=== PATIENT | male | born 1970 | race Caucasian/White ===

== ENCOUNTER 2022-11-25 01:36 | Inpatient (IN) | payer MEDICARE, MEDICAID, SELFPAY ==
[2022-11-25] VITALS (12 sets, daily range): BP systolic 97–168; BP diastolic 60–92; PULSE 81–133; RESP 16–52; TEMP 36.4–40.4; O2SAT 92–99; BMI 33.4; BMI 34.9
--- NOTE | ~2022-11-25 | CT_ITS ---
EXAMINATION: CT ABDOMEN AND PELVIS WITHOUT CONTRAST CLINICAL INFORMATION: Stool from scrotum. Evaluate for fistula. COMPARISON: 10/16/2021 TECHNIQUE: Multidetector volumetric imaging was performed from the superior aspect of the liver through the pubic symphysis. Sagittal and coronal reformatted images were obtained on the technologist's workstation. This CT examination was performed using dose optimization techniques as appropriate, variously including the following: *Automated exposure control *Adjustment of mA and/or kV according to patient size (this includes techniques or standardized protocols for targeted exams where dose is matched to indication/reason for exam; i.e. extremities or head) *Use of iterative reconstruction technique DLP: 1507 mGy-cm FINDINGS: LUNG BASES: Trace bilateral pleural effusions. LIVER, GALLBLADDER, AND BILIARY TREE: The noncontrast liver is decreased in attenuation. No biliary ductal dilatation is present. The gallbladder is unremarkable with no evidence of radiopaque gallstones, gallbladder wall thickening, or obvious pericholecystic inflammatory changes. PANCREAS: No ductal dilatation. SPLEEN: Not enlarged. ADRENAL GLANDS: Stable 1.3 cm right adrenal nodule. KIDNEYS AND URETERS: The kidneys are symmetric in size. Mild right hydronephrosis. No renal calculus. BLADDER: Decompressed with suprapubic Coley catheter in place. GASTROINTESTINAL TRACT: Small and large bowel loops are of normal caliber. No small bowel obstruction. The appendix measures up to 9 mm however the appendix contains gas and contrast. There are inflammatory changes in the right paracolic gutter extending into the right hemipelvis. ABDOMINAL WALL: Left inguinal hernia containing fat. LYMPH NODES: No bulky abdominal or pelvic lymphadenopathy. VASCULAR: Normal caliber abdominal aorta. PELVIC VISCERA: The right testis appears abnormal and configuration. There is right hydrocele. Right scrotal lipoma measures 2.2 x 1.7 cm. Prostate gland is not enlarged. OSSEOUS STRUCTURES: No destructive bone lesions. Asymmetric fatty atrophy of the left psoas muscle. CT/CT abdomen pelvis wo IV con IMPRESSION: Abnormal stranding in the right paracolic gutter extending into the right hemipelvis. Mild right hydronephrosis may be on a reactive basis. Prominent appendix measuring up to 9 mm without periappendiceal stranding. Abnormal configuration of the right testis with right hydrocele. No definite fistulous communication is seen. Consider correlation with scrotal ultrasound. Hepatic steatosis.
--- NOTE | ~2022-11-25 | CT_ITS ---
EXAMINATION: CT CHEST WITHOUT CONTRAST CLINICAL INFORMATION: Sepsis. COMPARISON: 07/02/2022 TECHNIQUE: Multidetector volumetric CT imaging of the chest was done. Axial MIP volume rendering provided. Sagittal and coronal reformatted images were obtained. This CT examination was performed using dose optimization techniques as appropriate, variously including the following: *Automated exposure control *Adjustment of mA and/or kV according to patient size (this includes techniques or standardized protocols for targeted exams where dose is matched to indication/reason for exam; i.e. extremities or head) *Use of iterative reconstruction technique DLP: 570 mGy-cm FINDINGS: LUNGS: Motion artifact technically degrades image quality. 7 mm nodule right upper lobe on image 188 of series 6. 3 mm nodule right lower lobe on image 250 of series 6. Bibasilar atelectasis. No airspace consolidation. Left hemidiaphragm is elevated. Central airways are patent. MEDIASTINUM: Imaged thyroid gland is heterogeneous. No bulky axillary, hilar or mediastinal lymphadenopathy. Great vessels are of normal caliber. Heart size is normal. No pericardial effusion. CORONARY ARTERY CALCIFICATION: None visualized on this study. PLEURA: No pleural effusion. UPPER ABDOMEN: Marked hepatic steatosis. Cholelithiasis. No adrenal mass. OSSEOUS STRUCTURES: No destructive bone lesion. CT/CT chest wo IV con IMPRESSION: No airspace consolidation. 7 mm right upper lobe pulmonary nodule. Follow-up chest CT in 3-6 months is advised. Hepatic steatosis. Cholelithiasis.
--- NOTE | ~2022-11-25 | US_ITS ---
EXAMINATION: US SCROTUM CLINICAL INFORMATION: Evaluate for fistula. History of stool from scrotum. COMPARISON: None available. TECHNIQUE: A sonogram of the scrotum was performed assessing david-scale appearance and color Doppler flow. Spectral Doppler analysis of the arterial and venous flow were performed in the testes bilaterally. FINDINGS: RIGHT: The right testicle is 2.9 x 2.2 x 2.9 cm. No microlithiasis or mass. Color Doppler images with spectral waveforms show presence of normal arterial and venous flow within the testicle. 0.4 cm cyst is present within the epididymal head. Obcgj-en-crzrldxx hydrocele. No varicocele. There is mild edema of scrotal tissues. No focal extratesticular fluid collection. There is no evidence of a fistula tract within the visualized tissues. LEFT: The left testicle measures 3.5 x 2.1 x 2.3 cm. A focus of microlithiasis is noted. No testicular mass. Color Doppler images with spectral waveforms show presence of normal arterial and venous flow within the testicle. 0.8 cm cyst noted within the epididymal tail. No left-sided hydrocele or varicocele. There is mild edema of the scrotal tissues without focal fluid collection. US/US scrotum IMPRESSION: * No evidence of scrotal abscess or fistula tract. * [id number] right hydrocele is present. * Bilateral epididymal head cysts are noted.
--- NOTE | ~2022-11-25 | XR_ITS ---
EXAMINATION: XR CHEST CLINICAL INFORMATION: Fever COMPARISON: None available. TECHNIQUE: Frontal view of the chest was obtained. FINDINGS: The lungs are hyper expanded with patchy opacity left lung base likely infiltrate/atelectasis/scarring. No additional parenchymal abnormality seen There is mild elevated left hemidiaphragm. Heart size and pulmonary vascularity is normal. No gross bony abnormality seen. XR/XR chest 1V IMPRESSION: 1. Patchy opacity left lung base likely infiltrate/atelectasis/scarring. 2. Mild elevated left hemidiaphragm.
[2022-11-25 02:32] LABS: Hemoglobin 13.8 g/dl (14.0-18.0); Mean Corpuscular HGB Conc 32.1 g/dl (31.0-36.0); Mean Corpuscular Hemoglobin 26.8 pg (27.0-33.0); Mean Corpuscular Volume 83.7 fL (80.0-98.0); Mean Platelet Volume 9.1 fL (9.4-12.4); Platelet Count 408 X10*3/uL (160-400); Red Blood Count 5.14 X10*6/uL (4.60-5.80); Red Cell Distribution Width 15.2 % (11.0-16.0); White Blood Count 16.5 X10*3/uL (4.8-10.8)
[2022-11-25 02:39] LABS: COVID-19 Test Negative (Negative); IDNOW Serial# BCCEAD1C
[2022-11-25 02:46] LABS: Lactic Acid 3.1 mmol/L (0.5-2.0)
[2022-11-25 02:47] LABS: Alanine Aminotransferase 29 U/L (0-40); Albumin Level 4.2 g/dL (3.5-5.0); Alkaline Phosphatase 143 U/L (39-117); Anion Gap 15 (12-20); Aspartate Amino Transferase 29 U/L (5-37); Bilirubin Total 0.4 mg/dL (0.0-1.0); Blood Urea Nitrogen 19 mg/dL (9-16); Calcium 10.8 mg/dL (8.4-10.2); Carbon Dioxide 30 mmol/L (22-29); Chloride 102 mmol/L (96-108); Creatinine Clr Calc Pharmacy 45.2; Estimated Glomerular Filt Rate 41; Glucose Fasting 139 mg/dL (60-99); Potassium 3.8 mmol/L (3.3-5.1); Sodium 143 mmol/L (135-145)
[2022-11-25 02:51] LABS: Neutrophils Percent Manual 76 % (45-73)
[2022-11-25 02:57] LABS: Band Neutrophils Percent 19 % (3-5); Lymphocytes Absolute Manual 0.3 X10*3/uL (1.2-4.9); Lymphocytes Percent Manual 2 % (20-40); Monocytes Absolute Manual 0.5 X10*3/uL (0.1-1.2); Monocytes Percent Manual 3 % (2-11); Neutrophils Absolute Manual 15.7 X10*3/uL (2.0-8.3); Platelet Estimate NORMAL (NORMAL); Platelet Morphology Comment NORMAL; RBC Morphology NORMAL
[2022-11-25] MEDS: 0.9 % Sodium Chloride 1,000 ML 999 ML IV (03:00)
[2022-11-25] MEDS: cefTRIAXone sodium 1 GM in 0.9 % Sodium Chloride 50 ML IV (03:00)
[2022-11-25 03:10] LABS: Appearance Urine Cloudy; Color Urine Yellow; Glucose Urine UA Negative (Negative); Leukocyte Esterase Urine Moderate (2+) (Negative); Nitrite Urine Positive (Negative); PH >= 9.0 (5.0-9.0); Specific Gravity - Urine 1.015 (1.005-1.025); UMIC TRIGGER UACC YES; Urine Blood Large (3+) (Negative); Urine Ketones Negative (Negative); Urine Protein 300 (3+) mg/dL (Neg-Trace)
[2022-11-25 03:16] LABS: Bacteria Urine 4+ (None Seen); RBC Urine >20 /HPF (0-2); Squamous Epithelial Cell Urine 0-2 /HPF (0-2); UACC Culture Trigger YES; WBC Urine >50 /HPF (0-5)
--- NOTE | 2022-11-25 03:16 | PC.NURSE ---
Pt BIBA from [facility], staff reports Pt febrile, gave tylenol [employer]. Pt AO to self, on 2 L at baseline via NC, SpO2: 95% RR:38, lung sounds diminished in bases, Pt denies SOB/CP, Rectal temp taken, pt has a suprapubic cath that is red at insertion site, bag has been changed, it is draining cloudy sediment urine, sample collected and sent to lab. IV line established blood drawn and sent to lab. Pt repositioned, skin is hot, dry and intact.
[2022-11-25 05:11] LABS: Reflex Lactate? Lactic Acid Added
--- NOTE | 2022-11-25 06:55 | ED.GENADULT ---
HPI - General Adult General Chief complaint: Fever Stated complaint: Fever and SOB Time Seen by Provider: 11/25/22 06:42 Source: patient, EMS and old records reviewed Mode of arrival: EMS Limitations: no limitations History of Present Illness HPI narrative: 52-year-old male resident [facility], patient is bedbound, came in for evaluation of fever, was given Tylenol at at the [facility] in the ED had a fever of 104.8 patient with suprapubic catheter. No headache, no neck pain or stiffness, no photophobia, no chest pain, no coughing, no shortness of breath, no abdominal pain, no nausea, no vomiting, no diarrhea. Related Data Home Medications Medication Instructions Recorded Confirmed acetaminophen 325 mg tablet 650 mg PO Q6H PRN Pain 11/25/22 11/25/22 apixaban 5 mg tablet (Eliquis) 5 mg PO BID 11/25/22 11/25/22 ascorbic acid (vitamin C) 500 mg 500 mg PO DAILY 11/25/22 11/25/22 tablet citalopram 40 mg tablet 40 mg PO DAILY 11/25/22 11/25/22 docusate sodium 100 mg capsule 100 mg PO BID 11/25/22 11/25/22 (Colace) ferrous gluconate 324 mg (37.5 mg 324 mg PO DAILY 11/25/22 11/25/22 iron) tablet ipratropium 0.5 mg-albuterol 3 mg 3 ml inhalation Q6H PRN Wheezing 11/25/22 11/25/22 (2.5 mg base)/3 mL nebulization soln lamotrigine 100 mg tablet 100 mg PO BID 11/25/22 11/25/22 (Lamictal) metformin 500 mg tablet 500 mg PO BID 11/25/22 11/25/22 miconazole nitrate 2 % topical 1 appl topical DAILY PRN Rash 11/25/22 11/25/22 powder omega 3-vgv-zaq-fish oil 1,000 mg 1 cap PO BID 11/25/22 11/25/22 (120 mg-180 mg) capsule (Fish Oil) polyethylene glycol 3350 17 gram 17 g PO DAILY 11/25/22 11/25/22 oral powder packet (Miralax) potassium chloride 10 mEq 10 meq PO QID 11/25/22 11/25/22 tablet,extended release quetiapine 100 mg tablet 100 mg PO BID 11/25/22 11/25/22 sennosides 8.6 mg tablet (senna) 8.6 mg PO DAILY PRN Constipation 11/25/22 11/25/22 simvastatin 10 mg tablet (Zocor) 10 mg PO BEDTIME 11/25/22 11/25/22 sodium phosphates 19 gram-7 118 ml [place] DAILY PRN Constipation 11/25/22 11/25/22 gram/118 mL enema (Fleet Enema) triamterene 37.5 1 tab PO DAILY 11/25/22 11/25/22 mg-hydrochlorothiazide 25 mg tablet umeclidinium 62.5 mcg-vilanterol 1 inh inhalation DAILY 11/25/22 11/25/22 25 mcg/actuation powdr for inhalation (Anoro Ellipta) vitamin B complex 1 tab PO DAILY 11/25/22 11/25/22 Allergies Allergy/AdvReac Type Severity Reaction Status Date / Time vincristine Allergy Unknown Verified 11/25/22 03:25 Review of Systems Review of Systems: All other systems are reviewed and are negative Constitutional: Reports as per HPI and Reports no additional constitutional complaints Eyes: Reports as per HPI and Reports no additional eye complaints Reports system reviewed and no additional complaints, except as documented Cardiovascular: Reports as per HPI and Reports no additional cardiovascular complaints Respiratory: Reports as per HPI and Reports no additional respiratory complaints Gastrointestinal: Reports as per HPI and Reports no additional gastrointestinal complaints Genitourinary: Reports no additional female genitourinary complaints Musculoskeletal: Reports no additional musculoskeletal complaints Skin/Breast: Reports system reviewed and no additional complaints, except as docu Psychiatric: Reports no additional psychiatric complaints Endocrine: Reports no additional endocrine complaints Hematologic/Lymphatic: Reports no additional hematologic/lymphatic complaints Allergic/Immunologic: Reports no additional allergic/immunologic complaints Reports system reviewed and no additional complaints, except as documented and Reports Abnormal speech present [facility] Social History Social History Alcohol intake: unknown Advance Directives: No Advance Directives Information Provided: Yes Physical Exam ED Vital Signs: Vital Signs - 24 hr 11/25/22 01:58 11/25/22 03:36 11/25/22 05:30 Temperature 104.8 F H 100.8 F H 101.3 F H Pulse Rate 133 H 116 H 109 H Respiratory Rate 52 H 30 H 36 H Blood Pressure 163/92 H 144/86 H 106/63 Pulse Oximetry 93 96 97 Oxygen Delivery Method Nasal Cannula Nasal Cannula Nasal Cannula Oxygen Flow Rate 2 3 11/25/22 05:35 11/25/22 07:32 Temperature 99.9 F Pulse Rate 107 H 98 Respiratory Rate 36 H 30 H Blood Pressure 105/69 107/60 Pulse Oximetry 96 96 Oxygen Delivery Method Nasal Cannula Room Air Oxygen Flow Rate 3 BMI result Body Mass Index 33.4 Vital signs have been reviewed as appeared to be correct. Blood pressure normal. Heart rate normal. Respiration rate normal. Temperature elevated. Oxygen saturation normal. Appearance: Alert. Oriented X3. No acute distress. Head: Normal external exam. Normocephalic. Atraumatic. No Benavides signs noted. No raccoon eyes noted Eyes: PERRLA. EOMI. Conjunctiva and sclera normal. Eyelids normal. ENT: TM's Normal. Pharynx normal. Uvula midline. Moist mucous membranes. No trismus noted. No drooling noted. No muffled voice noted. Neck: Normal inspection. Neck supple. FROM. No adenopathy. Thyroid Normal. No meningeal signs. No neck mass noted. CVS: Normal heart rate and rhythm. Heart sound normal. No murmurs noted. Pulses normal throughout. Respiratory: No respiratory distress. Painless inspiration. Breath sounds normal. No wheezes/rales/rhonchi noted. Chest nontender. No accessory muscle usage noted or decreased air movement noted. Abdomen: Soft and nontender. Bowel sounds normal in all 4 quadrants. No distention noted. No organomegaly noted. No visible injury noted. Back: No CVA tenderness. Full range of motion noted. Skin: Skin warm and dry. Normal skin color. Normal skin turgor. No rashes/lesions/lacerations noted. Extremities: No lower extremity edema. Extremities exhibit normal range of motion. Extremities nontender. Neuro: Oriented X 3. Cranial nerve exam: II-XII are grossly intact No motor deficit. No sensory deficit. Reflexes normal. Course Course Course Narrative: 52-year-old male with UTI, pneumonia, and severe sepsis. IV fluid, ceftriaxone IV. Medications Administered Generic Name Dose Route Start Last Admin Trade Name Freq PRN Reason Stop Dose Admin Lactated Ringer's 1,000 mls @ 100 mls/hr 11/25/22 10:30 11/25/22 12:01 Lr IVCONT 100 mls/hr .Q10H KARLENE Administration Lactated Ringer's 1,000 mls @ 999 mls/hr 11/25/22 11:00 11/25/22 12:01 Lr IV 11/25/22 12:00 Infused .Q1H1M KARLENE Infusion Discontinued Medications Generic Name Dose Route Start Last Admin Trade Name Freq PRN Reason Stop Dose Admin Sodium Chloride 1,000 mls @ 999 mls/hr 11/25/22 02:46 11/25/22 05:30 Ns IV 11/25/22 03:46 Infused .Q1H1M ONE Infusion Ceftriaxone Sodium 1 gm/ 50 mls @ 100 mls/hr 11/25/22 02:46 11/25/22 03:30 Sodium Chloride IV 11/25/22 03:15 Infused ONCE ONE Infusion Piperacillin Sod/Tazobactam 50 mls @ 100 mls/hr 11/25/22 07:09 11/25/22 09:04 Sod 3.375 gm/ Sodium Chloride IV 11/25/22 07:38 Infused ONCE ONE Infusion Piperacillin Sod/Tazobactam 50 mls @ 100 mls/hr 11/25/22 10:30 11/25/22 10:57 Sod 3.375 gm/ Sodium Chloride IV Not Given Q6H KARLENE Medical Decision Making Differential Diagnosis Differential Diagnoses: The differential diagnosis associated with the presentation includes (Pneumonia, UTI, severe sepsis, electrolyte abnormalities, severe anemia.) Admission/Observation Consideration of admission/observation: Escalation of care including admission/observation considered Consult Healthcare Provider Management of the patient was discussed with: Hospitalist (Dr. Humphries) Lab Data MDM Lab Attestation statement: I reviewed the patient's lab results. 11/25/22 02:23 11/25/22 02:23 Labs: Lab Results 11/25/22 11/25/22 11/25/22 Range/Units 02:19 02:23 03:04 WBC 16.5 H (4.8-10.8) X10*3/uL RBC 5.14 (4.60-5.80) X10*6/uL Hgb 13.8 L (14.0-18.0) g/dl Hct 43.0 (42.0-52.0) % MCV 83.7 (80.0-98.0) fL MCH 26.8 L (27.0-33.0) pg MCHC 32.1 (31.0-36.0) g/dl RDW 15.2 (11.0-16.0) % Plt Count 408 H (160-400) X10*3/uL MPV 9.1 L (9.4-12.4) fL Immature Gran % (Auto) Cancelled Neut % (Auto) Cancelled Lymph % (Auto) Cancelled [place] % (Auto) Cancelled Eos % (Auto) Cancelled Baso % (Auto) Cancelled Lymph # (Auto) Cancelled [place] # (Auto) Cancelled Eos # (Auto) Cancelled Baso # (Auto) Cancelled Abs Immat Gran (auto) Cancelled Absolute Neuts (auto) Cancelled Absolute Nucleated RBC 0.000 (0.0-0.012) X10*3/uL Nucleated RBC % (auto) 0.0 (0.0-0.2) /100WBC Neutrophils % (Manual) 76 H (45-73) % Band Neutrophils % 19 H (3-5) % Lymphocytes % (Manual) 2 L (20-40) % Monocytes % (Manual) 3 (2-11) % Abs Neuts (Manual) 15.7 H (2.0-8.3) X10*3/uL Lymphocytes # (Manual) 0.3 L (1.2-4.9) X10*3/uL Monocytes # (Manual) 0.5 (0.1-1.2) X10*3/uL Platelet Estimate NORMAL (NORMAL) Plt Morphology Comment NORMAL RBC Morphology NORMAL Sodium 143 (135-145) mmol/L Potassium 3.8 (3.3-5.1) mmol/L Chloride 102 (96-108) mmol/L Carbon Dioxide 30 H (22-29) mmol/L Anion Gap 15 (12-20) BUN 19 H (9-16) mg/dL Creatinine 1.74 H (0.5-1.4) mg/dL Estim Creat Clear Calc 45.2 Estimated GFR 41 Fasting Glucose 139 H (60-99) mg/dL Lactic Acid 3.1 H* (0.5-2.0) mmol/L Lactic Acid F/U @ 2Hr (0.5-2.0) mmol/L Calcium 10.8 H (8.4-10.2) mg/dL Magnesium 2.0 (1.6-2.6) mg/dL Total Bilirubin 0.4 (0.0-1.0) mg/dL AST 29 (5-37) U/L ALT 29 (0-40) U/L Alkaline Phosphatase 143 H (39-117) U/L Total Protein 8.0 (6.5-8.0) g/dL Albumin 4.2 (3.5-5.0) g/dL Urine Color Yellow Urine Appearance Cloudy Urine pH >= 9.0 (5.0-9.0) Ur Specific [place] 1.015 (1.005-1.025) Urine Protein 300 (3+) H (Neg-Trace) mg/dL Urine Glucose (UA) Negative (Negative) mg/dL Urine Ketones Negative (Negative) mg/dL Urine Blood Large (3+) H (Negative) Urine Nitrite Positive H (Negative) Ur Leukocyte Esterase Moderate (2+) H (Negative) Urine RBC >20 H (0-2) /HPF Urine WBC >50 H (0-5) /HPF Ur Squamous Epith Cells 0-2 (0-2) /HPF Urine Bacteria 4+ (None Seen) Hyaline Casts 3-5 (0-2) /LPF COVID-19 (MELISSA) Negative (Negative) COVID-19 Clin Com See Note 11/25/22 11/25/22 Range/Units 05:34 09:44 WBC (4.8-10.8) X10*3/uL RBC (4.60-5.80) X10*6/uL Hgb (14.0-18.0) g/dl Hct (42.0-52.0) % MCV (80.0-98.0) fL MCH (27.0-33.0) pg MCHC (31.0-36.0) g/dl RDW (11.0-16.0) % Plt Count (160-400) X10*3/uL MPV (9.4-12.4) fL Immature Gran % (Auto) Neut % (Auto) Lymph % (Auto) [place] % (Auto) Eos % (Auto) Baso % (Auto) Lymph # (Auto) [place] # (Auto) Eos # (Auto) Baso # (Auto) Abs Immat Gran (auto) Absolute Neuts (auto) Absolute Nucleated RBC (0.0-0.012) X10*3/uL Nucleated RBC % (auto) (0.0-0.2) /100WBC Neutrophils % (Manual) (45-73) % Band Neutrophils % (3-5) % Lymphocytes % (Manual) (20-40) % Monocytes % (Manual) (2-11) % Abs Neuts (Manual) (2.0-8.3) X10*3/uL Lymphocytes # (Manual) (1.2-4.9) X10*3/uL Monocytes # (Manual) (0.1-1.2) X10*3/uL Platelet Estimate (NORMAL) Plt Morphology Comment RBC Morphology Sodium (135-145) mmol/L Potassium (3.3-5.1) mmol/L Chloride (96-108) mmol/L Carbon Dioxide (22-29) mmol/L Anion Gap (12-20) BUN (9-16) mg/dL Creatinine (0.5-1.4) mg/dL Estim Creat Clear Calc Estimated GFR Fasting Glucose (60-99) mg/dL Lactic Acid 2.9 H* (0.5-2.0) mmol/L Lactic Acid F/U @ 2Hr 2.2 H* (0.5-2.0) mmol/L Calcium (8.4-10.2) mg/dL Magnesium (1.6-2.6) mg/dL Total Bilirubin (0.0-1.0) mg/dL AST (5-37) U/L ALT (0-40) U/L Alkaline Phosphatase (39-117) U/L Total Protein (6.5-8.0) g/dL Albumin (3.5-5.0) g/dL Urine Color Urine Appearance Urine pH (5.0-9.0) Ur Specific [place] (1.005-1.025) Urine Protein (Neg-Trace) mg/dL Urine Glucose (UA) (Negative) mg/dL Urine Ketones (Negative) mg/dL Urine Blood (Negative) Urine Nitrite (Negative) Ur Leukocyte Esterase (Negative) Urine RBC (0-2) /HPF Urine WBC (0-5) /HPF Ur Squamous Epith Cells (0-2) /HPF Urine Bacteria (None Seen) Hyaline Casts (0-2) /LPF COVID-19 (MELISSA) (Negative) COVID-19 Clin Com Independent Interpretation I performed an independent interpretation of an: Plain X-Ray (Chest:1. Patchy opacity left lung base likely infiltrate/atelectasis/scarring. 2. Mild elevated left hemidiaphragm. ) Radiology Impression Discussion of test interpretation with radiology: I have reviewed the radiologist's reading. (1. Patchy opacity left lung base likely infiltrate/atelectasis/scarring. 2. Mild elevated left hemidiaphragm. ) Discharge Plan Discharge Clinical Impression: Sepsis, Acute UTI, Pneumonia Patient Disposition: Admitted As Inpatient
[2022-11-25] MEDS: Piperacillin Sodium/Tazobactam 3.375 GM in 0.9 % Sodium Chloride 50 ML IV (07:32)
[2022-11-25 07:40] LABS: Reflex Lactate? Lactic Acid Added
--- NOTE | 2022-11-25 07:46 | ECG_ITS ---
Test Reason : SOB Blood Pressure : / mmHG Vent. Rate : 106 BPM Atrial Rate : 106 BPM P-R Int : 128 ms QRS Dur : 082 ms QT Int : 480 ms P-R-T Axes : 000 080 067 degrees QTc Int : 637 ms Sinus tachycardia Prolonged QT Abnormal ECG No previous ECGs available Referred By: Lori Delgado Electronically Signed By:SALOME SHAW
[2022-11-25 08:22] LABS: Lactic Acid 2.9 mmol/L (0.5-2.0)
--- NOTE | 2022-11-25 09:40 | PHA.MEDREC ---
Pharmacy Consult ? Medication Reconciliation Pharmacy has completed the medication reconciliation.
[2022-11-25 10:01] LABS: ~Lactic Acid-LAB USE ONLY 2.2 mmol/L (0.5-2.0)
--- NOTE | 2022-11-25 10:30 | P.HPHOSP_ITS ---
History of Present Illness Date of Service: 11/25/22 Chief Complaint: brought in from SNF This is a 52 yo M with a PMH of DM type 2, Depression, chronic suprapubic cathether, history of PE, HTN, PAD, COPD, Mild neurocognitive disorder and others who presetned to [facility] from [facility] for shortness of breath, fever and changes in mental status. The patient's is currently encephalopathic (and hence, history is obtained from the ED providers's note). He is oriented to self only. He denies any chest pain, sob or abdominal pain. He states he is hungry. Per ED note: 52-year-old male resident at [facility], patient is bedbound, came in for evaluation of fever, was given Tylenol at at the halfway in the ED had a fever of 104.8 patient with suprapubic catheter. No headache, no neck pain or stiffness, no photophobia, no chest pain, no coughing, no shortness of breath, no abdominal pain, no nausea, no vomiting, no diarrhea. Work up in the ED revealed: elevated WBC (16), LA (3.1, improving to 2.2), LUCIEN (SCr 1.74), CXR showing patchy opacity at L lung and UA suggestive to UTI. The patient was given IVF, IV antibiotics, IVF and admission was requested Review of Systems 2 Review of Systems: [facility] Social History Alcohol intake: unknown Advance Directives: No Advance Directives Information Provided: Yes Meds Allergies Allergy/AdvReac Type Severity Reaction Status Date / Time vincristine Allergy Unknown Verified 11/25/22 03:25 Active Medications: Current Medications Acetaminophen (Acetaminophen 325 Mg Tablet) 650 mg PO Q6H PRN PRN Reason: Pain, Mild (Pain Scale 1-3) Lactated Ringer's (Lr) 1,000 mls @ 100 mls/hr IVCONT .Q10H KARLENE Piperacillin Sod/Tazobactam (Sod 3.375 gm/ Sodium Chloride) 50 mls @ 100 mls/hr IV Q6H KARLENE Sodium Chloride (0.9 % Sodium Chloride Flush 3 Ml Syringe) 3 ml IVFLUSH QSHIFT KARLENE Home Medications Medication Instructions Recorded Confirmed Last Taken Type acetaminophen 325 mg tablet 650 mg PO Q6H PRN Pain 11/25/22 11/25/22 Unknown History apixaban 5 mg tablet (Eliquis) 5 mg PO BID 11/25/22 11/25/22 Unknown History ascorbic acid (vitamin C) 500 mg 500 mg PO DAILY 11/25/22 11/25/22 Unknown History tablet citalopram 40 mg tablet 40 mg PO DAILY 11/25/22 11/25/22 Unknown History docusate sodium 100 mg capsule 100 mg PO BID 11/25/22 11/25/22 Unknown History (Colace) ferrous gluconate 324 mg (37.5 mg 324 mg PO DAILY 11/25/22 11/25/22 Unknown History iron) tablet ipratropium 0.5 mg-albuterol 3 mg 3 ml inhalation Q6H PRN Wheezing 11/25/22 11/25/22 Unknown History (2.5 mg base)/3 mL nebulization soln lamotrigine 100 mg tablet 100 mg PO BID 11/25/22 11/25/22 Unknown History (Lamictal) metformin 500 mg tablet 500 mg PO BID 11/25/22 11/25/22 Unknown History miconazole nitrate 2 % topical 1 appl topical DAILY PRN Rash 11/25/22 11/25/22 Unknown History powder omega 2-smu-gzg-fish oil 1,000 mg 1 cap PO BID 11/25/22 11/25/22 Unknown History (120 mg-180 mg) capsule (Fish Oil) polyethylene glycol 3350 17 gram 17 g PO DAILY 11/25/22 11/25/22 Unknown History oral powder packet (Miralax) potassium chloride 10 mEq 10 meq PO QID 11/25/22 11/25/22 Unknown History tablet,extended release quetiapine 100 mg tablet 100 mg PO BID 11/25/22 11/25/22 Unknown History sennosides 8.6 mg tablet (senna) 8.6 mg PO DAILY PRN Constipation 11/25/22 11/25/22 Unknown History simvastatin 10 mg tablet (Zocor) 10 mg PO BEDTIME 11/25/22 11/25/22 Unknown History sodium phosphates 19 gram-7 118 ml [place] DAILY PRN Constipation 11/25/22 11/25/22 Unknown History gram/118 mL enema (Fleet Enema) triamterene 37.5 1 tab PO DAILY 11/25/22 11/25/22 Unknown History mg-hydrochlorothiazide 25 mg tablet umeclidinium 62.5 mcg-vilanterol 1 inh inhalation DAILY 11/25/22 11/25/22 Unknown History 25 mcg/actuation powdr for inhalation (Anoro Ellipta) vitamin B complex 1 tab PO DAILY 11/25/22 11/25/22 Unknown History Physical Exam 2 Vital Signs and Narrative: Vital Signs: Last Vital Signs Temp 99.9 F 11/25/22 07:32 Pulse 82 11/25/22 10:23 Resp 28 H 11/25/22 10:23 BP 98/62 11/25/22 10:23 Pulse Ox 99 11/25/22 10:23 O2 Del Method Nasal Cannula 11/25/22 10:23 O2 Flow Rate 3 11/25/22 10:23 Oxygen Flow Rate 3 11/25/22 01:58 BMI result Body Mass Index 33.4 Const: Other: Constitutional - Somnolent but easily arousable and able to coverse; disoriented to place / time / situation Eyes - PERRLA, EOMI Cardiovascular - S1S2, RRR, No edema Respiratory - mild tachypnea around 20-22; coarse sounds at bases, able to speak in full sentences Gastrointestinal - NT / ND; +BS; No rebound or guarding - No CVA tenderness; suprapubic catheter in place, concentrated urine Extremities - no calf tenderness bilaterally, no swelling Musculoskeletal - Normal inspection, normal ROM Skin - Warm/Dry Neurological - Moving all 4 limbs, no obvious facial asymmetry; oriented to self only Psychological - Appropriate affect Results Labs 11/25/22 02:23 11/25/22 02:23 Labs: Laboratory Results - last 24 hr 11/25/22 11/25/22 11/25/22 02:19 02:23 03:04 MCV 83.7 MCH 26.8 L MCHC 32.1 RDW 15.2 Plt Count 408 H MPV 9.1 L Immature Gran % (Auto) Cancelled Neut % (Auto) Cancelled Lymph % (Auto) Cancelled [place] % (Auto) Cancelled Eos % (Auto) Cancelled Baso % (Auto) Cancelled Lymph # (Auto) Cancelled [place] # (Auto) Cancelled Eos # (Auto) Cancelled Baso # (Auto) Cancelled Abs Immat Gran (auto) Cancelled Absolute Neuts (auto) Cancelled Absolute Nucleated RBC 0.000 Nucleated RBC % (auto) 0.0 Neutrophils % (Manual) 76 H Band Neutrophils % 19 H Lymphocytes % (Manual) 2 L Monocytes % (Manual) 3 Abs Neuts (Manual) 15.7 H Lymphocytes # (Manual) 0.3 L Monocytes # (Manual) 0.5 Platelet Estimate NORMAL Plt Morphology Comment NORMAL RBC Morphology NORMAL Anion Gap 15 Estim Creat Clear Calc 45.2 Estimated GFR 41 Fasting Glucose 139 H Lactic Acid 3.1 H* Lactic Acid F/U @ 2Hr Calcium 10.8 H Magnesium 2.0 Total Bilirubin 0.4 AST 29 ALT 29 Alkaline Phosphatase 143 H Total Protein 8.0 Albumin 4.2 Urine Color Yellow Urine Appearance Cloudy Urine pH >= 9.0 Ur Specific [place] 1.015 Urine Protein 300 (3+) H Urine Glucose (UA) Negative Urine Ketones Negative Urine Blood Large (3+) H Urine Nitrite Positive H Ur Leukocyte Esterase Moderate (2+) H Urine RBC >20 H Urine WBC >50 H Ur Squamous Epith Cells 0-2 Urine Bacteria 4+ Hyaline Casts 3-5 COVID-19 (MELISSA) Negative COVID-19 Clin Com See Note 11/25/22 11/25/22 05:34 09:44 MCV MCH MCHC RDW Plt Count MPV Immature Gran % (Auto) Neut % (Auto) Lymph % (Auto) [place] % (Auto) Eos % (Auto) Baso % (Auto) Lymph # (Auto) [place] # (Auto) Eos # (Auto) Baso # (Auto) Abs Immat Gran (auto) Absolute Neuts (auto) Absolute Nucleated RBC Nucleated RBC % (auto) Neutrophils % (Manual) Band Neutrophils % Lymphocytes % (Manual) Monocytes % (Manual) Abs Neuts (Manual) Lymphocytes # (Manual) Monocytes # (Manual) Platelet Estimate Plt Morphology Comment RBC Morphology Anion Gap Estim Creat Clear Calc Estimated GFR Fasting Glucose Lactic Acid 2.9 H* Lactic Acid F/U @ 2Hr 2.2 H* Calcium Magnesium Total Bilirubin AST ALT Alkaline Phosphatase Total Protein Albumin Urine Color Urine Appearance Urine pH Ur Specific [place] Urine Protein Urine Glucose (UA) Urine Ketones Urine Blood Urine Nitrite Ur Leukocyte Esterase Urine RBC Urine WBC Ur Squamous Epith Cells Urine Bacteria Hyaline Casts COVID-19 (MELISSA) COVID-19 Clin Com Imaging Radiologist's Impressions: Impressions Chest X-Ray 11/25/22 05:10 IMPRESSION: 1. Patchy opacity left lung base likely infiltrate/atelectasis/scarring. 2. Mild elevated left hemidiaphragm. Assessment and Plan (1) Sepsis: Status: Acute (2) Acute UTI: Status: Acute Plan 52 yo M who is a resident at [facility] with a PMH of DM2, depression, chronic suprapubic cath, history of PE, HTN, PAD, COPD and others who is sent in from SNF due to SOB and fever. 1. Severe sepsis vs Pulmonary source -- favor CXR with patchy opacity at L base; will check CT chest has been given IV rocephin and zoysn in the ED will continue zosyn received 1L of IVF, will give another 1L now and continue LR @ 100 cc/hr follow cultures trend lactate 2. Complicated UTI - secondary to chronic suprapubic catheter Zosyn follow up cultures 3. Question pneumonia pt unable to endorse any symptoms CT chest ordered; if positive, will add coverage in addition to zosyn 4. Toxic/metabolic encephalopathy due to #1 should improve towards baseline as infection is treated 5. LUCIEN Likely pre-renal but could be ATN from sepsis trend SCr monitor i/o 6. History of PE continue anticoagulation 7. Mood holding baseline meds for now given mental status; restart once improved Full code per documenation from SNF DVT pptx -- Valente Patient is admitted to inpatient level of care due to:severe sepsis, lucien, complicated UTI and encephalopathy being treated with broad spec IV antibiotics with the anticipation that his admission is likely to span at least 2 midnights. Time Spent With Patient Time: Total time managing care of this patient today ____ minutes. Quality Stroke Does the patient have a stroke diagnosis?: No VTE Prior VTE?: No VTE Risk Level:: Medical - moderate - high VTE Device Contraindication: Treatment Not Indicated VTE Drug Contraindication: N/A - Med Ordered
[2022-11-25] MEDS: Lactated Ringers 1,000 ML 999 ML IV (10:55)
[2022-11-25 11:48] LABS: Reflex Lactate? 2 Y
[2022-11-25] MEDS: Lactated Ringers 1,000 ML 100 ML IVCONT ×2 (12:01→22:49)
--- NOTE | 2022-11-25 12:03 | PC.NURSE ---
100ml output urine in cath bag
[2022-11-25 12:42] LABS: ~Lactic Acid-LAB USE ONLY 2.5 mmol/L (0.5-2.0)
--- NOTE | 2022-11-25 13:06 | MHC.CM.PN ---
Addendum entered by Eunice Eubanks 11/25/22 14:13: CM RECEIVED A COPY OF PTS GUARDIANSHIP FROM [facility] P[TS GUARDIAN IS HIS [id number], JOSS VALDEZ [phone] CM CALLED JOSS WHO REPORTED CONCERNS THAT SHE SPOKE TO PTS SNF YESTERDAY AND THEY SAID THE PT WAS FINE SHE SAYS THEY THEN TOLD HER THE PT CAME HER AT 0600 TODAY BUT THE EMS HAND OFF IS LOGGED FOR 0200 HOURS SHE REPORTS THE PT HAS HAD ONGOING DIFFICULTIES WITH HIS CATHETER AND REQUIRES A SPECIFIC TYPE OF CATH WELL FREQUENT FLUSHING SHE ASKS THAT SHE BE UPDATED ON ANY NEW RECOMMENDATIONS MADE BY HOSPITALISTS OR SPECIALISTS PTS IMM WAS DELIVERED JOSS ASKS THAT HER COPY BE EMAILED TO HER AT [email or web address] COPY SENT Original Note: 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
--- NOTE | 2022-11-25 13:49 | MHC.SL.SWA ---
Speech Pathologist Impression: Risk of Aspiration Due to: Lethargy History of Pneumonia Weak Cough Dysphasia Diet Status: Mild to moderate oral pharyngeal dysphagia Liquid Consistency and Strategies for Safe Swallow: Liquid Intake Recommendation: [place] Thick Liquid Intake Strategies: Solid Food Consistency: Dietary Recommendations: Grnd/Mech Altered (NDD2) Additional Modifications to Solid Foods: Avoid mixed consistencies, no straws. Patient requires full assist at this time with meal. Liquids by controlled cup sip. Alternate liquids and solids. Assure that patient has swallowed before presenting more food or liquid. Oral Medication Intake: Crushed with Puree Please contact the pharmacy regarding appropriate crushable or liquid drug formulations that are available whenever modified delivery is recommended. Compensatory Strategies and Precautions to be Taken for Safe Swallow: Sitting Upright (90 deg) Liquids from Cup Small Bites and Sips Alternate Liquids/Solids Rate of Ingestion Change Supervision While Eating and Drinking for Safe Swallow: Total Assistance (1:1) Foods to Avoid: Mixed consistencies, difficulty to chew solids. Swallowing Recommended Treatments: Compens. Strategy Educat. Recommendation for Speech: Inpatient Speech Therapy Comment: Patient presents with a mild to moderate oral pharyngeal dysphagia, characterized by a mildly disorganized oral phase (e.g. anterior chewing), consistent mild delay initiating swallow, throat clearing/coughing on thin liquids. Patient's baseline diet at [facility] per nursing there is Regular/Thin. As a precaution, recommend patient START diet of Ground Mechanical/Altered, with [place]CT[place] THICK liquids, pills crushed in puree. Patient at this time appears to need 1-1 feed. Diet, level of independence likely to advance as patient improves, will be monitored by RAMP LEAD. BONNIE MAI notified of recommendations by secure text, discussed with nursing in person. RAMP LEAD will continue to follow, re-assess, advance diet as warranted. Frequency/Duration: Date Range for Service Req: Timeline to reassess: [place]arer Operator Clinican/Clinical Fellow: No Supervisory Statement: I have reviewed and agree with the student/clinical fellow's documentation: N/A Speech Language Pathologist: Caitlyn Razo M.A., [facility]
[2022-11-25] MEDS: Piperacillin Sodium/Tazobactam 4.5 GM in 0.9 % Sodium Chloride 100 ML IV ×2 (14:12→22:43)
--- NOTE | 2022-11-25 15:10 | PC.NURSE ---
pt having difficulty clearing throat, assisted with suction. remains with a wet cough, more somnolent, remains afebrile
[2022-11-25 16:46] LABS: Glucose, Whole Blood 117 mg/dL (60-115)
--- NOTE | 2022-11-25 16:55 | PC.NURSE ---
report given for admission
--- NOTE | 2022-11-25 17:00 | PC.NURSE ---
arousable , urine output total 300ml. cath bag emptied
[2022-11-25 20:31] LABS: Glucose, Whole Blood 91 mg/dL (60-115)
[2022-11-25] MEDS: Apixaban 5 MG TABLET PO (22:42)
[2022-11-25] MEDS: Docusate Sodium 100 MG CAPSULE PO (22:42)
[2022-11-25] MEDS: Atorvastatin Calcium 10 MG TABLET PO (22:42)
[2022-11-25] MEDS: lamoTRIgine 100 MG TABLET PO (22:42)
[2022-11-26] VITALS (7 sets, daily range): BP systolic 122–146; BP diastolic 64–80; PULSE 79–99; RESP 17–26; TEMP 36.1–39.1; O2SAT 92–96
[2022-11-26] MEDS: 0.9 % Sodium Chloride Flush 3 ML SYRINGE IVFLUSH ×4 (00:51→22:02)
[2022-11-26] MEDS: Acetaminophen 325 MG TABLET 650 MG PO (00:54)
[2022-11-26] MEDS: Piperacillin Sodium/Tazobactam 4.5 GM in 0.9 % Sodium Chloride 100 ML IV ×4 (04:57→21:59)
[2022-11-26 07:03] LABS: Alanine Aminotransferase 22 U/L (0-40); Albumin Level 3.6 g/dL (3.5-5.0); Alkaline Phosphatase 114 U/L (39-117); Anion Gap 15 (12-20); Aspartate Amino Transferase 25 U/L (5-37); Bilirubin Total 0.5 mg/dL (0.0-1.0); Blood Urea Nitrogen 19 mg/dL (9-16); Calcium 9.3 mg/dL (8.4-10.2); Carbon Dioxide 26 mmol/L (22-29); Chloride 102 mmol/L (96-108); Creatinine Clr Calc Pharmacy 46.5; Estimated Glomerular Filt Rate 41; Glucose Random 111 mg/dL (60-115); Potassium 3.6 mmol/L (3.3-5.1); Sodium 139 mmol/L (135-145)
[2022-11-26] MEDS: Ascorbic Acid 500 MG TABLET PO (07:59)
[2022-11-26] MEDS: Apixaban 5 MG TABLET PO ×2 (08:00→21:56)
[2022-11-26] MEDS: lamoTRIgine 100 MG TABLET PO ×2 (08:00→21:55)
[2022-11-26] MEDS: Ferrous Sulfate 324 MG TABLET.DR PO (08:00)
[2022-11-26] MEDS: Multivitamin TABLET 1 TAB PO (08:00)
[2022-11-26] MEDS: polyethylene glycoL 3350 17 GM POWD.PACK PO (08:01)
[2022-11-26 08:13] LABS: Glucose, Whole Blood 117 mg/dL (60-115)
[2022-11-26 08:24] LABS: Hematocrit 42.3 % (42.0-52.0); Hemoglobin 13.3 g/dl (14.0-18.0); Mean Corpuscular HGB Conc 31.4 g/dl (31.0-36.0); Mean Corpuscular Hemoglobin 27.1 pg (27.0-33.0); Mean Corpuscular Volume 86.2 fL (80.0-98.0); Mean Platelet Volume 10.1 fL (9.4-12.4); Platelet Count 357 X10*3/uL (160-400); Red Blood Count 4.91 X10*6/uL (4.60-5.80); Red Cell Distribution Width 15.8 % (11.0-16.0); White Blood Count 14.8 X10*3/uL (4.8-10.8)
[2022-11-26] MEDS: Docusate Sodium 100 MG CAPSULE PO ×2 (09:28→21:55)
[2022-11-26] MEDS: Lactated Ringers 1,000 ML 100 ML IVCONT (09:28)
--- NOTE | 2022-11-26 10:34 | MHC.CM.PN ---
PER MD ROUNDS, PT NOT YET MEDICALLY CLEARED DCP REMAINS RETURN TO [facility] [facility]
[2022-11-26 12:11] LABS: Glucose, Whole Blood 138 mg/dL (60-115)
--- NOTE | 2022-11-26 14:56 | MHC.SL.SWA ---
Speech Pathologist Impression: Risk of aspiration, oropharyngeal dysphagia Risk of Aspiration Due to: Lethargy History of Pneumonia Weak Cough Dysphasia Diet Status: Mild to moderate oral pharyngeal dysphagia. No changes to diet modification at this time. Liquid Consistency and Strategies for Safe Swallow: Liquid Intake Recommendation: [place] Thick Liquid Intake Strategies: Small Sips No Straws Solid Food Consistency: Dietary Recommendations: Grnd/Mech Altered (NDD2) Additional Modifications to Solid Foods: Avoid mixed consistencies, no straws. Patient requires full assist at this time with meal. Liquids by controlled cup sip. Alternate liquids and solids. Assure that patient has swallowed before presenting more food or liquid. Oral Medication Intake: Crushed with Puree Please contact the pharmacy regarding appropriate crushable or liquid drug formulations that are available whenever modified delivery is recommended. Compensatory Strategies and Precautions to be Taken for Safe Swallow: Sitting Upright (90 deg) No Straw Liquids from Cup Liquids from [place] Small Bites and Sips Rate of Ingestion Change Avoid Specific Foods Supervision While Eating and Drinking for Safe Swallow: Total Assistance (1:1) Foods to Avoid: Mixed consistencies, difficulty to chew solids. Swallowing Recommended Treatments: Compens. Strategy Educat. Recommendation for Speech: Inpatient Speech Therapy Flare Worker Clinican/Clinical Fellow: No Supervisory Statement: I have reviewed and agree with the student/clinical fellow's documentation: N/A Speech Language Pathologist: Izzy Gonzalez M.A., CCC-PAPER STACKER
[2022-11-26 16:02] LABS: Glucose, Whole Blood 153 mg/dL (60-115)
[2022-11-26] MEDS: Diatrizoate Meglumine, Sodium 30 ML SOLUTION PO (16:57)
[2022-11-26] MEDS: Insulin Lispro 100 UNIT/ML 3 ML VIAL SUBCUT (17:19)
--- NOTE | 2022-11-26 18:02 | P.PNIM_ITS ---
Subjective Subjective Date of Service: 11/26/22 Interval History: seen and examined this morning follow up for UTI blood cultures positive does not seem to be an accurate historian nurse noticed stool covering pt scrotum appeared to be oozing out of scrotum, but upon inspection no opening in scrotum was found denies abdominal pain, nausea or vomiting Review of Systems Review of Systems: Yes all other systems are reviewed and are negative Constitutional Constitutional: Denies chills and Denies fever(s) Cardiovascular Cardiovascular: Denies chest pain Gastrointestinal Gastrointestinal: Denies abdominal pain Physical Exam 2 Vital Signs: Vital Signs: Last Vital Signs Temp 99.5 F 11/26/22 15:32 Pulse 81 11/26/22 15:32 Resp 19 11/26/22 15:32 BP 146/79 H 11/26/22 15:32 Pulse Ox 96 11/26/22 15:32 O2 Del Method Nasal Cannula 11/26/22 15:32 O2 Flow Rate 2 11/26/22 11:50 Oxygen Flow Rate 3 11/25/22 01:58 BMI result Body Mass Index 34.9 Const: General: cooperative, comfortable, alert and awake Nutritional Appearance: obese Resp: Other: slight increase in respiratory rate - denies dysnpea Effort & Inspection: able to speak in complete sentences, no respiratory distress and no use of accessory muscles Auscultation: clear to auscultation bilaterally Cardio: Rate: regular rate GI: Inspection: No distended Palpation (GI): Soft to palpation and nontender : Other: suprapubic catheter placed Extrem: General: Yes no pedal edema Objective Data Active Medications Acetaminophen (Acetaminophen 325 Mg Tablet) 650 mg PO Q6H PRN PRN Reason: Pain, Mild (Pain Scale 1-3) Last Admin: 11/26/22 00:54 Dose: 650 mg Documented By: JEN Apixaban (Apixaban 5 Mg Tablet) 5 mg PO BID [facility] Last Admin: 11/26/22 08:00 Dose: 5 mg Documented By: NICOLE Ascorbic Acid (Ascorbic Acid 500 Mg Tablet) 500 mg PO DAILY [facility] Last Admin: 11/26/22 07:59 Dose: 500 mg Documented By: NICOLE Atorvastatin Calcium (Atorvastatin Calcium 10 Mg Tablet) 10 mg PO BEDTIME [facility] Last Admin: 11/25/22 22:42 Dose: 10 mg Documented By: JOANNA Docusate Sodium (Docusate Sodium 100 Mg Capsule) 100 mg PO BID [facility] Last Admin: 11/26/22 09:28 Dose: 100 mg Documented By: NICOLE Ferrous Sulfate (Ferrous Sulfate 324 Mg Tablet.Dr) 324 mg PO DAILY [facility] Last Admin: 11/26/22 08:00 Dose: 324 mg Documented By: NICOLE Piperacillin Sod/Tazobactam (Sod 4.5 gm/ Sodium Chloride) 100 mls @ 200 mls/hr IV Q6H [facility] Last Admin: 11/26/22 17:19 Dose: 200 mls/hr Documented By: NICOLE Insulin Human Lispro (Insulin Lispro 100 Unit/Ml 3 Ml Vial) 0 unit SUBCUT QIDACHS [facility]; Protocol Last Admin: 11/26/22 17:19 Dose: 2 unit Documented By: NICOLE Lamotrigine (Lamotrigine 100 Mg Tablet) 100 mg PO BID [facility] Last Admin: 11/26/22 08:00 Dose: 100 mg Documented By: NICOLE Multivitamins/Vitamin C (Multivitamin Tablet) 1 tab PO DAILY [facility] Last Admin: 11/26/22 08:00 Dose: 1 tab Documented By: NICOLE Polyethylene Glycol (Polyethylene Glycol 3350 17 Gm Powd.Pack) 17 gm PO DAILY [facility] Last Admin: 11/26/22 08:01 Dose: 17 gm Documented By: NICOLE Senna (Sennosides 8.6 Mg Tablet) 8.6 mg PO DAILY PRN PRN Reason: Constipation Sodium Biphosphate/Sodium Phosphate (Sodium Phosphate,[place]-Dibasic 133 Ml Enema) 118 ml [place] DAILY PRN PRN Reason: Constipation Sodium Chloride (0.9 % Sodium Chloride Flush 3 Ml Syringe) 3 ml IVFLUSH QSHIFT [facility] Last Admin: 11/26/22 16:25 Dose: 3 ml Documented By: NICOLE Labs 11/26/22 06:24 11/26/22 06:24 Labs: Laboratory Results - last 24 hr 11/25/22 11/26/22 11/26/22 20:28 06:24 07:40 MCV 86.2 MCH 27.1 MCHC 31.4 RDW 15.8 Plt Count 357 MPV 10.1 Absolute Nucleated RBC 0.000 Nucleated RBC % (auto) 0.0 Anion Gap 15 Estim Creat Clear Calc 46.5 Estimated GFR 41 POC Glucose 91 117 H Random Glucose 111 Calcium 9.3 D Total Bilirubin 0.5 AST 25 ALT 22 Alkaline Phosphatase 114 Total Protein 7.0 Albumin 3.6 11/26/22 11/26/22 11:52 15:58 MCV MCH MCHC RDW Plt Count MPV Absolute Nucleated RBC Nucleated RBC % (auto) Anion Gap Estim Creat Clear Calc Estimated GFR POC Glucose 138 H 153 H Random Glucose Calcium Total Bilirubin AST ALT Alkaline Phosphatase Total Protein Albumin Microbiology Microbiology Results: Microbiology 11/25/22 Unknown Urine Culture - Preliminary Urine Other - Suprapubic 11/25/22 02:23 Blood Culture - Preliminary Blood - Venous Gram negative trini 11/25/22 02:23 Blood Culture - Preliminary Blood - Venous Gram negative trini Assessment and Plan (1) Bacteremia: Status: Acute (2) Acute UTI: Status: Acute (3) Sepsis: Status: Acute Plan 52 yo M who is a resident at [facility] with a PMH of DM2, depression, chronic suprapubic cath, history of PE, HTN, PAD, COPD and others who is sent in from SNF due to SOB and fever. Severe sepsis secondary to GNR bacteremia and complicated UTI r/t chronic suprpubic catheter continue zosyn, started 11/25 blood cultures growing GNR trend lactate Toxic/metabolic encephalopathy. improving due to #1 should improve towards baseline as infection is treated LUCIEN no change, no baseline available. likely chronic no change in renal function after IVF follow BMP DM hold metformin SSI, pOCS, ada diet History of PE continue anticoagulation Mood resume baseline meds Full code per documenation from SNF DVT pptx -- Eliquis requires ongoing inpatient stay for severe sepsis, lucien, complicated UTI and encephalopathy being treated with broad spec IV antibiotics Time Spent With Patient Time: Total time managing care of this patient today ____ minutes. Quality Stroke Does the patient have a stroke diagnosis?: No VTE Prior VTE?: No VTE Risk Level:: Medical - moderate - high VTE Device Contraindication: Treatment Not Indicated VTE Drug Contraindication: N/A - Med Ordered
[2022-11-26 20:20] LABS: Glucose, Whole Blood 93 mg/dL (60-115)
[2022-11-26] MEDS: Atorvastatin Calcium 10 MG TABLET PO (21:55)
[2022-11-26] MEDS: QUEtiapine Fumarate 100 MG TABLET PO (21:59)
[2022-11-27 03:37] VITALS: BP 159/90; PULSE 79; RESP 20; TEMP 36.9; O2SAT 95
[2022-11-27] MEDS: Piperacillin Sodium/Tazobactam 4.5 GM in 0.9 % Sodium Chloride 100 ML IV ×2 (06:15→11:25)
[2022-11-27 06:44] LABS: Hematocrit 31.9 % (42.0-52.0); Hemoglobin 10.4 g/dl (14.0-18.0); Mean Corpuscular HGB Conc 32.6 g/dl (31.0-36.0); Mean Corpuscular Hemoglobin 27.1 pg (27.0-33.0); Mean Corpuscular Volume 83.1 fL (80.0-98.0); Mean Platelet Volume 9.6 fL (9.4-12.4); Platelet Count 278 X10*3/uL (160-400); Red Blood Count 3.84 X10*6/uL (4.60-5.80); White Blood Count 10.4 X10*3/uL (4.8-10.8)
[2022-11-27 07:02] LABS: Anion Gap 12 (12-20); Blood Urea Nitrogen 15 mg/dL (9-16); Calcium 9.2 mg/dL (8.4-10.2); Carbon Dioxide 30 mmol/L (22-29); Chloride 100 mmol/L (96-108); Creatinine Clr Calc Pharmacy 61.9; Estimated Glomerular Filt Rate 58; Glucose Random 101 mg/dL (60-115); Potassium 2.9 mmol/L (3.3-5.1); Sodium 139 mmol/L (135-145)
[2022-11-27 07:16] VITALS: BP 141/85; PULSE 80; RESP 20; TEMP 37.1; O2SAT 94
[2022-11-27 07:30] LABS: Glucose, Whole Blood 162 mg/dL (60-115)
[2022-11-27 08:03] LABS: Magnesium 1.8 mg/dL (1.6-2.6)
[2022-11-27] MEDS: 0.9 % Sodium Chloride Flush 3 ML SYRINGE IVFLUSH ×3 (08:37→23:59)
[2022-11-27] MEDS: Ferrous Sulfate 324 MG TABLET.DR PO (08:38)
[2022-11-27] MEDS: Potassium Chloride Packet 20 MEQ PACKET 40 MEQ PO (08:38)
[2022-11-27] MEDS: Escitalopram Oxalate 20 MG TABLET PO (08:38)
[2022-11-27] MEDS: Ascorbic Acid 500 MG TABLET PO (08:38)
[2022-11-27] MEDS: Apixaban 5 MG TABLET PO ×2 (08:38→20:31)
[2022-11-27] MEDS: lamoTRIgine 100 MG TABLET PO ×2 (08:38→20:31)
[2022-11-27] MEDS: Multivitamin TABLET 1 TAB PO (08:38)
[2022-11-27] MEDS: Docusate Sodium 100 MG CAPSULE PO ×2 (08:38→20:31)
[2022-11-27] MEDS: QUEtiapine Fumarate 100 MG TABLET PO ×2 (08:38→20:31)
[2022-11-27] MEDS: Potassium Chloride/H20 10 MEQ/100 ML PIGGYBACK 100 MEQ IV (08:39)
[2022-11-27] MEDS: polyethylene glycoL 3350 17 GM POWD.PACK PO (08:39)
[2022-11-27] MEDS: Insulin Lispro 100 UNIT/ML 3 ML VIAL SUBCUT ×2 (08:39→20:32)
[2022-11-27 10:57] VITALS: BP 113/73; PULSE 86; RESP 20; TEMP 36.6; O2SAT 95
[2022-11-27 11:12] LABS: Glucose, Whole Blood 128 mg/dL (60-115)
--- NOTE | 2022-11-27 11:43 | HO.PM.IMPN ---
Subjective Subjective Date of Service: 11/27/22 Interval History: seen and examined this morning follow up for UTI, sepsis, bacteremia awake, alert, not reliable historian - no specific complaints Review of Systems Review of Systems: Yes all other systems are reviewed and are negative Constitutional Constitutional: Denies chills and Denies fever(s) Cardiovascular Cardiovascular: Denies chest pain and Denies dyspnea Respiratory Respiratory: Denies dyspnea Gastrointestinal Gastrointestinal: Denies abdominal pain Physical Exam Vital Signs: Vital Signs: Last Vital Signs Temp 97.9 F 11/27/22 10:57 Pulse 86 11/27/22 10:57 Resp 20 11/27/22 10:57 BP 113/73 11/27/22 10:57 Pulse Ox 95 11/27/22 10:57 O2 Del Method Nasal Cannula 11/27/22 10:57 O2 Flow Rate 2 11/27/22 10:57 Oxygen Flow Rate 3 11/25/22 01:58 BMI result Body Mass Index 34.9 Const: General: cooperative, comfortable, alert and awake Nutritional Appearance: obese Resp: Other: slight increase in respiratory rate - denies dysnpea Effort & Inspection: able to speak in complete sentences, no respiratory distress and no use of accessory muscles Auscultation: clear to auscultation bilaterally Cardio: Rate: regular rate GI: Inspection: No distended and Yes obesity Palpation (GI): Soft to palpation and nontender : Other: suprapubic catheter placed Extrem: General: Yes no pedal edema Objective Data Active Medications Acetaminophen (Acetaminophen 325 Mg Tablet) 650 mg PO Q6H PRN PRN Reason: Pain, Mild (Pain Scale 1-3) Last Admin: 11/26/22 00:54 Dose: 650 mg Documented By: JEN Albuterol/Ipratropium (Albuterol/Iprat 2.5/0.5mg 3 Ml Ampul.Neb) 3 ml INHALE Q6H PRN PRN Reason: Wheezing Apixaban (Apixaban 5 Mg Tablet) 5 mg PO BID [facility] Last Admin: 11/27/22 08:38 Dose: 5 mg Documented By: MAGALI Ascorbic Acid (Ascorbic Acid 500 Mg Tablet) 500 mg PO DAILY [facility] Last Admin: 11/27/22 08:38 Dose: 500 mg Documented By: MAGALI Atorvastatin Calcium (Atorvastatin Calcium 10 Mg Tablet) 10 mg PO BEDTIME [facility] Last Admin: 11/26/22 21:55 Dose: 10 mg Documented By: JAZMINE Docusate Sodium (Docusate Sodium 100 Mg Capsule) 100 mg PO BID [facility] Last Admin: 11/27/22 08:38 Dose: 100 mg Documented By: MAGALI Escitalopram Oxalate (Escitalopram Oxalate 20 Mg Tablet) 20 mg PO DAILY [facility] Last Admin: 11/27/22 08:38 Dose: 20 mg Documented By: MAGALI Ferrous Sulfate (Ferrous Sulfate 324 Mg Tablet.Dr) 324 mg PO DAILY [facility] Last Admin: 11/27/22 08:38 Dose: 324 mg Documented By: MAGALI Piperacillin Sod/Tazobactam (Sod 4.5 gm/ Sodium Chloride) 100 mls @ 200 mls/hr IV Q6H [facility] Last Admin: 11/27/22 11:25 Dose: 200 mls/hr Documented By: MAGALI Insulin Human Lispro (Insulin Lispro 100 Unit/Ml 3 Ml Vial) 0 unit SUBCUT QIDACHS [facility]; Protocol Last Admin: 11/27/22 11:07 Dose: Not Given Documented By: MAGALI Non-Admin Reason: No Insulin Coverage Lamotrigine (Lamotrigine 100 Mg Tablet) 100 mg PO BID [facility] Last Admin: 11/27/22 08:38 Dose: 100 mg Documented By: MAGALI Multivitamins/Vitamin C (Multivitamin Tablet) 1 tab PO DAILY [facility] Last Admin: 11/27/22 08:38 Dose: 1 tab Documented By: MAGALI Polyethylene Glycol (Polyethylene Glycol 3350 17 Gm Powd.Pack) 17 gm PO DAILY [facility] Last Admin: 11/27/22 08:39 Dose: 17 gm Documented By: MAGALI Quetiapine Fumarate (Quetiapine Fumarate 100 Mg Tablet) 100 mg PO BID [facility] Last Admin: 11/27/22 08:38 Dose: 100 mg Documented By: MAGALI Senna (Sennosides 8.6 Mg Tablet) 8.6 mg PO DAILY PRN PRN Reason: Constipation Sodium Biphosphate/Sodium Phosphate (Sodium Phosphate,[place]-Dibasic 133 Ml Enema) 118 ml [place] DAILY PRN PRN Reason: Constipation Sodium Chloride (0.9 % Sodium Chloride Flush 3 Ml Syringe) 3 ml IVFLUSH QSHIFT [facility] Last Admin: 11/27/22 08:37 Dose: 3 ml Documented By: MAGALI Labs 11/27/22 06:28 11/27/22 06:28 Labs: Laboratory Results - last 24 hr 11/26/22 11/26/22 11/26/22 11:52 15:58 20:15 MCV MCH MCHC RDW Plt Count MPV Absolute Nucleated RBC Nucleated RBC % (auto) Anion Gap Estim Creat Clear Calc Estimated GFR POC Glucose 138 H 153 H 93 Random Glucose Calcium Magnesium 11/27/22 11/27/22 11/27/22 06:28 07:16 11:05 MCV 83.1 MCH 27.1 MCHC 32.6 RDW 15.0 Plt Count 278 MPV 9.6 Absolute Nucleated RBC 0.000 Nucleated RBC % (auto) 0.0 Anion Gap 12 Estim Creat Clear Calc 61.9 Estimated GFR 58 POC Glucose 162 H 128 H Random Glucose 101 Calcium 9.2 Magnesium 1.8 Microbiology Microbiology Results: Microbiology 11/25/22 Unknown Urine Culture - Final Urine Other - Suprapubic 11/25/22 02:23 Blood Culture - Final Blood - Venous Proteus mirabilis 11/25/22 02:23 Blood Culture - Final Blood - Venous Proteus mirabilis Assessment and Plan (1) Bacteremia: Status: Acute (2) Acute UTI: Status: Acute (3) Sepsis: Status: Acute Plan 52 yo M who is a resident at [facility] with a PMH of DM2, depression, chronic suprapubic cath, history of PE, HTN, PAD, COPD and others who is sent in from SNF due to SOB and fever. Severe sepsis secondary to GNR bacteremia and complicated UTI r/t chronic suprpubic catheter blood cultures growing proteus mirabilis urine culture mixed bacterial jeaneth initially started zosyn 11/25, will change to ceftraixone given culture results trend lactate Toxic/metabolic encephalopathy. improving - seems to be at baseline due to #1 LUCIEN Scr down to 1.3 after IVF no baseline renal function available hold triamterene/HZTZ for now normocytic anemia possibly related to hemodilution from IVF no evidence of acute blood loss follow CBC hypokalemia k 2.9 replace and follow levels on po replacement at baseline, will resume home dose DM hold metformin SSI, POCs, ada diet History of PE continue Eliquis HTN bp under adequate control, hold triamterene-HCTZ Mood continue baseline meds Full code per documentation from SNF DVT pptx -- [place] requires ongoing inpatient stay for severe sepsis, lucien, complicated UTI and encephalopathy being treated with broad spec IV antibiotics Time Spent With Patient Time: Total time managing care of this patient today ____ minutes. Quality Stroke Does the patient have a stroke diagnosis?: No VTE Prior VTE?: No VTE Risk Level:: Medical - moderate - high VTE Device Contraindication: Treatment Not Indicated VTE Drug Contraindication: N/A - Med Ordered
[2022-11-27] MEDS: cefTRIAXone sodium 1 GM in 0.9 % Sodium Chloride 50 ML IV (12:35)
[2022-11-27] MEDS: Potassium Chloride ER 10 MEQ TABLET.ER PO ×3 (14:52→20:31)
[2022-11-27 16:00] VITALS: BP 117/69; PULSE 75; RESP 18; TEMP 36.4; O2SAT 96
[2022-11-27 16:51] LABS: Glucose, Whole Blood 106 mg/dL (60-115)
[2022-11-27 19:26] VITALS: BP 120/68; PULSE 82; RESP 18; TEMP 37; O2SAT 93
--- NOTE | 2022-11-27 19:58 | PM.EVENT ---
Event Note Date of Service: 11/27/22 Event Note: surgery- nurse with ? fecal material coming out of scrotal skin pt examined and skin and tissue normal - pt with most likely hydrocele ct scan reviewed and no evidence of any fistula or bowel inflammation think pt just had bowel movement material stuck to his scrotum. Time Spent With Patient Time: Total time managing care of this patient today ____ minutes.
[2022-11-27 20:22] LABS: Glucose, Whole Blood 160 mg/dL (60-115)
[2022-11-27] MEDS: Atorvastatin Calcium 10 MG TABLET PO (20:31)
[2022-11-28] VITALS (8 sets, daily range): BP systolic 120–163; BP diastolic 78–92; PULSE 77–90; RESP 16–24; TEMP 36.3–37.2; O2SAT 88–96
[2022-11-28 07:14] LABS: Hematocrit 38.6 % (42.0-52.0); Hemoglobin 12.5 g/dl (14.0-18.0); Mean Corpuscular HGB Conc 32.4 g/dl (31.0-36.0); Mean Corpuscular Volume 86.4 fL (80.0-98.0); Mean Platelet Volume 10.1 fL (9.4-12.4); Platelet Count 320 X10*3/uL (160-400); Red Blood Count 4.47 X10*6/uL (4.60-5.80); Red Cell Distribution Width 15.2 % (11.0-16.0); White Blood Count 9.1 X10*3/uL (4.8-10.8)
[2022-11-28 07:29] LABS: Anion Gap 13 (12-20); Blood Urea Nitrogen 12 mg/dL (9-16); Calcium 9.6 mg/dL (8.4-10.2); Carbon Dioxide 29 mmol/L (22-29); Chloride 102 mmol/L (96-108); Creatinine Clr Calc Pharmacy 68.8; Estimated Glomerular Filt Rate > 60; Glucose Random 96 mg/dL (60-115); Sodium 141 mmol/L (135-145)
[2022-11-28 07:40] LABS: Glucose, Whole Blood 96 mg/dL (60-115)
[2022-11-28] MEDS: Multivitamin TABLET 1 TAB PO (10:27)
[2022-11-28] MEDS: Ascorbic Acid 500 MG TABLET PO (10:27)
[2022-11-28] MEDS: Potassium Chloride ER 10 MEQ TABLET.ER PO ×4 (10:27→19:55)
[2022-11-28] MEDS: Apixaban 5 MG TABLET PO ×2 (10:27→19:55)
[2022-11-28] MEDS: Docusate Sodium 100 MG CAPSULE PO (10:27)
[2022-11-28] MEDS: Escitalopram Oxalate 20 MG TABLET PO (10:27)
[2022-11-28] MEDS: lamoTRIgine 100 MG TABLET PO ×2 (10:27→19:55)
[2022-11-28] MEDS: QUEtiapine Fumarate 100 MG TABLET PO ×2 (10:27→19:55)
[2022-11-28] MEDS: Ferrous Sulfate 324 MG TABLET.DR PO (10:27)
[2022-11-28] MEDS: polyethylene glycoL 3350 17 GM POWD.PACK PO (10:28)
[2022-11-28] MEDS: 0.9 % Sodium Chloride Flush 3 ML SYRINGE IVFLUSH ×3 (10:28→19:55)
[2022-11-28 10:56] LABS: Glucose, Whole Blood 129 mg/dL (60-115)
--- NOTE | 2022-11-28 12:29 | P.DS_ITS ---
DS: Providers Provider Date of Service: 11/28/22 <LENNIE Lombardo - Last Filed: 11/28/22 13:24> Date of admission: 11/25/22 10:22 <LENNIE Lombardo - Last Filed: 11/28/22 13:24> Date of discharge: 11/28/22 <LENNIE Lombardo - Last Filed: 11/28/22 13:24> Primary care physician: Maxim Roberts DO <LENNIE Lombardo - Last Filed: 11/28/22 13:24> Consults: 11/27/22 11:51 Consult to General Surgery Routine Consulting Provider: [facility] General Surgeons Reason for consultation: Abnormal CT -fluid/stranding in the right paracolic gutter Has provider been notified: No <LENNIE Lombardo - Last Filed: 11/28/22 13:24> Attending physician on discharge: Gabriela Grande <LENNIE Lombardo - Last Filed: 11/28/22 13:24> Discharging clinician: Samaria Bro <LENNIE Lombardo - Last Filed: 11/28/22 13:24> DS: Diagnosis Discharge Diagnosis (1) Bacteremia: Status: Acute <LENNIE Lombardo - Last Filed: 11/28/22 13:24> (2) Acute UTI: Status: Acute <LENNIE Lombardo - Last Filed: 11/28/22 13:24> (3) Sepsis: Status: Acute <LENNIE Lombardo - Last Filed: 11/28/22 13:24> DS: Summary Hospital Course Hospital Course: From H&P on the day of admission This is a 52 yo M with a PMH of DM type 2, Depression, chronic suprapubic cathether, history of PE, HTN, PAD, COPD, Mild neurocognitive disorder and others who presetned to [facility] ED from [facility] for shortness of breath, fever and changes in mental status. The patient's is currently encephalopathic (and hence, history is obtained from the ED provider s's note). He is oriented to self only. He denies any chest pain, sob or abdominal pain. He states he is hungry. Per ED note: 52-year-old male resident at [facility], patient is bedbound, came in for evaluation of fever, was given Tylenol at at the [facility] ED had a fever of 104.8 patient with suprapubic catheter. No headache, no neck pain or stiffness, no photophobia, no chest pain, no coughing, no shortness of breath, no abdominal pain, no nausea, no vomiting, no diarrhea. Work up in the ED revealed: elevated WBC (16), LA (3.1, improving to 2.2), LUCIEN (SCr 1.74), CXR showing patchy opacity at L lung and UA suggestive to UTI. The patient was given IVF, IV antibiotics, IVF and admission was requested Severe sepsis secondary to GNR bacteremia and complicated UTI. r/t chronic suprapubic catheter. hest CT was obtained and showed no evidence of pneumonia. Blood cultures growing proteus mirabilis, urine culture mixed bacterial jeaneth >100,000 cfu and urine likely source of infection. He was initially started on zosyn which was changed to ceftraixone 11/27 given culture results. Leukocytosis, tachycardia, tachypnea have resolved. Has remained afebrile for 48 hours and patient seems to be back to baseline. He was weaned off of oxygen and is saturating 96% on room air. Initially patient noted to have acute kidney injury with a serum creatinine of 1.74 likely in the setting of sepsis, improved to 1.17 with IV fluid. His triamterene/hydrochlorothiazide were placed on hold. Blood pressure has remained stable off this medication. On the afternoon of November 26 he was noted to have stool covering his scrotum and initial concern over fistula as it appeared that stool was oozing from scrotum. He underwent CT of the abdomen and pelvis which did not show any definite fistula. Scrotal ultrasound showed no evidence of scrotal abscess or fistula track, showing only small to moderate right hydrocele. The CT scan did show some abnormal stranding in the right pericolic gutter extending into the right hemipelvis and for this reason he was evaluated by General surgery who felt that there is no acute intra-abdominal pathology and no further workup was required. Abdomen has remained soft and nontender throughout hospitalization. Patient will be discharged back to [facility] to complete 14 days of oral antibiotics. Potassium level was noted to drop, home potassium supplementation was resumed and potassium level began to improve. <LENNIE Lombardo - Last Filed: 11/28/22 13:24> Time Spent with Patient Time attestation: Total time managing care of this patient today ____ minutes. <LENNIE Lombardo - Last Filed: 11/28/22 13:24> Discharge coordination time: Greater than 30 minutes <LENNIE Lombardo - Last Filed: 11/28/22 13:24> Quality: Safe Use of Opioids Does Pt have an Active Cancer Diagnosis on the Problem List?: No <Gabriela Grande MD - Last Filed: 11/28/22 16:41> Quality: Stroke Does the patient have a stroke diagnosis?: No <LENNIE Lombardo - Last Filed: 11/28/22 13:24> Physical Exam Vital Signs: Vital Signs: Last Vital Signs Temp 97.3 F 11/28/22 10:42 Pulse 77 11/28/22 10:42 Resp 20 11/28/22 10:42 BP 141/88 H 11/28/22 10:42 Pulse Ox 95 11/28/22 10:42 O2 Del Method Nasal Cannula 11/28/22 10:42 O2 Flow Rate 2 11/28/22 10:42 Oxygen Flow Rate 3 11/25/22 01:58 BMI result Body Mass Index 34.9 <LENNIE Lombardo - Last Filed: 11/28/22 13:24> Const: General: cooperative, comfortable, no acute distress, alert and awake <LENNIE Lombardo - Last Filed: 11/28/22 13:24> Nutritional Appearance: obese <LENNIE Lombardo - Last Filed: 11/28/22 13:24> Resp: Effort & Inspection: normal respiratory effort, able to speak in complete sentences, no respiratory distress and no use of accessory muscles <LENNIE Lombardo - Last Filed: 11/28/22 13:24> GI: Other: obese, soft, NT; no guarding, no rebound <LENNIE Lombardo - Last Filed: 11/28/22 13:24> DS: Data Data Completed and Pending Labs on day of discharge: Laboratory Results - last 24 hr 11/27/22 11/27/22 11/28/22 16:20 20:09 06:49 WBC 9.1 RBC 4.47 L Hgb 12.5 L D Hct 38.6 L D MCV 86.4 MCH 28.0 MCHC 32.4 RDW 15.2 Plt Count 320 MPV 10.1 Absolute Nucleated RBC 0.000 Nucleated RBC % (auto) 0.0 Sodium 141 Potassium 3.0 L Chloride 102 Carbon Dioxide 29 Anion Gap 13 BUN 12 Creatinine 1.17 Estim Creat Clear Calc 68.8 Estimated GFR > 60 POC Glucose 106 160 H Random Glucose 96 Calcium 9.6 11/28/22 11/28/22 07:21 10:43 WBC RBC Hgb Hct MCV MCH MCHC RDW Plt Count MPV Absolute Nucleated RBC Nucleated RBC % (auto) Sodium Potassium Chloride Carbon Dioxide Anion Gap BUN Creatinine Estim Creat Clear Calc Estimated GFR POC Glucose 96 129 H Random Glucose Calcium <LENNIE Lombardo - Last Filed: 11/28/22 13:24> Discharge Plan Discharge Referrals: Maxim Roberts DO [Primary Care Provider] - 1 Week <LENNIE Lombardo - Last Filed: 11/28/22 13:24> Discharge Medications: New cefuroxime axetil 500 mg tablet 500 mg PO BID 12 Days Qty: 24 0RF Continued metformin 500 mg Tablet 500 mg PO BID sennosides [senna] 8.6 mg Tablet 8.6 mg PO DAILY PRN (Reason: Constipation) acetaminophen 325 mg Tablet 650 mg PO Q6H PRN (Reason: Pain) ipratropium-albuterol [DuoNeb] 0.5 mg-3 mg(2.5 mg base)/3 mL Solution For Nebulization 3 ml INHALATION Q6H PRN (Reason: Wheezing) citalopram 40 mg Tablet 40 mg PO DAILY polyethylene glycol 3350 [Miralax] 17 gram Powder In Packet 17 g PO DAILY simvastatin [Zocor] 10 mg Tablet 10 mg PO BEDTIME miconazole nitrate 2 % Powder 1 appl TOPICAL DAILY PRN (Reason: Rash) potassium chloride 10 mEq Tablet Extended Release 10 meq PO QID quetiapine 100 mg Tablet 100 mg PO BID ascorbic acid (vitamin C) 500 mg Tablet 500 mg PO DAILY Fleet Enema 19-7 gram/118 mL Enema 118 ml [place] DAILY PRN (Reason: Constipation) docusate sodium [Colace] 100 mg Capsule 100 mg PO BID vitamin B complex Tablet 1 tab PO DAILY lamotrigine [Lamictal] 100 mg Tablet 100 mg PO BID omega 8-dio-fgh-fish oil [Fish Oil] 1,000 mg (120 mg-180 mg) Capsule 1 cap PO BID ferrous gluconate 324 mg (37.5 mg iron) Tablet 324 mg PO DAILY Eliquis 5 mg Tablet 5 mg PO BID Anoro Ellipta 62.5-25 mcg/actuation Blister With Device 1 inh INHALATION DAILY Discontinued triamterene-hydrochlorothiazid 37.5-25 mg Tablet 1 tab PO DAILY <LENNIE Lombardo - Last Filed: 11/28/22 13:24> Activity on Discharge: As tolerated <LENNIE Lombardo - Last Filed: 11/28/22 13:24> As tolerated <Gabriela Grande MD - Last Filed: 11/28/22 16:41> Health Concerns: sepsis secondary to proteus bacteremia/complicated UTI related to chronic suprapubic catheter hypokalemia LUCIEN <LENNIE Lombardo - Last Filed: 11/28/22 13:24> Plan of Treatment: complete 12 more days of po ceftin 50 bid continue potassium supplementation triamterene/HCTZ was stopped due to LUCIEN, blood pressure has remained stable off of medication. can resume as bp allows. Chest CT showing 7mm RUL pulmonary nodule. follow up chest CT in 3-6 months <LENNIE Lombardo - Last Filed: 11/28/22 13:24>
[2022-11-28] MEDS: cefTRIAXone sodium 1 GM in 0.9 % Sodium Chloride 50 ML IV (12:43)
--- NOTE | 2022-11-28 13:20 | MHC.CM.PN ---
MD inquire RE Pt. return to [facility] today. This CM reached out to Facility via [employer] w/said inquiry. Pending response. CM to follow.
--- NOTE | 2022-11-28 13:46 | MHC.CM.PN ---
[facility] at [facility] states that DON indicates there are not enough nurses today to safely have Pt. return today. Notified MD. PATRICK to follow.
--- NOTE | 2022-11-28 14:45 | HO.PM.IMPN ---
Subjective Subjective Date of Service: 11/28/22 Interval History: seen and examined follow up for UTI/bacteremia/sepsis poor historian but denies sob, abdominal pain, fever, chills Review of Systems Review of Systems: Yes all other systems are reviewed and are negative Constitutional Constitutional: Denies chills and Denies fever(s) ENT Ears, Nose, Mouth, and Throat: Denies dizziness Cardiovascular Cardiovascular: Denies chest pain and Denies dyspnea Respiratory Respiratory: Denies dyspnea Gastrointestinal Gastrointestinal: Denies abdominal pain Neurologic Neurologic: Denies dizziness Physical Exam Vital Signs: Vital Signs: Last Vital Signs Temp 97.3 F 11/28/22 10:42 Pulse 77 11/28/22 10:42 Resp 20 11/28/22 10:42 BP 141/88 H 11/28/22 10:42 Pulse Ox 96 11/28/22 13:09 O2 Del Method Room Air 11/28/22 13:09 O2 Flow Rate 2 11/28/22 10:42 Oxygen Flow Rate 3 11/25/22 01:58 BMI result Body Mass Index 34.9 Const: General: cooperative, comfortable, no acute distress, alert and awake Nutritional Appearance: obese Resp: Effort & Inspection: normal respiratory effort, able to speak in complete sentences, no respiratory distress and no use of accessory muscles Auscultation: clear to auscultation bilaterally Cardio: Rate: regular rate GI: Other: obese, soft, NT; no guarding, no rebound Inspection: No distended and Yes obesity Palpation (GI): Soft to palpation and nontender : Other: suprapubic catheter placed Extrem: General: Yes no pedal edema Objective Data Active Medications Acetaminophen (Acetaminophen 325 Mg Tablet) 650 mg PO Q6H PRN PRN Reason: Pain, Mild (Pain Scale 1-3) Last Admin: 11/26/22 00:54 Dose: 650 mg Documented By: JEN Albuterol/Ipratropium (Albuterol/Iprat 2.5/0.5mg 3 Ml Ampul.Neb) 3 ml INHALE Q6H PRN PRN Reason: Wheezing Apixaban (Apixaban 5 Mg Tablet) 5 mg PO BID [facility] Last Admin: 11/28/22 10:27 Dose: 5 mg Documented By: MAGALI Ascorbic Acid (Ascorbic Acid 500 Mg Tablet) 500 mg PO DAILY [facility] Last Admin: 11/28/22 10:27 Dose: 500 mg Documented By: MAGALI Atorvastatin Calcium (Atorvastatin Calcium 10 Mg Tablet) 10 mg PO BEDTIME [facility] Last Admin: 11/27/22 20:31 Dose: 10 mg Documented By: ROYCE Docusate Sodium (Docusate Sodium 100 Mg Capsule) 100 mg PO BID [facility] Last Admin: 11/28/22 10:27 Dose: 100 mg Documented By: MAGALI Escitalopram Oxalate (Escitalopram Oxalate 20 Mg Tablet) 20 mg PO DAILY [facility] Last Admin: 11/28/22 10:27 Dose: 20 mg Documented By: MAGALI Ferrous Sulfate (Ferrous Sulfate 324 Mg Tablet.Dr) 324 mg PO DAILY [facility] Last Admin: 11/28/22 10:27 Dose: 324 mg Documented By: MAGALI Ceftriaxone Sodium 1 gm/ (Sodium Chloride) 50 mls @ 100 mls/hr IV Q24H [facility] Last Infusion: 11/28/22 13:22 Dose: Infused Documented By: MAGALI Insulin Human Lispro (Insulin Lispro 100 Unit/Ml 3 Ml Vial) 0 unit SUBCUT QIDACHS [facility]; Protocol Last Admin: 11/28/22 10:57 Dose: Not Given Documented By: MAGALI Non-Admin Reason: No Insulin Coverage Lamotrigine (Lamotrigine 100 Mg Tablet) 100 mg PO BID [facility] Last Admin: 11/28/22 10:27 Dose: 100 mg Documented By: MAGALI Multivitamins/Vitamin C (Multivitamin Tablet) 1 tab PO DAILY [facility] Last Admin: 11/28/22 10:27 Dose: 1 tab Documented By: MAGALI Polyethylene Glycol (Polyethylene Glycol 3350 17 Gm Powd.Pack) 17 gm PO DAILY [facility] Last Admin: 11/28/22 10:28 Dose: 17 gm Documented By: MAGALI Potassium Chloride (Potassium Chloride Er 10 Meq Tablet.Er) 10 meq PO QID [facility] Last Admin: 11/28/22 12:43 Dose: 10 meq Documented By: MAGALI Quetiapine Fumarate (Quetiapine Fumarate 100 Mg Tablet) 100 mg PO BID [facility] Last Admin: 11/28/22 10:27 Dose: 100 mg Documented By: MAGALI Senna (Sennosides 8.6 Mg Tablet) 8.6 mg PO DAILY PRN PRN Reason: Constipation Sodium Biphosphate/Sodium Phosphate (Sodium Phosphate,[place]-Dibasic 133 Ml Enema) 118 ml [place] DAILY PRN PRN Reason: Constipation Sodium Chloride (0.9 % Sodium Chloride Flush 3 Ml Syringe) 3 ml IVFLUSH QSHIFT [facility] Last Admin: 11/28/22 10:28 Dose: 3 ml Documented By: MAGALI Labs 11/28/22 06:49 11/28/22 06:49 Labs: Laboratory Results - last 24 hr 11/27/22 11/27/22 11/28/22 16:20 20:09 06:49 MCV 86.4 MCH 28.0 MCHC 32.4 RDW 15.2 Plt Count 320 MPV 10.1 Absolute Nucleated RBC 0.000 Nucleated RBC % (auto) 0.0 Anion Gap 13 Estim Creat Clear Calc 68.8 Estimated GFR > 60 POC Glucose 106 160 H Random Glucose 96 Calcium 9.6 11/28/22 11/28/22 07:21 10:43 MCV MCH MCHC RDW Plt Count MPV Absolute Nucleated RBC Nucleated RBC % (auto) Anion Gap Estim Creat Clear Calc Estimated GFR POC Glucose 96 129 H Random Glucose Calcium Microbiology Microbiology Results: Microbiology 11/25/22 Unknown Urine Culture - Final Urine Other - Suprapubic Assessment and Plan (1) Bacteremia: Status: Acute (2) Acute UTI: Status: Acute (3) Sepsis: Status: Acute Plan 52 yo M who is a resident at [facility] with a PMH of DM2, depression, chronic suprapubic cath, history of PE, HTN, PAD, COPD and others who is sent in from SNF due to SOB and fever. Severe sepsis secondary to GNR bacteremia and complicated UTI r/t chronic suprapubic catheter fever, tachycardia, tachypnea resolved blood cultures growing proteus mirabilis urine culture mixed bacterial jeaneth initially started zosyn 11/25, changed to ceftraixone 11/27 given culture results Toxic/metabolic encephalopathy. improving - seems to be at baseline due to #1 LUCIEN Scr down to 1.3 after IVF no baseline renal function available hold triamterene/HZTZ for now normocytic anemia possibly related to hemodilution from IVF no evidence of acute blood loss CBC stable hypokalemia k 3.0 replace and follow levels on po replacement at baseline, resumed on home dose DM hold metformin SSI, POCs, ada diet History of PE continue Eliquis HTN bp under adequate control, hold triamterene-HCTZ Mood continue baseline meds Full code per documentation from SNF DVT pptx -- Eliquis requires ongoing inpatient stay for severe sepsis, lucien, complicated UTI and encephalopathy being treated with broad spec IV antibiotics Time Spent With Patient Time: Total time managing care of this patient today ____ minutes. Quality Stroke Does the patient have a stroke diagnosis?: No VTE Prior VTE?: No VTE Risk Level:: Medical - moderate - high VTE Device Contraindication: Treatment Not Indicated VTE Drug Contraindication: N/A - Med Ordered
[2022-11-28 16:31] LABS: Glucose, Whole Blood 102 mg/dL (60-115)
[2022-11-28] MEDS: Atorvastatin Calcium 10 MG TABLET PO (19:55)
[2022-11-28 20:35] LABS: Glucose, Whole Blood 107 mg/dL (60-115)
[2022-11-29 00:20] VITALS: O2SAT 95
--- NOTE | 2022-11-29 00:37 | PC.NURSE ---
Pt O2 sats at midnight of 88%, pt weaned from O2 on previous shift. notfied, placed back on 2L O2 via NC. O2 sats improved to >90%.
[2022-11-29 03:19] VITALS: BP 180/77; PULSE 90; RESP 20; TEMP 36.2; O2SAT 94
[2022-11-29 03:32] VITALS: BP 136/68
[2022-11-29 07:42] LABS: Glucose, Whole Blood 116 mg/dL (60-115)
[2022-11-29 07:44] VITALS: BP 136/74; PULSE 90; RESP 18; TEMP 36.8; O2SAT 92
[2022-11-29 11:24] VITALS: BP 147/72; PULSE 86; RESP 17; TEMP 36.5; O2SAT 93
[2022-11-29 11:29] LABS: Glucose, Whole Blood 127 mg/dL (60-115)
--- NOTE | 2022-11-29 12:22 | PM.DS ---
DS: Providers Provider Date of Service: 11/29/22 Date of admission: 11/25/22 10:22 Primary care physician: Maxim Roberts DO Consults: 11/27/22 11:51 Consult to General Surgery Routine Consulting Provider: [facility] General Surgeons Reason for consultation: Abnormal CT -fluid/stranding in the right paracolic gutter Has provider been notified: No DS: Diagnosis Discharge Diagnosis (1) Bacteremia: Status: Acute (2) Acute UTI: Status: Acute (3) Sepsis: Status: Acute DS: Summary Hospital Course Hospital Course: From H&P on the day of admission This is a 52 yo M with a PMH of DM type 2, Depression, chronic suprapubic cathether, history of PE, HTN, PAD, COPD, Mild neurocognitive disorder and others who presetned to [facility] ED from [facility] for shortness of breath, fever and changes in mental status. The patient's is currently encephalopathic (and hence, history is obtained from the ED providers's note). He is oriented to self only. He denies any chest pain, sob or abdominal pain. He states he is hungry. Per ED note: 52-year-old male resident at [facility], patient is bedbound, came in for evaluation of fever, was given Tylenol at at the senior living in the ED had a fever of 104.8 patient with suprapubic catheter. No headache, no neck pain or stiffness, no photophobia, no chest pain, no coughing, no shortness of breath, no abdominal pain, no nausea, no vomiting, no diarrhea. Work up in the ED revealed: elevated WBC (16), LA (3.1, improving to 2.2), LUCIEN (SCr 1.74), CXR showing patchy opacity at L lung and UA suggestive to UTI. The patient was given IVF, IV antibiotics, IVF and admission was requested Severe sepsis secondary to GNR bacteremia and complicated UTI. r/t chronic suprapubic catheter. hest CT was obtained and showed no evidence of pneumonia. Blood cultures growing proteus mirabilis, urine culture mixed bacterial jeaneth >100,000 cfu and urine likely source of infection. He was initially started on zosyn which was changed to ceftraixone 11/27 given culture results. Leukocytosis, tachycardia, tachypnea have resolved. Has remained afebrile for 48 hours and patient seems to be back to baseline. He was weaned off of oxygen and is saturating 96% on room air. Initially patient noted to have acute kidney injury with a serum creatinine of 1.74 likely in the setting of sepsis, improved to 1.17 with IV fluid. His triamterene/hydrochlorothiazide were placed on hold. Blood pressure has remained stable off this medication. On the afternoon of November 26 he was noted to have stool covering his scrotum and initial concern over fistula as it appeared that stool was oozing from scrotum. He underwent CT of the abdomen and pelvis which did not show any definite fistula. Scrotal ultrasound showed no evidence of scrotal abscess or fistula track, showing only small to moderate right hydrocele. The CT scan did show some abnormal stranding in the right pericolic gutter extending into the right hemipelvis and for this reason he was evaluated by General surgery who felt that there is no acute intra-abdominal pathology and no further workup was required. Abdomen has remained soft and nontender throughout hospitalization. Patient will be discharged back to [facility] to complete 14 days of oral antibiotics. Potassium level was noted to drop, home potassium supplementation was resumed and potassium level began to improve. Time Spent with Patient Time attestation: Total time managing care of this patient today ____ minutes. Discharge coordination time: Greater than 30 minutes Quality: Safe Use of Opioids Does Pt have an Active Cancer Diagnosis on the Problem List?: No Quality: Stroke Does the patient have a stroke diagnosis?: No Physical Exam Vital Signs: Vital Signs: Last Vital Signs Temp 97.7 F 11/29/22 11:24 Pulse 86 11/29/22 11:24 Resp 17 11/29/22 11:24 BP 147/72 H 11/29/22 11:24 Pulse Ox 93 11/29/22 11:24 O2 Del Method Nasal Cannula 11/29/22 11:24 O2 Flow Rate 2 11/29/22 11:24 Oxygen Flow Rate 3 11/25/22 01:58 BMI result Body Mass Index 34.9 DS: Data Data Completed and Pending Labs on day of discharge: Laboratory Results - last 24 hr 11/28/22 11/28/22 11/29/22 16:24 20:28 07:38 POC Glucose 102 107 116 H 11/29/22 11:26 POC Glucose 127 H Discharge Plan Discharge Anticipated Discharge Date/Time: 11/29/22 12:12 Patient Disposition: Xfer [facility] Discharge Diagnosis: Severe sepsis secondary to Gram-negative trini bacteremia UTI Toxic metabolic encephalopathy LUCIEN Hypokalemia Referrals: Maxim Roberts DO [Primary Care Provider] - 1 Week Discharge Medications: New cefuroxime axetil 500 mg tablet 500 mg PO BID 12 Days Qty: 24 0RF Continued metformin 500 mg Tablet 500 mg PO BID sennosides [senna] 8.6 mg Tablet 8.6 mg PO DAILY PRN (Reason: Constipation) acetaminophen 325 mg Tablet 650 mg PO Q6H PRN (Reason: Pain) ipratropium-albuterol 0.5 mg-3 mg(2.5 mg base)/3 mL Solution For Nebulization 3 ml INHALATION Q6H PRN (Reason: Wheezing) citalopram 40 mg Tablet 40 mg PO DAILY polyethylene glycol 3350 [Miralax] 17 gram Powder In Packet 17 g PO DAILY simvastatin [Zocor] 10 mg Tablet 10 mg PO BEDTIME miconazole nitrate 2 % Powder 1 appl TOPICAL DAILY PRN (Reason: Rash) potassium chloride 10 mEq Tablet Extended Release 10 meq PO QID quetiapine 100 mg Tablet 100 mg PO BID ascorbic acid (vitamin C) 500 mg Tablet 500 mg PO DAILY Fleet Enema 19-7 gram/118 mL Enema 118 ml [place] DAILY PRN (Reason: Constipation) docusate sodium [Colace] 100 mg Capsule 100 mg PO BID vitamin B complex Tablet 1 tab PO DAILY lamotrigine [Lamictal] 100 mg Tablet 100 mg PO BID omega 3-bzg-hfq-fish oil [Fish Oil] 1,000 mg (120 mg-180 mg) Capsule 1 cap PO BID ferrous gluconate 324 mg (37.5 mg iron) Tablet 324 mg PO DAILY Eliquis 5 mg Tablet 5 mg PO BID Anoro Ellipta 62.5-25 mcg/actuation Blister With Device 1 inh INHALATION DAILY Discontinued triamterene-hydrochlorothiazid 37.5-25 mg Tablet 1 tab PO DAILY Discharge Orders: Discharge Order (Routine); Ordered 11/29/22 Ordered By: Kerry Preciado Activity on Discharge: As tolerated Stand Alone Forms: Patient Portal Discharge page Care Plan Goals: Complete resolution of symptoms Health Concerns: sepsis secondary to proteus bacteremia/complicated UTI related to chronic suprapubic catheter hypokalemia LUCIEN Plan of Treatment: complete 12 more days of po ceftin bid continue potassium supplementation triamterene/HCTZ was stopped due to LUCIEN, blood pressure has remained stable off of medication. can resume as bp allows. Chest CT showing 7mm RUL pulmonary nodule. follow up chest CT in 3-6 months Assessment: See discharge summary
--- NOTE | 2022-11-29 12:48 | MHC.CM.PN ---
PT CLEARED TO DC BACK TO [facility] UPDATES WERE SENT TO [facility] LIA[facility] WHO REVIEWED AND THEN REQUESTED PT RETURN EARLY POSSIBLE [facility] HAS INDICATED THE EARLIEST AVAILABLE TRANSPORT IS 1400 HOURS SNF LIAISON AND NURSE INFORMED OF TRANSPORT TIME CM CALLED PTS GUARDIAN, JOSS VALDEZ [phone] SHE WAS INFORMED OF INTENT TO DC/DC TIME AND PTS MEDICARE RIGHTS WERE REVIEWED AGAIN SHE CONFIRMS HER EMAIL IS [email or web address] SENT PT WILL DC BACK TO [facility] TODAY VIA [facility] AT 1400 HOURS
--- NOTE | 2022-11-29 12:58 | MHC.SL.SWA ---
Speech Pathologist Impression: Risk of aspiration, oropharyngeal dysphagia Risk of Aspiration Due to: Lethargy History of Pneumonia Weak Cough Dysphasia Diet Status: Mild to moderate oral pharyngeal dysphagia Liquid Consistency and Strategies for Safe Swallow: Liquid Intake Recommendation: [place] Thick Liquid Intake Strategies: Small Sips No Straws Solid Food Consistency: Dietary Recommendations: Grnd/Mech Altered (NDD2) Additional Modifications to Solid Foods: Avoid mixed consistencies, no straws. Patient requires full assist at this time with meal. Liquids by controlled cup sip. Alternate liquids and solids. Assure that patient has swallowed before presenting more food or liquid. Oral Medication Intake: Crushed with Puree Please contact the pharmacy regarding appropriate crushable or liquid drug formulations that are available whenever modified delivery is recommended. Compensatory Strategies and Precautions to be Taken for Safe Swallow: Sitting Upright (90 deg) No Straw Liquids from Cup Liquids from Spoon Small Bites and Sips Rate of Ingestion Change Avoid Specific Foods Supervision While Eating and Drinking for Safe Swallow: Total Assistance (1:1) Foods to Avoid: Mixed consistencies, difficulty to chew solids. Swallowing Recommended Treatments: Compens. Strategy Educat. Recommendation for Speech: Inpatient Speech Therapy Comment: Patient presents with a mild to moderate oral pharyngeal dysphagia, characterized by a mildly disorganized oral phase (e.g. anterior chewing), consistent mild delay initiating swallow, throat clearing/coughing on thin liquids. Patient's baseline diet at [facility] per nursing there is Regular/Thin. As a precaution, recommend patient START diet of Ground Mechanical/Altered, with NECTAR THICK liquids, pills crushed in puree. Patient at this time appears to need 1-1 feed. Diet, level of independence likely to advance as patient improves, will be monitored by [employer]OUNT MANAGER [employer]EF[employer]. Surveillance Sensor Operator Clinican/Clinical Fellow: No Supervisory Statement: I have reviewed and agree with the student/clinical fellow's documentation: N/A Speech Language Pathologist: Izzy Gonzalez M.A., CCC-ACCOUNT [employer]GER [employer]EFITS
[2022-11-29] MEDS: cefTRIAXone sodium 1 GM in 0.9 % Sodium Chloride 50 ML IV (13:19)
== END 2022-11-29 15:09 | DRG 698 ==
LOC: HO.ED 07:02 → HO.EDOVER 10:27 → HO.IMC 15:32
PROVIDERS: Physician Assistant Medical; Admitting Provider Family Medicine; Emergency Provider Emergency Medicine; PCP Hospitalist; Visit Provider Nurse Practitioner Acute Care
DX: T83.511A Infection and inflammatory reaction due to indwelling urethral catheter, initial encounter (principal); A41.50 Gram-negative sepsis, unspecified; G92.8 Other toxic encephalopathy; N17.0 Acute kidney failure with tubular necrosis; R65.20 Severe sepsis without septic shock; G92.9 Unspecified toxic encephalopathy; F39 Unspecified mood [affective] disorder; N39.0 Urinary tract infection, site not specified; N43.3 Hydrocele, unspecified; J44.9 Chronic obstructive pulmonary disease, unspecified; B96.4 Proteus (mirabilis) (morganii) as the cause of diseases classified elsewhere; Z20.822 Contact with and (suspected) exposure to COVID-19; Z86.711 Personal history of pulmonary embolism; Z74.01 Bed confinement status; Z87.891 Personal history of nicotine dependence; Z79.01 Long term (current) use of anticoagulants; Z79.84 Long term (current) use of oral hypoglycemic drugs; Z79.899 Other long term (current) drug therapy
CPT/HCPCS: 36415; 71045; 71250; 74176; 76870; 80048; 80053; 81001; 82947; 83605; 83735; 85007; 85027; 87040; 87077; 87086; 87186; 87205; 87635; 92526; 92610; 93005; 99285; J0696; J2543

== ENCOUNTER → 2022-11-25 10:22 | Outpatient (BNV) | payer MEDICARE, MEDICAID, SELFPAY | PROVIDERS: Admitting Provider Family Medicine; Emergency Provider Emergency Medicine; PCP Hospitalist; Visit Provider Family Medicine | DX: R78.81 Bacteremia (principal); N39.0 Urinary tract infection, site not specified; A41.9 Sepsis, unspecified organism | CPT/HCPCS: 99223; 99232; 99233; 99239 ==

== ENCOUNTER 2022-11-30 08:44 | Inpatient (IN) | payer MEDICARE, MEDICAID, SELFPAY ==
[2022-11-30] VITALS (14 sets, daily range): BP systolic 115–164; BP diastolic 74–98; PULSE 81–95; RESP 15–37; TEMP 36.1–38.3; O2SAT 79–98; BMI 35.5
--- NOTE | ~2022-11-30 | CT_ITS ---
EXAMINATION: CT CHEST WITHOUT CONTRAST CLINICAL INFORMATION: re-assess consolidation. COMPARISON: Prior studies including the chest x-ray from earlier today and the 11/25/2022 CT scan and 07/02/2022 CT scan. TECHNIQUE: Multidetector volumetric imaging was performed from the thoracic inlet through the lung bases without contrast. Sagittal and coronal reformatted images were obtained on the technologist workstation. Soft tissue and lung algorithms evaluated. Thick slab MIP images were performed to increase nodule conspicuity. This CT examination was performed using dose optimization techniques as appropriate, variously including the following: *Automated exposure control *Adjustment of mA and/or kV according to patient size (this includes techniques or standardized protocols for targeted exams where dose is matched to indication/reason for exam; i.e. extremities or head) *Use of iterative reconstruction technique DLP: 473 mGy-cm. FINDINGS: LUNG: Dense consolidation in the left lower lobe is seen with complete collapse and volume loss of the left lower lobe. Air bronchograms are seen distally with focal cough in the proximal most left lower lobe bronchus. Fine detail is obscured by respiratory motion artifact. In the acute setting, mucus plugging would be suspected. MEDIASTINUM: Prominent right paratracheal lymph node is seen measuring 1.2 cm in maximal short axis diameter shotty mediastinal lymph nodes otherwise. CORONARY ARTERY CALCIFICATION: Absent PERICARDIUM/PLEURA: No significant effusion. No pleural mass or thickening. THYROID/VISUALIZED LOWER NECK: Unremarkable. CHEST WALL/AXILLA: Unremarkable. VISUALIZED UPPER ABDOMEN: Diffuse fatty infiltration of the liver. BONES: Chronic bony changes but no acute bony abnormality appreciated. CT/CT chest wo IV con IMPRESSION: Dense consolidation in the left lower lobe with volume loss. Mucous plugging would be suspected in the acute setting.
--- NOTE | ~2022-11-30 | XR_ITS ---
EXAMINATION: XR CHEST CLINICAL INFORMATION: Hypoxia. Follow-up consolidation COMPARISON: Chest 11/30/2022 TECHNIQUE: Frontal view of the chest was obtained. FINDINGS: The heart size is normal. Pulmonary vascularity is normal. Previously visualized left left midlung opacity/consolidation is improved. There is some residual groundglass attenuation in the left upper lung an atelectatic changes in the left lung base.. No gross bony abnormality seen. XR/XR chest 1V IMPRESSION: Improved left midlung opacity/consolidation. There is some residual groundglass attenuation in the left upper lung. No new consolidation seen.
--- NOTE | ~2022-11-30 | XR_ITS ---
EXAMINATION: XR CHEST CLINICAL INFORMATION: Hypoxia COMPARISON: 12/01/2022 TECHNIQUE: Frontal view of the chest was obtained. FINDINGS: Cardiomediastinal silhouette is normal. There is a digital there is left lower lobe opacity, unresolved pneumonia. Right lung is clear. XR/XR chest 1V IMPRESSION: Unresolved left lower lobe pneumonia
--- NOTE | ~2022-11-30 | XR_ITS ---
EXAMINATION: XR CHEST CLINICAL INFORMATION: Dyspnea. COMPARISON: None available. TECHNIQUE: Frontal view of the chest was obtained. FINDINGS: The lungs are hypoexpanded with patchy atelectatic changes in lingula. Heart size is enlarged. Pulmonary vascularity is normal. No gross bony abnormality seen. XR/XR chest 1V IMPRESSION: 1. Hypoexpanded lungs with patchy atelectasis in the lingula. 2. Mild cardiomegaly.
--- NOTE | ~2022-11-30 | XR_ITS ---
EXAMINATION: XR CHEST CLINICAL INFORMATION: Dyspnea. COMPARISON: 11/25/2022 TECHNIQUE: Frontal view of the chest was obtained. FINDINGS: Lungs are hypoinflated. There appears to be interval worsening of left diaphragm elevation/volume loss. Also, there is worsening opacity in the left mid to lower lung from airspace disease and/or atelectasis. Difficult to exclude any superimposed small pleural effusion. The evaluation of the posterior left lower lung is limited. Cardiac silhouette is normal in size. Pulmonary vessels are normal in caliber. No acute skeletal findings. XR/XR chest 1V IMPRESSION: Lungs are hypoinflated and there is interval worsening opacity (from atelectasis and/or pneumonia) in the left mid to lower lung. No evidence of congestive heart failure.
--- NOTE | ~2022-11-30 | CT_ITS ---
EXAMINATION: CT ANGIOGRAM HEAD CT ANGIOGRAM NECK CLINICAL INFORMATION: Reason for Exam left sided weakness COMPARISON: Earlier same day noncontrast head CT TECHNIQUE: Initial noncontrast tree scout imaging of the head and neck was performed. Comparison is made with noncontrast head CT from earlier today. Test bolus sequences followed by intravenous administration 70 mL of Omnipaque 350. Helical imaging was performed in the axial plane from the aortic arch to the skull vertex. Delayed postcontrast imaging of the head was also performed. The data was processed at the lead technologist in cytogenetics's workstation for generation of MIP sequences. Angled MIPs and volume rendered reformatted images were also generated at an offline 3D workstation. Stenoses are assessed in accordance with NASCET criteria unless otherwise indicated. DLP: 1411.19 mGy-cm This CT examination was performed using dose optimization techniques as appropriate, variously including the following: *Automated exposure control. *Adjustment of mA and/or kV according to patient size (this includes techniques or standardized protocols for targeted exams where dose is matched to indication/reason for exam; i.e. extremities or head). *Use of iterative reconstruction technique. FINDINGS: CT Head: There is no evidence of acute intracranial hemorrhage or edematous territorial infarction. Scattered hypoattenuation in the periventricular and deep white matter are consistent with moderate microangiopathy. Chronic lacunar infarcts involving the left phillip radiata, right basal ganglia, right thalamus, brainstem, and right cerebellum. Torres-white matter differentiation is preserved. Proportional prominence of the ventricles and sulcal spaces. No evidence for obstructive hydrocephalus. No abnormal mass effect or midline shift. No extra-axial fluid collections. No pathologic intra-axial enhancement or regional oligemia. There is a 1.5 cm enhancing extra-axial mass along the medial anterior left frontal convexity (series 16 image 40), likely representing a meningioma. There is associated hyperostosis along the inner and outer tables of the adjacent left frontal calvarium. No acute soft tissue or osseous abnormalities. There is partial opacification of the left middle ear cavity. Left maxillary, ethmoid, and frontal sinus mucosal thickening. CT Neck: The thyroid gland and remaining cervical soft tissues are within normal limits. Reversal of usual cervical lordosis. There is rightward rotation of the C2 vertebra relative to C1 with some offset of the C1 and C2 lateral masses which may may in part be related to head positioning, although atlantoaxial instability is also possible. The atlantodental interval is normal. No evidence of acute fracture. Multilevel cervical spondylosis. CT Upper Chest: Dependent atelectasis in the left lung. Evaluation of lung parenchyma is somewhat limited due to motion. There is suggestion of centrilobular emphysema. Neck CTA: Please note that evaluation of the proximal vessels in the mediastinum and lower neck is somewhat limited due to motion artifact. Aortic Arch: Normal contour and caliber. Classic 3 vessel branching pattern of the aortic arch. Great Vessel Origins: No significant stenosis of the branch origins. Right Common Carotid Artery: No focal stenosis or occlusion. Cervical Right Internal Carotid Artery: Normal opacification without focal stenosis or occlusion. Left Common Carotid Artery: No focal stenosis or occlusion. Cervical Left Internal Carotid Artery: Normal opacification without focal stenosis or occlusion. Cervical Right Vertebral Artery: No focal stenosis or occlusion. Cervical Left Vertebral Artery: Dominant. No focal stenosis or occlusion. Brain CTA: Intracranial Internal Carotid Arteries: Calcific atherosclerotic disease of the intracranial internal carotid arteries without occlusion or flow-limiting stenosis. Right Anterior Cerebral Artery: Normal A1 segment. Normal opacification of the distal ROSSY segments. Left Anterior Cerebral Artery: Normal A1 segment. Normal opacification of the distal ROSSY segments. Anterior Communicating Artery: Normal. Right Middle Cerebral Artery: Normal M1 segment of the MCA without focal stenosis or occlusion. Normal arborization of the distal segments. Left Middle Cerebral Artery: Normal M1 segment of the MCA without focal stenosis or occlusion. Normal arborization of the distal segments. Right Vertebral Artery: Normal V4 segment. Left Vertebral Artery: Normal V4 segment. Basilar Artery: Normal without focal stenosis or occlusion. Normal appearance of the proximal superior cerebellar arteries. Right Posterior Cerebral Artery: Normal P1 segment. Normal opacification of the distal BUSINESS OPERATIONS DIRECTOR segments. Left Posterior Cerebral Artery: Normal P1 segment. Normal opacification of the distal BUSINESS OPERATIONS DIRECTOR segments. Normal opacification of the superior sagittal, straight, transverse, and sigmoid sinuses. CT/CT angio head neck stroke IMPRESSION: 1. No arterial high grade stenosis or large vessel occlusion in the head or neck. Please note that evaluation of the proximal arteries in the mediastinum and lower neck is somewhat limited due to motion artifact. 2. There is rotary subluxation of C1 relative to C2, likely chronic and degenerative in nature. If there is history of acute trauma and/or clinical symptoms attributable to a myelopathy, this could be further assessed with an MRI of the cervical spine. 3. Incidental 1.5 cm meningioma along the anterior left frontal convexity. Above impression was communicated to Dr Benton on 12/01/2022 at 10:03 PM
--- NOTE | ~2022-11-30 | XR_ITS ---
EXAMINATION: XR CHEST CLINICAL INFORMATION: Reassess mucus plugging COMPARISON: Previous chest x-ray most recent 12/04/[address] 12/01/2022 TECHNIQUE: Frontal view of the chest was obtained. FINDINGS: The cardiac and mediastinal contours are stable. The patient appears rotated to the left however there also may be some volume loss to the left hemithorax. There is improved aeration of the left lower lobe compared to previous exams. Lung volumes are low. No pleural effusion or pneumothorax. Sclerotic right proximal humeral shaft lesion unchanged. XR/XR chest 1V IMPRESSION: Improved aeration of the left lower lobe. Unremarkable examination.
--- NOTE | ~2022-11-30 | CT_ITS ---
EXAMINATION: CT HEAD WITHOUT CONTRAST (STROKE PROTOCOL) CLINICAL INFORMATION: Stroke protocol. Left-sided weakness. COMPARISON: None available. TECHNIQUE: Contiguous axial imaging was performed from the skullbase to vertex without intravenous administration of contrast. This CT examination was performed using dose optimization techniques as appropriate, variously including the following: *Automated exposure control. *Adjustment of mA and/or kV according to patient size (this includes techniques or standardized protocols for targeted exams where dose is matched to indication/reason for exam; i.e. extremities or head). *Use of iterative reconstruction technique. DLP: 674 mGy-cm FINDINGS: There is no evidence of an extra-axial collection. There is no evidence of intra-axial or extra-axial hemorrhage. The ventricles and extra-axial CSF spaces are prominent suggestive of generalized atrophy. There is nonspecific periventricular white matter disease. There may be old periventricular white matter infarcts in the right frontal lobe. No old exams are available for comparison and these are age-indeterminate. This could be better evaluated with MRI, if clinically indicated. No mass or mass effect is seen. Review of bone windows is normal. No skull fracture. Left-sided sinus disease. CT/CT head for stroke IMPRESSION: Generalized atrophy and nonspecific periventricular white matter disease. Question right frontal and right frontal parietal periventricular white matter infarcts. No old exams are available for comparison and these are age-indeterminate. Left-sided sinus disease. This critical result was discussed with Dr. Benton at 2215 hours on 12/01/2022. It was ascertained that the content and urgency of the report was understood at the time of direct communication.
--- NOTE | 2022-11-30 09:07 | PC.RT ---
pt sats 85% on 4 l n/c. changed to 10 liter [place]. Sats up to 89-90% pt does wear 02 at home at 2 liters.
--- NOTE | 2022-11-30 09:12 | ECG_ITS ---
Test Reason : WEAKNESS Blood Pressure : / mmHG Vent. Rate : 086 BPM Atrial Rate : 086 BPM P-R Int : 180 ms QRS Dur : 088 ms QT Int : 416 ms P-R-T Axes : 033 -03 004 degrees QTc Int : 497 ms Normal sinus rhythm Nonspecific T wave abnormality Prolonged QT Abnormal ECG When compared with ECG of 25-NOV-2022 05:03, Questionable change in QRS axis T wave inversion now evident in Inferior leads Nonspecific T wave abnormality, worse in Anterior leads Nonspecific T wave abnormality no longer evident in Lateral leads QT has shortened Referred By: Valentina Wagner Electronically Signed By:SALOME SHAW
[2022-11-30 09:28] LABS: Appearance Urine Cloudy; Color Urine Yellow; Glucose Urine UA Negative (Negative); Leukocyte Esterase Urine Moderate (2+) (Negative); Nitrite Urine Negative (Negative); PH 5.5 (5.0-9.0); Specific Gravity - Urine 1.015 (1.005-1.025); UMIC TRIGGER UACC YES; Urine Blood Large (3+) (Negative); Urine Ketones 15 mg/dL (Negative); Urine Protein 100 (2+) mg/dL (Neg-Trace)
[2022-11-30 09:40] LABS: Bacteria Urine None Seen (None Seen); RBC Urine >20 /HPF (0-2); UACC Culture Trigger YES; WBC Urine >50 /HPF (0-5)
--- NOTE | 2022-11-30 09:44 | PC.NURSE ---
0936 minimal blood obtained from IV acces, unable to collect labs at this time. multiple attempts made. aware. MD to attempt U/S guided line adn obtain labs
[2022-11-30] MEDS: Albuterol Sulfate 5 MG, Albuterol/Iprat 2.5/0.5MG 3 ML 3 ML INHALE (09:55)
--- NOTE | 2022-11-30 09:56 | PC.NURSE ---
pt a difficult poke., multiple RNs attempted IV line. unstable 20G in L hand placed. unable to obtain labs. MD Wagner made aware for neeed for U/S guided line
[2022-11-30] MEDS: 0.9 % Sodium Chloride 500 ML IV (09:57)
--- NOTE | 2022-11-30 10:10 | PC.NURSE ---
MD Wagner placed U/S guided IV in LAC, blood not able to be obtained for labs
--- NOTE | 2022-11-30 10:13 | PC.NURSE ---
0940- multiple attempts for IV access and blood draw- unsuccessful
--- NOTE | 2022-11-30 10:16 | ED_ITS ---
HPI - SOB/Dyspnea General Chief Complaint: Dyspnea Stated Complaint: NONPROD COUGH X2,O2 93%RA,FROM SNF PER EMS Time Seen by Provider: 11/30/22 09:00 Source: patient and old records reviewed Mode of arrival: EMS Limitations: altered mental status History of Present Illness HPI Narrative: 52 yo M with a PMH of DM type 2, Depression, chronic suprapubic cathether, history of PE on DOAC, HTN, PAD, COPD, Mild neurocognitive disorder here with c/o increased RR and fevers with hypoxia. The patient is currently here with fevers, increased work of breathing, fevers. Notes from facility show he has been on ceftin for UTI. Was on prednisone taper but off in October. EMS found him 83% on RA does not normally wear O2. MD elicited complaint: shortness of breath Pertinent past history: asthma, pneumonia and PE Onset (ago): day(s) (reported today) Context: recent illness Timing: progressively worsening Severity: severe Exacerbating factors: exertion and coughing Relieving factors: oxygen, rest and bronchodilators Known history of: asthma and recurrent pneumonia Associated symptoms: fever, cough, wheezing and sputum production Treatment prior to arrival: oxygen Related Data Home Medications Medication Instructions Recorded Confirmed acetaminophen 325 mg tablet 650 mg PO Q6H PRN Pain 11/25/22 11/25/22 apixaban 5 mg tablet (Eliquis) 5 mg PO BID 11/25/22 11/25/22 ascorbic acid (vitamin C) 500 mg 500 mg PO DAILY 11/25/22 11/25/22 tablet citalopram 40 mg tablet 40 mg PO DAILY 11/25/22 11/25/22 docusate sodium 100 mg capsule 100 mg PO BID 11/25/22 11/25/22 (Colace) ferrous gluconate 324 mg (37.5 mg 324 mg PO DAILY 11/25/22 11/25/22 iron) tablet ipratropium 0.5 mg-albuterol 3 mg 3 ml inhalation Q6H PRN Wheezing 11/25/22 11/25/22 (2.5 mg base)/3 mL nebulization soln lamotrigine 100 mg tablet 100 mg PO BID 11/25/22 11/25/22 (Lamictal) metformin 500 mg tablet 500 mg PO BID 11/25/22 11/25/22 miconazole nitrate 2 % topical 1 appl topical DAILY PRN Rash 11/25/22 11/25/22 powder omega [id number]-fish oil 1,000 mg 1 cap PO BID 11/25/22 11/25/22 (120 mg-180 mg) capsule (Fish Oil) polyethylene glycol 3350 17 gram 17 g PO DAILY 11/25/22 11/25/22 oral powder packet (Miralax) potassium chloride 10 mEq 10 meq PO QID 11/25/22 11/25/22 tablet,extended release quetiapine 100 mg tablet 100 mg PO BID 11/25/22 11/25/22 sennosides 8.6 mg tablet (senna) 8.6 mg PO DAILY PRN Constipation 11/25/22 11/25/22 simvastatin 10 mg tablet (Zocor) 10 mg PO BEDTIME 11/25/22 11/25/22 sodium phosphates 19 gram-[address] DAILY PRN Constipation 11/25/22 11/25/22 gram/118 mL enema (Fleet Enema) umeclidinium 62.5 mcg-vilanterol 1 inh inhalation DAILY 11/25/22 11/25/22 25 mcg/actuation powdr for inhalation (Anoro Ellipta) vitamin B complex 1 tab PO DAILY 11/25/22 11/25/22 Previous Rx's Medication Instructions Recorded cefuroxime axetil 500 mg tablet 500 mg PO BID 12 days #24 tabs 11/28/22 Allergies Allergy/AdvReac Type Severity Reaction Status Date / Time vincristine Allergy Unknown Verified 11/25/22 03:25 Review of Systems 2 Review of Systems: Constitutional : pos Fever, pos Chills ENT/Mouth : No Hoarseness, No sore throat, No Rhinorrhea Eyes: No Redness, No Discharge, No Vision Changes Cardiovascular : No Chest Pain, positive SOB, positive Dyspnea on Exertion, No Edema Respiratory : positive Cough, pos Sputum, positive Wheezing, Gastrointestinal : No Nausea, No Vomiting, No Diarrhea, No abdominal Pain Genitourinary : No Dysuria, No Hematuria Musculoskeletal : No joint pain, No Myalgias Skin : No rash Neuro : pos Weakness, No Numbness, No Headache Psych : No anxiety, depression Heme/Lymph: No Bruising, No Bleeding Endocrine : No Polyuria, No Polydipsia All other systems reviewed and are negative PMFSH Past Medical History Attestation statement: The following information was validated with the patient. Source: old records reviewed Medical History Bacteremia Pneumonia Acute UTI Social History Social History Household Members: Other Housing: Longterm Unable to assess alcohol history related to: Unknown Alcohol intake: never Patient Tobacco Use Status: Former Tobacco user Tobacco use type: Cigarette Smoked in Last 30 Days: No Use of substances other than those prescribed or required for medical reasons: No Advance Directives: No service: No Physical Exam 2 Vital Signs: Vital Signs: Last Vital Signs Temp 101.0 F H 11/30/22 08:55 Pulse 84 11/30/22 11:17 Resp 33 H 11/30/22 11:17 BP 115/75 11/30/22 11:17 Pulse Ox 98 11/30/22 11:17 O2 Del Method High Flow Nasal C annula 11/30/22 11:17 O2 Flow Rate 15 11/30/22 11:17 BMI result Body Mass Index 35.5 Appearance: Alert. Oriented X person and place. Moderate acute distress. Eyes: Pupils equal, round and reactive to light. ENT: Pharynx normal. Neck: Normal inspection. Neck supple. CVS: tachycardic heart rate and rhythm. Pulses normal. Respiratory: Moderate respiratory distress - tachypnea short phrases. Breath sounds decreased L side. Abdomen: Soft and nontender. suprapubic cath is old appearing and somewhat unkempt but no abscess felt. Skin: Skin warm and dry. Normal skin color. Normal skin turgor. Extremities: 1+ pitting bilateral lower extremity edema. No calf ttp Neuro: Oriented X 2. No motor deficit. No sensory deficit. Course Course Course Narrative: patient is improving at this time will admit 100% on high flow Medications Administered Generic Name Dose Route Start Last Admin Trade Name Freq PRN Reason Stop Dose Admin Vancomycin HCl 2,000 mg in 500 mls @ 250 mls/hr 11/30/22 10:53 11/30/22 11:35 Vancomycin/Ns IV 11/30/22 12:52 250 mls/hr ONCE ONE Administration Potassium Chloride 10 meq in 100 mls @ 100 mls/hr 11/30/22 11:45 11/30/22 11:44 Potassium Chloride/H20 IV 11/30/22 13:44 100 mls/hr Q1H KARLENE Administration Discontinued Medications Generic Name Dose Route Start Last Admin Trade Name Heidi PRN Reason Stop Dose Admin Acetaminophen 650 mg 11/30/22 09:11 11/30/22 10:26 Acetaminophen Supp [address] 11/30/22 09:12 650 mg ONCE ONE Administration Albuterol Sulfate 5 mg/ 0 mg 11/30/22 09:46 11/30/22 09:55 Albuterol/Ipratropium 3 ml INHALE 11/30/22 09:47 5 each ONCE ONE Administration Sodium Chloride 500 mls @ 500 mls/hr 11/30/22 09:15 11/30/22 11:05 Ns IV 11/30/22 10:14 Infused .Q1H KARLENE Infusion Cefepime HCl 2 gm/ Sodium 50 mls @ 100 mls/hr 11/30/22 09:11 11/30/22 11:39 Chloride IV 11/30/22 09:40 Infused ONCE ONE Infusion Potassium Chloride 40 meq 11/30/22 11:31 11/30/22 11:43 Potassium Chloride Packet 20 Meq Packet PO 11/30/22 11:32 40 meq ONCE ONE Administration Medical Decision Making Medical Decision Making MDM Narrative: 52 yo M with a PMH of DM type 2, Depression, chronic suprapubic cathether, history of PE on DOAC, HTN, PAD, COPD, Mild neurocognitive disorder here with c/o cough, hypoxia, dyspnea, fevers at this time concern for pneumonia I have ordered fluids, cefepime and vancomycin, tylenol and neb. He is on high flow O2. He has not missed his DOAC doubt PE. Planned admit. I am holding NIPPV given concern for aspiration risk. Differential Diagnosis Differential Diagnoses: The differential diagnosis associated with the presentation includes pneumonia, UTI, doubt VTE on DOAC, hypoxia, COVID Admission/Observation Consideration of admission/observation: Escalation of care including admission/observation considered planned admit Consult Healthcare Provider Management of the patient was discussed with: Hospitalist (agrees to admission) Dr. Bowen did see the patient does not need admission at this time to ICU Lab Data MDM Lab Attestation statement: I reviewed the patient's lab results. 11/30/22 10:43 11/30/22 10:43 Labs: Lab Results 11/30/22 11/30/22 11/30/22 Range/Units 09:21 10:33 10:43 WBC 13.1 H (4.8-10.8) X10*3/uL RBC 4.51 L (4.60-5.80) X10*6/uL Hgb 12.2 L (14.0-18.0) g/dl Hct 38.4 L (42.0-52.0) % MCV 85.1 (80.0-98.0) fL MCH 27.1 (27.0-33.0) pg MCHC 31.8 (31.0-36.0) g/dl RDW 15.3 (11.0-16.0) % Plt Count 352 (160-400) X10*3/uL MPV 9.6 (9.4-12.4) fL Immature Gran % (Auto) 0.7 H (0.0-0.4) % Neut % (Auto) 69.6 (45-73) % Lymph % (Auto) 17.1 L (20-40) % Banks % (Auto) 9.4 (2-11) % Eos % (Auto) 2.4 (0-4) % Baso % (Auto) 0.8 (0-2) % Lymph # (Auto) 2.2 (1.2-4.9) X10*3/uL [place] # (Auto) 1.2 (0.1-1.2) X10*3/uL Eos # (Auto) 0.3 (0.0-0.4) X10*3/uL Baso # (Auto) 0.1 (0.0-0.2) X10*3/uL Abs Immat Gran (auto) 0.09 H (0.00-0.03) X10*3/uL Absolute Neuts (auto) 9.1 H (2.0-8.3) x10*3/uL Absolute Nucleated RBC 0.000 (0.0-0.012) X10*3/uL Nucleated RBC % (auto) 0.0 (0.0-0.2) /100WBC PT 18.2 H (11.1-13.3) SEC INR 1.5 H (0.9-1.1) VBG pH (7.32-7.43) VBG pCO2 mmHg VBG pO2 mmHg VBG HCO3 (22-26) mmol/L VBG O2 Saturation % VBG Base Excess mmol/L Sodium 144 (135-145) mmol/L Potassium 2.7 L (3.3-5.1) mmol/L Chloride 107 (96-108) mmol/L Carbon Dioxide 26 (22-29) mmol/L Anion Gap 14 (12-20) BUN 7 L (9-16) mg/dL Creatinine 1.05 (0.5-1.4) mg/dL Estim Creat Clear Calc 88.9 Estimated GFR > 60 Random Glucose 123 H (60-115) mg/dL Lactic Acid 0.8 (0.5-2.0) mmol/L Calcium 9.2 (8.4-10.2) mg/dL Magnesium 1.7 (1.6-2.6) mg/dL Total Bilirubin 0.3 (0.0-1.0) mg/dL Direct Bilirubin 0.1 (0.0-0.5) mg/dL AST 18 (5-37) U/L ALT 15 (0-40) U/L Alkaline Phosphatase 98 (39-117) U/L Troponin I High Sens < 2.7 (<3.5-35.0) ng/L B-Natriuretic Peptide 15 (<100) pg/mL Total Protein 7.0 (6.5-8.0) g/dL Albumin 3.3 L (3.5-5.0) g/dL Lipase 17 (8-78) U/L Procalcitonin 0.37 ng/mL Urine Color Yellow Urine Appearance Cloudy Urine pH 5.5 (5.0-9.0) Ur Specific [place] 1.015 (1.005-1.025) Urine Protein 100 (2+) H (Neg-Trace) mg/dL Urine Glucose (UA) Negative (Negative) mg/dL Urine Ketones 15 (Negative) mg/dL Urine Blood Large (3+) H (Negative) Urine Nitrite Negative (Negative) Ur Leukocyte Esterase Moderate (2+) H (Negative) Urine RBC >20 H (0-2) /HPF Urine WBC >50 H (0-5) /HPF Ur Squamous Epith Cells 3-5 (0-2) /HPF Urine Bacteria None Seen (None Seen) Hyaline Casts 3-5 (0-2) /LPF Influenza Type A (PCR) NEGATIVE (Negative) Influenza Type B (PCR) NEGATIVE (Negative) RSV RNA Qual (PCR) POSITIVE A (Negative) SARS-CoV-2 RNA (RT-PCR) NEGATIVE (Negative) 11/30/22 Range/Units 10:51 WBC (4.8-10.8) X10*3/uL RBC (4.60-5.80) X10*6/uL Hgb (14.0-18.0) g/dl Hct (42.0-52.0) % MCV (80.0-98.0) fL MCH (27.0-33.0) pg MCHC (31.0-36.0) g/dl RDW (11.0-16.0) % Plt Count (160-400) X10*3/uL MPV (9.4-12.4) fL Immature Gran % (Auto) (0.0-0.4) % Neut % (Auto) (45-73) % Lymph % (Auto) (20-40) % [place] % (Auto) (2-11) % Eos % (Auto) (0-4) % Baso % (Auto) (0-2) % Lymph # (Auto) (1.2-4.9) X10*3/uL [place] # (Auto) (0.1-1.2) X10*3/uL Eos # (Auto) (0.0-0.4) X10*3/uL Baso # (Auto) (0.0-0.2) X10*3/uL Abs Immat Gran (auto) (0.00-0.03) X10*3/uL Absolute Neuts (auto) (2.0-8.3) x10*3/uL Absolute Nucleated RBC (0.0-0.012) X10*3/uL Nucleated RBC % (auto) (0.0-0.2) /100WBC PT (11.1-13.3) SEC INR (0.9-1.1) VBG pH 7.48 H (7.32-7.43) VBG pCO2 37 mmHg VBG pO2 144 mmHg VBG HCO3 28 H (22-26) mmol/L VBG O2 Saturation 99.0 % VBG Base Excess 4.6 mmol/L Sodium (135-145) mmol/L Potassium (3.3-5.1) mmol/L Chloride (96-108) mmol/L Carbon Dioxide (22-29) mmol/L Anion Gap (12-20) BUN (9-16) mg/dL Creatinine (0.5-1.4) mg/dL Estim Creat Clear Calc Estimated GFR Random Glucose (60-115) mg/dL Lactic Acid (0.5-2.0) mmol/L Calcium (8.4-10.2) mg/dL Magnesium (1.6-2.6) mg/dL Total Bilirubin (0.0-1.0) mg/dL Direct Bilirubin (0.0-0.5) mg/dL AST (5-37) U/L ALT (0-40) U/L Alkaline Phosphatase (39-117) U/L Troponin I High Sens (<3.5-35.0) ng/L B-Natriuretic Peptide (<100) pg/mL Total Protein (6.5-8.0) g/dL Albumin (3.5-5.0) g/dL Lipase (8-78) U/L Procalcitonin ng/mL Urine Color Urine Appearance Urine pH (5.0-9.0) Ur Specific [place] (1.005-1.025) Urine Protein (Neg-Trace) mg/dL Urine Glucose (UA) (Negative) mg/dL Urine Ketones (Negative) mg/dL Urine Blood (Negative) Urine Nitrite (Negative) Ur Leukocyte Esterase (Negative) Urine RBC (0-2) /HPF Urine WBC (0-5) /HPF Ur Squamous Epith Cells (0-2) /HPF Urine Bacteria (None Seen) Hyaline Casts (0-2) /LPF Influenza Type A (PCR) (Negative) Influenza Type B (PCR) (Negative) RSV RNA Qual (PCR) (Negative) SARS-CoV-2 RNA (RT-PCR) (Negative) Independent Interpretation I performed an independent interpretation of an: EKG and Plain X-Ray (LLL opacity) Interpretation: Rate: 86 Rhythm: NSR [place]: normal Normal P waves. Normal KEVIN. Normal QRS complex. ST T wave : no JED, nonspecific ST T wave changes inf leads/anterior leads qTC: 497 prolonged prior studies: no JED The study has been interpreted contemporaneously by me. . Radiology Impression Discussion of test interpretation with radiology: I have reviewed the radiologist's reading. Independent Historian Clinical information obtained from an independent historian. History obtained from or confirmed by: EMS External Record Review External record reviewed: Inpatient record and Outpatient record Chronic Conditions Patient?s care impacted by: Diabetes Procedures EJ/Peripheral Line Arm L: Time Out Performed: Yes Skin Cleansed in Sterile Fashion: Yes Size (gauge): 20 IV Secured and Dressing Applied: Yes Patient Tolerated Procedure: well and no complications Additional Comments: US guided Critical Care Time Critical Care Time Critical Care Time: Yes Total Critical Care Time: 60 Attestation: high flow O2, sepsis protocol. ICU consult, IV potassium I attest to this time spent taking care of the patient Discharge Plan Discharge Clinical Impression: Hypoxia, Acute febrile illness, Acute hypokalemia Pneumonia Qualifiers: Pneumonia type: due to unspecified organism Laterality: left Lung location: l ower lobe of lung Qualified Code(s): J18.9 - Pneumonia, unspecified organism Patient Disposition: Admitted As Inpatient
[2022-11-30] MEDS: Acetaminophen Supp 650 MG SUPP.RECT PR (10:26)
--- NOTE | 2022-11-30 10:36 | PC.NURSE ---
phlebotomy at bedside to obtain labs
[2022-11-30 10:52] LABS: MANUAL DIFF FLAG NO
[2022-11-30 10:55] LABS: Basophils Absolute Auto 0.1 X10*3/uL (0.0-0.2); Basophils Percent Auto 0.8 % (0-2); Eosinophils Absolute Auto 0.3 X10*3/uL (0.0-0.4); Eosinophils Percent Auto 2.4 % (0-4); Hematocrit 38.4 % (42.0-52.0); Hemoglobin 12.2 g/dl (14.0-18.0); Imm Gran Abs Auto 0.09 X10*3/uL (0.00-0.03); Imm Gran Pct Auto 0.7 % (0.0-0.4); Lymphocytes Absolute Auto 2.2 X10*3/uL (1.2-4.9); Lymphocytes Percent Auto 17.1 % (20-40); Mean Corpuscular HGB Conc 31.8 g/dl (31.0-36.0); Mean Corpuscular Hemoglobin 27.1 pg (27.0-33.0); Mean Corpuscular Volume 85.1 fL (80.0-98.0); Mean Platelet Volume 9.6 fL (9.4-12.4); Monocytes Absolute Auto 1.2 X10*3/uL (0.1-1.2); Monocytes Percent Auto 9.4 % (2-11); Neutrophils Absolute Auto 9.1 x10*3/uL (2.0-8.3); Neutrophils Percent Auto 69.6 % (45-73); Platelet Count 352 X10*3/uL (160-400); Red Blood Count 4.51 X10*6/uL (4.60-5.80); Red Cell Distribution Width 15.3 % (11.0-16.0); White Blood Count 13.1 X10*3/uL (4.8-10.8)
[2022-11-30 10:56] LABS: Venous Blood Gas Refer to POC result
[2022-11-30] MEDS: cefEPime HCl 2 GM in 0.9 % Sodium Chloride 50 ML IV (10:56)
[2022-11-30 10:57] LABS: VBG Base Excess 4.6 mmol/L; VBG HCO3 28 mmol/L (22-26); VBG pCO2 37 mmHg; VBG pH 7.48 (7.32-7.43); VBG pO2 144 mmHg
[2022-11-30 10:59] LABS: INTERNATIONAL NORM RATIO 1.5 (0.9-1.1); Prothrombin Time 18.2 SEC (11.1-13.3)
[2022-11-30 11:06] LABS: Lactic Acid 0.8 mmol/L (0.5-2.0)
[2022-11-30 11:16] LABS: B Type Natriuretic Peptide 15 pg/mL (<100)
[2022-11-30 11:19] LABS: Alanine Aminotransferase 15 U/L (0-40); Albumin Level 3.3 g/dL (3.5-5.0); Alkaline Phosphatase 98 U/L (39-117); Anion Gap 14 (12-20); Aspartate Amino Transferase 18 U/L (5-37); Bilirubin Direct 0.1 mg/dL (0.0-0.5); Bilirubin Total 0.3 mg/dL (0.0-1.0); Blood Urea Nitrogen 7 mg/dL (9-16); Calcium 9.2 mg/dL (8.4-10.2); Carbon Dioxide 26 mmol/L (22-29); Chloride 107 mmol/L (96-108); Creatinine Clr Calc Pharmacy 88.9; Estimated Glomerular Filt Rate > 60; Glucose Random 123 mg/dL (60-115); Lipase 17 U/L (8-78); Magnesium 1.7 mg/dL (1.6-2.6); Potassium 2.7 mmol/L (3.3-5.1); Sodium 144 mmol/L (135-145)
[2022-11-30 11:24] LABS: Influenza A PCR NEGATIVE (Negative); Influenza B PCR NEGATIVE (Negative); Resp Syncy Virus RNA Qual PCR POSITIVE (Negative); SARS COV2 PCR INHOUSE NEGATIVE (Negative)
[2022-11-30 11:25] LABS: Troponin-I High Sensitivity < 2.7 ng/L (<3.5-35.0)
[2022-11-30 11:34] LABS: Procalcitonin 0.37 ng/mL
[2022-11-30] MEDS: vancomycin/NS 2,000 MG/500 ML PLAST..BAG 250 MG IV (11:35)
[2022-11-30] MEDS: Potassium Chloride Packet 20 MEQ PACKET 40 MEQ PO (11:43)
[2022-11-30] MEDS: Potassium Chloride/H20 10 MEQ/100 ML PIGGYBACK 100 MEQ IV ×2 (11:44→13:53)
--- NOTE | 2022-11-30 12:14 | PC.NURSE ---
pts u/s guided line infiltrated with IV potassium running. gtt stopped at this time. MD gao made aware of need for new u/s line. pt provided with hot pack for infiltration pain
--- NOTE | 2022-11-30 12:52 | PM.IMHP ---
History of Present Illness Date of Service: 11/30/22 Chief Complaint: SOB 52-year-old man with multiple medical problems presenting from [facility] with fever, tachypnea and hypoxia. Patient was discharged from [facility] yesterday and treated for sepsis secondary to E coli bacteremia and UTI with history of chronic suprapubic catheter. Patient is not positive for RSV and noted to be hypoxic and placed on high-flow nasal cannula oxygen. In the ED, white blood cell count elevated at 13.1, potassium 2.7, urine still positive but possible colonization. Chest x-ray showing interval worsening opacities in the left mid to lower lung. Was given cefepime, vancomycin in the ER. He will be admitted for further management and treatment of hypoxia secondary to RSV and pneumonia. Review of Systems Review of Systems: Unable to determine, history of neuro cognitive disorder [facility] Medical History (Updated 11/30/22 @ 16:13 by eKrry Preciado NP) Pulmonary embolus Bacteremia Pneumonia Acute UTI Social History Household Members: Other Housing: Half-Way Unable to assess alcohol history related to: Unknown Alcohol intake: never Patient Tobacco Use Status: Former Tobacco user Tobacco use type: Cigarette service: No Meds Allergies Allergy/AdvReac Type Severity Reaction Status Date / Time vincristine Allergy Unknown Verified 11/25/22 03:25 Active Medications: Current Medications Acetaminophen (Acetaminophen 325 Mg Tablet) 650 mg PO Q6H PRN PRN Reason: Pain, Mild (Pain Scale 1-3) Vancomycin HCl (Vancomycin/Ns) 2,000 mg in 500 mls @ 250 mls/hr IV ONCE ONE Stop: 11/30/22 12:52 Last Admin: 11/30/22 11:35 Dose: 250 mls/hr Potassium Chloride (Potassium Chloride/H20) 10 meq in 100 mls @ 100 mls/hr IV Q1H KARLENE Stop: 11/30/22 13:44 Last Infusion: 11/30/22 12:14 Dose: 0 mls/hr Ondansetron HCl (Ondansetron Hcl 4 Mg/2 Ml Vial) 4 mg IVPUSH Q8H PRN PRN Reason: Nausea and Vomiting Sodium Chloride (0.9 % Sodium Chloride Flush 3 Ml Syringe) 3 ml IVFLUSH QSHIFT [facility] Home Medications Medication Instructions Recorded Confirmed Last Taken Type acetaminophen 325 mg tablet 650 mg PO Q6H PRN Pain 11/25/22 11/30/22 Unknown History apixaban 5 mg tablet (Eliquis) 5 mg PO BID 11/25/22 11/30/22 Unknown History ascorbic acid (vitamin C) 500 mg 500 mg PO DAILY 11/25/22 11/30/22 Unknown History tablet citalopram 40 mg tablet 40 mg PO DAILY 11/25/22 11/30/22 Unknown History docusate sodium 100 mg capsule 100 mg PO BID 11/25/22 11/30/22 Unknown History (Colace) ferrous gluconate 324 mg (37.5 mg 324 mg PO DAILY 11/25/22 11/30/22 Unknown History iron) tablet ipratropium 0.5 mg-albuterol 3 mg 3 ml inhalation Q6H PRN Wheezing 11/25/22 11/30/22 Unknown History (2.5 mg base)/3 mL nebulization soln lamotrigine 100 mg tablet 100 mg PO BID 11/25/22 11/30/22 Unknown History (Lamictal) metformin 500 mg tablet 500 mg PO BID 11/25/22 11/30/22 Unknown History miconazole nitrate 2 % topical 1 appl topical DAILY PRN Rash 11/25/22 11/30/22 Unknown History powder omega 5-ezp-poi-fish oil 1,000 mg 1 cap PO BID 11/25/22 11/30/22 Unknown History (120 mg-180 mg) capsule (Fish Oil) polyethylene glycol 3350 17 gram 17 g PO DAILY 11/25/22 11/30/22 Unknown History oral powder packet (Miralax) potassium chloride 10 mEq 10 meq PO QID 11/25/22 11/30/22 Unknown History tablet,extended release quetiapine 100 mg tablet 100 mg PO BID 11/25/22 11/30/22 Unknown History sennosides 8.6 mg tablet (senna) 8.6 mg PO DAILY PRN Constipation 11/25/22 11/30/22 Unknown History simvastatin 10 mg tablet (Zocor) 10 mg PO BEDTIME 11/25/22 11/30/22 Unknown History sodium phosphates 19 gram-7 118 ml OH DAILY PRN Constipation 11/25/22 11/30/22 Unknown History gram/118 mL enema (Fleet Enema) umeclidinium 62.5 mcg-vilanterol 1 inh inhalation DAILY 11/25/22 11/30/22 Unknown History 25 mcg/actuation powdr for inhalation (Anoro Ellipta) vitamin B complex 1 tab PO DAILY 11/25/22 11/30/22 Unknown History Physical Exam Vital Signs and Narrative: Vital Signs: Last Vital Signs Temp 101.0 F H 11/30/22 08:55 Pulse 85 11/30/22 12:38 Resp 25 H 11/30/22 12:38 BP 149/85 H 11/30/22 12:38 Pulse Ox 93 11/30/22 12:38 O2 Del Method High Flow Nasal C annula 11/30/22 12:38 O2 Flow Rate 15 11/30/22 12:38 BMI result Body Mass Index 35.5 Appearing in no acute distress head is normocephalic atraumatic eyes pupils are PERRLA sclera is anicteric mouth throat mucous membranes are intact and moist neck is supple no lymphadenopathy, no JVD noted lung sounds are clear to auscultation heart regular rate rhythm, clear S1, S2 positive bowel sounds, abdomen is soft, nontender neuro patient is alert x3, no focal deficits Results Labs 11/30/22 10:43 11/30/22 10:43 Labs: Laboratory Results - last 24 hr 11/30/22 11/30/22 11/30/22 09:21 10:33 10:43 MCV 85.1 MCH 27.1 MCHC 31.8 RDW 15.3 Plt Count 352 MPV 9.6 Immature Gran % (Auto) 0.7 H Neut % (Auto) 69.6 Lymph % (Auto) 17.1 L Atkinson % (Auto) 9.4 Eos % (Auto) 2.4 Baso % (Auto) 0.8 Lymph # (Auto) 2.2 Atkinson # (Auto) 1.2 Eos # (Auto) 0.3 Baso # (Auto) 0.1 Abs Immat Gran (auto) 0.09 H Absolute Neuts (auto) 9.1 H Absolute Nucleated RBC 0.000 Nucleated RBC % (auto) 0.0 PT 18.2 H INR 1.5 H VBG pH VBG pCO2 VBG pO2 VBG HCO3 VBG O2 Saturation VBG Base Excess Anion Gap 14 Estim Creat Clear Calc 88.9 Estimated GFR > 60 Random Glucose 123 H Lactic Acid 0.8 Calcium 9.2 Magnesium 1.7 Total Bilirubin 0.3 Direct Bilirubin 0.1 AST 18 ALT 15 Alkaline Phosphatase 98 B-Natriuretic Peptide 15 Total Protein 7.0 Albumin 3.3 L Lipase 17 Procalcitonin 0.37 Urine Color Yellow Urine Appearance Cloudy Urine pH 5.5 Ur Specific [place] 1.015 Urine Protein 100 (2+) H Urine Glucose (UA) Negative Urine Ketones 15 Urine Blood Large (3+) H Urine Nitrite Negative Ur Leukocyte Esterase Moderate (2+) H Urine RBC >20 H Urine WBC >50 H Ur Squamous Epith Cells 3-5 Urine Bacteria None Seen Hyaline Casts 3-5 Influenza Type A (PCR) NEGATIVE Influenza Type B (PCR) NEGATIVE RSV RNA Qual (PCR) POSITIVE A SARS-CoV-2 RNA (RT-PCR) NEGATIVE 11/30/22 10:51 MCV MCH MCHC RDW Plt Count MPV Immature Gran % (Auto) Neut % (Auto) Lymph % (Auto) Atkinson % (Auto) Eos % (Auto) Baso % (Auto) Lymph # (Auto) Atkinson # (Auto) Eos # (Auto) Baso # (Auto) Abs Immat Gran (auto) Absolute Neuts (auto) Absolute Nucleated RBC Nucleated RBC % (auto) PT INR VBG pH 7.48 H VBG pCO2 37 VBG pO2 144 VBG HCO3 28 H VBG O2 Saturation 99.0 VBG Base Excess 4.6 Anion Gap Estim Creat Clear Calc Estimated GFR Random Glucose Lactic Acid Calcium Magnesium Total Bilirubin Direct Bilirubin AST ALT Alkaline Phosphatase B-Natriuretic Peptide Total Protein Albumin Lipase Procalcitonin Urine Color Urine Appearance Urine pH Ur Specific [place] Urine Protein Urine Glucose (UA) Urine Ketones Urine Blood Urine Nitrite Ur Leukocyte Esterase Urine RBC Urine WBC Ur Squamous Epith Cells Urine Bacteria Hyaline Casts Influenza Type A (PCR) Influenza Type B (PCR) RSV RNA Qual (PCR) SARS-CoV-2 RNA (RT-PCR) Imaging Radiologist's Impressions: Impressions Chest X-Ray 11/30/22 10:32 IMPRESSION: Lungs are hypoinflated and there is interval worsening opacity (from atelectasis and/or pneumonia) in the left mid to lower lung. No evidence of congestive heart failure. Assessment and Plan (1) Acute hypokalemia: Status: Acute (2) Hypoxia: Status: Acute Plan 52-year-old man presenting from [facility] with hypoxia secondary to RSV Hypoxia secondary to RSV Chest x-ray showing possible opacity in the left mid to lower lung, with treat for possible pneumonia Continue high-flow oxygen 45 L and 65% Supportive care Diarrhea Will check C diff as patient has been on antibiotics Hypokalemia Repleted in the ER Normocytic anemia No evidence of acute blood loss Follow CBC Diabetes mellitus type 2 Sliding scale, ADA diet History of pulmonary embolism Continue Eliquis Hypertension Mental health Continue home medications DVT prophylaxis with Eliquis Full code Patient requires 2 inpatient midnights for treatment of acute RSV with hypoxemia requiring oxygen Time Spent With Patient Time: Total time managing care of this patient today ____ minutes. Quality Stroke Does the patient have a stroke diagnosis?: No VTE Prior VTE?: No VTE Risk Level:: Medical - moderate - high VTE Device Contraindication: Treatment Not Indicated VTE Drug Contraindication: N/A - Med Ordered
--- NOTE | 2022-11-30 13:10 | PHA.MEDREC ---
Addendum entered by Tarah Daigle RPh 11/30/22 13:35: recieved list from [facility], no changes Original Note: Pharmacy Consult ? Medication Reconciliation Pharmacy has completed the medication reconciliation. Patient just discharge 11/29 used discharge summary as med list sent was not updated as triamtere/HCTZ was discounted during last admission. Waiting for [facility] medication list as a second check. Tarah Daigle, PharmD
--- NOTE | 2022-11-30 15:19 | PC.NURSE ---
pt pulled out line to R hand.
--- NOTE | 2022-11-30 15:19 | PC.NURSE ---
U/S guided line to LAC placed by Dr. Wagner and Manisha HOGUE at approx 1330. that line has now infiltrated
[2022-11-30] MEDS: cefTRIAXone sodium 1 GM in 0.9 % Sodium Chloride 50 ML IV (15:30)
--- NOTE | 2022-11-30 15:34 | PC.NURSE ---
reassessed and altered dressing for pts 20G in LAC. line patent at this time with difficult push.
--- NOTE | 2022-11-30 16:05 | PC.NURSE ---
assist with washing and changing after loose BM. bottom very red, no open areas at this time
[2022-11-30] MEDS: Azithromycin 500 MG in 0.9 % Sodium Chloride 250 ML 125 MG IV (16:08)
[2022-11-30 17:26] LABS: CDiff Gene PCR NEGATIVE (Negative)
--- NOTE | 2022-11-30 17:30 | PC.NURSE ---
late entry: pts 20G in LAC infiltrated. this IV line was U/S guided. Manisha HOGUE and Dr. Bowling made aware. multiple attempts made before gaining access via 22G in R wrist
[2022-11-30] MEDS: Potassium Chloride ER 10 MEQ TABLET.ER PO ×2 (17:40→20:46)
[2022-11-30 18:28] LABS: Glucose, Whole Blood 105 mg/dL (60-115)
--- NOTE | 2022-11-30 19:09 | PC.NURSE ---
assumed care of patient at 1900 - per previous RN there was a bed assignment change and pt got reassigned to bed 444 on med tele but at the nurse's request upstairs they would like to wait to receive report until after shift change. will attempt calling report soon . pt on monitoring manager wearing high flow o2 call landaverde within reach.
--- NOTE | 2022-11-30 19:37 | PC.NURSE ---
report called to [facility] RN. pt cleaned up and linens changed as pt was soiled in liquid diarrhea. temperature taken and updated in worklist. respiratory and transport bringing patient upstairs.
--- NOTE | 2022-11-30 19:37 | MHC.EDTECH ---
Patient was incont. of a large amount of LIQ. stool, patient was cleaned,repositioned and linen was changed.
[2022-11-30] MEDS: lamoTRIgine 100 MG TABLET PO (20:46)
[2022-11-30] MEDS: Docusate Sodium 100 MG CAPSULE PO (20:46)
[2022-11-30] MEDS: QUEtiapine Fumarate 100 MG TABLET PO (20:46)
[2022-11-30] MEDS: Apixaban 5 MG TABLET PO (20:46)
[2022-11-30] MEDS: Atorvastatin Calcium 10 MG TABLET PO (20:46)
[2022-11-30] MEDS: 0.9 % Sodium Chloride Flush 3 ML SYRINGE IVFLUSH (20:47)
[2022-11-30] MEDS: Albuterol/Iprat 2.5/0.5MG 3 ML AMPUL.NEB INHALE (20:49)
[2022-11-30 20:50] LABS: Glucose, Whole Blood 106 mg/dL (60-115)
[2022-12-01] VITALS (15 sets, daily range): BP systolic 105–179; BP diastolic 56–80; PULSE 81–110; RESP 17–36; TEMP 36.3–39.1; O2SAT 86–100; BMI 35.6
[2022-12-01] MEDS: Albuterol/Iprat 2.5/0.5MG 3 ML AMPUL.NEB INHALE (03:13)
[2022-12-01 05:03] LABS: ABG Base Excess 3.5 mmol/L; ABG HCO3 27 mmol/L (22-26); ABG pCO2 39 mmHg (32-45); ABG pH 7.45 (7.35-7.45); ABG pO2 85 mmHg (83-108)
[2022-12-01 05:05] LABS: ABG Refer to POC result
[2022-12-01 06:03] LABS: Hematocrit 39.6 % (42.0-52.0); Hemoglobin 12.4 g/dl (14.0-18.0); Mean Corpuscular HGB Conc 31.3 g/dl (31.0-36.0); Mean Corpuscular Hemoglobin 27.2 pg (27.0-33.0); Mean Corpuscular Volume 86.8 fL (80.0-98.0); Platelet Count 355 X10*3/uL (160-400); Red Blood Count 4.56 X10*6/uL (4.60-5.80); Red Cell Distribution Width 15.7 % (11.0-16.0); White Blood Count 12.3 X10*3/uL (4.8-10.8)
[2022-12-01 06:21] LABS: Anion Gap 16 (12-20); Blood Urea Nitrogen 6 mg/dL (9-16); Carbon Dioxide 23 mmol/L (22-29); Chloride 107 mmol/L (96-108); Creatinine Clr Calc Pharmacy 89.9; Estimated Glomerular Filt Rate > 60; Glucose Random 93 mg/dL (60-115); Potassium 3.3 mmol/L (3.3-5.1); Sodium 143 mmol/L (135-145)
--- NOTE | 2022-12-01 06:40 | PC.RT ---
pt remains on Hiflow nasal cannula at 50Liters and 85% fi02. Pt RR 32 Sats mid 90's HR 98. Pt was found on a continuous dynamap. Dr. Benton called and requested that he puts an order in for the Telepak for continuous HR and SAT. I reminded him that all patients on Hilfow nasal cannula needs to be closely monitored HR/SAt on should be place on this Telepak.
--- NOTE | 2022-12-01 07:23 | PC.NURSE ---
at 0250 am pts o2 is 86%- 87% on 40 L high flow . Resp notified and dr Benton . respiratory increased o2 and md was notified also blood gas was ordered . Dr Benton came to see pt o2 sats between 91-94 % . pt is awake and talking at all times asked for water and when given he said was not cold enough to bring him water with ice. respiratory did blood gas report given to day RN
[2022-12-01] MEDS: QUEtiapine Fumarate 100 MG TABLET PO (07:36)
[2022-12-01] MEDS: Acetaminophen 325 MG TABLET 650 MG PO (07:36)
[2022-12-01] MEDS: Escitalopram Oxalate 20 MG TABLET PO (07:36)
[2022-12-01] MEDS: lamoTRIgine 100 MG TABLET PO (07:36)
[2022-12-01] MEDS: Apixaban 5 MG TABLET PO (07:36)
[2022-12-01] MEDS: 0.9 % Sodium Chloride Flush 3 ML SYRINGE IVFLUSH ×2 (07:37→15:41)
[2022-12-01 07:46] LABS: Glucose, Whole Blood 92 mg/dL (60-115)
--- NOTE | 2022-12-01 08:58 | MHC.CM.PN ---
CM spoke with Patient's Guardian/Pmtrav-ys-Myw/Ainsley @ [phone] and addressed IMM with her.; original will be mailed certified mail to Ainsley and a copy has been placed on the chart. Patient is a LTC Resident of [facility] and the plan is for him to return there once medically cleared for dc. CM has initiated and will follow for dc planning.
--- NOTE | 2022-12-01 10:55 | HO.PM.IMPN ---
Subjective Subjective Date of Service: 12/01/22 Interval History: seen and examined follow up for UTI/bacteremia/sepsis poor historian but denies sob, abdominal pain, fever, chills Review of Systems Review of Systems: Yes all other systems are reviewed and are negative Constitutional Constitutional: Denies chills and Denies fever(s) ENT Ears, Nose, Mouth, and Throat: Denies dizziness Cardiovascular Cardiovascular: Denies chest pain and Denies dyspnea Respiratory Respiratory: Denies dyspnea Gastrointestinal Gastrointestinal: Denies abdominal pain Neurologic Neurologic: Denies dizziness Physical Exam Vital Signs: Vital Signs: Last Vital Signs Temp 102.3 F H 12/01/22 07:19 Pulse 100 12/01/22 07:19 Resp 18 12/01/22 08:32 BP 162/80 H 12/01/22 07:19 Pulse Ox 100 12/01/22 07:19 O2 Del Method High Flow Nasal C annula 12/01/22 07:19 O2 Flow Rate 22 12/01/22 07:19 FiO2 97 12/01/22 07:19 BMI result Body Mass Index 35.6 Appearing in no acute distress lung sounds dim, high flow oxygen nc heart regular rate rhythm, clear S1, S2 positive bowel sounds, abdomen is soft, nontender neuro patient is alert x3, no focal deficits Objective Data Active Medications Acetaminophen (Acetaminophen 325 Mg Tablet) 650 mg PO Q6H PRN PRN Reason: Pain, Mild (Pain Scale 1-3) Last Admin: 12/01/22 07:36 Dose: 650 mg Documented By: SHIRA Albuterol/Ipratropium (Albuterol/Iprat 2.5/0.5mg 3 Ml Ampul.Neb) 3 ml INHALE Q6H PRN PRN Reason: Wheezing Last Admin: 12/01/22 03:13 Dose: 3 ml Documented By: FLOR Apixaban (Apixaban 5 Mg Tablet) 5 mg PO BID [facility] Last Admin: 12/01/22 07:36 Dose: 5 mg Documented By: SHIRA Ascorbic Acid (Ascorbic Acid 500 Mg Tablet) 500 mg PO DAILY [facility] Last Admin: 12/01/22 08:00 Dose: Not Given Documented By: SHIRA Non-Admin Reason: Patient Refused Atorvastatin Calcium (Atorvastatin Calcium 10 Mg Tablet) 10 mg PO BEDTIME [facility] Last Admin: 11/30/22 20:46 Dose: 10 mg Documented By: KIMMIE Dextrose (Dextrose 50 % 25 Gm/50 Ml Syringe) 25 gm IVPUSH Q15M PRN; Protocol PRN Reason: per Hypoglycemia Standing Ord. Docusate Sodium (Docusate Sodium 100 Mg Capsule) 100 mg PO BID [facility] Last Admin: 12/01/22 07:37 Dose: Not Given Documented By: SHIRA Non-Admin Reason: loose bowel movements Escitalopram Oxalate (Escitalopram Oxalate 20 Mg Tablet) 20 mg PO DAILY [facility] Last Admin: 12/01/22 07:36 Dose: 20 mg Documented By: SHIRA Ferrous Sulfate (Ferrous Sulfate 324 Mg Tablet.Dr) 324 mg PO DAILY [facility] Last Admin: 12/01/22 08:00 Dose: Not Given Documented By: SHIRA Non-Admin Reason: Patient Refused Glucose (Glucose Gel 15 Gm Gel..Gram.) 15 gm PO Q15M PRN; Protocol PRN Reason: per Hypoglycemia Standing Ord. Ceftriaxone Sodium 1 gm/ (Sodium Chloride) 50 mls @ 100 mls/hr IV Q24H [facility] Last Infusion: 11/30/22 16:09 Dose: Infused Documented By: VASU Azithromycin 500 mg/ Sodium (Chloride) 250 mls @ 125 mls/hr IV Q24H [facility] Last Infusion: 11/30/22 18:30 Dose: Infused Documented By: VASU Insulin Human Lispro (Insulin Lispro 100 Unit/Ml 3 Ml Vial) 0 unit SUBCUT QIDACHS [facility]; Protocol Last Admin: 12/01/22 08:39 Dose: Not Given Documented By: СЕРГЕЙ Non-Admin Reason: No Insulin Coverage Lamotrigine (Lamotrigine 100 Mg Tablet) 100 mg PO BID [facility] Last Admin: 12/01/22 07:36 Dose: 100 mg Documented By: SHIRA Multivitamins/Vitamin C (Multivitamin Tablet) 1 tab PO DAILY [facility] Last Admin: 12/01/22 08:00 Dose: Not Given Documented By: SHIRA Non-Admin Reason: Patient Refused Ondansetron HCl (Ondansetron Hcl 4 Mg/2 Ml Vial) 4 mg IVPUSH Q8H PRN PRN Reason: Nausea and Vomiting Polyethylene Glycol (Polyethylene Glycol 3350 17 Gm Powd.Pack) 17 gm PO DAILY [facility] Last Admin: 12/01/22 07:37 Dose: Not Given Documented By: SHIRA Non-Admin Reason: loose bowel movements Potassium Chloride (Potassium Chloride Er 10 Meq Tablet.Er) 10 meq PO QID [facility] Last Admin: 12/01/22 08:01 Dose: Not Given Documented By: SHIRA Non-Admin Reason: Patient Refused Quetiapine Fumarate (Quetiapine Fumarate 100 Mg Tablet) 100 mg PO BID [facility] Last Admin: 12/01/22 07:36 Dose: 100 mg Documented By: SHIRA Senna (Sennosides 8.6 Mg Tablet) 8.6 mg PO DAILY PRN PRN Reason: Constipation Sodium Biphosphate/Sodium Phosphate (Sodium Phosphate,[place]-Dibasic 133 Ml Enema) 118 ml [place] DAILY PRN PRN Reason: Constipation Sodium Chloride (0.9 % Sodium Chloride Flush 3 Ml Syringe) 3 ml IVFLUSH QSHIFT [facility] Last Admin: 12/01/22 07:37 Dose: 3 ml Documented By: SHIRA Sodium Chloride (0.9 % Sodium Chloride Flush 3 Ml Syringe) 3 ml IVFLUSH QSGAFT [facility] Last Admin: 12/01/22 07:37 Dose: Not Given Documented By: SHIRA Non-Admin Reason: Duplicate Order Labs 12/01/22 05:21 12/01/22 05:21 Labs: Laboratory Results - last 24 hr 11/30/22 11/30/22 11/30/22 10:33 10:43 10:51 MCV 85.1 MCH 27.1 MCHC 31.8 RDW 15.3 Plt Count 352 MPV 9.6 Immature Gran % (Auto) 0.7 H Neut % (Auto) 69.6 Lymph % (Auto) 17.1 L Mills % (Auto) 9.4 Eos % (Auto) 2.4 Baso % (Auto) 0.8 Lymph # (Auto) 2.2 Mills # (Auto) 1.2 Eos # (Auto) 0.3 Baso # (Auto) 0.1 Abs Immat Gran (auto) 0.09 H Absolute Neuts (auto) 9.1 H Absolute Nucleated RBC 0.000 Nucleated RBC % (auto) 0.0 PT 18.2 H INR 1.5 H O2 Saturation ABG pH at Pt Temp ABG pCO2 at Pt Temp ABG pO2 at Pt Temp ABG HCO3 ABG Base Excess (Actual) VBG pH 7.48 H VBG pCO2 37 VBG pO2 144 VBG HCO3 28 H VBG O2 Saturation 99.0 VBG Base Excess 4.6 Anion Gap 14 Estim Creat Clear Calc 88.9 Estimated GFR > 60 POC Glucose Random Glucose 123 H Lactic Acid 0.8 Calcium 9.2 Magnesium 1.7 Total Bilirubin 0.3 Direct Bilirubin 0.1 AST 18 ALT 15 Alkaline Phosphatase 98 B-Natriuretic Peptide 15 Total Protein 7.0 Albumin 3.3 L Lipase 17 Procalcitonin 0.37 C. difficile Tox B Gene Influenza Type A (PCR) NEGATIVE Influenza Type B (PCR) NEGATIVE RSV RNA Qual (PCR) POSITIVE A SARS-CoV-2 RNA (RT-PCR) NEGATIVE 11/30/22 11/30/22 11/30/22 16:10 18:24 20:34 MCV MCH MCHC RDW Plt Count MPV Immature Gran % (Auto) Neut % (Auto) Lymph % (Auto) Mills % (Auto) Eos % (Auto) Baso % (Auto) Lymph # (Auto) Mills # (Auto) Eos # (Auto) Baso # (Auto) Abs Immat Gran (auto) Absolute Neuts (auto) Absolute Nucleated RBC Nucleated RBC % (auto) PT INR O2 Saturation ABG pH at Pt Temp ABG pCO2 at Pt Temp ABG pO2 at Pt Temp ABG HCO3 ABG Base Excess (Actual) VBG pH VBG pCO2 VBG pO2 VBG HCO3 VBG O2 Saturation VBG Base Excess Anion Gap Estim Creat Clear Calc Estimated GFR POC Glucose 105 106 Random Glucose Lactic Acid Calcium Magnesium Total Bilirubin Direct Bilirubin AST ALT Alkaline Phosphatase B-Natriuretic Peptide Total Protein Albumin Lipase Procalcitonin C. difficile Tox B Gene NEGATIVE Influenza Type A (PCR) Influenza Type B (PCR) RSV RNA Qual (PCR) SARS-CoV-2 RNA (RT-PCR) 12/01/22 12/01/22 12/01/22 04:57 05:21 07:16 MCV 86.8 MCH 27.2 MCHC 31.3 RDW 15.7 Plt Count 355 MPV 10.0 Immature Gran % (Auto) Neut % (Auto) Lymph % (Auto) Mills % (Auto) Eos % (Auto) Baso % (Auto) Lymph # (Auto) Mills # (Auto) Eos # (Auto) Baso # (Auto) Abs Immat Gran (auto) Absolute Neuts (auto) Absolute Nucleated RBC 0.000 Nucleated RBC % (auto) 0.0 PT INR O2 Saturation 97.0 ABG pH at Pt Temp 7.45 ABG pCO2 at Pt Temp 39 ABG pO2 at Pt Temp 85 ABG HCO3 27 H ABG Base Excess (Actual) 3.5 VBG pH VBG pCO2 VBG pO2 VBG HCO3 VBG O2 Saturation VBG Base Excess Anion Gap 16 Estim Creat Clear Calc 89.9 Estimated GFR > 60 POC Glucose 92 Random Glucose 93 Lactic Acid Calcium 9.0 Magnesium Total Bilirubin Direct Bilirubin AST ALT Alkaline Phosphatase B-Natriuretic Peptide Total Protein Albumin Lipase Procalcitonin C. difficile Tox B Gene Influenza Type A (PCR) Influenza Type B (PCR) RSV RNA Qual (PCR) SARS-CoV-2 RNA (RT-PCR) Microbiology Microbiology Results: Microbiology 11/30/22 09:36 Blood Culture - Preliminary Blood - Venous Prelim: GPC Gram Stain only Assessment and Plan (1) Bacteremia: Status: Inactive (2) Acute UTI: Status: Inactive (3) Sepsis: Status: Acute Plan 52 yo M who is a resident at [facility] with a PMH of DM2, depression, chronic suprapubic cath, history of PE, HTN, PAD, COPD and others who is sent in from SNF due to SOB and fever. Acute hypoxic respiratory failure with sepsis secondary to RSV and HCAP vs aspiration pna still with fever, tachycardia and tachypnea vancomycin and Rocephin on High flow 97% and 50L VGB 7.45/39/85/27 Repeat chest x-ray showing improvement in consolidation chest CT ordered but patient was unable to lay flat GPC bacteremia 1/2 start Vancomycin follow final cx ID consult Toxic/metabolic encephalopathy. improving seems to be at baseline diarrhea cdiff neg resolving LUCIEN. Resolved no baseline renal function available hold triamterene/HZTZ for now normocytic anemia possibly related to hemodilution from IVF no evidence of acute blood loss CBC stable hypokalemia. Resolved replace and follow levels on po replacement at baseline, resumed on home dose DM 2 SSI, POCs, ada diet History of PE continue Eliquis HTN bp under adequate control hold triamterene-HCTZ due to LUCIEN Mood continue baseline meds DVT pptx -- Eliquis Attending Dr. Eusebio MAJOR lives at [place], dc back when medically clear requires ongoing inpatient stay for severe sepsis, lucien, complicated UTI and encephalopathy being treated with broad spec IV antibiotics Time Spent With Patient Time: Total time managing care of this patient today ____ minutes. Quality Stroke Does the patient have a stroke diagnosis?: No VTE Prior VTE?: No VTE Risk Level:: Medical - moderate - high VTE Device Contraindication: Treatment Not Indicated VTE Drug Contraindication: N/A - Med Ordered
--- NOTE | 2022-12-01 11:43 | PHA.PROG ---
Admission Date/Time: November 30, 2022 13:49 Indication:RESPIRATORY Weight in k.1 kg Adjusted body weight in K.32 [place] body weight in Kg: Obesity Dosing Indication % IBW: Serum Creatinine - Last 168 Hours 11/30/22 12/01/22 10:43 05:21 Creatinine 1.05 1.04 Estimated CrCl and GFR - Last 168 Hours 11/30/22 12/01/22 10:43 05:21 Estim Creat Clear Calc 88.9 89.9 Estimated GFR > 60 > 60 Vancomycin Loading Dose: 2000 MG Current Vancomycin Dosing Regimen: 1000 Q12 Vancomycin Monitoring using AUC goal of 400 - 600 range with trough as surrogate marker: /14.5 Date and Time for next Vancomycin Level to be drawn: 12/02 @1000 Pharmacist Comments on Vancomycin Plan: BOTH MODIFIED GOTI AND OBESE MODEL SHOW AUC BETWEEN 400 AND 600 WITH 1000 MG Q12 DOSING. CONFIRM AFTER 3 DOSES WITH TROUGH TO ENSURE SAFETY AND EFFICACY Vancomycin dosing will take advantage of [employer] as a clinical decision support tool that uses Bayesian modeling to calculate individual patient's pharmacokinetic parameters and forecast the patient's drug concentration time course with the target goal AUC 24 range of 400 - 600 mg/L/hr.
[2022-12-01 11:53] LABS: Glucose, Whole Blood 112 mg/dL (60-115)
[2022-12-01] MEDS: Potassium Chloride ER 10 MEQ TABLET.ER PO (12:05)
[2022-12-01] MEDS: vancomycin HCL 1,000 MG in 0.9 % Sodium Chloride 250 ML 270 MG IV (12:05)
[2022-12-01] MEDS: cefTRIAXone sodium 1 GM in 0.9 % Sodium Chloride 50 ML IV (14:31)
[2022-12-01] MEDS: methylPREDNISolone Sod Succ 40 MG/ML VIAL IVPUSH (15:40)
[2022-12-01 16:20] LABS: Glucose, Whole Blood 85 mg/dL (60-115)
--- NOTE | 2022-12-01 16:30 | W.PM.IDCN ---
History of Present Illness Data of Consult Service Date: 12/01/22 Requesting physician: Kerry Preciado Primary Care Provider: DO JOSR Layton Reason for consult: gram positive bacteremia He presents from facility with shortness of breath and hypoxia to 80s. He has no fever at this time. Blood cultures shows 1/2 gram positive cocci. RSV screen is positive. Review of Systems Review of Systems: Yes Unobtainable due to mental status PMFSH Past Medical History Medical History Pulmonary embolus Bacteremia Pneumonia Acute UTI Family History Family history: reviewed and not pertinent Social History Social History Household Members: None Housing: Prison Unable to assess alcohol history related to: Unable to respond Alcohol intake: never Patient Tobacco Use Status: Former Tobacco user Tobacco use type: Cigarette service: No Meds Allergies Allergy/AdvReac Type Severity Reaction Status Date / Time vincristine Allergy Unknown Verified 11/25/22 03:25 Active Medications: Current Medications Acetaminophen (Acetaminophen 325 Mg Tablet) 650 mg PO Q6H PRN PRN Reason: Pain, Mild (Pain Scale 1-3) Last Admin: 12/01/22 07:36 Dose: 650 mg Acetaminophen (Acetaminophen Supp 650 Mg Supp.Rect) 650 mg FL Q6H PRN PRN Reason: Fever >101 Albuterol/Ipratropium (Albuterol/Iprat 2.5/0.5mg 3 Ml Ampul.Neb) 3 ml INHALE Q6H PRN PRN Reason: Wheezing Last Admin: 12/01/22 03:13 Dose: 3 ml Apixaban (Apixaban 5 Mg Tablet) 5 mg PO BID [facility] Last Admin: 12/01/22 07:36 Dose: 5 mg Ascorbic Acid (Ascorbic Acid 500 Mg Tablet) 500 mg PO DAILY [facility] Last Admin: 12/01/22 08:00 Dose: Not Given Atorvastatin Calcium (Atorvastatin Calcium 10 Mg Tablet) 10 mg PO BEDTIME [facility] Last Admin: 11/30/22 20:46 Dose: 10 mg Dextrose (Dextrose 50 % 25 Gm/50 Ml Syringe) 25 gm IVPUSH Q15M PRN; Protocol PRN Reason: per Hypoglycemia Standing Ord. Docusate Sodium (Docusate Sodium 100 Mg Capsule) 100 mg PO BID [facility] Last Admin: 12/01/22 07:37 Dose: Not Given Escitalopram Oxalate (Escitalopram Oxalate 20 Mg Tablet) 20 mg PO DAILY [facility] Last Admin: 12/01/22 07:36 Dose: 20 mg Ferrous Sulfate (Ferrous Sulfate 324 Mg Tablet.Dr) 324 mg PO DAILY [facility] Last Admin: 12/01/22 08:00 Dose: Not Given Glucose (Glucose Gel 15 Gm Gel..Gram.) 15 gm PO Q15M PRN; Protocol PRN Reason: per Hypoglycemia Standing Ord. Hydralazine HCl (Hydralazine Hcl 50 Mg Tablet) 50 mg PO TID [facility]; Protocol Ceftriaxone Sodium 1 gm/ (Sodium Chloride) 50 mls @ 100 mls/hr IV Q24H [facility] Last Infusion: 12/01/22 15:36 Dose: Infused Vancomycin HCl 1,000 mg/ (Sodium Chloride) 270 mls @ 270 mls/hr IV Q12H [facility] Last Infusion: 12/01/22 13:06 Dose: Infused Insulin Human Lispro (Insulin Lispro 100 Unit/Ml 3 Ml Vial) 0 unit SUBCUT QIDACHS [facility]; Protocol Last Admin: 12/01/22 11:50 Dose: Not Given Lamotrigine (Lamotrigine 100 Mg Tablet) 100 mg PO BID [facility] Last Admin: 12/01/22 07:36 Dose: 100 mg Methylprednisolone Sodium Succinate (Methylprednisolone Sod Succ 40 Mg/Ml Vial) 40 mg IVPUSH Q8H [facility] Last Admin: 12/01/22 15:40 Dose: 40 mg Morphine Sulfate (Morphine Sulfate 2 Mg/Ml Cartridge) 0.5 mg IVPUSH Q4H PRN; Protocol PRN Reason: tachypnea Multivitamins/Vitamin C (Multivitamin Tablet) 1 tab PO DAILY [facility] Last Admin: 12/01/22 08:00 Dose: Not Given Ondansetron HCl (Ondansetron Hcl 4 Mg/2 Ml Vial) 4 mg IVPUSH Q8H PRN PRN Reason: Nausea and Vomiting Pharmacy Consult (Consult Rx Vancomycin Dosing) 1 each MISCELLANE DAILY PRN PRN Reason: Consult order Polyethylene Glycol (Polyethylene Glycol 3350 17 Gm Powd.Pack) 17 gm PO DAILY [facility] Last Admin: 12/01/22 07:37 Dose: Not Given Potassium Chloride (Potassium Chloride Er 10 Meq Tablet.Er) 10 meq PO QID [facility] Last Admin: 12/01/22 12:05 Dose: 10 meq Quetiapine Fumarate (Quetiapine Fumarate 100 Mg Tablet) 100 mg PO BID [facility] Last Admin: 12/01/22 07:36 Dose: 100 mg Senna (Sennosides 8.6 Mg Tablet) 8.6 mg PO DAILY PRN PRN Reason: Constipation Sodium Biphosphate/Sodium Phosphate (Sodium Phosphate,[place]ush-Dibasic 133 Ml Enema) 118 ml FL DAILY PRN PRN Reason: Constipation Sodium Chloride (0.9 % Sodium Chloride Flush 3 Ml Syringe) 3 ml IVFLUSH [facility] Last Admin: 12/01/22 15:41 Dose: 3 ml Sodium Chloride (0.9 % Sodium Chloride Flush 3 Ml Syringe) 3 ml IVFLUSH [facility] Last Admin: 12/01/22 15:37 Dose: Not Given Home Medications Medication Instructions Recorded Confirmed Last Taken Type acetaminophen 325 mg tablet 650 mg PO Q6H PRN Pain 11/25/22 11/30/22 Unknown History apixaban 5 mg tablet (Eliquis) 5 mg PO BID 11/25/22 11/30/22 Unknown History ascorbic acid (vitamin C) 500 mg 500 mg PO DAILY 11/25/22 11/30/22 Unknown History tablet citalopram 40 mg tablet 40 mg PO DAILY 11/25/22 11/30/22 Unknown History docusate sodium 100 mg capsule 100 mg PO BID 11/25/22 11/30/22 Unknown History (Colace) ferrous gluconate 324 mg (37.5 mg 324 mg PO DAILY 11/25/22 11/30/22 Unknown History iron) tablet ipratropium 0.5 mg-albuterol 3 mg 3 ml inhalation Q6H PRN Wheezing 11/25/22 11/30/22 Unknown History (2.5 mg base)/3 mL nebulization soln lamotrigine 100 mg tablet 100 mg PO BID 11/25/22 11/30/22 Unknown History (Lamictal) metformin 500 mg tablet 500 mg PO BID 11/25/22 11/30/22 Unknown History miconazole nitrate 2 % topical 1 appl topical DAILY PRN Rash 11/25/22 11/30/22 Unknown History powder omega 0-nbd-vfc-fish oil 1,000 mg 1 cap PO BID 11/25/22 11/30/22 Unknown History (120 mg-180 mg) capsule (Fish Oil) polyethylene glycol 3350 17 gram 17 g PO DAILY 11/25/22 11/30/22 Unknown History oral powder packet (Miralax) potassium chloride 10 mEq 10 meq PO QID 11/25/22 11/30/22 Unknown History tablet,extended release quetiapine 100 mg tablet 100 mg PO BID 11/25/22 11/30/22 Unknown History sennosides 8.6 mg tablet (senna) 8.6 mg PO DAILY PRN Constipation 11/25/22 11/30/22 Unknown History simvastatin 10 mg tablet (Zocor) 10 mg PO BEDTIME 11/25/22 11/30/22 Unknown History sodium phosphates 19 gram-7 118 ml FL DAILY PRN Constipation 11/25/22 11/30/22 Unknown History gram/118 mL enema (Fleet Enema) umeclidinium 62.5 mcg-vilanterol 1 inh inhalation DAILY 11/25/22 11/30/22 Unknown History 25 mcg/actuation powdr for inhalation (Anoro Ellipta) vitamin B complex 1 tab PO DAILY 11/25/22 11/30/22 Unknown History Physical Exam Vital Signs: Vital Signs: Last Vital Signs Temp 101.7 F H 12/01/22 15:58 Pulse 97 12/01/22 15:58 Resp 18 12/01/22 16:19 BP 171/75 H 12/01/22 15:58 Pulse Ox 98 12/01/22 15:58 O2 Del Method High Flow Nasal C annula 12/01/22 15:58 O2 Flow Rate 22 12/01/22 07:19 FiO2 97 12/01/22 07:19 BMI result Body Mass Index 35.6 Const: Other: wearing oxygen Results Labs 12/01/22 05:21 12/01/22 05:21 Labs: Short CBC 12/01/22 Range/Units 05:21 WBC 12.3 H (4.8-10.8) X10*3/uL Hgb 12.4 L (14.0-18.0) g/dl Hct 39.6 L (42.0-52.0) % Plt Count 355 (160-400) X10*3/uL BMP 12/01/22 05:21 Sodium 143 Potassium 3.3 D Chloride 107 Carbon Dioxide 23 BUN 6 L Creatinine 1.04 Calcium 9.0 Microbiology Microbiology Results: Microbiology 11/30/22 Unknown Urine Catheterized - Coley Catheter Urine Culture - Preliminary Gram negative trini 11/30/22 10:43 Blood - Venous Blood Culture - Preliminary No growth after 24 hours. 11/30/22 09:36 Blood - Venous Blood Culture - Preliminary Prelim: GPC Gram Stain only Assessment and Plan (1) Hypoxia: Status: Acute There is possible staph aureus Blood cultures final identification pending RSV is also responsible for symptoms (2) Pneumonia: Qualifiers: Laterality: left Lung location: lower lobe of lung Pneumonia type: due to unspecified organism Qualified Code(s): J18.9 - Pneumonia, unspecified organism Status: Acute (3) Sepsis: Status: Acute Plan Continue Vancomycin for now. Stop Vancomycin if blood culture staph non aureus. May continue Ceftriaxone but check procalcitonin and consider stopping if is less than .5. Time Spent With Patient Time: Total time managing care of this patient today ____ minutes.
--- NOTE | 2022-12-01 16:36 | P.EN_ITS ---
Event Note Date of Service: 12/01/22 Event Note: Notified by RN that patient continues to be tachypneic and hypoxic. Discussed case with tinsel machine operator, will assess patient, may need higher level of care Labs ordered including: BMP, BNP, VBG, lactic acid, procalcitonin, ddimer Tylenol for fever Morphine for tachypnea Hydralazine for elevated blood pressure readings urology consult for urosepsis, may need suprapubic cath change Time Spent With Patient Time: Total time managing care of this patient today ____ minutes.
[2022-12-01] MEDS: hydrALAZINE HCl 20 MG/ML VIAL IVPUSH (17:18)
[2022-12-01] MEDS: Morphine Sulfate 2 MG/ML CARTRIDGE 0.5 MG IVPUSH (17:18)
[2022-12-01] MEDS: Acetaminophen Supp 650 MG SUPP.RECT PR (17:19)
[2022-12-01 17:39] LABS: Venous Blood Gas Refer to POC result
[2022-12-01 17:39] LABS: VBG Base Excess 2.9 mmol/L; VBG HCO3 27 mmol/L (22-26); VBG pCO2 41 mmHg; VBG pH 7.42 (7.32-7.43); VBG pO2 190 mmHg
[2022-12-01 17:49] LABS: Lactic Acid 0.6 mmol/L (0.5-2.0)
[2022-12-01 17:53] LABS: D Dimer High Sensitivity 482 NG/ML
[2022-12-01 17:56] LABS: B Type Natriuretic Peptide 15 pg/mL (<100)
[2022-12-01 17:57] LABS: Anion Gap 15 (12-20); Blood Urea Nitrogen 7 mg/dL (9-16); Calcium 9.1 mg/dL (8.4-10.2); Carbon Dioxide 26 mmol/L (22-29); Chloride 107 mmol/L (96-108); Creatinine Clr Calc Pharmacy 84.2; Estimated Glomerular Filt Rate > 60; Glucose Random 120 mg/dL (60-115); Potassium 3.4 mmol/L (3.3-5.1); Sodium 145 mmol/L (135-145)
[2022-12-01 18:14] LABS: Procalcitonin 0.31 ng/mL
--- NOTE | 2022-12-01 18:56 | PC.RT ---
Pt was taken off HFNC and placed on a BIPAP 12/ 80% per MD to be transported to and from CAT scan to maintain sats. pt lei well. pt was switched back to HFNC once he arrived back into his rm
--- NOTE | 2022-12-01 20:48 | PM.EVENT ---
Event Note Date of Service: 12/01/22 Event Note: Nurse notified that patient was with gargled speech. Upon arrival and examination, noticed facial droop and left-sided weakness. Patient is on Eliquis so not a tPA candidate. Concerns for acute CVA. CT head without evidence of bleed or acute infarct. CTA without high-grade stenosis or large vessel occlusion in head and neck. Discussed with neurologist on-call, Dr. Mccarthy. Will administer aspirin, order MRI, keep NPO until swallow eval, obtain echo, lipid panel and A1c. Time Spent With Patient Time: Total time managing care of this patient today ____ minutes.
[2022-12-01 20:51] LABS: Glucose, Whole Blood 147 mg/dL (60-115)
[2022-12-01] MEDS: iohexoL 350 MG/ML 100 ML INFUS..BTL IV (21:34)
--- NOTE | 2022-12-01 22:12 | PC.NURSE ---
Assumed care of patient at 18:45 on 12/01/2022. At 20:37 left sided facial droop, garbled speech and weakness to left upper extremity noted. MD and nursing supervisor remelt came to beside. Vitals taken, BP 105/56, 97.3 temp, 28 respiratory rate, 97% on high paulina at 50L at 68%. POC taken 147. Patient is alert and oriented x1 and arousable to speech. STAT head and neck ct angiogram ordered and obtained.
[2022-12-01] MEDS: Aspirin 300 MG SUPP.RECT PR (22:55)
[2022-12-01 23:21] LABS: Cholesterol 136 mg/dL (<200); HDL Cholesterol 31 mg/dL (>40); LDL Cholesterol Calculated 86 mg/dL (<100); Triglycerides 97 mg/dL (<150)
[2022-12-02] VITALS (12 sets, daily range): BP systolic 127–149; BP diastolic 68–77; PULSE 58–94; RESP 18–28; TEMP 36–37.2; O2SAT 90–97
[2022-12-02] MEDS: vancomycin HCL 1,000 MG in 0.9 % Sodium Chloride 250 ML 270 MG IV (00:13)
[2022-12-02] MEDS: methylPREDNISolone Sod Succ 40 MG/ML VIAL IVPUSH ×4 (00:13→23:02)
[2022-12-02] MEDS: 0.9 % Sodium Chloride Flush 3 ML SYRINGE IVFLUSH ×5 (00:14→20:01)
[2022-12-02 05:25] LABS: Estimated Average Glucose 123 mg/dL; Hemoglobin A1c % 5.9 % (<6.0)
[2022-12-02 07:08] LABS: Glucose, Whole Blood 142 mg/dL (60-115)
[2022-12-02 08:56] LABS: MRSA Nasal PCR POSITIVE (Negative); SA Nasal PCR POSITIVE (Negative)
--- NOTE | 2022-12-02 10:35 | HO.SKINPHOTO ---
Addendum entered by Marian Olmstead RN 12/06/22 17:33: updated picture from 12/06 Original Note: Location: buttock Category: Stage: Length: Width: Depth: cm Location: Category: Stage: Length: Width: Depth: cm Location: Category: Stage: Length: Width: Depth: cm Location: Category: Stage: Length: Width: Depth: cm Location: Category: Stage: Length: Width: Depth: cm Location: Category: Stage: Length: Width: Depth: cm
[2022-12-02 10:47] LABS: Creatinine Clr Calc Pharmacy 87.4; Estimated Glomerular Filt Rate > 60
[2022-12-02 10:49] LABS: Vancomycin Random 23.9 mcg/mL (15-20)
--- NOTE | 2022-12-02 10:52 | P.CNNE_ITS ---
History of Present Illness Data of Consult Service Date: 12/02/22 Primary Care Provider: Maxim Roberts DO HPI Reason for consult: Left hemiparesis 52 years old man who was admitted from a local nursing facility. Detail previous medical records were not available. Reviewing of his CT scan of brain, I can see that he has significant cerebral and cerebellar atrophy and significant white matter changes, which could be ischemic or demyelinating type. In any case, he has underlying significant brain pathology to result in moderate to severe dementia and associated physical disability. While he was in hospital he was noted to have new onset of left-sided weakness yesterday and a stroke protocol was alert it. He had a CT scan and CTA of brain and neck, not revealing any acute pathology. Now he was back to baseline. There was no obvious evidence of seizure. Review of Systems 2 Review of Systems: Could not be done with [facility] Past Medical History Medical History Pulmonary embolus Bacteremia Pneumonia Acute UTI Family History Family history: reviewed and not pertinent Social History Social History Household Members: None Housing: Long-Term Unable to assess alcohol history related to: Unable to respond Alcohol intake: never Patient Tobacco Use Status: Former Tobacco user Tobacco use type: Cigarette service: No Meds Allergies Allergy/AdvReac Type Severity Reaction Status Date / Time vincristine Allergy Unknown Verified 11/25/22 03:25 Active Medications: Current Medications Acetaminophen (Acetaminophen 325 Mg Tablet) 650 mg PO Q6H PRN PRN Reason: Pain, Mild (Pain Scale 1-3) Last Admin: 12/01/22 07:36 Dose: 650 mg Acetaminophen (Acetaminophen Supp 650 Mg Supp.Rect) 650 mg MS Q6H PRN PRN Reason: Fever >101 Last Admin: 12/01/22 17:19 Dose: 650 mg Albuterol/Ipratropium (Albuterol/Iprat 2.5/0.5mg 3 Ml Ampul.Neb) 3 ml INHALE Q6H PRN PRN Reason: Wheezing Last Admin: 12/01/22 03:13 Dose: 3 ml Apixaban (Apixaban 5 Mg Tablet) 5 mg PO BID KARLENE Last Admin: 12/02/22 08:55 Dose: Not Given Ascorbic Acid (Ascorbic Acid 500 Mg Tablet) 500 mg PO DAILY [facility] Last Admin: 12/02/22 08:55 Dose: Not Given Atorvastatin Calcium (Atorvastatin Calcium 10 Mg Tablet) 10 mg PO BEDTIME [facility] Last Admin: 12/01/22 22:11 Dose: Not Given Dextrose (Dextrose 50 % 25 Gm/50 Ml Syringe) 25 gm IVPUSH Q15M PRN; Protocol PRN Reason: per Hypoglycemia Standing Ord. Docusate Sodium (Docusate Sodium 100 Mg Capsule) 100 mg PO BID [facility] Last Admin: 12/02/22 08:55 Dose: Not Given Escitalopram Oxalate (Escitalopram Oxalate 20 Mg Tablet) 20 mg PO DAILY [facility] Last Admin: 12/02/22 08:55 Dose: Not Given Ferrous Sulfate (Ferrous Sulfate 324 Mg Tablet.Dr) 324 mg PO DAILY [facility] Last Admin: 12/02/22 08:57 Dose: Not Given Glucose (Glucose Gel 15 Gm Gel..Gram.) 15 gm PO Q15M PRN; Protocol PRN Reason: per Hypoglycemia Standing Ord. Vancomycin HCl 1,000 mg/ (Sodium Chloride) 270 mls @ 270 mls/hr IV Q12H [facility] Last Infusion: 12/02/22 01:32 Dose: Infused Meropenem 1 gm/ Sodium (Chloride) 100 mls @ 200 mls/hr IV Q8H [facility] Last Infusion: 12/02/22 09:33 Dose: Infused Insulin Human Lispro (Insulin Lispro 100 Unit/Ml 3 Ml Vial) 0 unit SUBCUT QIDACHS [facility]; Protocol Last Admin: 12/02/22 08:39 Dose: Not Given Lamotrigine (Lamotrigine 100 Mg Tablet) 100 mg PO BID [facility] Last Admin: 12/02/22 08:57 Dose: Not Given Methylprednisolone Sodium Succinate (Methylprednisolone Sod Succ 40 Mg/Ml Vial) 40 mg IVPUSH Q8H [facility] Last Admin: 12/02/22 08:38 Dose: 40 mg Morphine Sulfate (Morphine Sulfate 2 Mg/Ml Cartridge) 0.5 mg IVPUSH Q4H PRN; Protocol PRN Reason: tachypnea Last Admin: 12/01/22 17:18 Dose: 0.5 mg Multivitamins/Vitamin C (Multivitamin Tablet) 1 tab PO DAILY [facility] Last Admin: 12/02/22 08:57 Dose: Not Given Nystatin (Nystatin Powder 15 Gm Bottle) 1 appl TOPICAL BID [facility]; Protocol Ondansetron HCl (Ondansetron Hcl 4 Mg/2 Ml Vial) 4 mg IVPUSH Q8H PRN PRN Reason: Nausea and Vomiting Pharmacy Consult (Consult Rx Vancomycin Dosing) 1 each MISCELLANE DAILY PRN PRN Reason: Consult order Polyethylene Glycol (Polyethylene Glycol 3350 17 Gm Powd.Pack) 17 gm PO DAILY [facility] Last Admin: 12/02/22 08:57 Dose: Not Given Potassium Chloride (Potassium Chloride Er 10 Meq Tablet.Er) 10 meq PO QID [facility] Last Admin: 12/02/22 08:55 Dose: Not Given Quetiapine Fumarate (Quetiapine Fumarate 100 Mg Tablet) 100 mg PO BID [facility] Last Admin: 12/02/22 08:57 Dose: Not Given Senna (Sennosides 8.6 Mg Tablet) 8.6 mg PO DAILY PRN PRN Reason: Constipation Sodium Biphosphate/Sodium Phosphate (Sodium Phosphate,[place]-Dibasic 133 Ml Enema) 118 ml MS DAILY PRN PRN Reason: Constipation Sodium Chloride (0.9 % Sodium Chloride Flush 3 Ml Syringe) 3 ml IVFLUSH [facility] Last Admin: 12/02/22 08:39 Dose: 3 ml Sodium Chloride (0.9 % Sodium Chloride Flush 3 Ml Syringe) 3 ml IVFLUSH [facility] Last Admin: 12/02/22 08:39 Dose: Not Given Home Medications Medication Instructions Recorded Confirmed Last Taken Type acetaminophen 325 mg tablet 650 mg PO Q6H PRN Pain 11/25/22 11/30/22 Unknown History apixaban 5 mg tablet (Eliquis) 5 mg PO BID 11/25/22 11/30/22 Unknown History ascorbic acid (vitamin C) 500 mg 500 mg PO DAILY 11/25/22 11/30/22 Unknown History tablet citalopram 40 mg tablet 40 mg PO DAILY 11/25/22 11/30/22 Unknown History docusate sodium 100 mg capsule 100 mg PO BID 11/25/22 11/30/22 Unknown History (Colace) ferrous gluconate 324 mg (37.5 mg 324 mg PO DAILY 11/25/22 11/30/22 Unknown History iron) tablet ipratropium 0.5 mg-albuterol 3 mg 3 ml inhalation Q6H PRN Wheezing 11/25/22 11/30/22 Unknown History (2.5 mg base)/3 mL nebulization soln lamotrigine 100 mg tablet 100 mg PO BID 11/25/22 11/30/22 Unknown History (Lamictal) metformin 500 mg tablet 500 mg PO BID 11/25/22 11/30/22 Unknown History miconazole nitrate 2 % topical 1 appl topical DAILY PRN Rash 11/25/22 11/30/22 Unknown History powder omega [id number]-fish oil 1,000 mg 1 cap PO BID 11/25/22 11/30/22 Unknown History (120 mg-180 mg) capsule (Fish Oil) polyethylene glycol 3350 17 gram 17 g PO DAILY 11/25/22 11/30/22 Unknown History oral powder packet (Miralax) potassium chloride 10 mEq 10 meq PO QID 11/25/22 11/30/22 Unknown History tablet,extended release quetiapine 100 mg tablet 100 mg PO BID 11/25/22 11/30/22 Unknown History sennosides 8.6 mg tablet (senna) 8.6 mg PO DAILY PRN Constipation 11/25/22 11/30/22 Unknown History simvastatin 10 mg tablet (Zocor) 10 mg PO BEDTIME 11/25/22 11/30/22 Unknown History sodium phosphates 19 gram-7 118 ml MS DAILY PRN Constipation 11/25/22 11/30/22 Unknown History gram/118 mL enema (Fleet Enema) umeclidinium 62.5 mcg-vilanterol 1 inh inhalation DAILY 11/25/22 11/30/22 Unknown History 25 mcg/actuation powdr for inhalation (Anoro Ellipta) vitamin B complex 1 tab PO DAILY 11/25/22 11/30/22 Unknown History Physical Exam 2 Vital Signs: Vital Signs: Last Vital Signs Temp 99.0 F 12/02/22 07:12 Pulse 74 12/02/22 07:12 Resp 20 12/02/22 07:12 BP 127/74 12/02/22 07:12 Pulse Ox 96 12/02/22 07:12 O2 Del Method High Flow Nasal C annula 12/02/22 07:12 O2 Flow Rate 50 12/02/22 07:12 FiO2 93 12/02/22 07:12 BMI result Body Mass Index 35.6 Neuro: Other: Alert and awake with normal spontaneity of speech fluency comprehension and vague affect. Face is symmetrical. Visual mendoza are full. There is no definite upper extremity weakness. Legs are flexed and he could wiggle his toes. He said that he was walking but I am not sure if that is true Results Labs 12/01/22 05:21 12/02/22 10:06 Labs: BMP 12/01/22 12/02/22 17:22 10:06 Sodium 145 Potassium 3.4 Chloride 107 Carbon Dioxide 26 BUN 7 L Creatinine 1.11 1.07 Calcium 9.1 Brain imaging results as reported in HPI Microbiology Microbiology Results: Microbiology 11/30/22 09:36 Blood - Venous Blood Culture - Final Coag negative Staphylococcus 11/30/22 Unknown Urine Catheterized - Coley Catheter Urine Culture - Final Pseudomonas aeruginosa 11/30/22 10:43 Blood - Venous Blood Culture - Preliminary No growth after 24 hours. Assessment and Plan (1) Multifactorial dementia: Status: Acute 52 years old man who had a stroke alert yesterday for new onset left-sided weakness. He did not qualify for any acute treatment. Review of his images suggested that he suffered from quite significant cerebral atrophy and other type of brain pathology, which could result in moderate to severe cognitive and physical disability. I recommend conservative line of treatment and no interventions like tPA or intra-arterial type of treatment. Because of his underlying brain pathology, he is at risk for seizure disorder, which is a treatable condition. If any overt seizure-like episode happens, one could start him on a seizure medicine but otherwise not. Time Spent With Patient Time: Total time managing care of this patient today ____ minutes. Procedures Date of Service Date of Service: 12/02/22
--- NOTE | 2022-12-02 10:59 | HE.PHANOTE ---
RE: VANCO DOSING TROUGH CAME BACK AT 23.9 AFTER ONLY 3 DOSES WERE GIVEN. HOLDING DOSE AND RECHECK TROUGH 12/02 @1999. SCR IS STILL STABLE.
--- NOTE | 2022-12-02 11:01 | HO.PM.IMPN ---
Subjective Subjective Date of Service: 12/02/22 Interval History: seen and examined this morning follow up for RSV, respiratory failure overnight pt had garbled speech, facial droop and left side weakness, brain CT/CTA obtained patient awake, alert this morning, requesting rachel ayala. appears comfortable at this time poor historian, but denies sob, cough, chest pain; mild left side droop Review of Systems Review of Systems: Yes all other systems are reviewed and are negative Constitutional Constitutional: Denies chills and Denies fever(s) Cardiovascular Cardiovascular: Denies chest pain and Denies palpitations Endocrine Endocrine: Denies palpitations Physical Exam Vital Signs: Vital Signs: Last Vital Signs Temp 99.0 F 12/02/22 07:12 Pulse 74 12/02/22 07:12 Resp 20 12/02/22 07:12 BP 127/74 12/02/22 07:12 Pulse Ox 96 12/02/22 07:12 O2 Del Method High Flow Nasal C annula 12/02/22 07:12 O2 Flow Rate 50 12/02/22 07:12 FiO2 93 12/02/22 07:12 BMI result Body Mass Index 35.6 Const: General: comfortable and alert Nutritional Appearance: obese Resp: Other: diminished breath sounds Effort & Inspection: able to speak in complete sentences, no respiratory distress and no use of accessory muscles Cardio: Rate: regular rate GI: Inspection: No distended and Yes obesity Palpation (GI): Soft to palpation and nontender Neuro: Other: awake, alert; mild left side droop, able to lift both arms, left hand grasp may be slightly weaker then right side Extrem: General: Yes no pedal edema Objective Data Active Medications Acetaminophen (Acetaminophen 325 Mg Tablet) 650 mg PO Q6H PRN PRN Reason: Pain, Mild (Pain Scale 1-3) Last Admin: 12/01/22 07:36 Dose: 650 mg Documented By: SHIRA Acetaminophen (Acetaminophen Supp 650 Mg Supp.Rect) 650 mg LA Q6H PRN PRN Reason: Fever >101 Last Admin: 12/01/22 17:19 Dose: 650 mg Documented By: СЕРГЕЙ Albuterol/Ipratropium (Albuterol/Iprat 2.5/0.5mg 3 Ml Ampul.Neb) 3 ml INHALE Q6H PRN PRN Reason: Wheezing Last Admin: 12/01/22 03:13 Dose: 3 ml Documented By: FLOR Apixaban (Apixaban 5 Mg Tablet) 5 mg PO BID [facility] Last Admin: 12/02/22 08:55 Dose: Not Given Documented By: STEFAN Non-Admin Reason: NPO Ascorbic Acid (Ascorbic Acid 500 Mg Tablet) 500 mg PO DAILY [facility] Last Admin: 12/02/22 08:55 Dose: Not Given Documented By: STEFAN Non-Admin Reason: NPO Atorvastatin Calcium (Atorvastatin Calcium 10 Mg Tablet) 10 mg PO BEDTIME [facility] Last Admin: 12/01/22 22:11 Dose: Not Given Documented By: TRENTON Non-Admin Reason: MD ordered to hold Dextrose (Dextrose 50 % 25 Gm/50 Ml Syringe) 25 gm IVPUSH Q15M PRN; Protocol PRN Reason: per Hypoglycemia Standing Ord. Docusate Sodium (Docusate Sodium 100 Mg Capsule) 100 mg PO BID [facility] Last Admin: 12/02/22 08:55 Dose: Not Given Documented By: STEFAN Non-Admin Reason: NPO Escitalopram Oxalate (Escitalopram Oxalate 20 Mg Tablet) 20 mg PO DAILY [facility] Last Admin: 12/02/22 08:55 Dose: Not Given Documented By: STEFAN Non-Admin Reason: NPO Ferrous Sulfate (Ferrous Sulfate 324 Mg Tablet.Dr) 324 mg PO DAILY [facility] Last Admin: 12/02/22 08:57 Dose: Not Given Documented By: STEFAN Non-Admin Reason: NPO Glucose (Glucose Gel 15 Gm Gel..Gram.) 15 gm PO Q15M PRN; Protocol PRN Reason: per Hypoglycemia Standing Ord. Meropenem 1 gm/ Sodium (Chloride) 100 mls @ 200 mls/hr IV Q8H [facility] Last Infusion: 12/02/22 09:33 Dose: Infused Documented By: STEFAN Vancomycin HCl 1,000 mg/ (Sodium Chloride) 270 mls @ 270 mls/hr IV Q24H [facility] Insulin Human Lispro (Insulin Lispro 100 Unit/Ml 3 Ml Vial) 0 unit SUBCUT QIDACHS [facility]; Protocol Last Admin: 12/02/22 08:39 Dose: Not Given Documented By: STEFAN Non-Admin Reason: NPO Lamotrigine (Lamotrigine 100 Mg Tablet) 100 mg PO BID [facility] Last Admin: 12/02/22 08:57 Dose: Not Given Documented By: STEFAN Non-Admin Reason: NPO Methylprednisolone Sodium Succinate (Methylprednisolone Sod Succ 40 Mg/Ml Vial) 40 mg IVPUSH Q8H [facility] Last Admin: 12/02/22 08:38 Dose: 40 mg Documented By: STEFAN Morphine Sulfate (Morphine Sulfate 2 Mg/Ml Cartridge) 0.5 mg IVPUSH Q4H PRN; Protocol PRN Reason: tachypnea Last Admin: 12/01/22 17:18 Dose: 0.5 mg Documented By: СЕРГЕЙ Multivitamins/Vitamin C (Multivitamin Tablet) 1 tab PO DAILY [facility] Last Admin: 12/02/22 08:57 Dose: Not Given Documented By: STEFAN Non-Admin Reason: NPO Nystatin (Nystatin Powder 15 Gm Bottle) 1 appl TOPICAL BID [facility]; Protocol Ondansetron HCl (Ondansetron Hcl 4 Mg/2 Ml Vial) 4 mg IVPUSH Q8H PRN PRN Reason: Nausea and Vomiting Pharmacy Consult (Consult Rx Vancomycin Dosing) 1 each MISCELLANE DAILY PRN PRN Reason: Consult order Polyethylene Glycol (Polyethylene Glycol 3350 17 Gm Powd.Pack) 17 gm PO DAILY [facility] Last Admin: 12/02/22 08:57 Dose: Not Given Documented By: STEFAN Non-Admin Reason: NPO Potassium Chloride (Potassium Chloride Er 10 Meq Tablet.Er) 10 meq PO QID [facility] Last Admin: 12/02/22 08:55 Dose: Not Given Documented By: STEFAN Non-Admin Reason: NPO Quetiapine Fumarate (Quetiapine Fumarate 100 Mg Tablet) 100 mg PO BID [facility] Last Admin: 12/02/22 08:57 Dose: Not Given Documented By: STEFAN Non-Admin Reason: NPO Senna (Sennosides 8.6 Mg Tablet) 8.6 mg PO DAILY PRN PRN Reason: Constipation Sodium Biphosphate/Sodium Phosphate (Sodium Phosphate,[place]-Dibasic 133 Ml Enema) 118 ml LA DAILY PRN PRN Reason: Constipation Sodium Chloride (0.9 % Sodium Chloride Flush 3 Ml Syringe) 3 ml IVFLUSH QSHIFT [facility] Last Admin: 12/02/22 08:39 Dose: 3 ml Documented By: STEFAN Sodium Chloride (0.9 % Sodium Chloride Flush 3 Ml Syringe) 3 ml IVFLUSH QSHIFT [facility] Last Admin: 12/02/22 08:39 Dose: Not Given Documented By: STEFAN Non-Admin Reason: already admin Labs 12/01/22 05:21 12/02/22 10:06 Labs: Laboratory Results - last 24 hr 12/01/22 12/01/22 12/01/22 11:48 16:08 17:00 D-Dimer High Sensitivty VBG pH VBG pCO2 VBG pO2 VBG HCO3 VBG O2 Saturation VBG Base Excess Anion Gap Estim Creat Clear Calc Estimated GFR POC Glucose 112 85 Random Glucose Estimat Average Glucose Hemoglobin A1c % Lactic Acid Calcium B-Natriuretic Peptide Triglycerides Cholesterol LDL Cholesterol, Calc HDL Cholesterol Procalcitonin Nasal Screen MRSA (PCR) POSITIVE A Nasal S. aureus Screen POSITIVE A Nasal MRSA/S.aureus Interp SEE NOTE Random Vancomycin 12/01/22 12/01/22 12/01/22 17:22 17:27 20:47 D-Dimer High Sensitivty 482 VBG pH 7.42 VBG pCO2 41 VBG pO2 190 VBG HCO3 27 H VBG O2 Saturation 100.0 VBG Base Excess 2.9 Anion Gap 15 Estim Creat Clear Calc 84.2 Estimated GFR > 60 POC Glucose 147 H Random Glucose 120 H Estimat Average Glucose Hemoglobin A1c % Lactic Acid 0.6 Calcium 9.1 B-Natriuretic Peptide 15 Triglycerides Cholesterol LDL Cholesterol, Calc HDL Cholesterol Procalcitonin 0.31 Nasal Screen MRSA (PCR) Nasal S. aureus Screen Nasal MRSA/S.aureus Interp Random Vancomycin 12/01/22 12/02/22 12/02/22 22:46 07:04 10:06 D-Dimer High Sensitivty VBG pH VBG pCO2 VBG pO2 VBG HCO3 VBG O2 Saturation VBG Base Excess Anion Gap Estim Creat Clear Calc 87.4 Estimated GFR > 60 POC Glucose 142 H Random Glucose Estimat Average Glucose 123 Hemoglobin A1c % 5.9 Lactic Acid Calcium B-Natriuretic Peptide Triglycerides 97 Cholesterol 136 LDL Cholesterol, Calc 86 HDL Cholesterol 31 L Procalcitonin Nasal Screen MRSA (PCR) Nasal S. aureus Screen Nasal MRSA/S.aureus Interp Random Vancomycin 23.9 H Microbiology Microbiology Results: Microbiology 11/30/22 09:36 Blood Culture - Final Blood - Venous Coag negative Staphylococcus 11/30/22 Unknown Urine Culture - Final Urine Catheterized - Coley Catheter Pseudomonas aeruginosa 11/30/22 10:43 Blood Culture - Preliminary Blood - Venous No growth after 24 hours. Assessment and Plan (1) Multifactorial dementia: Status: Acute (2) RSV (respiratory syncytial virus infection): Status: Acute Plan 52 yo M who is a resident at [facility] with a PMH of DM2, depression, chronic suprapubic cath, history of PE on Eliquis, HTN, PAD, COPD, recent admission for complicated UTI sent in from SNF due to SOB and fever found to have RSV. Acute hypoxic respiratory failure with sepsis secondary to RSV and HCAP vs aspiration pna body habitus/restrictive lung dz likely contributing to hypoxia last fever 12/01, HR and RR improving will continue IV abx - IV vancomycin and Rocephin initially, ceftriaxone changed to meropenem 12/01 on High flow, wean as tolerated chest CT showing left lower lobe consolidation with ?mucus plugging - will consult pulmonology possible stroke overnight 12/01 had concern for left side facial droop and left side weakness brain CT showing chronic changes; CTA head/neck with no stenosis or lg vessel occlusion not a candidiate for tpa due to chronic anticogulation with Eliquis seen by neurology - no appreciable neuro deficits during their eval; significant chronic brain pathology on imaging - rec conservative management unable to tolerate brain MRI speech eval pending GPC bacteremia 1/2 coag negative staph - likely contaminant Toxic/metabolic encephalopathy. improving seems to be at baseline diarrhea cdiff neg resolving Complicated UTI diagnosed on previous admission has chronic suprapubic catheter UCx grew proteus mirabilis last admit - d/c on ceftin urine culture growing pseudomonas 10-50,000 CFU this admit abx changed to meropenem 12/01 to - will continue for now LUCIEN. Resolved hold triamterene/HZTZ for now normocytic anemia CBC stable DM 2 hold metformin SSI, POCs npo pending speech eval hba1c 5.9 History of PE continue Eliquis HTN bp under adequate control hold triamterene-HCTZ Mood continue baseline meds DVT pptx -- Eliquis Attending Dr. Eusebio MAJOR lives at [place], dc back when medically clear guardian - Ainsley Mcpherson [phone] requires ongoing inpatient stay for respiratory failure, specialist consulation Time Spent With Patient Time: Total time managing care of this patient today ____ minutes. Quality Stroke Does the patient have a stroke diagnosis?: No VTE Prior VTE?: No VTE Risk Level:: Medical - moderate - high VTE Device Contraindication: Treatment Not Indicated VTE Drug Contraindication: N/A - Med Ordered
[2022-12-02 11:03] LABS: Procalcitonin 0.22 ng/mL
[2022-12-02 11:33] LABS: Glucose, Whole Blood 153 mg/dL (60-115)
[2022-12-02] MEDS: Insulin Lispro 100 UNIT/ML 3 ML VIAL SUBCUT ×3 (12:18→21:05)
[2022-12-02] MEDS: Potassium Chloride ER 10 MEQ TABLET.ER PO ×3 (12:18→19:55)
[2022-12-02] MEDS: Apixaban 5 MG TABLET PO ×2 (12:18→19:55)
[2022-12-02 16:48] LABS: Glucose, Whole Blood 199 mg/dL (60-115)
--- NOTE | 2022-12-02 17:16 | MHC.SL.SWA ---
Speech Pathologist Impression: Oral Phase Dysphagia, Risk of Aspiration Risk of Aspiration Due to: Reduced Cognition Weak Cough Dysphasia Diet Status: UPGRADE from NPO Liquid Consistency and Strategies for Safe Swallow: Liquid Intake Recommendation: Thin Liquid Intake Strategies: Small Sips No Straws Solid Food Consistency: Dietary Recommendations: Grnd/Mech Altered (NDD2) Oral Medication Intake: Crushed with Puree Please contact the pharmacy regarding appropriate crushable or liquid drug formulations that are available whenever modified delivery is recommended. Compensatory Strategies and Precautions to be Taken for Safe Swallow: Sitting Upright (90 deg) No Straw Small Bites and Sips Rate of Ingestion Supervision While Eating and Drinking for Safe Swallow: Total Assistance (1:1) Foods to Avoid: Mixed consistencies, difficulty to chew solids. Swallowing Recommended Treatments: Compens. Strategy Educat. Recommendation for Speech: Outpatient Speech Therapy Inpatient Speech Therapy Speech Therapy through Rehab Facility Comment: Pt seen for clinical swallow evaluation at bedside. Presents w/ oral phase dysphagia. Recommend UPGRADE to GROUND solids (NDD2), THIN liquids (NO STRAWS), and meds crushed in puree. Patient requires TOTAL SUPERVISION/ASSISTANCE to provide assistance as needed and cueing. Cue to: -slow rate of ingestion -alternate liquid/solids -not talk w/ food in oral cavity, -Swallow Ground solids recommended at this time d/t risk of aspiration d/t weak cough, cognition, and respiratory status on HFNC. Pharmacy Benefit Manager Clinican/Clinical Fellow: No Supervisory Statement: I have reviewed and agree with the student/clinical fellow's documentation: No Speech Language Pathologist: Tegan Dangelo M.A., CCC-[employer] FOUNDER AND CHIEF STRATEGY OFFICER
--- NOTE | 2022-12-02 18:56 | PC.NURSE ---
1547 Pt started getting combative and pulling highflow off and IV. Provider notified. will cont to monitor.
[2022-12-02] MEDS: lamoTRIgine 100 MG TABLET PO (19:55)
[2022-12-02] MEDS: Atorvastatin Calcium 10 MG TABLET PO (19:55)
[2022-12-02] MEDS: hydrOXYzine HCL 25 MG TABLET PO (19:55)
[2022-12-02] MEDS: QUEtiapine Fumarate 100 MG TABLET PO (19:55)
[2022-12-02] MEDS: Nystatin Powder 15 GM BOTTLE 1 APPL TOPICAL (20:01)
[2022-12-02 20:38] LABS: Glucose, Whole Blood 187 mg/dL (60-115)
[2022-12-02 21:13] LABS: Vancomycin Random 16.5 mcg/mL (15-20)
--- NOTE | 2022-12-02 21:22 | HE.PHANOTE ---
RE VANCO TROUGH WAS 16.5. CHANGED DOSE TO 1250 Q24H NEXT LEVEL DUE 12/03 @1999. SUSPECTED AUC 486, TROUGH OF 14.1 DEMI
[2022-12-02] MEDS: vancomycin HCL 1,250 MG in 0.9 % Sodium Chloride 250 ML 166.67 MG IV (21:31)
[2022-12-03] VITALS (11 sets, daily range): BP systolic 108–124; BP diastolic 60–79; PULSE 69–89; RESP 18–93; TEMP 36.1–36.7; O2SAT 18–99
--- NOTE | 2022-12-03 07:00 | CA_ITS ---
Transthoracic Echocardiogram Patient (Last, First, Middle): Manuel Mcpherson, Gender: Male Date of : 1970 Age: 52 Procedure Date: 12/03/2022 Procedure Type: Transthoracic Echocardiogram Location: [facility] [place] [facility] [place] Height: 167.64 cm Weight: 99.79 kg BSA: 2.08 m2 Heart Rate: bpm BP: 127 / 74 mmHg [place] Supervisor: Referring MD: Augustina Benton MD Symptoms: RESPIRATORY FAILURE Study Quality: Adequate W CONTAST ECG Rhythm: Sinus Conclusions: - The left ventricular systolic function is hyperdynamic. The visually estimated ejection fraction is >70%. - No obvious valvular pathology seen on this study. Findings Procedure Information Contrast agent, definity, is being given per protocol without apparent complications. Left Ventricle Normal left ventricular cavity size. There is mildly increased left ventricular wall thickness. The left ventricular systolic function is hyperdynamic. The visually estimated ejection fraction is >70%. There is no evidence of regional wall motion abnormalities. Evidence suggests grade I (mild) diastolic dysfunction. Right Ventricle Mildly increased right ventricular cavity size. There is normal right ventricular systolic function. Atria Both atria are normal in size. Aortic Valve There is a normal trileaflet aortic valve. There is no aortic valve stenosis. There is no aortic valve regurgitation. Mitral Valve The mitral valve appears normal. There is no mitral valve regurgitation. There is no mitral valve stenosis. Pulmonic Valve The pulmonic valve is likely normal. Tricuspid Valve Normal tricuspid valve structure. There is trace tricuspid valve regurgitation. There is no evidence of pulmonary hypertension. Great Vessels The asc aorta is normal in size. Venous The inferior vena cava is normal in size and collapses greater than 50% with inspiration. Pericardium/Pleural There is a trivial pericardial effusion. Prior Study Comparison No prior study available for comparison. Recommendations, Care & Conclusions No obvious valvular pathology seen on this study. Measurements 2D Linear Measurements IVSd: 1.27 0.6-0.9/0.6-1.0 cm LVIDd: 3.27 3.9-5.3/4.2-5.9 cm LVIDd Index: 1.57 2.4-3.2/2.2-3.1 cm/m2 LVIDs: 2.31 2.0-3.6 cm LVPWd: 1.22 0.7-1.1 cm Ao Root: 3.10 2.1-3.5 cm LA Diam: 3.60 2.7-3.8/3.0-4.0 cm LAIDs Index: 1.73 1.5-2.3 cm/m2 LV Mass: 162.38 67-162/88-224 g LV Mass Index: 78.07 43-95/49-115 g/m2 LVOT Diam: 2.10 3.0+(-)1.3 cm 2D Systolic Function EF 4C: 77.40 >55% EF 2C: 61.20 >55% EF BiP: 70.90 >55% Mitral Valve MV Pk E: 0.77 MV PK A: 0.73 MV Decel Time: 156.00 E/A: 1.10 E'Lateral: 7.07 E'Medial: 3.81 E/E' Med: 20.20 E/E' Lat: 10.90 PHT: 46.00 MVA PHT: 4.78 Decel Harvey: 4.95 Aortic Valve AoV Pk Michael: 1.19 AoV Mn Michael: 0.78 AoV VTI: 0.26 AoV Pk Grad: 6.00 Aov Mn Grad: 3.00 CRESENCIO Cont.VTI: 2.75 LVOT LVOT Pk Michael: 0.90 LVOT Mn Michael: 0.55 LVOT VTI: 0.21 LVOT Pk Grad: 3.00 LVOT Mn Grad: 2.00 LVOT Diam: 2.10 LVOT Area: 3.46 Diastolic Function MV Pk E: 0.77 MV Pk A: 0.73 E/A: 1.10 E'Medial: 3.81 E/E' Med: 20.20 E' Laterial: 7.07 E/E' Lat: 10.90 Right Ventricle TAPSE (mm): 27.00 TVS' Michael: 11.00 Tricuspid Valve TR Pk Michael: 1.93 TR Pk Grad: 15.00 RA Press: 3.00 RVSP: 18.00 Great Vessels Aorta Ao Root-2D: 3.10 2.0-3.7 cm Ao Asc: 3.00 2.1-3.4 cm Pulmonary Valve PV Pk Michael: 0.86 Peak PV Grad: 3.00 Updated in Other Vendor System with Status of Final Rommel Conner MD electronically signed on 12/03/2022 11:40:44 AM with status of Final
[2022-12-03 07:06] LABS: Glucose, Whole Blood 195 mg/dL (60-115)
[2022-12-03] MEDS: 0.9 % Sodium Chloride Flush 3 ML SYRINGE IVFLUSH ×3 (08:04→20:24)
[2022-12-03] MEDS: Insulin Lispro 100 UNIT/ML 3 ML VIAL SUBCUT ×4 (08:04→22:26)
[2022-12-03] MEDS: Potassium Chloride ER 10 MEQ TABLET.ER PO ×3 (08:05→16:03)
[2022-12-03] MEDS: Apixaban 5 MG TABLET PO (08:05)
[2022-12-03] MEDS: Ferrous Sulfate 324 MG TABLET.DR PO (08:05)
[2022-12-03] MEDS: Escitalopram Oxalate 20 MG TABLET PO (08:05)
[2022-12-03] MEDS: lamoTRIgine 100 MG TABLET PO ×2 (08:05→20:24)
[2022-12-03] MEDS: Ascorbic Acid 500 MG TABLET PO (08:05)
[2022-12-03] MEDS: QUEtiapine Fumarate 100 MG TABLET PO (08:05)
[2022-12-03] MEDS: Multivitamin TABLET 1 TAB PO (08:05)
[2022-12-03] MEDS: methylPREDNISolone Sod Succ 40 MG/ML VIAL IVPUSH ×2 (08:05→16:03)
[2022-12-03] MEDS: Nystatin Powder 15 GM BOTTLE 1 APPL TOPICAL ×2 (08:06→22:26)
[2022-12-03] MEDS: polyethylene glycoL 3350 17 GM POWD.PACK PO (08:06)
--- NOTE | 2022-12-03 09:14 | P.CONPL_ITS ---
History of Present Illness History of Present Illness Consult date: 12/03/22 Chief complaint: hypoxia Narrative: 52-year-old man with multiple medical problems presenting from [facility] with fever, tachypnea and hypoxia. Patient was discharged from [facility] yesterday and treated for sepsis secondary to E coli bacteremia and UTI with history of chronic suprapubic catheter. Patient is not positive for RSV and noted to be hypoxic and placed on high-flow nasal cannula oxygen. In the ED, white blood cell count elevated at 13.1, potassium 2.7, urine still positive but possible colonization. Chest x-ray showing interval worsening opacities in the left mid to lower lung. Was given cefepime, vancomycin in the ER. He will be admitted for further management and treatment of hypoxia secondary to RSV and pneumonia. The patient was hospitalized. He was placed on oxygen. Unfortunately the oxygen requirements have increased. Now he is on high-flow. His CT scan of the chest was personally by me he has a sock in the left lower lobe pneumonia. Likely with significant mucus plugging. Will try chest PT over the weekend. If the patient is no better we can consider bronchoscopy for therapeutic cleaning of the airways. Review of Systems 2 Constitutional: Constitutional: Reports fatigue and Reports malaise Eyes: Eyes: Denies blurry vision ENT: Reports dysphagia and Reports nose pain Cardiovascular: Cardiovascular: Denies chest pain and Reports dyspnea Respiratory: Respiratory: Reports cough and Reports dyspnea Gastrointestinal: Gastrointestinal: Reports no additional gastrointestinal complaints and Reports dysphagia Genitourinary: Genitourinary: Reports no additional male genitourinary complaints Musculoskeletal: Musculoskeletal: Reports no additional musculoskeletal complaints Endocrine: Endocrine: Reports fatigue Hematologic/Lymphatic: Hematologic/Lymphatic: Denies easy bleeding PMFSH Past Medical History Medical History Pulmonary embolus Bacteremia Pneumonia Acute UTI Family History Family history: reviewed and not pertinent Social History Social History Household Members: None Housing: [facility] Unable to assess alcohol history related to: Unable to respond Alcohol intake: never Patient Tobacco Use Status: Former Tobacco user Tobacco use type: Cigarette service: No Meds Allergies Allergy/AdvReac Type Severity Reaction Status Date / Time vincristine Allergy Unknown Verified 11/25/22 03:25 Active Medications: Current Medications Acetaminophen (Acetaminophen 325 Mg Tablet) 650 mg PO Q6H PRN PRN Reason: Pain, Mild (Pain Scale 1-3) Last Admin: 12/01/22 07:36 Dose: 650 mg Acetaminophen (Acetaminophen Supp 650 Mg Supp.Rect) 650 mg ME Q6H PRN PRN Reason: Fever >101 Last Admin: 12/01/22 17:19 Dose: 650 mg Albuterol/Ipratropium (Albuterol/Iprat 2.5/0.5mg 3 Ml Ampul.Neb) 3 ml INHALE Q6H PRN PRN Reason: Wheezing Last Admin: 12/01/22 03:13 Dose: 3 ml Apixaban (Apixaban 5 Mg Tablet) 5 mg PO BID [facility] Last Admin: 12/03/22 08:05 Dose: 5 mg Ascorbic Acid (Ascorbic Acid 500 Mg Tablet) 500 mg PO DAILY [facility] Last Admin: 12/03/22 08:05 Dose: 500 mg Atorvastatin Calcium (Atorvastatin Calcium 10 Mg Tablet) 10 mg PO BEDTIME [facility] Last Admin: 12/02/22 19:55 Dose: 10 mg Dextrose (Dextrose 50 % 25 Gm/50 Ml Syringe) 25 gm IVPUSH Q15M PRN; Protocol PRN Reason: per Hypoglycemia Standing Ord. Docusate Sodium (Docusate Sodium 100 Mg Capsule) 100 mg PO BID [facility] Last Admin: 12/03/22 08:06 Dose: Not Given Escitalopram Oxalate (Escitalopram Oxalate 20 Mg Tablet) 20 mg PO DAILY [facility] Last Admin: 12/03/22 08:05 Dose: 20 mg Ferrous Sulfate (Ferrous Sulfate 324 Mg Tablet.Dr) 324 mg PO DAILY [facility] Last Admin: 12/03/22 08:05 Dose: 324 mg Glucose (Glucose Gel 15 Gm Gel..Gram.) 15 gm PO Q15M PRN; Protocol PRN Reason: per Hypoglycemia Standing Ord. Hydroxyzine HCl (Hydroxyzine Hcl 25 Mg Tablet) 25 mg PO Q8H PRN PRN Reason: anxiety/restlessness Last Admin: 12/02/22 19:55 Dose: 25 mg Meropenem 1 gm/ Sodium (Chloride) 100 mls @ 200 mls/hr IV Q8H [facility] Last Admin: 12/03/22 08:07 Dose: 200 mls/hr Vancomycin HCl 1,250 mg/ (Sodium Chloride) 250 mls @ 166.667 mls/hr IV Q24H [facility] Last Infusion: 12/02/22 23:08 Dose: Infused Insulin Human Lispro (Insulin Lispro 100 Unit/Ml 3 Ml Vial) 0 unit SUBCUT QIDACHS [facility]; Protocol Last Admin: 12/03/22 08:04 Dose: 2 unit Lamotrigine (Lamotrigine 100 Mg Tablet) 100 mg PO BID [facility] Last Admin: 12/03/22 08:05 Dose: 100 mg Methylprednisolone Sodium Succinate (Methylprednisolone Sod Succ 40 Mg/Ml Vial) 40 mg IVPUSH Q8H [facility] Last Admin: 12/03/22 08:05 Dose: 40 mg Morphine Sulfate (Morphine Sulfate 2 Mg/Ml Cartridge) 0.5 mg IVPUSH Q4H PRN; Protocol PRN Reason: tachypnea Last Admin: 12/01/22 17:18 Dose: 0.5 mg Multivitamins/Vitamin C (Multivitamin Tablet) 1 tab PO DAILY [facility] Last Admin: 12/03/22 08:05 Dose: 1 tab Nystatin (Nystatin Powder 15 Gm Bottle) 1 appl TOPICAL BID [facility]; Protocol Last Admin: 12/03/22 08:06 Dose: 1 appl Pharmacy Consult (Consult Rx Vancomycin Dosing) 1 each MISCELLANE DAILY PRN PRN Reason: Consult order Polyethylene Glycol (Polyethylene Glycol 3350 17 Gm Powd.Pack) 17 gm PO DAILY [facility] Last Admin: 12/03/22 08:06 Dose: 17 gm Potassium Chloride (Potassium Chloride Er 10 Meq Tablet.Er) 10 meq PO QID [facility] Last Admin: 12/03/22 08:05 Dose: 10 meq Quetiapine Fumarate (Quetiapine Fumarate 100 Mg Tablet) 100 mg PO BID [facility] Last Admin: 12/03/22 08:05 Dose: 100 mg Senna (Sennosides 8.6 Mg Tablet) 8.6 mg PO DAILY PRN PRN Reason: Constipation Sodium Biphosphate/Sodium Phosphate (Sodium Phosphate,[place]-Dibasic 133 Ml Enema) 118 ml ME DAILY PRN PRN Reason: Constipation Sodium Chloride (0.9 % Sodium Chloride Flush 3 Ml Syringe) 3 ml IVFLUSH QSSCFT [facility] Last Admin: 12/03/22 08:04 Dose: 3 ml Sodium Chloride (0.9 % Sodium Chloride Flush 3 Ml Syringe) 3 ml IVFLUSH [facility] Last Admin: 12/03/22 08:05 Dose: Not Given Home Medications Medication Instructions Recorded Confirmed Last Taken Type acetaminophen 325 mg tablet 650 mg PO Q6H PRN Pain 11/25/22 11/30/22 Unknown History apixaban 5 mg tablet (Eliquis) 5 mg PO BID 11/25/22 11/30/22 Unknown History ascorbic acid (vitamin C) 500 mg 500 mg PO DAILY 11/25/22 11/30/22 Unknown History tablet citalopram 40 mg tablet 40 mg PO DAILY 11/25/22 11/30/22 Unknown History docusate sodium 100 mg capsule 100 mg PO BID 11/25/22 11/30/22 Unknown History (Colace) ferrous gluconate 324 mg (37.5 mg 324 mg PO DAILY 11/25/22 11/30/22 Unknown History iron) tablet ipratropium 0.5 mg-albuterol 3 mg 3 ml inhalation Q6H PRN Wheezing 11/25/22 11/30/22 Unknown History (2.5 mg base)/3 mL nebulization soln lamotrigine 100 mg tablet 100 mg PO BID 11/25/22 11/30/22 Unknown History (Lamictal) metformin 500 mg tablet 500 mg PO BID 11/25/22 11/30/22 Unknown History miconazole nitrate 2 % topical 1 appl topical DAILY PRN Rash 11/25/22 11/30/22 Unknown History powder omega [id number]-fish oil 1,000 mg 1 cap PO BID 11/25/22 11/30/22 Unknown History (120 mg-180 mg) capsule (Fish Oil) polyethylene glycol 3350 17 gram 17 g PO DAILY 11/25/22 11/30/22 Unknown History oral powder packet (Miralax) potassium chloride 10 mEq 10 meq PO QID 11/25/22 11/30/22 Unknown History tablet,extended release quetiapine 100 mg tablet 100 mg PO BID 11/25/22 11/30/22 Unknown History sennosides 8.6 mg tablet (senna) 8.6 mg PO DAILY PRN Constipation 11/25/22 11/30/22 Unknown History simvastatin 10 mg tablet (Zocor) 10 mg PO BEDTIME 11/25/22 11/30/22 Unknown History sodium phosphates 19 gram-7 118 ml ME DAILY PRN Constipation 11/25/22 11/30/22 Unknown History gram/118 mL enema (Fleet Enema) umeclidinium 62.5 mcg-vilanterol 1 inh inhalation DAILY 11/25/22 11/30/22 Unknown History 25 mcg/actuation powdr for inhalation (Anoro Ellipta) vitamin B complex 1 tab PO DAILY 11/25/22 11/30/22 Unknown History Physical Exam 2 Vital Signs: Vital Signs: Last Vital Signs Temp 96.9 F 12/03/22 07:05 Pulse 70 12/03/22 07:05 Resp 20 12/03/22 07:51 BP 121/79 12/03/22 07:05 Pulse Ox 94 12/03/22 07:05 O2 Del Method High Flow Nasal C annula 12/03/22 07:05 O2 Flow Rate 50 12/03/22 07:05 FiO2 70 12/03/22 07:05 BMI result Body Mass Index 35.6 Const: General: tired appearing Nutritional Appearance: obese HEENT: Head: Yes normocephalic Neck: Neck: Yes supple Chest: Chest palpation & inspection: normal inspection of the chest Resp: Other: diminished breath sounds Effort & Inspection: normal respiratory effort, no respiratory distress and no use of accessory muscles Auscultation: crackles on the left at the base and rales Cardio: Rate: regular rate GI: Inspection: No distended and Yes obesity Palpation (GI): Soft to palpation and nontender Skin: General skin exam: no rashes or lesions noted Neuro: Other: awake, alert; mild left side droop, able to lift both arms, left hand grasp may be slightly weaker then right side Extrem: General: Yes no pedal edema Results Laboratory Findings 12/01/22 05:21 12/02/22 10:06 ABG, PT/INR, D-dimer: PT/INR, D-dimer PT 18.2 SEC (11.1-13.3) H 11/30/22 10:43 INR 1.5 (0.9-1.1) H 11/30/22 10:43 Abnormal lab findings: Abnormal Labs 11/30/22 11/30/22 11/30/22 09:21 10:33 10:43 WBC 13.1 H RBC 4.51 L Hgb 12.2 L Hct 38.4 L Immature Gran % (Auto) 0.7 H Lymph % (Auto) 17.1 L Abs Immat Gran (auto) 0.09 H Absolute Neuts (auto) 9.1 H PT 18.2 H INR 1.5 H ABG HCO3 VBG pH VBG HCO3 Potassium 2.7 L BUN 7 L POC Glucose Random Glucose 123 H Albumin 3.3 L HDL Cholesterol Urine Protein 100 (2+) H Urine Blood Large (3+) H Ur Leukocyte Esterase Moderate (2+) H Urine RBC >20 H Urine WBC >50 H Nasal Screen MRSA (PCR) Nasal S. aureus Screen Random Vancomycin RSV RNA Qual (PCR) POSITIVE A 11/30/22 12/01/22 12/01/22 10:51 04:57 05:21 WBC 12.3 H RBC 4.56 L Hgb 12.4 L Hct 39.6 L Immature Gran % (Auto) Lymph % (Auto) Abs Immat Gran (auto) Absolute Neuts (auto) PT INR ABG HCO3 27 H VBG pH 7.48 H VBG HCO3 28 H Potassium BUN 6 L POC Glucose Random Glucose Albumin HDL Cholesterol Urine Protein Urine Blood Ur Leukocyte Esterase Urine RBC Urine WBC Nasal Screen MRSA (PCR) Nasal S. aureus Screen Random Vancomycin RSV RNA Qual (PCR) 12/01/22 12/01/22 12/01/22 17:00 17:22 17:27 WBC RBC Hgb Hct Immature Gran % (Auto) Lymph % (Auto) Abs Immat Gran (auto) Absolute Neuts (auto) PT INR ABG HCO3 VBG pH VBG HCO3 27 H Potassium BUN 7 L POC Glucose Random Glucose 120 H Albumin HDL Cholesterol Urine Protein Urine Blood Ur Leukocyte Esterase Urine RBC Urine WBC Nasal Screen MRSA (PCR) POSITIVE A Nasal S. aureus Screen POSITIVE A Random Vancomycin RSV RNA Qual (PCR) 12/01/22 12/01/22 12/02/22 20:47 22:46 07:04 WBC RBC Hgb Hct Immature Gran % (Auto) Lymph % (Auto) Abs Immat Gran (auto) Absolute Neuts (auto) PT INR ABG HCO3 VBG pH VBG HCO3 Potassium BUN POC Glucose 147 H 142 H Random Glucose Albumin HDL Cholesterol 31 L Urine Protein Urine Blood Ur Leukocyte Esterase Urine RBC Urine WBC Nasal Screen MRSA (PCR) Nasal S. aureus Screen Random Vancomycin RSV RNA Qual (PCR) 12/02/22 12/02/22 12/02/22 10:06 11:25 16:42 WBC RBC Hgb Hct Immature Gran % (Auto) Lymph % (Auto) Abs Immat Gran (auto) Absolute Neuts (auto) PT INR ABG HCO3 VBG pH VBG HCO3 Potassium BUN POC Glucose 153 H 199 H Random Glucose Albumin HDL Cholesterol Urine Protein Urine Blood Ur Leukocyte Esterase Urine RBC Urine WBC Nasal Screen MRSA (PCR) Nasal S. aureus Screen Random Vancomycin 23.9 H RSV RNA Qual (PCR) 12/02/22 12/03/22 20:22 06:58 WBC RBC Hgb Hct Immature Gran % (Auto) Lymph % (Auto) Abs Immat Gran (auto) Absolute Neuts (auto) PT INR ABG HCO3 VBG pH VBG HCO3 Potassium BUN POC Glucose 187 H 195 H Random Glucose Albumin HDL Cholesterol Urine Protein Urine Blood Ur Leukocyte Esterase Urine RBC Urine WBC Nasal Screen MRSA (PCR) Nasal S. aureus Screen Random Vancomycin RSV RNA Qual (PCR) Microbiology: Microbiology 11/30/22 10:43 Blood - Venous Blood Culture - Preliminary No growth after 48 hours. 11/30/22 09:36 Blood - Venous Blood Culture - Final Coag negative Staphylococcus 11/30/22 Unknown Urine Catheterized - Coley Catheter Urine Culture - Final Pseudomonas aeruginosa Assessment and Plan (1) Acute respiratory failure: Qualifiers: Respiratory failure complication: hypoxia Qualified Code(s): J96.01 - Acute respiratory failure with hypoxia Status: Acute (2) RSV (respiratory syncytial virus infection): Status: Acute (3) Pneumonia: Qualifiers: Laterality: left Lung location: lower lobe of lung Pneumonia type: due to unspecified organism Qualified Code(s): J18.9 - Pneumonia, unspecified organism Status: Acute Plan start CPT with acapella and ISS continue broad spectrum abx postural CPT with drainage of the LLL continue HF CXR over the weekend, if no better or worse consider therapeutic bronchosocpy Time Spent With Patient Time: Total time managing care of this patient today ____ minutes. Procedures Date of Service Date of Service: 12/03/22
--- NOTE | 2022-12-03 10:45 | MHC.CM.PN ---
Per LENNIE/Samaria's request, CM spoke with Carmen/Ainsley @ [phone] and emailed her a blank MOLST form to [email or web address]. Ainsley indicated that she has a full day of meetings, but will attempt to email completed form back to this CM. CM will follow. LENNIE is aware.
[2022-12-03 11:05] LABS: Glucose, Whole Blood 238 mg/dL (60-115)
[2022-12-03 11:12] LABS: Hematocrit 37.4 % (42.0-52.0); Hemoglobin 11.6 g/dl (14.0-18.0); Mean Corpuscular Hemoglobin 26.7 pg (27.0-33.0); Mean Corpuscular Volume 86.2 fL (80.0-98.0); Mean Platelet Volume 10.9 fL (9.4-12.4); PLT CLUMP 1; Platelet Count 319 X10*3/uL (160-400); Red Blood Count 4.34 X10*6/uL (4.60-5.80); Red Cell Distribution Width 15.6 % (11.0-16.0); White Blood Count 14.5 X10*3/uL (4.8-10.8)
[2022-12-03 11:34] LABS: Anion Gap 14 (12-20); Blood Urea Nitrogen 13 mg/dL (9-16); Calcium 8.8 mg/dL (8.4-10.2); Carbon Dioxide 21 mmol/L (22-29); Chloride 108 mmol/L (96-108); Creatinine Clr Calc Pharmacy 94.4; Estimated Glomerular Filt Rate > 60; Glucose Random 219 mg/dL (60-115); Potassium 4.4 mmol/L (3.3-5.1); Sodium 139 mmol/L (135-145)
--- NOTE | 2022-12-03 13:21 | P.PNIM_ITS ---
Subjective Subjective Date of Service: 12/03/22 Interval History: seen and examined this morning follow up for respiratory failure, RSV awake, alert and calm this morning denies respiratory symptoms Review of Systems Review of Systems: Yes all other systems are reviewed and are negative Constitutional Constitutional: Denies fever(s) Cardiovascular Cardiovascular: Denies chest pain and Denies dyspnea Respiratory Respiratory: Denies dyspnea Physical Exam 2 Vital Signs: Vital Signs: Last Vital Signs Temp 96.9 F 12/03/22 07:05 Pulse 70 12/03/22 07:05 Resp 93 H 12/03/22 11:30 BP 121/79 12/03/22 07:05 Pulse Ox 94 12/03/22 07:05 O2 Del Method High Flow Nasal C annula 12/03/22 07:05 O2 Flow Rate 50 12/03/22 07:05 FiO2 70 12/03/22 07:05 BMI result Body Mass Index 35.6 Const: General: comfortable, alert and awake Nutritional Appearance: obese Orientation/consciousness: oriented to person Resp: Other: diminished breath sounds; appears comfortable Effort & Inspection: able to speak in complete sentences, no respiratory distress and no use of accessory muscles Cardio: Rate: regular rate GI: Inspection: No distended and Yes obesity Palpation (GI): Soft to palpation and nontender : Other: suprapubic catheter in place Neuro: Other: awake, alert; mild left side droop, able to lift both arms, left hand grasp may be slightly weaker then right side General: oriented to person Extrem: General: Yes no pedal edema Objective Data Active Medications Acetaminophen (Acetaminophen 325 Mg Tablet) 650 mg PO Q6H PRN PRN Reason: Pain, Mild (Pain Scale 1-3) Last Admin: 12/01/22 07:36 Dose: 650 mg Documented By: SHIRA Acetaminophen (Acetaminophen Supp 650 Mg Supp.Rect) 650 mg MA Q6H PRN PRN Reason: Fever >101 Last Admin: 12/01/22 17:19 Dose: 650 mg Documented By: СЕРГЕЙ Albuterol/Ipratropium (Albuterol/Iprat 2.5/0.5mg 3 Ml Ampul.Neb) 3 ml INHALE Q6H PRN PRN Reason: Wheezing Last Admin: 12/01/22 03:13 Dose: 3 ml Documented By: FLOR Apixaban (Apixaban 5 Mg Tablet) 5 mg PO BID [facility] Last Admin: 12/03/22 08:05 Dose: 5 mg Documented By: NICOLE Ascorbic Acid (Ascorbic Acid 500 Mg Tablet) 500 mg PO DAILY [facility] Last Admin: 12/03/22 08:05 Dose: 500 mg Documented By: NICOLE Atorvastatin Calcium (Atorvastatin Calcium 10 Mg Tablet) 10 mg PO BEDTIME [facility] Last Admin: 12/02/22 19:55 Dose: 10 mg Documented By: TRENTON Dextrose (Dextrose 50 % 25 Gm/50 Ml Syringe) 25 gm IVPUSH Q15M PRN; Protocol PRN Reason: per Hypoglycemia Standing Ord. Docusate Sodium (Docusate Sodium 100 Mg Capsule) 100 mg PO BID [facility] Last Admin: 12/03/22 08:06 Dose: Not Given Documented By: NICOLE Non-Admin Reason: cannot crush Escitalopram Oxalate (Escitalopram Oxalate 20 Mg Tablet) 20 mg PO DAILY [facility] Last Admin: 12/03/22 08:05 Dose: 20 mg Documented By: NICOLE Ferrous Sulfate (Ferrous Sulfate 324 Mg Tablet.Dr) 324 mg PO DAILY [facility] Last Admin: 12/03/22 08:05 Dose: 324 mg Documented By: NICOLE Glucose (Glucose Gel 15 Gm Gel..Gram.) 15 gm PO Q15M PRN; Protocol PRN Reason: per Hypoglycemia Standing Ord. Hydroxyzine HCl (Hydroxyzine Hcl 25 Mg Tablet) 25 mg PO Q8H PRN PRN Reason: anxiety/restlessness Last Admin: 12/02/22 19:55 Dose: 25 mg Documented By: TRENTON Meropenem 1 gm/ Sodium (Chloride) 100 mls @ 200 mls/hr IV Q8H [facility] Last Admin: 12/03/22 08:07 Dose: 200 mls/hr Documented By: NICOLE Vancomycin HCl 1,250 mg/ (Sodium Chloride) 250 mls @ 166.667 mls/hr IV Q24H [facility] Last Infusion: 12/02/22 23:08 Dose: Infused Documented By: TRENTON Insulin Human Lispro (Insulin Lispro 100 Unit/Ml 3 Ml Vial) 0 unit SUBCUT QIDACHS [facility]; Protocol Last Admin: 12/03/22 12:00 Dose: 4 unit Documented By: NICOLE Lamotrigine (Lamotrigine 100 Mg Tablet) 100 mg PO BID [facility] Last Admin: 12/03/22 08:05 Dose: 100 mg Documented By: NICOLE Methylprednisolone Sodium Succinate (Methylprednisolone Sod Succ 40 Mg/Ml Vial) 40 mg IVPUSH Q8H [facility] Last Admin: 12/03/22 08:05 Dose: 40 mg Documented By: NICOLE Morphine Sulfate (Morphine Sulfate 2 Mg/Ml Cartridge) 0.5 mg IVPUSH Q4H PRN; Protocol PRN Reason: tachypnea Last Admin: 12/01/22 17:18 Dose: 0.5 mg Documented By: СЕРГЕЙ Multivitamins/Vitamin C (Multivitamin Tablet) 1 tab PO DAILY [facility] Last Admin: 12/03/22 08:05 Dose: 1 tab Documented By: NICOLE Nystatin (Nystatin Powder 15 Gm Bottle) 1 appl TOPICAL BID [facility]; Protocol Last Admin: 12/03/22 08:06 Dose: 1 appl Documented By: NICOLE Pharmacy Consult (Consult Rx Vancomycin Dosing) 1 each MISCELLANE DAILY PRN PRN Reason: Consult order Polyethylene Glycol (Polyethylene Glycol 3350 17 Gm Powd.Pack) 17 gm PO DAILY [facility] Last Admin: 12/03/22 08:06 Dose: 17 gm Documented By: NICOLE Potassium Chloride (Potassium Chloride Er 10 Meq Tablet.Er) 10 meq PO QID [facility] Last Admin: 12/03/22 12:38 Dose: 10 meq Documented By: NICOLE Quetiapine Fumarate (Quetiapine Fumarate 100 Mg Tablet) 100 mg PO BID [facility] Last Admin: 12/03/22 08:05 Dose: 100 mg Documented By: NICOLE Senna (Sennosides 8.6 Mg Tablet) 8.6 mg PO DAILY PRN PRN Reason: Constipation Sodium Biphosphate/Sodium Phosphate (Sodium Phosphate,Cocke-Dibasic 133 Ml Enema) 118 ml MA DAILY PRN PRN Reason: Constipation Sodium Chloride (0.9 % Sodium Chloride Flush 3 Ml Syringe) 3 ml IVFLUSH QSHIFT [facility] Last Admin: 12/03/22 08:04 Dose: 3 ml Documented By: NICOLE Sodium Chloride (0.9 % Sodium Chloride Flush 3 Ml Syringe) 3 ml IVFLUSH QSHIFT [facility] Last Admin: 12/03/22 08:05 Dose: Not Given Documented By: NICOLE Non-Admin Reason: Duplicate Order Labs 12/03/22 10:53 12/03/22 10:53 Labs: Laboratory Results - last 24 hr 12/02/22 12/02/22 12/02/22 16:42 20:22 20:56 MCV MCH MCHC RDW Plt Count MPV Absolute Nucleated RBC Nucleated RBC % (auto) Anion Gap Estim Creat Clear Calc Estimated GFR POC Glucose 199 H 187 H Random Glucose Calcium Random Vancomycin 16.5 12/03/22 12/03/22 12/03/22 06:58 10:53 10:54 MCV 86.2 MCH 26.7 L MCHC 31.0 RDW 15.6 Plt Count 319 MPV 10.9 Absolute Nucleated RBC 0.000 Nucleated RBC % (auto) 0.0 Anion Gap 14 Estim Creat Clear Calc 94.4 Estimated GFR > 60 POC Glucose 195 H 238 H Random Glucose 219 H Calcium 8.8 Random Vancomycin Microbiology Microbiology Results: Microbiology 11/30/22 10:43 Blood Culture - Preliminary Blood - Venous No growth after 48 hours. Assessment and Plan (1) Acute respiratory failure: Status: Acute (2) RSV (respiratory syncytial virus infection): Status: Acute (3) Multifactorial dementia: Status: Acute Plan 52 yo M who is a resident at [facility] with a PMH of DM2, depression, chronic suprapubic cath, history of PE on Eliquis, HTN, PAD, COPD, recent admission for complicated UTI sent in from SNF due to SOB and fever found to have RSV. Acute hypoxic respiratory failure with sepsis secondary to RSV and HCAP vs aspiration pna body habitus/restrictive lung dz likely contributing to hypoxia last fever 12/01, HR and RR improving will continue IV abx - IV vancomycin and Rocephin initially, ceftriaxone changed to meropenem 12/01 on High flow, wean as tolerated chest CT showing left lower lobe consolidation with ?mucus plugging seen by pulmonology - rec CPT, continue broad spectrum abx and repeat CXR tomorrow to determine need for possible bronch on tuesday possible stroke vs tia overnight 12/01 had concern for left side facial droop and left side weakness brain CT showing chronic changes; CTA head/neck with no stenosis or lg vessel occlusion not a candidiate for tpa due to chronic anticogulation with Eliquis seen by neurology - no appreciable neuro deficits during their eval; significant chronic brain pathology on imaging - rec conservative management unable to tolerate brain MRI seen by speech, rec ground mechanical diet appears back to baseline at this time GPC bacteremia 1/2 coag negative staph - likely contaminant Toxic/metabolic encephalopathy. improving seems to be at baseline diarrhea cdiff neg resolving Complicated UTI diagnosed on previous admission has chronic suprapubic catheter UCx grew proteus mirabilis last admit - d/c on ceftin urine culture this admit growing pseudomonas 10-50,000 CFU abx changed to meropenem 12/01 to - will continue for now LUCIEN. Resolved hold triamterene/HZTZ for now normocytic anemia CBC stable DM 2 hold metformin SSI, POCs hba1c 5.9 History of PE continue Eliquis HTN bp under adequate control hold triamterene-HCTZ Mood continue baseline meds DVT pptx - Eliquis Attending Dr. Eusebio MAJOR lives at [place], dc back when medically clear guardian - Ainsley Mcpherson [phone] - will likely make patient DNR/DNI - case management has emailed her MOSLT to fill out and return as she is out of state and is unable to come in person requires ongoing inpatient stay for respiratory failure, requiring high flow Time Spent With Patient Time: Total time managing care of this patient today ____ minutes. Quality Stroke Does the patient have a stroke diagnosis?: No VTE Prior VTE?: No VTE Risk Level:: Medical - moderate - high VTE Device Contraindication: Treatment Not Indicated VTE Drug Contraindication: N/A - Med Ordered
--- NOTE | 2022-12-03 15:54 | MHC.CM.PN ---
Patient's Guardian/Ainsley did Email MOLST to this CM but only one of the 2 pages were completed. LENNIE/Samaria reviewed what was filled out. CM has requested that the second page be completed and returned. CM will follow. PA has the incomplete form and Guardian's email address is in previous CM PN; PA will relay this to COOKING CHEF, who will care for Patient tomorrow.
[2022-12-03 16:39] LABS: Glucose, Whole Blood 152 mg/dL (60-115)
--- NOTE | 2022-12-03 17:53 | MHC.SLORD ---
Speech Language Pathology Order Status: LANE MARKER INSTALLER attempted to see pt at dinner time for f/u, but pt was unavailable, getting cleaned by nursing staff. Pt is currently on a ground/mech altered (NDD2) diet with thin liquids per LANE MARKER INSTALLER recc. Pt w/ hx dementia, resident at [facility], where he was on a regular texture diet prior to hospitalization. LANE MARKER INSTALLER will continue to follow.
[2022-12-03] MEDS: Atorvastatin Calcium 10 MG TABLET PO (20:24)
[2022-12-03 20:41] LABS: Creatinine Clr Calc Pharmacy 95.4; Estimated Glomerular Filt Rate > 60; Vancomycin Random 16.3 mcg/mL (15-20)
[2022-12-03] MEDS: OLANZapine 10 MG VIAL 5 MG IM (20:49)
[2022-12-03 21:01] LABS: Glucose, Whole Blood 178 mg/dL (60-115)
[2022-12-03] MEDS: OLANZapine 10 MG VIAL IM (23:29)
[2022-12-03] MEDS: LORazepam 2 MG/ML VIAL 1 MG IM (23:33)
[2022-12-04] VITALS (12 sets, daily range): BP systolic 103–152; BP diastolic 86–98; PULSE 56–85; RESP 13–24; TEMP 36.1–37; O2SAT 88–96
[2022-12-04] MEDS: vancomycin HCL 1,250 MG in 0.9 % Sodium Chloride 250 ML 166.66 MG IV (00:48)
[2022-12-04] MEDS: 0.9 % Sodium Chloride Flush 3 ML SYRINGE IVFLUSH ×6 (01:04→20:16)
[2022-12-04] MEDS: methylPREDNISolone Sod Succ 40 MG/ML VIAL IVPUSH ×3 (01:20→15:13)
[2022-12-04] MEDS: Haloperidol Lactate 5 MG/ML VIAL 2 MG IM (02:29)
--- NOTE | 2022-12-04 02:42 | PC.NURSE ---
Addendum entered by Regi Diaz RN 12/04/22 06:45: pt refused lab drawn this morning. Original Note: Pt was so confused and combative. Refused all his po meds. Pulled out his IV, tele monitor cables and HFNC from his nose all the time. Tried to punch staffs when approached. MD notified. Pt was given IM zyprexa twice, ativan and haldol. New IV was inserted for antibiotic. Pt bit the tubing of the IV antibiotic causing him to bled due to back flow of blood. Charge nurse, turf and grounds supervisor and MD are aware. NO sitter available at this time. Pt is drowsy but remains awake.
[2022-12-04 07:49] LABS: Glucose, Whole Blood 136 mg/dL (60-115)
[2022-12-04] MEDS: QUEtiapine Fumarate 100 MG TABLET PO ×2 (09:42→20:16)
[2022-12-04] MEDS: Potassium Chloride ER 10 MEQ TABLET.ER PO ×4 (09:42→20:16)
[2022-12-04] MEDS: Escitalopram Oxalate 20 MG TABLET PO (09:42)
[2022-12-04] MEDS: Apixaban 5 MG TABLET PO ×2 (09:42→20:16)
[2022-12-04] MEDS: lamoTRIgine 100 MG TABLET PO ×2 (09:42→20:16)
[2022-12-04] MEDS: Acetaminophen 325 MG TABLET 650 MG PO ×2 (09:42→15:13)
[2022-12-04] MEDS: Ascorbic Acid 500 MG TABLET PO (09:42)
[2022-12-04] MEDS: polyethylene glycoL 3350 17 GM POWD.PACK PO (09:43)
--- NOTE | 2022-12-04 09:58 | P.PNIM_ITS ---
Subjective Subjective Date of Service: 12/04/22 Interval History: seen and examined this morning follow up for respiratory failure, RSV awake, alert and calm this morning denies respiratory symptoms Review of Systems Review of Systems: Yes all other systems are reviewed and are negative Constitutional Constitutional: Denies fever(s) Cardiovascular Cardiovascular: Denies chest pain and Denies dyspnea Respiratory Respiratory: Denies dyspnea Physical Exam 2 Vital Signs: Vital Signs: Last Vital Signs Temp 97.5 F 12/04/22 07:39 Pulse 63 12/04/22 07:39 Resp 22 H 12/04/22 08:12 BP 152/91 H 12/04/22 07:39 Pulse Ox 93 12/04/22 07:39 O2 Del Method High Flow Nasal C annula 12/04/22 07:39 O2 Flow Rate 31.9 12/04/22 07:39 FiO2 61.1 12/04/22 07:39 BMI result Body Mass Index 35.6 Appearing in no acute distress lung sounds rhonchi heart regular rate rhythm, clear S1, S2 positive bowel sounds, abdomen is soft, nontender neuro patient is alert x3, no focal deficits Objective Data Active Medications Acetaminophen (Acetaminophen 325 Mg Tablet) 650 mg PO Q6H PRN PRN Reason: Pain, Mild (Pain Scale 1-3) Last Admin: 12/01/22 07:36 Dose: 650 mg Documented By: SHIRA Acetaminophen (Acetaminophen Supp 650 Mg Supp.Rect) 650 mg MO Q6H PRN PRN Reason: Fever >101 Last Admin: 12/01/22 17:19 Dose: 650 mg Documented By: СЕРГЕЙ Albuterol/Ipratropium (Albuterol/Iprat 2.5/0.5mg 3 Ml Ampul.Neb) 3 ml INHALE Q6H PRN PRN Reason: Wheezing Last Admin: 12/01/22 03:13 Dose: 3 ml Documented By: FLOR Apixaban (Apixaban 5 Mg Tablet) 5 mg PO BID [facility] Last Admin: 12/03/22 21:28 Dose: Not Given Documented By: IVIS Non-Admin Reason: Patient Refused Ascorbic Acid (Ascorbic Acid 500 Mg Tablet) 500 mg PO DAILY [facility] Last Admin: 12/03/22 08:05 Dose: 500 mg Documented By: NICOLE Atorvastatin Calcium (Atorvastatin Calcium 10 Mg Tablet) 10 mg PO BEDTIME [facility] Last Admin: 12/03/22 20:24 Dose: 10 mg Documented By: IVIS Dextrose (Dextrose 50 % 25 Gm/50 Ml Syringe) 25 gm IVPUSH Q15M PRN; Protocol PRN Reason: per Hypoglycemia Standing Ord. Docusate Sodium (Docusate Sodium 100 Mg Capsule) 100 mg PO BID [facility] Last Admin: 12/03/22 20:35 Dose: Not Given Documented By: IVIS Non-Admin Reason: unable to swallow Escitalopram Oxalate (Escitalopram Oxalate 20 Mg Tablet) 20 mg PO DAILY [facility] Last Admin: 12/03/22 08:05 Dose: 20 mg Documented By: NICOLE Ferrous Sulfate (Ferrous Sulfate 324 Mg Tablet.Dr) 324 mg PO DAILY [facility] Last Admin: 12/03/22 08:05 Dose: 324 mg Documented By: NICOLE Glucose (Glucose Gel 15 Gm Gel..Gram.) 15 gm PO Q15M PRN; Protocol PRN Reason: per Hypoglycemia Standing Ord. Hydroxyzine HCl (Hydroxyzine Hcl 25 Mg Tablet) 25 mg PO Q8H PRN PRN Reason: anxiety/restlessness Last Admin: 12/02/22 19:55 Dose: 25 mg Meropenem 1 gm/ Sodium (Chloride) 100 mls @ 200 mls/hr IV Q8H [facility] Last Infusion: 12/04/22 02:07 Dose: Infused Documented By: IVIS Vancomycin HCl 1,250 mg/ (Sodium Chloride) 250 mls @ 166.667 mls/hr IV Q24H [facility] Last Infusion: 12/04/22 02:20 Dose: Infused Documented By: IVIS Insulin Human Lispro (Insulin Lispro 100 Unit/Ml 3 Ml Vial) 0 unit SUBCUT QIDACHS [facility]; Protocol Last Admin: 12/04/22 07:53 Dose: Not Given Documented By: RITCHIE Non-Admin Reason: No Insulin Coverage Lamotrigine (Lamotrigine 100 Mg Tablet) 100 mg PO BID [facility] Last Admin: 12/03/22 20:24 Dose: 100 mg Documented By: IVIS Methylprednisolone Sodium Succinate (Methylprednisolone Sod Succ 40 Mg/Ml Vial) 40 mg IVPUSH Q8H [facility] Last Admin: 12/04/22 01:20 Dose: 40 mg Documented By: IVIS Morphine Sulfate (Morphine Sulfate 2 Mg/Ml Cartridge) 0.5 mg IVPUSH Q4H PRN; Protocol PRN Reason: tachypnea Last Admin: 12/01/22 17:18 Dose: 0.5 mg Documented By: СЕРГЕЙ Multivitamins/Vitamin C (Multivitamin Tablet) 1 tab PO DAILY [facility] Last Admin: 12/03/22 08:05 Dose: 1 tab Documented By: NICOLE Nystatin (Nystatin Powder 15 Gm Bottle) 1 appl TOPICAL BID [facility]; Protocol Last Admin: 12/03/22 22:26 Dose: 1 appl Documented By: IVIS Pharmacy Consult (Consult Rx Vancomycin Dosing) 1 each MISCELLANE DAILY PRN PRN Reason: Consult order Polyethylene Glycol (Polyethylene Glycol 3350 17 Gm Powd.Pack) 17 gm PO DAILY [facility] Last Admin: 12/03/22 08:06 Dose: 17 gm Documented By: NICOLE Potassium Chloride (Potassium Chloride Er 10 Meq Tablet.Er) 10 meq PO QID [facility] Last Admin: 12/03/22 21:30 Dose: Not Given Documented By: IVIS Non-Admin Reason: Patient Refused Quetiapine Fumarate (Quetiapine Fumarate 100 Mg Tablet) 100 mg PO BID [facility] Last Admin: 12/03/22 21:28 Dose: Not Given Documented By: IVIS Non-Admin Reason: Patient Refused Senna (Sennosides 8.6 Mg Tablet) 8.6 mg PO DAILY PRN PRN Reason: Constipation Sodium Biphosphate/Sodium Phosphate (Sodium Phosphate,Stephens-Dibasic 133 Ml Enema) 118 ml MO DAILY PRN PRN Reason: Constipation Sodium Chloride (0.9 % Sodium Chloride Flush 3 Ml Syringe) [facility] Last Admin: 12/04/22 01:04 Dose: 3 ml Documented By: IVIS Sodium Chloride (0.9 % Sodium Chloride Flush 3 Ml Syringe) 3 ml IVFLUSH [facility] Last Admin: 12/04/22 01:11 Dose: Not Given Documented By: IVSI Non-Admin Reason: Previously Administered Labs 12/03/22 10:53 12/03/22 20:12 Labs: Laboratory Results - last 24 hr 0912/03/22 12/03/22 10:53 10:54 15:34 MCV 86.2 MCH 26.7 L MCHC 31.0 RDW 15.6 Plt Count 319 MPV 10.9 Absolute Nucleated RBC 0.000 Nucleated RBC % (auto) 0.0 Anion Gap 14 Estim Creat Clear Calc 94.4 Estimated GFR > 60 POC Glucose 238 H 152 H Random Glucose 219 H Calcium 8.8 Random Vancomycin 12/03/22 12/03/22 12/04/22 20:12 20:57 07:45 MCV MCH MCHC RDW Plt Count MPV Absolute Nucleated RBC Nucleated RBC % (auto) Anion Gap Estim Creat Clear Calc 95.4 Estimated GFR > 60 POC Glucose 178 H 136 H Random Glucose Calcium Random Vancomycin 16.3 Assessment and Plan (1) Acute respiratory failure: Status: Acute (2) RSV (respiratory syncytial virus infection): Status: Acute (3) Multifactorial dementia: Status: Acute Plan 52 yo M who is a resident at [facility] with a PMH of DM2, depression, chronic suprapubic cath, history of PE on Eliquis, HTN, PAD, COPD, recent admission for complicated UTI sent in from SNF due to SOB and fever found to have RSV. Acute hypoxic respiratory failure with sepsis secondary to RSV and HCAP vs aspiration pna body habitus/restrictive lung dz likely contributing to hypoxia last fever 12/01, HR and RR improving vancomycin and meropenem, initiated 12/01 on High flow 60% 50L chest CT showing left lower lobe consolidation with mucus plugging seen by pulmonology - rec CPT, continue broad spectrum abx and repeat CXR tuesday to determine need for possible bronch possible stroke vs tia 12/01 had concern for left side facial droop and left side weakness brain CT showing chronic changes; CTA head/neck with no stenosis or lg vessel occlusion not a candidiate for tpa due to chronic anticogulation with Eliquis seen by neurology - no appreciable neuro deficits during their eval; significant chronic brain pathology on imaging - rec conservative management unable to tolerate brain MRI seen by speech, rec ground mechanical diet appears back to baseline at this time GPC bacteremia 1/2 coag negative staph - likely contaminant Toxic/metabolic encephalopathy. improving seems to be at baseline diarrhea cdiff neg resolved Complicated UTI diagnosed on previous admission has chronic suprapubic catheter UCx grew proteus mirabilis last admit - d/c on ceftin urine culture this admit growing pseudomonas 10-50,000 CFU abx changed to meropenem 12/01 to - will continue for now LUCIEN. Resolved hold triamterene/HZTZ for now normocytic anemia CBC stable DM 2 hold metformin SSI, POCs hba1c 5.9 History of PE continue Eliquis HTN bp under adequate control hold triamterene-HCTZ Mood continue baseline meds DVT pptx - Eliquis Attending Dr. Pool DISPMiguel lives at [place], dc back when medically clear guardian - Ainsley Mcpherson [phone] - will likely make patient DNR/DNI - case management has emailed her MOSLT to fill out and return as she is out of state and is unable to come in person requires ongoing inpatient stay for respiratory failure, requiring high flow Time Spent With Patient Time: Total time managing care of this patient today ____ minutes. Quality Stroke Does the patient have a stroke diagnosis?: No VTE Prior VTE?: No VTE Risk Level:: Medical - moderate - high VTE Device Contraindication: Treatment Not Indicated VTE Drug Contraindication: N/A - Med Ordered
[2022-12-04] MEDS: Nystatin Powder 15 GM BOTTLE 1 APPL TOPICAL ×2 (10:42→20:26)
[2022-12-04 11:33] LABS: Glucose, Whole Blood 227 mg/dL (60-115)
[2022-12-04] MEDS: Morphine Sulfate 2 MG/ML CARTRIDGE 0.5 MG IVPUSH (11:52)
[2022-12-04] MEDS: hydrOXYzine HCL 25 MG TABLET PO (11:52)
[2022-12-04] MEDS: Insulin Lispro 100 UNIT/ML 3 ML VIAL SUBCUT ×2 (12:09→20:16)
[2022-12-04 16:01] LABS: Glucose, Whole Blood 122 mg/dL (60-115)
[2022-12-04] MEDS: Atorvastatin Calcium 10 MG TABLET PO (20:16)
[2022-12-04 20:25] LABS: Glucose, Whole Blood 187 mg/dL (60-115)
[2022-12-04 20:57] LABS: Vancomycin Random 20.3 mcg/mL (15-20)
[2022-12-04 20:58] LABS: Creatinine Clr Calc Pharmacy 102.8; Estimated Glomerular Filt Rate > 60
--- NOTE | 2022-12-04 21:23 | PC.NURSE ---
1999 RT notified that pt O2 sats goes down intermittently to 86%.
--- NOTE | 2022-12-04 21:24 | PC.NURSE ---
0924- Pharmacy was called to verify that 10om dose of vanco is ok to give with the vanco trough of 20.3.
[2022-12-04] MEDS: vancomycin HCL 1,250 MG in 0.9 % Sodium Chloride 250 ML 166.67 MG IV (21:40)
--- NOTE | 2022-12-04 21:57 | HE.PHANOTE ---
Keep same Vancomycin dose of 1250 mg q24h. Level was drawn only 19.5 hrs instead of 22 hrs after dose. insight still suggests this dose with auc of 470
[2022-12-04] MEDS: guaiFENesin LA 600 MG TAB.ER.12H PO (23:56)
[2022-12-05] VITALS (13 sets, daily range): BP systolic 140–174; BP diastolic 73–91; PULSE 66–81; RESP 15–30; TEMP 35.7–36.6; O2SAT 89–99
[2022-12-05] MEDS: 0.9 % Sodium Chloride Flush 3 ML SYRINGE IVFLUSH ×4 (01:15→20:19)
[2022-12-05] MEDS: methylPREDNISolone Sod Succ 40 MG/ML VIAL IVPUSH ×3 (01:15→16:00)
--- NOTE | 2022-12-05 02:02 | PC.NURSE ---
Pt remains on HFNC 50L 60%FiO2.intermittently desatting to 83%. CPT was done at bedside. Pt encouraged to cough and take a deep breath. Pt has weak cough. RT notified. made aware. Deep suction done by RT at bedside. Moderate amount of tannish secretions suctioned. Currently pt O2 sats has improved to 94% witj 50L and 75% FiO2 HFNC.
[2022-12-05 06:37] LABS: Creatinine Clr Calc Pharmacy 115.4; Estimated Glomerular Filt Rate > 60
[2022-12-05] MEDS: Escitalopram Oxalate 20 MG TABLET PO (07:41)
[2022-12-05] MEDS: Apixaban 5 MG TABLET PO ×2 (07:41→20:18)
[2022-12-05] MEDS: Nystatin Powder 15 GM BOTTLE 1 APPL TOPICAL ×2 (07:50→21:44)
--- NOTE | 2022-12-05 07:50 | MHC.CM.PN ---
CM has received the completed MOLST form from Patient's Guardian. MOLST has been uploaded into [employer] and a copy has been placed in the chart. MARKETING OUTREACH COORDINATOR has been made aware.
[2022-12-05 08:13] LABS: Glucose, Whole Blood 135 mg/dL (60-115)
[2022-12-05] MEDS: Morphine Sulfate 2 MG/ML CARTRIDGE 0.5 MG IVPUSH ×2 (08:13→20:18)
--- NOTE | 2022-12-05 10:41 | P.PNIM_ITS ---
Subjective Subjective Date of Service: 12/05/22 Interval History: seen and examined this morning follow up for respiratory failure, RSV agitated today denies respiratory symptoms Review of Systems Review of Systems: Yes all other systems are reviewed and are negative Constitutional Constitutional: Denies fever(s) Cardiovascular Cardiovascular: Denies chest pain and Denies dyspnea Respiratory Respiratory: Denies dyspnea Physical Exam 2 Vital Signs: Vital Signs: Last Vital Signs Temp 96.2 F L 12/05/22 08:00 Pulse 66 12/05/22 08:00 Resp 20 12/05/22 08:01 BP 141/81 H 12/05/22 08:00 Pulse Ox 95 12/05/22 08:00 O2 Del Method High Flow Nasal C annula 12/05/22 08:00 O2 Flow Rate 40 12/05/22 08:00 FiO2 70 12/05/22 03:05 BMI result Body Mass Index 35.6 Appearing in no acute distress lung sounds are clear to auscultation, high flow oxygen heart regular rate rhythm, clear S1, S2 positive bowel sounds, abdomen is soft, nontender neuro patient is alert x3, no focal deficits Objective Data Active Medications Acetaminophen (Acetaminophen 325 Mg Tablet) 650 mg PO Q6H PRN PRN Reason: Pain, Mild (Pain Scale 1-3) Last Admin: 12/04/22 15:13 Dose: 650 mg Documented By: RITCHIE Acetaminophen (Acetaminophen Supp 650 Mg Supp.Rect) 650 mg TN Q6H PRN PRN Reason: Fever >101 Last Admin: 12/01/22 17:19 Dose: 650 mg Documented By: СЕРГЕЙ Albuterol/Ipratropium (Albuterol/Iprat 2.5/0.5mg 3 Ml Ampul.Neb) 3 ml INHALE Q6H PRN PRN Reason: Wheezing Last Admin: 12/01/22 03:13 Dose: 3 ml Documented By: FLOR Apixaban (Apixaban 5 Mg Tablet) 5 mg PO BID [facility] Last Admin: 12/05/22 07:41 Dose: 5 mg Documented By: RITCHIE Ascorbic Acid (Ascorbic Acid 500 Mg Tablet) 500 mg PO DAILY [facility] Last Admin: 12/05/22 07:41 Dose: 500 mg Documented By: RITCHIE Atorvastatin Calcium (Atorvastatin Calcium 10 Mg Tablet) 10 mg PO BEDTIME [facility] Last Admin: 12/04/22 20:16 Dose: 10 mg Documented By: IVIS Dextrose (Dextrose 50 % 25 Gm/50 Ml Syringe) 25 gm IVPUSH Q15M PRN; Protocol PRN Reason: per Hypoglycemia Standing Ord. Docusate Sodium (Docusate Sodium 100 Mg Capsule) 100 mg PO BID [facility] Last Admin: 12/05/22 08:16 Dose: Not Given Documented By: RITCHIE Non-Admin Reason: Patient Refused Escitalopram Oxalate (Escitalopram Oxalate 20 Mg Tablet) 20 mg PO DAILY [facility] Last Admin: 12/05/22 07:41 Dose: 20 mg Documented By: RITCHIE Ferrous Sulfate (Ferrous Sulfate 324 Mg Tablet.Dr) 324 mg PO DAILY [facility] Last Admin: 12/05/22 07:49 Dose: Not Given Documented By: RITCHIE Non-Admin Reason: Patient Refused Glucose (Glucose Gel 15 Gm Gel..Gram.) 15 gm PO Q15M PRN; Protocol PRN Reason: per Hypoglycemia Standing Ord. Hydroxyzine HCl (Hydroxyzine Hcl 25 Mg Tablet) 25 mg PO Q8H PRN PRN Reason: anxiety/restlessness Last Admin: 12/05/22 07:41 Dose: 25 mg Documented By: RITCHIE Meropenem 1 gm/ Sodium (Chloride) 100 mls @ 200 mls/hr IV Q8H [facility] Last Infusion: 12/05/22 09:34 Dose: Infused Documented By: RITCHIE Vancomycin HCl 1,250 mg/ (Sodium Chloride) 250 mls @ 166.667 mls/hr IV Q24H [facility] Last Infusion: 12/04/22 23:15 Dose: Infused Documented By: IVIS Insulin Human Lispro (Insulin Lispro 100 Unit/Ml 3 Ml Vial) 0 unit SUBCUT QIDACHS [facility]; Protocol Last Admin: 12/05/22 08:15 Dose: Not Given Documented By: RITCHIE Non-Admin Reason: No Insulin Coverage Lamotrigine (Lamotrigine 100 Mg Tablet) 100 mg PO BID [facility] Last Admin: 12/05/22 07:41 Dose: 100 mg Documented By: RITCHIE Methylprednisolone Sodium Succinate (Methylprednisolone Sod Succ 40 Mg/Ml Vial) 40 mg IVPUSH Q8H [facility] Last Admin: 12/05/22 07:40 Dose: 40 mg Documented By: RITCHIE Morphine Sulfate (Morphine Sulfate 2 Mg/Ml Cartridge) 0.5 mg IVPUSH Q4H PRN; Protocol PRN Reason: tachypnea Last Admin: 12/05/22 08:13 Dose: 0.5 mg Documented By: RITCHIE Multivitamins/Vitamin C (Multivitamin Tablet) 1 tab PO DAILY [facility] Last Admin: 12/05/22 07:49 Dose: Not Given Documented By: RITCHIE Non-Admin Reason: Patient Refused Nystatin (Nystatin Powder 15 Gm Bottle) 1 appl TOPICAL BID [facility]; Protocol Last Admin: 12/05/22 07:50 Dose: 1 appl Documented By: RITCHIE Pharmacy Consult (Consult Rx Vancomycin Dosing) 1 each MISCELLANE DAILY PRN PRN Reason: Consult order Polyethylene Glycol (Polyethylene Glycol 3350 17 Gm Powd.Pack) 17 gm PO DAILY [facility] Last Admin: 12/05/22 07:41 Dose: 17 gm Documented By: RITCHIE Potassium Chloride (Potassium Chloride Er 10 Meq Tablet.Er) 10 meq PO QID [facility] Last Admin: 12/05/22 07:41 Dose: 10 meq Documented By: RITCHIE Quetiapine Fumarate (Quetiapine Fumarate 100 Mg Tablet) 100 mg PO BID [facility] Last Admin: 12/05/22 07:41 Dose: 100 mg Documented By: RITCHIE Senna (Sennosides 8.6 Mg Tablet) 8.6 mg PO DAILY PRN PRN Reason: Constipation Sodium Biphosphate/Sodium Phosphate (Sodium Phosphate,[place]-Dibasic 133 Ml Enema) 118 ml TN DAILY PRN PRN Reason: Constipation Sodium Chloride (0.9 % Sodium Chloride Flush 3 Ml Syringe) 3 ml IVFLUSH QSPRFT [facility] Last Admin: 12/05/22 07:41 Dose: 3 ml Documented By: RITCHIE Sodium Chloride (0.9 % Sodium Chloride Flush 3 Ml Syringe) [facility] Last Admin: 12/05/22 08:15 Dose: Not Given Documented By: RITCHIE Non-Admin Reason: Duplicate Order Labs 12/03/22 10:53 12/05/22 05:35 Labs: Laboratory Results - last 24 hr 12/04/22 12/04/22 12/04/22 11:14 15:47 20:04 Estim Creat Clear Calc Estimated GFR POC Glucose 227 H 122 H 187 H Random Vancomycin 12/04/22 12/05/22 12/05/22 20:25 05:35 07:56 Estim Creat Clear Calc 102.8 115.4 Estimated GFR > 60 > 60 POC Glucose 135 H Random Vancomycin 20.3 H Assessment and Plan (1) Acute respiratory failure: Status: Acute (2) RSV (respiratory syncytial virus infection): Status: Acute (3) Multifactorial dementia: Status: Acute Plan 52 yo M who is a resident at [facility] with a PMH of DM2, depression, chronic suprapubic cath, history of PE on Eliquis, HTN, PAD, COPD, recent admission for complicated UTI sent in from SNF due to SOB and fever found to have RSV. Toxic/metabolic encephalopathy with agitation hitting staff Lorazepam IV once soft restraints Acute hypoxic respiratory failure with sepsis secondary to RSV and HCAP vs aspiration pna body habitus/restrictive lung dz likely contributing to hypoxia last fever 12/01, HR and RR improving vancomycin and meropenem, initiated 12/01 on High flow 60% 50L chest CT showing left lower lobe consolidation with mucus plugging seen by pulmonology - rec CPT, continue broad spectrum abx and repeat CXR tuesday to determine need for possible bronch possible stroke vs tia 12/01 had concern for left side facial droop and left side weakness brain CT showing chronic changes; CTA head/neck with no stenosis or lg vessel occlusion not a candidiate for tpa due to chronic anticogulation with Eliquis seen by neurology - no appreciable neuro deficits during their eval; significant chronic brain pathology on imaging - rec conservative management unable to tolerate brain MRI seen by speech, rec ground mechanical diet appears back to baseline at this time GPC bacteremia 1/2 coag negative staph - likely contaminant diarrhea cdiff neg resolved Complicated UTI diagnosed on previous admission has chronic suprapubic catheter UCx grew proteus mirabilis last admit - d/c on ceftin urine culture this admit growing pseudomonas 10-50,000 CFU abx changed to meropenem 12/01 to - will continue for now LUCIEN. Resolved hold triamterene/HZTZ for now normocytic anemia CBC stable DM 2 hold metformin SSI, POCs hba1c 5.9 History of PE continue Eliquis HTN bp under adequate control hold triamterene-HCTZ Mood continue baseline meds DVT pptx - Eliquis Attending Dr. Yrn MAJOR lives at [facility], dc back when medically clear guardian - Ainsley Mcpherson [phone] - will likely make patient DNR/DNI - case management has emailed her [facility] to fill out and return as she is out of state and is unable to come in person requires ongoing inpatient stay for respiratory failure, requiring high flow Time Spent With Patient Time: Total time managing care of this patient today ____ minutes. Quality Stroke Does the patient have a stroke diagnosis?: No VTE Prior VTE?: No VTE Risk Level:: Medical - moderate - high VTE Device Contraindication: Treatment Not Indicated VTE Drug Contraindication: N/A - Med Ordered
[2022-12-05] MEDS: LORazepam 2 MG/ML VIAL 0.5 MG IVPUSH (11:05)
[2022-12-05] MEDS: Haloperidol Lactate 5 MG/ML VIAL 2 MG IM (11:30)
[2022-12-05] MEDS: Insulin Lispro 100 UNIT/ML 3 ML VIAL SUBCUT (11:33)
[2022-12-05 11:40] LABS: Glucose, Whole Blood 158 mg/dL (60-115)
[2022-12-05 16:33] LABS: Glucose, Whole Blood 84 mg/dL (60-115)
[2022-12-05] MEDS: Atorvastatin Calcium 10 MG TABLET PO (20:18)
[2022-12-05] MEDS: Potassium Chloride ER 10 MEQ TABLET.ER PO (20:18)
[2022-12-05] MEDS: lamoTRIgine 100 MG TABLET PO (20:18)
[2022-12-05] MEDS: QUEtiapine Fumarate 100 MG TABLET PO (20:18)
[2022-12-05 21:04] LABS: Glucose, Whole Blood 149 mg/dL (60-115)
[2022-12-05] MEDS: vancomycin HCL 1,250 MG in 0.9 % Sodium Chloride 250 ML 166.67 MG IV (22:23)
[2022-12-06] VITALS (15 sets, daily range): BP systolic 124–171; BP diastolic 67–91; PULSE 62–94; RESP 20–35; TEMP 35.9–36.7; O2SAT 70–95; BMI 35.6
[2022-12-06] MEDS: Acetaminophen 325 MG TABLET 650 MG PO
[2022-12-06] MEDS: Morphine Sulfate 2 MG/ML CARTRIDGE 0.5 MG IVPUSH ×3 (01:43→20:39)
[2022-12-06] MEDS: hydrOXYzine HCL 25 MG TABLET PO (02:26)
[2022-12-06 07:24] LABS: Anion Gap 13 (12-20); Blood Urea Nitrogen 18 mg/dL (9-16); Calcium 8.4 mg/dL (8.4-10.2); Carbon Dioxide 26 mmol/L (22-29); Chloride 108 mmol/L (96-108); Creatinine Clr Calc Pharmacy 106.3; Estimated Glomerular Filt Rate > 60; Glucose Random 138 mg/dL (60-115); Potassium 4.5 mmol/L (3.3-5.1); Sodium 142 mmol/L (135-145)
[2022-12-06 07:38] LABS: Glucose, Whole Blood 142 mg/dL (60-115)
--- NOTE | 2022-12-06 07:53 | PM.UROCN ---
History of Present Illness Consult details Consult date: 12/03/22 Narrative: CC: Infected bladder Baseline has suprapubic tube From [facility] Admitted with illness of breath and hypoxia Found to have Gram-positive bacteremia Seen by infectious disease Suspect RSV with overlay pneumonia May review of on outpatient basis as needed Review of Systems Constitutional: Constitutional: Reports as per HPI and Reports no additional constitutional complaints Cardiovascular: Cardiovascular: Reports as per HPI and Reports no additional cardiovascular complaints Respiratory: Respiratory: Reports as per HPI and Reports no additional respiratory complaints Gastrointestinal: Gastrointestinal: Reports as per HPI and Reports no additional gastrointestinal complaints Genitourinary: Genitourinary: Reports as per HPI Musculoskeletal: Musculoskeletal: Reports no additional musculoskeletal complaints and Reports as per HPI Neurologic: Reports system reviewed and no additional complaints, except as documented and Reports as per HPI [facility], [facility] Past Medical History Medical History (Updated 12/10/22 @ 20:59 by Vishnu Nugent MD) Acute UTI Pulmonary embolus Bacteremia Family History Family history: reviewed and not pertinent Social History Social History Household Members: None Housing: Skilled Nursing Unable to assess alcohol history related to: Unable to respond Alcohol intake: never Patient Tobacco Use Status: Former Tobacco user Tobacco use type: Cigarette service: No Meds Allergies Allergy/AdvReac Type Severity Reaction Status Date / Time vincristine Allergy Unknown Verified 11/25/22 03:25 Active Medications: Current Medications Acetaminophen (Acetaminophen 325 Mg Tablet) 650 mg PO Q6H PRN PRN Reason: Pain, Mild (Pain Scale 1-3) Last Admin: 12/06/22 00:00 Dose: 650 mg Acetaminophen (Acetaminophen Supp 650 Mg Supp.Rect) 650 mg ND Q6H PRN PRN Reason: Fever >101 Last Admin: 12/01/22 17:19 Dose: 650 mg Albuterol/Ipratropium (Albuterol/Iprat 2.5/0.5mg 3 Ml Ampul.Neb) 3 ml INHALE Q6H PRN PRN Reason: Wheezing Last Admin: 12/01/22 03:13 Dose: 3 ml Apixaban (Apixaban 5 Mg Tablet) 5 mg PO BID [facility] Last Admin: 12/05/22 20:18 Dose: 5 mg Ascorbic Acid (Ascorbic Acid 500 Mg Tablet) 500 mg PO DAILY [facility] Last Admin: 12/05/22 10:50 Dose: Not Given Atorvastatin Calcium (Atorvastatin Calcium 10 Mg Tablet) 10 mg PO BEDTIME [facility] Last Admin: 12/05/22 20:18 Dose: 10 mg Dextrose (Dextrose 50 % 25 Gm/50 Ml Syringe) 25 gm IVPUSH Q15M PRN; Protocol PRN Reason: per Hypoglycemia Standing Ord. Docusate Sodium (Docusate Sodium 100 Mg Capsule) 100 mg PO BID [facility] Last Admin: 12/05/22 21:44 Dose: Not Given Escitalopram Oxalate (Escitalopram Oxalate 20 Mg Tablet) 20 mg PO DAILY [facility] Last Admin: 12/05/22 07:41 Dose: 20 mg Ferrous Sulfate (Ferrous Sulfate 324 Mg Tablet.Dr) 324 mg PO DAILY [facility] Last Admin: 12/05/22 07:49 Dose: Not Given Glucose (Glucose Gel 15 Gm Gel..Gram.) 15 gm PO Q15M PRN; Protocol PRN Reason: per Hypoglycemia Standing Ord. Hydroxyzine HCl (Hydroxyzine Hcl 25 Mg Tablet) 25 mg PO Q8H PRN PRN Reason: anxiety/restlessness Last Admin: 12/06/22 02:26 Dose: 25 mg Meropenem 1 gm/ Sodium (Chloride) 100 mls @ 200 mls/hr IV Q8H [facility] Last Infusion: 12/06/22 02:51 Dose: Infused Vancomycin HCl 1,250 mg/ (Sodium Chloride) 250 mls @ 166.667 mls/hr IV Q24H [facility] Last Infusion: 12/06/22 00:06 Dose: Infused Insulin Human Lispro (Insulin Lispro 100 Unit/Ml 3 Ml Vial) 0 unit SUBCUT QIDACHS [facility]; Protocol Last Admin: 12/06/22 07:39 Dose: Not Given Lamotrigine (Lamotrigine 100 Mg Tablet) 100 mg PO BID [facility] Last Admin: 12/05/22 20:18 Dose: 100 mg Methylprednisolone Sodium Succinate (Methylprednisolone Sod Succ 40 Mg/Ml Vial) 40 mg IVPUSH Q8H [facility] Last Admin: 12/06/22 00:00 Dose: 40 mg Morphine Sulfate (Morphine Sulfate 2 Mg/Ml Cartridge) 0.5 mg IVPUSH Q4H PRN; Protocol PRN Reason: tachypnea Last Admin: 12/06/22 01:43 Dose: 0.5 mg Multivitamins/Vitamin C (Multivitamin Tablet) 1 tab PO DAILY [facility] Last Admin: 12/05/22 07:49 Dose: Not Given Nystatin (Nystatin Powder 15 Gm Bottle) 1 appl TOPICAL BID [facility]; Protocol Last Admin: 12/05/22 21:44 Dose: 1 appl Pharmacy Consult (Consult Rx Vancomycin Dosing) 1 each MISCELLANE DAILY PRN PRN Reason: Consult order Polyethylene Glycol (Polyethylene Glycol 3350 17 Gm Powd.Pack) 17 gm PO DAILY [facility] Last Admin: 12/05/22 10:51 Dose: Not Given Potassium Chloride (Potassium Chloride Er 10 Meq Tablet.Er) 10 meq PO QID [facility] Last Admin: 12/05/22 20:18 Dose: 10 meq Quetiapine Fumarate (Quetiapine Fumarate 100 Mg Tablet) 100 mg PO BID [facility] Last Admin: 12/05/22 20:18 Dose: 100 mg Senna (Sennosides 8.6 Mg Tablet) 8.6 mg PO DAILY PRN PRN Reason: Constipation Sodium Biphosphate/Sodium Phosphate (Sodium Phosphate,[place]-Dibasic 133 Ml Enema) 118 ml ND DAILY PRN PRN Reason: Constipation Sodium Chloride (0.9 % Sodium Chloride Flush 3 Ml Syringe) 3 ml IVFLUSH [facility] Last Admin: 12/05/22 20:19 Dose: 3 ml Sodium Chloride (0.9 % Sodium Chloride Flush 3 Ml Syringe) 3 ml IVFLUSH [facility] Last Admin: 12/06/22 00:13 Dose: Not Given Home Medications Medication Instructions Recorded Confirmed Last Taken Type acetaminophen 325 mg tablet 650 mg PO Q6H PRN Pain 11/25/22 11/30/22 Unknown History apixaban 5 mg tablet (Eliquis) 5 mg PO BID 11/25/22 11/30/22 Unknown History ascorbic acid (vitamin C) 500 mg 500 mg PO DAILY 11/25/22 11/30/22 Unknown History tablet citalopram 40 mg tablet 40 mg PO DAILY 11/25/22 11/30/22 Unknown History docusate sodium 100 mg capsule 100 mg PO BID 11/25/22 11/30/22 Unknown History (Colace) ferrous gluconate 324 mg (37.5 mg 324 mg PO DAILY 11/25/22 11/30/22 Unknown History iron) tablet ipratropium 0.5 mg-albuterol 3 mg 3 ml inhalation Q6H PRN Wheezing 11/25/22 11/30/22 Unknown History (2.5 mg base)/3 mL nebulization soln lamotrigine 100 mg tablet 100 mg PO BID 11/25/22 11/30/22 Unknown History (Lamictal) metformin 500 mg tablet 500 mg PO BID 11/25/22 11/30/22 Unknown History miconazole nitrate 2 % topical 1 appl topical DAILY PRN Rash 11/25/22 11/30/22 Unknown History powder omega [id number]-fish oil 1,000 mg 1 cap PO BID 11/25/22 11/30/22 Unknown History (120 mg-180 mg) capsule (Fish Oil) polyethylene glycol 3350 17 gram 17 g PO DAILY 11/25/22 11/30/22 Unknown History oral powder packet (Miralax) potassium chloride 10 mEq 10 meq PO QID 11/25/22 11/30/22 Unknown History tablet,extended release quetiapine 100 mg tablet 100 mg PO BID 11/25/22 11/30/22 Unknown History sennosides 8.6 mg tablet (senna) 8.6 mg PO DAILY PRN Constipation 11/25/22 11/30/22 Unknown History simvastatin 10 mg tablet (Zocor) 10 mg PO BEDTIME 11/25/22 11/30/22 Unknown History sodium phosphates 19 gram-7 118 ml ND DAILY PRN Constipation 11/25/22 11/30/22 Unknown History gram/118 mL enema (Fleet Enema) umeclidinium 62.5 mcg-vilanterol 1 inh inhalation DAILY 11/25/22 11/30/22 Unknown History 25 mcg/actuation powdr for inhalation (Anoro Ellipta) vitamin B complex 1 tab PO DAILY 11/25/22 11/30/22 Unknown History Physical Exam Vital Signs: Vital Signs: Last Vital Signs Temp 97.8 F 12/06/22 07:04 Pulse 62 12/06/22 07:04 Resp 20 12/06/22 07:04 BP 158/80 H 12/06/22 07:04 Pulse Ox 92 12/06/22 07:04 O2 Del Method High Flow Nasal C annula 12/06/22 07:04 O2 Flow Rate 50 12/06/22 07:04 FiO2 53 12/06/22 07:04 BMI result Body Mass Index 35.6 Const: General: cooperative, healthy appearing, comfortable and no acute distress Orientation/consciousness: patient oriented x3 HEENT: Face and sinus: Yes normal facial exam Mouth: moist mucous membranes Neck: Neck: Yes normal visual inspection, Yes full ROM and Yes trachea midline Chest: Chest palpation & inspection: normal inspection of the chest Resp: Effort & Inspection: normal respiratory effort, able to speak in complete sentences and no respiratory distress GI: Inspection: Yes normal to inspection Back/Spine/Pelvis: Cervical Spine: normal cervical lordosis Thoracic/Lumbar Spine: thoracic and lumbar spine normal to inspection Skin: General skin exam: no rashes or lesions noted Neuro: General: patient oriented x3, tone normal and moves all extremities Extrem: General: Yes normal to inspection and Yes capillary refill normal Results Labs 12/09/22 06:52 12/09/22 06:52 Labs: Abnormal lab results 12/05/22 12/05/22 12/05/22 Range/Units 07:56 11:30 20:58 BUN (9-16) mg/dL POC Glucose 135 H 158 H 149 H (60-115) mg/dL Random Glucose (60-115) mg/dL 12/06/22 12/06/22 Range/Units 06:29 07:12 BUN 18 H (9-16) mg/dL POC Glucose 142 H (60-115) mg/dL Random Glucose 138 H (60-115) mg/dL BMP 12/06/22 06:29 Sodium 142 Potassium 4.5 Chloride 108 Carbon Dioxide 26 BUN 18 H Creatinine 0.88 Calcium 8.4 Urine 11/30/22 Range/Units 09:21 Urine Color Yellow Urine Appearance Cloudy Urine pH 5.5 (5.0-9.0) Ur Specific [place] 1.015 (1.005-1.025) Urine Protein 100 (2+) H (Neg-Trace) mg/dL Urine Glucose (UA) Negative (Negative) mg/dL All other labs normal. Assessment and Plan (1) Sepsis: Qualifiers: Sepsis type: methicillin susceptible Staphylococcus aureus Sepsis acute organ dysfunction status: unspecified Qualified Code(s): A41.01 - Sepsis due to Methicillin susceptible Staphylococcus aureus Status: Acute (2) Acute UTI: Status: Acute Plan Complete guidance per Infectious Disease [place] catheter management should be completed by Care Facility Time Spent With Patient Time: Total time managing care of this patient today ____ minutes. Procedures Date of Service Date of Service: 12/10/22
[2022-12-06] MEDS: methylPREDNISolone Sod Succ 40 MG/ML VIAL IVPUSH ×3 (09:12→17:08)
[2022-12-06] MEDS: 0.9 % Sodium Chloride Flush 3 ML SYRINGE IVFLUSH ×3 (09:12→17:08)
[2022-12-06] MEDS: lamoTRIgine 100 MG TABLET PO (09:13)
[2022-12-06] MEDS: Apixaban 5 MG TABLET PO (09:13)
[2022-12-06] MEDS: Ascorbic Acid 500 MG TABLET PO (09:13)
[2022-12-06] MEDS: Multivitamin TABLET 1 TAB PO (09:13)
[2022-12-06] MEDS: Escitalopram Oxalate 20 MG TABLET PO (09:13)
[2022-12-06] MEDS: Nystatin Powder 15 GM BOTTLE 1 APPL TOPICAL ×2 (09:13→21:03)
[2022-12-06] MEDS: QUEtiapine Fumarate 100 MG TABLET PO (09:13)
[2022-12-06] MEDS: Ferrous Sulfate 324 MG TABLET.DR PO (09:13)
[2022-12-06] MEDS: polyethylene glycoL 3350 17 GM POWD.PACK PO (09:13)
[2022-12-06] MEDS: Potassium Chloride ER 10 MEQ TABLET.ER PO (09:13)
--- NOTE | 2022-12-06 09:28 | HO.PM.IMPN ---
Subjective Subjective Date of Service: 12/06/22 Interval History: seen and examined this morning follow up for respiratory failure, RSV denies respiratory symptoms Review of Systems Review of Systems: Yes all other systems are reviewed and are negative Constitutional Constitutional: Denies fever(s) Cardiovascular Cardiovascular: Denies chest pain and Denies dyspnea Respiratory Respiratory: Denies dyspnea Physical Exam Vital Signs: Vital Signs: Last Vital Signs Temp 97.8 F 12/06/22 07:04 Pulse 62 12/06/22 07:04 Resp 20 12/06/22 07:53 BP 158/80 H 12/06/22 07:04 Pulse Ox 92 12/06/22 07:04 O2 Del Method High Flow Nasal C annula 12/06/22 07:04 O2 Flow Rate 50 12/06/22 07:04 FiO2 53 12/06/22 07:04 BMI result Body Mass Index 35.6 Appearing in no acute distress lung sounds are clear to auscultation heart regular rate rhythm, clear S1, S2 positive bowel sounds, abdomen is soft, nontender neuro patient is alert x3, no focal deficits HIgh flow Objective Data Active Medications Acetaminophen (Acetaminophen 325 Mg Tablet) 650 mg PO Q6H PRN PRN Reason: Pain, Mild (Pain Scale 1-3) Last Admin: 12/06/22 00:00 Dose: 650 mg Documented By: IVIS Acetaminophen (Acetaminophen Supp 650 Mg Supp.Rect) 650 mg ME Q6H PRN PRN Reason: Fever >101 Last Admin: 12/01/22 17:19 Dose: 650 mg Documented By: СЕРГЕЙ Albuterol/Ipratropium (Albuterol/Iprat 2.5/0.5mg 3 Ml Ampul.Neb) 3 ml INHALE Q6H PRN PRN Reason: Wheezing Last Admin: 12/01/22 03:13 Dose: 3 ml Documented By: FLOR Apixaban (Apixaban 5 Mg Tablet) 5 mg PO BID [facility] Last Admin: 12/06/22 09:13 Dose: 5 mg Documented By: STEFAN Ascorbic Acid (Ascorbic Acid 500 Mg Tablet) 500 mg PO DAILY [facility] Last Admin: 12/06/22 09:13 Dose: 500 mg Documented By: STEFAN Atorvastatin Calcium (Atorvastatin Calcium 10 Mg Tablet) 10 mg PO BEDTIME [facility] Last Admin: 12/05/22 20:18 Dose: 10 mg Documented By: IVIS Dextrose (Dextrose 50 % 25 Gm/50 Ml Syringe) 25 gm IVPUSH Q15M PRN; Protocol PRN Reason: per Hypoglycemia Standing Ord. Docusate Sodium (Docusate Sodium 100 Mg Capsule) 100 mg PO BID [facility] Last Admin: 12/05/22 21:44 Dose: Not Given Documented By: IVIS Non-Admin Reason: UNABLE TO SWALLOW Escitalopram Oxalate (Escitalopram Oxalate 20 Mg Tablet) 20 mg PO DAILY [facility] Last Admin: 12/06/22 09:13 Dose: 20 mg Documented By: STEFAN Ferrous Sulfate (Ferrous Sulfate 324 Mg Tablet.Dr) 324 mg PO DAILY [facility] Last Admin: 12/06/22 09:13 Dose: 324 mg Documented By: STEFAN Glucose (Glucose Gel 15 Gm Gel..Gram.) 15 gm PO Q15M PRN; Protocol PRN Reason: per Hypoglycemia Standing Ord. Hydroxyzine HCl (Hydroxyzine Hcl 25 Mg Tablet) 25 mg PO Q8H PRN PRN Reason: anxiety/restlessness Last Admin: 12/06/22 02:26 Dose: 25 mg Documented By: IVIS Meropenem 1 gm/ Sodium (Chloride) 100 mls @ 200 mls/hr IV Q8H [facility] Last Infusion: 12/06/22 02:51 Dose: Infused Documented By: VIIS Vancomycin HCl 1,250 mg/ (Sodium Chloride) 250 mls @ 166.667 mls/hr IV Q24H [facility] Last Infusion: 12/06/22 00:06 Dose: Infused Documented By: IVIS Insulin Human Lispro (Insulin Lispro 100 Unit/Ml 3 Ml Vial) 0 unit SUBCUT QIDACHS [facility]; Protocol Last Admin: 12/06/22 07:39 Dose: Not Given Documented By: STEFAN Non-Admin Reason: No Insulin Coverage Lamotrigine (Lamotrigine 100 Mg Tablet) 100 mg PO BID [facility] Last Admin: 12/06/22 09:13 Dose: 100 mg Documented By: STEFAN Methylprednisolone Sodium Succinate (Methylprednisolone Sod Succ 40 Mg/Ml Vial) 40 mg IVPUSH Q8H [facility] Last Admin: 12/06/22 09:12 Dose: 40 mg Documented By: STEFAN Morphine Sulfate (Morphine Sulfate 2 Mg/Ml Cartridge) 0.5 mg IVPUSH Q4H PRN; Protocol PRN Reason: tachypnea Last Admin: 12/06/22 01:43 Dose: 0.5 mg Documented By: IVIS Multivitamins/Vitamin C (Multivitamin Tablet) 1 tab PO DAILY [facility] Last Admin: 12/06/22 09:13 Dose: 1 tab Documented By: STEFAN Nystatin (Nystatin Powder 15 Gm Bottle) 1 appl TOPICAL BID [facility]; Protocol Last Admin: 12/06/22 09:13 Dose: 1 appl Documented By: STEFAN Pharmacy Consult (Consult Rx Vancomycin Dosing) 1 each MISCELLANE DAILY PRN PRN Reason: Consult order Polyethylene Glycol (Polyethylene Glycol 3350 17 Gm Powd.Pack) 17 gm PO DAILY [facility] Last Admin: 12/06/22 09:13 Dose: 17 gm Documented By: STEFAN Potassium Chloride (Potassium Chloride Er 10 Meq Tablet.Er) 10 meq PO QID [facility] Last Admin: 12/06/22 09:13 Dose: 10 meq Documented By: STEFAN Quetiapine Fumarate (Quetiapine Fumarate 100 Mg Tablet) 100 mg PO BID [facility] Last Admin: 12/06/22 09:13 Dose: 100 mg Documented By: STEFAN Senna (Sennosides 8.6 Mg Tablet) 8.6 mg PO DAILY PRN PRN Reason: Constipation Sodium Biphosphate/Sodium Phosphate (Sodium Phosphate,[place]-Dibasic 133 Ml Enema) 118 ml ME DAILY PRN PRN Reason: Constipation Sodium Chloride (0.9 % Sodium Chloride Flush 3 Ml Syringe) [facility] Last Admin: 12/06/22 09:12 Dose: 3 ml Documented By: STEFAN Sodium Chloride (0.9 % Sodium Chloride Flush 3 Ml Syringe) [facility] Last Admin: 12/06/22 09:13 Dose: 3 ml Documented By: STEFAN Labs 12/03/22 10:53 12/06/22 06:29 Labs: Laboratory Results - last 24 hr 12/05/22 12/05/22 12/05/22 11:30 16:25 20:58 Anion Gap Estim Creat Clear Calc Estimated GFR POC Glucose 158 H 84 149 H Random Glucose Calcium 12/06/22 12/06/22 06:29 07:12 Anion Gap 13 Estim Creat Clear Calc 106.3 Estimated GFR > 60 POC Glucose 142 H Random Glucose 138 H Calcium 8.4 Microbiology Microbiology Results: Microbiology 11/30/22 10:43 Blood Culture - Final Blood - Venous No growth after 5 days. Assessment and Plan (1) Acute respiratory failure: Status: Acute (2) RSV (respiratory syncytial virus infection): Status: Acute (3) Multifactorial dementia: Status: Acute Plan 52 yo M who is a resident at [facility] with a PMH of DM2, depression, chronic suprapubic cath, history of PE on Eliquis, HTN, PAD, COPD, recent admission for complicated UTI sent in from SNF due to SOB and fever found to have RSV. Toxic/metabolic encephalopathy with agitation. hitting staff Haldol IM Acute hypoxic respiratory failure with sepsis secondary to RSV and HCAP vs aspiration pna body habitus/restrictive lung dz likely contributing to hypoxia last fever 12/01, HR and RR improving vancomycin and meropenem, initiated 12/01 on High flow 60% 50L chest CT showing left lower lobe consolidation with mucus plugging seen by pulmonology - rec CPT, continue broad spectrum abx and repeat CXR tuesday to determine need for possible bronch possible stroke vs tia 12/01 had concern for left side facial droop and left side weakness brain CT showing chronic changes; CTA head/neck with no stenosis or lg vessel occlusion not a candidiate for tpa due to chronic anticogulation with Eliquis seen by neurology - no appreciable neuro deficits during their eval; significant chronic brain pathology on imaging - rec conservative management unable to tolerate brain MRI seen by speech, rec ground mechanical diet appears back to baseline at this time GPC bacteremia 1/2 coag negative staph - likely contaminant diarrhea cdiff neg resolved Complicated UTI diagnosed on previous admission has chronic suprapubic catheter UCx grew proteus mirabilis last admit - d/c on ceftin urine culture this admit growing pseudomonas 10-50,000 CFU abx changed to meropenem 12/01 to - will continue for now LUCIEN. Resolved hold triamterene/HZTZ for now normocytic anemia CBC stable DM 2 hold metformin SSI, POCs hba1c 5.9 History of PE continue Eliquis HTN bp under adequate control hold triamterene-HCTZ Mood continue baseline meds DVT pptx - Eliquis Attending Dr. Yrn MAJOR lives at [place], dc back when medically clear guardian - Ainsley Mcpherson [phone] - will likely make patient DNR/DNI - case management has emailed her [facility] to fill out and return as she is out of state and is unable to come in person requires ongoing inpatient stay for respiratory failure, requiring high flow Time Spent With Patient Time: Total time managing care of this patient today ____ minutes. Quality Stroke Does the patient have a stroke diagnosis?: No VTE Prior VTE?: No VTE Risk Level:: Medical - moderate - high VTE Device Contraindication: Treatment Not Indicated VTE Drug Contraindication: N/A - Med Ordered
[2022-12-06] MEDS: Docusate Sodium 100 MG CAPSULE PO (09:33)
--- NOTE | 2022-12-06 11:21 | MHC.CM.PN ---
EMR reviewed and per MD rounds, pt remains on hi-flow O2 and is not medically cleared for D/C today. CM will continue to follow.
[2022-12-06] MEDS: Haloperidol Lactate 5 MG/ML VIAL 2 MG IM (11:33)
--- NOTE | 2022-12-06 11:37 | PC.NURSE ---
Pt restless, agitated, tachypnic and combative. Removing high flow canula, desating to the 70's, unable to keep it in place. MD notified. Haldol IM given. Will continue to monitor
--- NOTE | 2022-12-06 12:17 | MHC.CLN ---
RE: CONSULT PT WITH INCREASED NUTRITION RISK R/T PRESSURE INJURY DIET RX: 1800DM GRD/M/S-RECOMMEND CHANGING DIET TO 2200KCALS TO MEET NEEDS FOR WOUND HEALING RECOMMEND ADDING ENSURE MAX BID TO PROMOTE WOUND HEALING SUPP TO PROVIDE 300KCALS, 60G PROTEIN MONITOR PO INTAKE CLOSELY SEE ALSO FULL CLINICAL NUTRITION ASSESSMENT
--- NOTE | 2022-12-06 16:34 | MHC.SL.SWA ---
Speech Pathologist Impression: Risk of aspiration, oropharyngeal dysphagia Risk of Aspiration Due to: Reduced Cognition Weak Cough Dysphasia Diet Status: No changes at this time Liquid Consistency and Strategies for Safe Swallow: Liquid Intake Recommendation: Thin Liquid Intake Strategies: Small Sips No Straws Solid Food Consistency: Dietary Recommendations: Grnd/Mech Altered (NDD2) Additional Modifications to Solid Foods: Avoid mixed consistencies, no straws. Patient requires full assist at this time with meal. Liquids by controlled cup sip. Alternate liquids and solids. Assure that patient has swallowed before presenting more food or liquid. Oral Medication Intake: Crushed with Puree Please contact the pharmacy regarding appropriate crushable or liquid drug formulations that are available whenever modified delivery is recommended. Compensatory Strategies and Precautions to be Taken for Safe Swallow: Sitting Upright (90 deg) No Straw Liquids from Cup Liquids from Spoon Small Bites and Sips Rate of Ingestion Change Oral Check Avoid Specific Foods Supervision While Eating and Drinking for Safe Swallow: Total Assistance (1:1) Foods to Avoid: Mixed consistencies, difficulty to chew solids. Swallowing Recommended Treatments: Compens. Strategy Educat. Recommendation for Speech: Outpatient Speech Therapy Inpatient Speech Therapy Speech Therapy through Rehab Facility Comment: Pt seen for clinical swallow evaluation at bedside. Presents w/ oral phase dysphagia. Recommend UPGRADE to GROUND solids (NDD2), THIN liquids (NO STRAWS), and meds crushed in puree. Patient requires total supervision/assistance to provide assistance as needed and cueing. Cue to: slow rate of ingestion, alternate liquid/solids, not talk w/ food in oral cavity, swallow. Ground solids recommended at this time d/t risk of aspiration d/t weak cough, cognition, and respiratory status on HFNC. Imitation Marble Mechanic Clinican/Clinical Fellow: No Supervisory Statement: I have reviewed and agree with the student/clinical fellow's documentation: No Speech Language Pathologist: Izzy Gonzalez M.A., CCC-CUSTODIAL SUPERVISOR
[2022-12-06 16:53] LABS: Glucose, Whole Blood 118 mg/dL (60-115)
[2022-12-06 20:25] LABS: Glucose, Whole Blood 147 mg/dL (60-115)
[2022-12-06 20:54] LABS: Vancomycin Trough 25.1 mcg/mL (10.0-20.0)
[2022-12-06 21:04] LABS: ABG Base Excess 6.5 mmol/L; ABG HCO3 29 mmol/L (22-26); ABG pCO2 35 mmHg (32-45); ABG pH 7.52 (7.35-7.45); ABG pO2 55 mmHg (83-108)
[2022-12-06 21:26] LABS: ABG Refer to POC result
--- NOTE | 2022-12-06 21:46 | P.EN_ITS ---
Event Note Date of Service: 12/06/22 Event Note: Was informed by nurse that patient was saturating in the 80s on 100% FiO2 55 L high-flow. Upon examination, patient was tachypneic and dyspneic with decreased breath sounds on the left side. Obtained ABG which revealed low PO2. Asked respiratory to suction for concerns of mucus plug. Discussed up with Dr. Molina, production mechanic tin cans. Patient remarkably improved after deep suctioning with O2 saturation increasing to 100%. Tachypnea resolved. Will continue to watch on the floor as patient stabilized. Repeat chest x-ray pending Time Spent With Patient Time: Total time managing care of this patient today ____ minutes.
--- NOTE | 2022-12-06 21:49 | PM.EVENT ---
Documented by User: Dominga Peña NP 12/07/22 05:00 Event Note Date of Service: 12/07/22 Event Note: Was informed by Dr. Benton that the patient was tachypneic and dyspneic with decreased breath sounds on the left side and sating in the 80s requiring the high-flow be increased to 55 L/100% FiO2.? An ABG was obtained? revealing a pO2 of 55.? Respiratory performed CPT and deep suctioning producing a? substantial amount of mucus and improved O2 sat to 100%.? Upon my examination the patient exhibited no work of breathing and was able to speak in full sentences.? Respiratory rate 20.? Lung sounds diminished throughout the left side.? Expiratory wheezes auscultated at the left base. He is afebrile. HR 75, BP 143/72.? CXR? showed hypoexpanded lungs with patchy atelectasis in the lingula. ? Continue to monitor on floor as patient is now stabilized. Respiratory to titrate O2 down as able. Recommend minimizing use of sedative and narcotic medications to avoid further aspiration. Continue CPT/deep suction. Strict 1:1 feed.? Consult the ICU? if patient?s condition deteriorates. Case was discussed in detail with Dr. Molina over the phone. Time Spent With Patient Time: Total time managing care of this patient today ____ minutes. Documented by User: Jeffrey Molina MD 12/07/22 08:22 Event Note Date of Service: 12/07/22
[2022-12-06] MEDS: Albuterol/Iprat 2.5/0.5MG 3 ML AMPUL.NEB INHALE (22:03)
--- NOTE | 2022-12-06 23:57 | PC.NURSE ---
At approx 2030- SpO2 noted to be 60-70s on tele, this RN in to immediately see pt. Upon initial assessment- pt c/o SOB/dyspnea, noted to be tachypneic, RR 30s, accessory muscle use, lung sounds dim on L side- HFNC increased from 50L/75% to 55L/100% and PRN morphine IV administered. RT notified and to bedside. CPT completed with some effect, SpO2 80s. MD Benton notified. ABG and CXR ordered. ICU notified by MD. Nasotracheal suctioned by RT with good effect- SpO2 90s on HFNC, RR 20-30 with even unlabored respirations. Some wheezing noted, given UPD by RT. MD Benton updated and aware of pt status. Plan to continue CPT/deep suction as needed as recommenced by ICU SUAD Peña and wean HFNC as tolerated. Per pt, resting comfortably at this time.
[2022-12-07] VITALS (15 sets, daily range): BP systolic 129–168; BP diastolic 62–92; PULSE 67–83; RESP 20–26; TEMP 35.6–37; O2SAT 90–97
[2022-12-07] MEDS: 0.9 % Sodium Chloride Flush 3 ML SYRINGE IVFLUSH ×5 (01:27→22:05)
[2022-12-07] MEDS: methylPREDNISolone Sod Succ 40 MG/ML VIAL IVPUSH ×4 (01:27→23:22)
--- NOTE | 2022-12-07 07:07 | P.CDIM_ITS ---
PROVIDER RESPONSE TEXT: To clarify, the appropriate diagnosis supported by the clinical indicators: Pressure (decubitus) ulcer: stage 1 QUERY TEXT: PHYSICIAN'S DOCUMENTATION REQUEST Date of Query: 12/06/2022 08:39 AM EDT Patient Name: Manuel Mcpherson Admit Date: 11/30/2022 Dear Kerry Preciado, A review of the medical record indicates additional documentation may be needed. Please review below and update the documentation accordingly. Clinical Indicators: Per Nursing Pressure Injury Assessment 12/04/22: Coccyx stage 2 , serosanguinous drainage, foam packing type Based on the above, could you please provide further information regarding the type of ulcer/wound: Diabetic ulcer Please specify the location and laterality of the ulcer/wound Venous stasis ulcer Please specify the location and laterality of the ulcer/wound Arterial (ischemic) ulcer Please specify the location and laterality of the ulcer/wound Pressure (decubitus) ulcer Please include the stage of the ulcer and specify the location and laterality of the ulcer/wound Traumatic wound Please specify the location and laterality of the ulcer/wound Other (explain)Clinically unable to determine (explain)Thank you, Maya Valencia RN Use of terms such as suspected, likely, concern for, or probable (associated with a specific diagnosi s that is being evaluated, monitored, or treated as if it exists) are acceptable and can be coded in the inpatient se tting, when documented at the time of discharge. Please use your independent medical judgment in providing your response. THIS QUERY IS PART OF THE PERMANENT MEDICAL RECORD
[2022-12-07 07:43] LABS: Glucose, Whole Blood 132 mg/dL (60-115)
--- NOTE | 2022-12-07 08:25 | HO.PM.IMPN ---
Subjective Subjective Date of Service: 12/07/22 Interval History: seen and examined this morning follow up for respiratory failure, RSV denies respiratory symptoms Review of Systems Review of Systems: Yes all other systems are reviewed and are negative Constitutional Constitutional: Denies fever(s) Cardiovascular Cardiovascular: Denies chest pain and Denies dyspnea Respiratory Respiratory: Denies dyspnea Physical Exam Vital Signs: Vital Signs: Last Vital Signs Temp 97.5 F 12/07/22 07:19 Pulse 69 12/07/22 07:19 Resp 20 12/07/22 07:19 BP 168/92 H 12/07/22 07:19 Pulse Ox 96 12/07/22 07:19 O2 Del Method High Flow Nasal C annula 12/07/22 07:19 O2 Flow Rate 55 12/07/22 07:19 FiO2 87 12/07/22 07:19 BMI result Body Mass Index 35.6 Appearing in no acute distress lung sounds diminished heart regular rate rhythm, clear S1, S2 positive bowel sounds, abdomen is soft, nontender neuro patient is alert x3, no focal deficits Objective Data Active Medications Acetaminophen (Acetaminophen 325 Mg Tablet) 650 mg PO Q6H PRN PRN Reason: Pain, Mild (Pain Scale 1-3) Last Admin: 12/06/22 00:00 Dose: 650 mg Documented By: IVIS Acetaminophen (Acetaminophen Supp 650 Mg Supp.Rect) 650 mg NM Q6H PRN PRN Reason: Fever >101 Last Admin: 12/01/22 17:19 Dose: 650 mg Documented By: СЕРГЕЙ Albuterol/Ipratropium (Albuterol/Iprat 2.5/0.5mg 3 Ml Ampul.Neb) 3 ml INHALE Q6H PRN PRN Reason: Wheezing Last Admin: 12/06/22 22:03 Dose: 3 ml Documented By: DANIELLA Apixaban (Apixaban 5 Mg Tablet) 5 mg PO BID [facility] Last Admin: 12/06/22 21:03 Dose: Not Given Documented By: GINA Non-Admin Reason: Patient Refused Ascorbic Acid (Ascorbic Acid 500 Mg Tablet) 500 mg PO DAILY [facility] Last Admin: 12/06/22 09:13 Dose: 500 mg Documented By: STEFAN Atorvastatin Calcium (Atorvastatin Calcium 10 Mg Tablet) 10 mg PO BEDTIME [facility] Last Admin: 12/06/22 21:04 Dose: Not Given Documented By: GINA Non-Admin Reason: Patient Refused Dextrose (Dextrose 50 % 25 Gm/50 Ml Syringe) 25 gm IVPUSH Q15M PRN; Protocol PRN Reason: per Hypoglycemia Standing Ord. Docusate Sodium (Docusate Sodium 100 Mg Capsule) 100 mg PO BID [facility] Last Admin: 12/06/22 21:04 Dose: Not Given Documented By: GINA Non-Admin Reason: Patient Refused Escitalopram Oxalate (Escitalopram Oxalate 20 Mg Tablet) 20 mg PO DAILY [facility] Last Admin: 12/06/22 09:13 Dose: 20 mg Documented By: STEFAN Ferrous Sulfate (Ferrous Sulfate 324 Mg Tablet.Dr) 324 mg PO DAILY [facility] Last Admin: 12/06/22 09:13 Dose: 324 mg Documented By: STEFAN Glucose (Glucose Gel 15 Gm Gel..Gram.) 15 gm PO Q15M PRN; Protocol PRN Reason: per Hypoglycemia Standing Ord. Hydroxyzine HCl (Hydroxyzine Hcl 25 Mg Tablet) 25 mg PO Q8H PRN PRN Reason: anxiety/restlessness Last Admin: 12/06/22 02:26 Dose: 25 mg Documented By: IVIS Meropenem 1 gm/ Sodium (Chloride) 100 mls @ 200 mls/hr IV Q8H [facility] Last Infusion: 12/07/22 01:56 Dose: Infused Documented By: GINA Insulin Human Lispro (Insulin Lispro 100 Unit/Ml 3 Ml Vial) 0 unit SUBCUT QIDACHS [facility]; Protocol Last Admin: 12/07/22 08:10 Dose: Not Given Documented By: STEFAN Non-Admin Reason: No Insulin Coverage Lamotrigine (Lamotrigine 100 Mg Tablet) 100 mg PO BID [facility] Last Admin: 12/06/22 21:04 Dose: Not Given Documented By: GINA Non-Admin Reason: Patient Refused Methylprednisolone Sodium Succinate (Methylprednisolone Sod Succ 40 Mg/Ml Vial) 40 mg IVPUSH Q8H [facility] Last Admin: 12/07/22 01:27 Dose: 40 mg Documented By: GINA Morphine Sulfate (Morphine Sulfate 2 Mg/Ml Cartridge) 0.5 mg IVPUSH Q4H PRN; Protocol PRN Reason: tachypnea Last Admin: 12/06/22 20:39 Dose: 0.5 mg Documented By: GINA Multivitamins/Vitamin C (Multivitamin Tablet) 1 tab PO DAILY [facility] Last Admin: 12/06/22 09:13 Dose: 1 tab Documented By: STEFAN Nystatin (Nystatin Powder 15 Gm Bottle) 1 appl TOPICAL BID [facility]; Protocol Last Admin: 12/06/22 21:03 Dose: 1 appl Documented By: GINA Pharmacy Consult (Consult Rx Vancomycin Dosing) 1 each MISCELLANE DAILY PRN PRN Reason: Consult order Polyethylene Glycol (Polyethylene Glycol 3350 17 Gm Powd.Pack) 17 gm PO DAILY [facility] Last Admin: 12/06/22 09:13 Dose: 17 gm Documented By: STEFAN Potassium Chloride (Potassium Chloride Er 10 Meq Tablet.Er) 10 meq PO QID [facility] Last Admin: 12/06/22 21:06 Dose: Not Given Documented By: GIAN Non-Admin Reason: Patient Refused Quetiapine Fumarate (Quetiapine Fumarate 100 Mg Tablet) 100 mg PO BID [facility] Last Admin: 12/06/22 21:06 Dose: Not Given Documented By: GINA Non-Admin Reason: Previously Administered Senna (Sennosides 8.6 Mg Tablet) 8.6 mg PO DAILY PRN PRN Reason: Constipation Sodium Biphosphate/Sodium Phosphate (Sodium Phosphate,[place]-Dibasic 133 Ml Enema) 118 ml NM DAILY PRN PRN Reason: Constipation Sodium Chloride (0.9 % Sodium Chloride Flush 3 Ml Syringe) 3 ml IVFLUSH [facility] Last Admin: 12/07/22 01:27 Dose: 3 ml Documented By: GINA Sodium Chloride (0.9 % Sodium Chloride Flush 3 Ml Syringe) 3 ml IVFLUSH [facility] Last Admin: 12/07/22 01:27 Dose: 3 ml Documented By: GINA Labs 12/03/22 10:53 12/06/22 06:29 Labs: Laboratory Results - last 24 hr 12/06/22 12/06/22 12/06/22 16:40 20:01 20:09 O2 Saturation ABG pH at Pt Temp ABG pCO2 at Pt Temp ABG pO2 at Pt Temp ABG HCO3 ABG Base Excess (Actual) POC Glucose 118 H 147 H Vancomycin Trough 25.1 H* 12/06/22 12/07/22 21:00 07:29 O2 Saturation 85.0 ABG pH at Pt Temp 7.52 H ABG pCO2 at Pt Temp 35 ABG pO2 at Pt Temp 55 L ABG HCO3 29 H ABG Base Excess (Actual) 6.5 POC Glucose 132 H Vancomycin Trough Assessment and Plan (1) Acute respiratory failure: Status: Acute (2) RSV (respiratory syncytial virus infection): Status: Acute (3) Multifactorial dementia: Status: Acute Plan 52 yo M who is a resident at [facility] with a PMH of DM2, depression, chronic suprapubic cath, history of PE on Eliquis, HTN, PAD, COPD, recent admission for complicated UTI sent in from SNF due to SOB and fever found to have RSV. Toxic/metabolic encephalopathy with agitation. wax and wanes hitting staff Haldol IM as needed Acute hypoxic respiratory failure with sepsis secondary to RSV and HCAP vs aspiration pna body habitus/restrictive lung dz likely contributing to hypoxia s/p vancomycin and meropenem on High flow 80% 55L chest CT showing left lower lobe consolidation with mucus plugging seen by pulmonology - no plan for bronch, likely aspiration, pulmonary toilet Complicated UTI, Pseudomonas has chronic suprapubic catheter Will change meropenem to Levaquin Possible stroke vs tia 12/01 had concern for left side facial droop and left side weakness brain CT showing chronic changes; CTA head/neck with no stenosis or lg vessel occlusion not a candidiate for tpa due to chronic anticogulation with Eliquis seen by neurology - no appreciable neuro deficits during their eval; significant chronic brain pathology on imaging - rec conservative management seen by speech, rec ground mechanical diet Diarrhea cdiff neg resolved LUCIEN. Resolved hold triamterene/HZTZ for now normocytic anemia CBC stable DM 2 hold metformin SSI, POCs hba1c 5.9 History of PE continue Eliquis HTN bp under adequate control started amlodipine 2.5mg daily (12/07/22) Mood continue baseline meds DVT pptx - Valente Attending Dr. Pool DISPO lives at [place], dc back when medically clear guardian - Ainsley Mcpherson [phone] - will likely make patient DNR/DNI - case management has emailed her MOSLT to fill out and return as she is out of state and is unable to come in person requires ongoing inpatient stay for respiratory failure, requiring high flow Time Spent With Patient Time: Total time managing care of this patient today ____ minutes. Quality Stroke Does the patient have a stroke diagnosis?: No VTE Prior VTE?: No VTE Risk Level:: Medical - moderate - high VTE Device Contraindication: Treatment Not Indicated VTE Drug Contraindication: N/A - Med Ordered
[2022-12-07 08:41] LABS: Estimated Glomerular Filt Rate > 60
[2022-12-07 08:47] LABS: Vancomycin Random 16.1 mcg/mL (15-20)
[2022-12-07] MEDS: Apixaban 5 MG TABLET PO ×2 (09:48→20:44)
[2022-12-07] MEDS: QUEtiapine Fumarate 100 MG TABLET PO ×2 (09:48→20:44)
[2022-12-07] MEDS: Docusate Sodium 100 MG CAPSULE PO (09:48)
[2022-12-07] MEDS: Nystatin Powder 15 GM BOTTLE 1 APPL TOPICAL ×2 (09:48→22:04)
[2022-12-07] MEDS: Ferrous Sulfate 324 MG TABLET.DR PO (09:48)
[2022-12-07] MEDS: Escitalopram Oxalate 20 MG TABLET PO (09:48)
[2022-12-07] MEDS: Ascorbic Acid 500 MG TABLET PO (09:48)
[2022-12-07] MEDS: Potassium Chloride ER 10 MEQ TABLET.ER PO ×4 (09:48→20:44)
[2022-12-07] MEDS: amLODIPine Besylate 2.5 MG TABLET PO (09:48)
[2022-12-07] MEDS: lamoTRIgine 100 MG TABLET PO ×2 (09:48→20:44)
[2022-12-07] MEDS: Multivitamin TABLET 1 TAB PO (09:48)
[2022-12-07] MEDS: polyethylene glycoL 3350 17 GM POWD.PACK PO (09:48)
--- NOTE | 2022-12-07 10:54 | MHC.SL.DTX ---
Dysphagia Diet modifications: Last documented Solid diet consistencies: Grnd/Mech Altered (NDD2) Last documented Liquid consistency: Thin Changes made to current diet?: No: No changes at this time Liquid Consistency and Strategies: Liquid Intake Recommendation: Thin Compensatory Strategies for Safe Swallow: Small Sips No Straws Compensatory Strategies for Safe Swallow(b): Sitting Upright (90 deg) No Straw Liquids from Cup Liquids from Spoon Small Bites and Sips Rate of Ingestion Change Oral Check Avoid Specific Foods Solid Food Consistency: Dietary Recommendations: Grnd/Mech Altered (NDD2) Additional Modifications to Solids: Avoid mixed consistencies, no straws. Patient requires full assist at this time with meal. Liquids by controlled cup sip. Alternate liquids and solids. Assure that patient has swallowed before presenting more food or liquid. Oral Medication Intake: Crushed with Puree Strategies and Precautions to be Taken for Safe Swallow: Sitting Upright (90 deg) No Straw Liquids from Cup Liquids from Spoon Small Bites and Sips Rate of Ingestion Change Oral Check Avoid Specific Foods Supervision While Eating and/Drinking: Total Assistance (1:1) Foods to Avoid: Mixed consistencies, difficulty to chew solids. Swallowing Recommended Treatments: Compens. Strategy Educat. Level of Impact on: Daily activities: Interpersonal interactions: Education: Employment: Community: Prognosis for Improvement: Recommendation for Speech: Outpatient Speech Therapy Inpatient Speech Therapy Speech Therapy through Rehab Facility Additional Comments: Pt is a LTC resident at [facility]. Per RN, pt has been restless, tachypnic, combative. Treatment: Pt cooperative to care this morning. He remains on a High Flow nasal cannula. He is initially resistant to PO trials, however he agrees with gentle encouragement. Pt tolerated Thin Liquids self-administered via cup with no overt s/s of aspiration. Pt takes only small amounts per sip. He tolerated Ground Solid administered to him via spoon with delayed oral preparation and oral residue after the swallow. He was able to clear with a cued cup sip of Thin liquids with no overt s/s of aspiration. Continue to recommend Ground Solids (NDD2) and Thin Liquids with 1:1 assistance. Medications crushed in Puree. Further advancement not indicated at this time due to oxygen needs and lethargy. Grease Cup Filler Clinican/Clinical Fellow: No Supervisory Statement: I have reviewed and agree with the student/clinical fellow's documentation: N/A Speech Language Pathologist: Denis Lala M.A., [facility]
[2022-12-07] MEDS: levoFLOXacin/D5W 500 MG/100 ML PIGGYBACK 100 MG IV (11:12)
[2022-12-07 11:20] LABS: Glucose, Whole Blood 155 mg/dL (60-115)
[2022-12-07] MEDS: Morphine Sulfate 2 MG/ML CARTRIDGE 1 MG IVPUSH (15:17)
--- NOTE | 2022-12-07 15:31 | PM.EVENT ---
Event Note Date of Service: 12/07/22 Event Note: can switch to po Levaquin for total 14 d when able Time Spent With Patient Time: Total time managing care of this patient today ____ minutes.
[2022-12-07 15:46] LABS: Venous Blood Gas Refer to POC result
[2022-12-07 15:46] LABS: VBG Base Excess 7.9 mmol/L; VBG HCO3 30 mmol/L (22-26); VBG pCO2 37 mmHg; VBG pH 7.52 (7.32-7.43); VBG pO2 120 mmHg
[2022-12-07 16:52] LABS: Glucose, Whole Blood 147 mg/dL (60-115)
[2022-12-07 20:35] LABS: Glucose, Whole Blood 142 mg/dL (60-115)
[2022-12-07] MEDS: Atorvastatin Calcium 10 MG TABLET PO (20:44)
[2022-12-07] MEDS: Sennosides 8.6 MG TABLET PO (20:44)
[2022-12-07] MEDS: Morphine Sulfate 2 MG/ML CARTRIDGE 0.5 MG IVPUSH (20:45)
[2022-12-07] MEDS: hydrOXYzine HCL 25 MG TABLET PO (20:45)
[2022-12-08] VITALS (12 sets, daily range): BP systolic 118–179; BP diastolic 69–95; PULSE 64–97; RESP 18–24; TEMP 36.2–37; O2SAT 89–99
[2022-12-08] MEDS: Morphine Sulfate 2 MG/ML CARTRIDGE 0.5 MG IVPUSH (00:47)
--- NOTE | 2022-12-08 10:44 | MHC.CLN ---
F/U PT WITH INCREASED NUTRITION RISK R/T PRESSURE INJURY DIET RX: 2200DM GRD/M/S-APPROPRIATE PT RECEIVING ENSURE MAX BID TO PROMOTE WOUND HEALING SUPP TO PROVIDE 300KCALS, 60G PROTEIN MONITOR PO INTAKE CLOSELY AND ENCOURAGE SUPPLEMENT
--- NOTE | 2022-12-08 11:17 | PC.NURSE ---
patient refuses vitals, point of care glucose, medications, and assessment. nurse attempted to educate patient. patient became combative.
--- NOTE | 2022-12-08 11:35 | MHC.CM.PN ---
per rounds discussion Pt is not medically cleared for d/c r/t high flow O2: goal is the return to LTC, CM will continue to follow.
[2022-12-08] MEDS: LORazepam 2 MG/ML VIAL 1 MG IVPUSH (12:31)
[2022-12-08] MEDS: Haloperidol Lactate 5 MG/ML VIAL IM (12:31)
[2022-12-08 12:52] LABS: Glucose, Whole Blood 78 mg/dL (60-115)
[2022-12-08 13:50] LABS: MANUAL DIFF FLAG NO
[2022-12-08 13:55] LABS: Basophils Absolute Auto 0.1 X10*3/uL (0.0-0.2); Basophils Percent Auto 0.3 % (0-2); Eosinophils Percent Auto 0.2 % (0-4); Hematocrit 41.5 % (42.0-52.0); Hemoglobin 13.3 g/dl (14.0-18.0); Imm Gran Abs Auto 0.79 X10*3/uL (0.00-0.03); Imm Gran Pct Auto 3.3 % (0.0-0.4); Lymphocytes Absolute Auto 2.6 X10*3/uL (1.2-4.9); Lymphocytes Percent Auto 10.9 % (20-40); Mean Corpuscular Hemoglobin 26.8 pg (27.0-33.0); Mean Corpuscular Volume 83.7 fL (80.0-98.0); Mean Platelet Volume 9.6 fL (9.4-12.4); Monocytes Absolute Auto 1.2 X10*3/uL (0.1-1.2); Monocytes Percent Auto 5.1 % (2-11); Neutrophils Percent Auto 80.2 % (45-73); Platelet Count 454 X10*3/uL (160-400); Red Blood Count 4.96 X10*6/uL (4.60-5.80); Red Cell Distribution Width 15.9 % (11.0-16.0); White Blood Count 23.6 X10*3/uL (4.8-10.8)
[2022-12-08 14:18] LABS: Alanine Aminotransferase 56 U/L (0-40); Alkaline Phosphatase 69 U/L (39-117); Anion Gap 11 (12-20); Aspartate Amino Transferase 55 U/L (5-37); Bilirubin Total 0.3 mg/dL (0.0-1.0); Blood Urea Nitrogen 19 mg/dL (9-16); Calcium 8.6 mg/dL (8.4-10.2); Carbon Dioxide 31 mmol/L (22-29); Chloride 105 mmol/L (96-108); Creatinine Clr Calc Pharmacy 116.9; Estimated Glomerular Filt Rate > 60; Glucose Fasting 75 mg/dL (60-99); Potassium 3.7 mmol/L (3.3-5.1); Sodium 143 mmol/L (135-145); Total Protein 6.4 g/dL (6.5-8.0)
--- NOTE | 2022-12-08 14:32 | MHC.SLORD ---
Speech Language Pathology Order Status: Per RN, patient tolerating current diet of ground solids (NDD2) and thin liquids. Pt reportedly off HFNC. Per RN, pt not appropriate for PO following med administration. RN GYN to continue to follow.
--- NOTE | 2022-12-08 15:07 | HO.PM.IMPN ---
Subjective Subjective Date of Service: 12/08/22 Interval History: Still combative with therapy. Haldol Ativan given with affect. Once come high-flow removed and nasal cannula instituted. Setting acceptably on nasal cannula Review of Systems Unable to obtain Physical Exam Vital Signs: Vital Signs: Last Vital Signs Temp 98.4 F 12/08/22 12:42 Pulse 77 12/08/22 12:42 Resp 22 H 12/08/22 12:42 BP 146/84 H 12/08/22 12:42 Pulse Ox 91 L 12/08/22 12:42 O2 Del Method Nasal Cannula 12/08/22 12:42 O2 Flow Rate 3 12/08/22 12:42 FiO2 85 12/08/22 00:00 BMI result Body Mass Index 35.6 Const: Other: Awake alert more cooperative after meds Resp: Other: Diminished at bases with scattered expiratory wheezes Cardio: Other: No S4; positive S1-S2; no S3 murmurs rubs or gallops GI: Other: Soft nontender nondistended normoactive bowel sounds Extrem: Other: No edema bilaterally Objective Data Active Medications Acetaminophen (Acetaminophen 325 Mg Tablet) 650 mg PO Q6H PRN PRN Reason: Pain, Mild (Pain Scale 1-3) Last Admin: 12/06/22 00:00 Dose: 650 mg Documented By: IVIS Acetaminophen (Acetaminophen Supp 650 Mg Supp.Rect) 650 mg IA Q6H PRN PRN Reason: Fever >101 Last Admin: 12/01/22 17:19 Dose: 650 mg Documented By: СЕРГЕЙ Albuterol/Ipratropium (Albuterol/Iprat 2.5/0.5mg 3 Ml Ampul.Neb) 3 ml INHALE Q6H PRN PRN Reason: Wheezing Last Admin: 12/06/22 22:03 Dose: 3 ml Documented By: DANIELLA Amlodipine Besylate (Amlodipine Besylate 2.5 Mg Tablet) 2.5 mg PO DAILY [facility]; Protocol Last Admin: 12/08/22 09:03 Dose: Not Given Documented By: SYDNI Non-Admin Reason: Patient Refused Apixaban (Apixaban 5 Mg Tablet) 5 mg PO BID [facility] Last Admin: 12/08/22 09:05 Dose: Not Given Documented By: SYDNI Non-Admin Reason: Patient Refused Ascorbic Acid (Ascorbic Acid 500 Mg Tablet) 500 mg PO DAILY [facility] Last Admin: 12/08/22 09:05 Dose: Not Given Documented By: SYDNI Non-Admin Reason: Patient Refused Atorvastatin Calcium (Atorvastatin Calcium 10 Mg Tablet) 10 mg PO BEDTIME [facility] Last Admin: 12/07/22 20:44 Dose: 10 mg Documented By: IVIS Dextrose (Dextrose 50 % 25 Gm/50 Ml Syringe) 25 gm IVPUSH Q15M PRN; Protocol PRN Reason: per Hypoglycemia Standing Ord. Docusate Sodium (Docusate Sodium 100 Mg Capsule) 100 mg PO BID [facility] Last Admin: 12/08/22 09:06 Dose: Not Given Documented By: SYDNI Non-Admin Reason: Patient Refused Escitalopram Oxalate (Escitalopram Oxalate 20 Mg Tablet) 20 mg PO DAILY [facility] Last Admin: 12/08/22 09:06 Dose: Not Given Documented By: SYDNI Non-Admin Reason: Patient Refused Ferrous Sulfate (Ferrous Sulfate 324 Mg Tablet.) 324 mg PO DAILY [facility] Last Admin: 12/08/22 09:06 Dose: Not Given Documented By: SYDNI Non-Admin Reason: Patient Refused Glucose (Glucose Gel 15 Gm Gel..Gram.) 15 gm PO Q15M PRN; Protocol PRN Reason: per Hypoglycemia Standing Ord. Hydroxyzine HCl (Hydroxyzine Hcl 25 Mg Tablet) 25 mg PO Q8H PRN PRN Reason: anxiety/restlessness Last Admin: 12/07/22 20:45 Dose: 25 mg Documented By: IVIS Levofloxacin (Levaquin) 500 mg in 100 mls @ 100 mls/hr IV Q24H [facility] Stop: 12/10/22 08:59 Last Admin: 12/08/22 09:07 Dose: Not Given Documented By: SYDNI Non-Admin Reason: Patient Refused Insulin Human Lispro (Insulin Lispro 100 Unit/Ml 3 Ml Vial) 0 unit SUBCUT QIDACHS [facility]; Protocol Last Admin: 12/08/22 11:55 Dose: Not Given Documented By: SYDNI Non-Admin Reason: Patient Refused Lamotrigine (Lamotrigine 100 Mg Tablet) 100 mg PO BID [facility] Last Admin: 12/08/22 09:06 Dose: Not Given Documented By: SYDNI Non-Admin Reason: Patient Refused Methylprednisolone Sodium Succinate (Methylprednisolone Sod Succ 40 Mg/Ml Vial) 40 mg IVPUSH Q8H [facility] Last Admin: 12/08/22 09:02 Dose: Not Given Documented By: SYDNI Non-Admin Reason: Patient Refused Morphine Sulfate (Morphine Sulfate 2 Mg/Ml Cartridge) 0.5 mg IVPUSH Q4H PRN; Protocol PRN Reason: tachypnea Last Admin: 12/08/22 00:47 Dose: 0.5 mg Documented By: ADAN Multivitamins/Vitamin C (Multivitamin Tablet) 1 tab PO DAILY [facility] Last Admin: 12/08/22 09:07 Dose: Not Given Documented By: SYDNI Non-Admin Reason: Patient Refused Nystatin (Nystatin Powder 15 Gm Bottle) 1 appl TOPICAL BID [facility]; Protocol Last Admin: 12/08/22 09:07 Dose: Not Given Documented By: SYDNI Non-Admin Reason: Patient Refused Polyethylene Glycol (Polyethylene Glycol 3350 17 Gm Powd.Pack) 17 gm PO DAILY [facility] Last Admin: 12/08/22 09:07 Dose: Not Given Documented By: SYDNI Non-Admin Reason: Patient Refused Potassium Chloride (Potassium Chloride Er 10 Meq Tablet.Er) 10 meq PO QID [facility] Last Admin: 12/08/22 14:28 Dose: Not Given Documented By: SYDNI Non-Admin Reason: Patient Asleep Quetiapine Fumarate (Quetiapine Fumarate 100 Mg Tablet) 100 mg PO BID [facility] Last Admin: 12/08/22 09:08 Dose: Not Given Documented By: SYDNI Non-Admin Reason: Patient Refused Senna (Sennosides 8.6 Mg Tablet) 8.6 mg PO DAILY PRN PRN Reason: Constipation Last Admin: 12/07/22 20:44 Dose: 8.6 mg Documented By: IVIS Sodium Biphosphate/Sodium Phosphate (Sodium Phosphate,[place]-Dibasic 133 Ml Enema) 118 ml IA DAILY PRN PRN Reason: Constipation Sodium Chloride (0.9 % Sodium Chloride Flush 3 Ml Syringe) 3 ml IVFLUSH QSHIFT [facility] Last Admin: 12/08/22 09:03 Dose: Not Given Documented By: SYDNI Non-Admin Reason: Patient Refused Sodium Chloride (0.9 % Sodium Chloride Flush 3 Ml Syringe) 3 ml IVFLUSH QSHIFT [facility] Last Admin: 12/08/22 09:03 Dose: Not Given Documented By: SYDNI Non-Admin Reason: Patient Refused Labs 12/08/22 13:29 12/08/22 13:29 Labs: Laboratory Results - last 24 hr 12/07/22 12/07/22 12/07/22 15:41 16:34 20:24 MCV MCH MCHC RDW Plt Count MPV Immature Gran % (Auto) Neut % (Auto) Lymph % (Auto) [place] % (Auto) Eos % (Auto) Baso % (Auto) Lymph # (Auto) [place] # (Auto) Eos # (Auto) Baso # (Auto) Abs Immat Gran (auto) Absolute Neuts (auto) Absolute Nucleated RBC Nucleated RBC % (auto) VBG pH 7.52 H VBG pCO2 37 VBG pO2 120 VBG HCO3 30 H VBG O2 Saturation 99.0 VBG Base Excess 7.9 Anion Gap Estim Creat Clear Calc Estimated GFR POC Glucose 147 H 142 H Fasting Glucose Calcium Total Bilirubin AST ALT Alkaline Phosphatase Total Protein Albumin 12/08/22 12/08/22 12:43 13:29 MCV 83.7 MCH 26.8 L MCHC 32.0 RDW 15.9 Plt Count 454 H D MPV 9.6 Immature Gran % (Auto) 3.3 H Neut % (Auto) 80.2 H Lymph % (Auto) 10.9 L [place] % (Auto) 5.1 Eos % (Auto) 0.2 Baso % (Auto) 0.3 Lymph # (Auto) 2.6 [place] # (Auto) 1.2 Eos # (Auto) 0.0 Baso # (Auto) 0.1 Abs Immat Gran (auto) 0.79 H Absolute Neuts (auto) 19.0 H Absolute Nucleated RBC 0.000 Nucleated RBC % (auto) 0.0 VBG pH VBG pCO2 VBG pO2 VBG HCO3 VBG O2 Saturation VBG Base Excess Anion Gap 11 L Estim Creat Clear Calc 116.9 Estimated GFR > 60 POC Glucose 78 Fasting Glucose 75 Calcium 8.6 Total Bilirubin 0.3 AST 55 H ALT 56 H Alkaline Phosphatase 69 Total Protein 6.4 L Albumin 3.0 L Assessment and Plan (1) RSV (respiratory syncytial virus infection): Status: Acute Plan 52 yo M who is a resident at [facility] with a PMH of DM2, depression, chronic suprapubic cath, history of PE on Eliquis, HTN, PAD, COPD, recent admission for complicated UTI sent in from SNF due to SOB and fever found to have RSV. 1.Toxic/metabolic encephalopathy with agitation. -back to baseline as compared to [facility] -utilize p.r.n. for compliance with care 2,Acute hypoxic respiratory failure(sepsis resolved) RSV/HCAP -patient medicated with Haldol and Ativan; high-flow removed -acceptable sats on 3 L nasal cannula -follow clinically; if stable in a.m. consider transfer back to [facility] were behavior can be better control 4.Complicated UTI(Pseudomonas) -p.o. Levaquin to treat a 14 day course 5.DM II -acceptable control on current therapies -lispro correctional scale -adjust as indicated 6.History of PE -Eliquis Eliquis Full code guardian - Ainsley Mcpherson [phone] - will likely make patient DNR/DNI - case management has emailed her MOSLT to fill out and return as she is out of state and is unable to come in person requires ongoing inpatient stay for respiratory failure, requiring high flow Time Spent With Patient Time: Total time managing care of this patient today ____ minutes. Quality Stroke Does the patient have a stroke diagnosis?: No VTE Prior VTE?: No VTE Risk Level:: Medical - moderate - high VTE Device Contraindication: Treatment Not Indicated VTE Drug Contraindication: N/A - Med Ordered
[2022-12-08 16:48] LABS: Glucose, Whole Blood 117 mg/dL (60-115)
[2022-12-08] MEDS: methylPREDNISolone Sod Succ 40 MG/ML VIAL IVPUSH ×2 (17:38→23:53)
[2022-12-08] MEDS: Potassium Chloride ER 10 MEQ TABLET.ER PO ×2 (17:38→22:09)
[2022-12-08] MEDS: 0.9 % Sodium Chloride Flush 3 ML SYRINGE IVFLUSH ×3 (17:39→22:10)
[2022-12-08 20:39] LABS: Glucose, Whole Blood 138 mg/dL (60-115)
[2022-12-08] MEDS: Docusate Sodium 100 MG CAPSULE PO (22:08)
[2022-12-08] MEDS: Acetaminophen 325 MG TABLET 650 MG PO (22:09)
[2022-12-08] MEDS: lamoTRIgine 100 MG TABLET PO (22:10)
[2022-12-08] MEDS: Apixaban 5 MG TABLET PO (22:10)
[2022-12-08] MEDS: Atorvastatin Calcium 10 MG TABLET PO (22:10)
[2022-12-08] MEDS: QUEtiapine Fumarate 100 MG TABLET PO (22:10)
[2022-12-09 06:58] LABS: MANUAL DIFF FLAG NO
[2022-12-09 07:05] LABS: Basophils Percent Auto 0.2 % (0-2); Eosinophils Percent Auto 0.1 % (0-4); Hematocrit 38.9 % (42.0-52.0); Hemoglobin 12.5 g/dl (14.0-18.0); Imm Gran Abs Auto 0.73 X10*3/uL (0.00-0.03); Imm Gran Pct Auto 3.8 % (0.0-0.4); Lymphocytes Absolute Auto 1.6 X10*3/uL (1.2-4.9); Lymphocytes Percent Auto 8.6 % (20-40); Mean Corpuscular HGB Conc 32.1 g/dl (31.0-36.0); Mean Corpuscular Hemoglobin 26.6 pg (27.0-33.0); Mean Corpuscular Volume 82.8 fL (80.0-98.0); Mean Platelet Volume 9.9 fL (9.4-12.4); Monocytes Absolute Auto 0.5 X10*3/uL (0.1-1.2); Monocytes Percent Auto 2.4 % (2-11); NRBC Pct Auto 0.2 /100WBC (0.0-0.2); Neutrophils Absolute Auto 16.2 x10*3/uL (2.0-8.3); Neutrophils Percent Auto 84.9 % (45-73); Platelet Count 445 X10*3/uL (160-400); Red Cell Distribution Width 15.6 % (11.0-16.0); White Blood Count 19.1 X10*3/uL (4.8-10.8)
--- NOTE | 2022-12-09 07:09 | PC.NURSE ---
Assumed care 19:00 on 12/08. Patient has hx dementia, remains confused though not combative overnight. Aspiration precautions with 1:[address]. Continues on droplet/contact for +RSV. Tolerating 2L nc without issue. Breathing is even and unlabored without distress. Spo2 maintained per copd >88% parameters provided by MD. Patient refuses repositioning and care often, refused vitals this morning. Dr. Benton notified, pt allowed to sleep. Continues with suprapubic catheter. Bedfast maintained with safety measures in place. Handoff report given 06:45, 12/09.
[2022-12-09 07:20] VITALS: BP 162/88; PULSE 60; RESP 20; TEMP 35.6; O2SAT 96
[2022-12-09 07:36] LABS: Glucose, Whole Blood 126 mg/dL (60-115)
[2022-12-09 07:43] LABS: Alanine Aminotransferase 56 U/L (0-40); Alkaline Phosphatase 71 U/L (39-117); Anion Gap 15 (12-20); Aspartate Amino Transferase 39 U/L (5-37); Bilirubin Total 0.4 mg/dL (0.0-1.0); Blood Urea Nitrogen 19 mg/dL (9-16); Calcium 8.5 mg/dL (8.4-10.2); Carbon Dioxide 25 mmol/L (22-29); Chloride 105 mmol/L (96-108); Creatinine Clr Calc Pharmacy 124.7; Estimated Glomerular Filt Rate > 60; Glucose Fasting 128 mg/dL (60-99); Potassium 4.6 mmol/L (3.3-5.1); Sodium 140 mmol/L (135-145); Total Protein 6.1 g/dL (6.5-8.0)
[2022-12-09 08:26] VITALS: TEMP 36.2
[2022-12-09] MEDS: Escitalopram Oxalate 20 MG TABLET PO (09:19)
[2022-12-09] MEDS: amLODIPine Besylate 2.5 MG TABLET PO (09:19)
[2022-12-09] MEDS: 0.9 % Sodium Chloride Flush 3 ML SYRINGE IVFLUSH ×2 (09:19)
[2022-12-09] MEDS: QUEtiapine Fumarate 100 MG TABLET PO (09:19)
[2022-12-09] MEDS: methylPREDNISolone Sod Succ 40 MG/ML VIAL IVPUSH (09:19)
[2022-12-09] MEDS: Apixaban 5 MG TABLET PO (09:20)
[2022-12-09] MEDS: lamoTRIgine 100 MG TABLET PO (09:20)
[2022-12-09] MEDS: levoFLOXacin/D5W 500 MG/100 ML PIGGYBACK 100 MG IV (09:22)
[2022-12-09 11:09] VITALS: BP 134/76; PULSE 70; RESP 16; TEMP 36.1; O2SAT 95
[2022-12-09 11:18] LABS: Glucose, Whole Blood 164 mg/dL (60-115)
--- NOTE | 2022-12-09 11:37 | MHC.CM.PN ---
DARNELL spoke with Guardian/Ainsley @ [phone] and IMM was addressed (original will be mailed to Ainsley and a copy has been placed on the chart). Patient has been medically cleared for dc to return to LTC today. Patient will return to LTC @ [facility] today at 1PM, via [facility].
--- NOTE | 2022-12-09 12:41 | MHC.SLORD ---
Speech Language Pathology Order Status: Attempted to see patient at lunch for toleration of diet. Patient had eaten all deserts on tray, had not eaten main meal, and refused offer of trials of this food consistency. Patient also refused trial of liquids. Patient reported that didn't eat the food because he didn't like it. Diet consistency appropriate at this time, PUBLISHING SYSTEMS ANALYST will continue to follow.
--- NOTE | 2022-12-09 12:44 | PM.DS ---
DS: Providers Provider Date of Service: 12/09/22 Date of admission: 11/30/22 13:49 Date of discharge: 12/09/22 Primary care physician: Maxim Roberts DO Consults: 12/01/22 11:00 Consult to Infectious Diseases Routine Consulting Provider: [facility] [place] Infectious Disease Reason for consultation: GPC bacteremia 12/01/22 16:42 Consult to Urology Routine Consulting Provider: Vishnu Nugent Reason for consultation: suprapubic catheter, ? change out, peristent fever, urosepsis 12/01/22 22:17 Consult to Neurology Routine Consulting Provider: [facility] Reason for consultation: acute cva 12/02/22 10:43 Consult to Pulmonology Routine Consulting Provider: [facility] – [place] Pulmonology Services Reason for consultation: rsv, ?mucus plugging, volume loss Has provider been notified: No DS: Diagnosis Discharge Diagnosis (1) RSV (respiratory syncytial virus infection): Status: Acute DS: Summary Hospital Course Hospital Course: 52-year-old man with multiple medical problems presenting from [facility] with fever, tachypnea and hypoxia. Patient was discharged from [facility] yesterday and treated for sepsis secondary to E coli bacteremia and UTI with history of chronic suprapubic catheter. Patient is not positive for RSV and noted to be hypoxic and placed on high-flow nasal cannula oxygen. In the ED, white blood cell count elevated at 13.1, potassium 2.7, urine still positive but possible colonization. Chest x-ray showing interval worsening opacities in the left mid to lower lung. Was given cefepime, vancomycin in the ER. He will be admitted for further management and treatment of hypoxia secondary to RSV and pneumonia. Hospital [facility] Admitted to monitor bed. Monitor remained sinus rhythm sinus tach hospitalization. Patient received supportive therapy for RSV however initially was treated with vancomycin and Rocephin. Urine culture initially grew out Pseudomonas sensitive to Levaquin and was switched to same. His O2 was weaned down to nasal cannula and at this point in time is medically acceptable for return to [facility]. I will follow him there. Time Spent with Patient Time attestation: Total time managing care of this patient today ____ minutes. Discharge coordination time: Greater than 30 minutes Quality: Safe Use of Opioids Does Pt have an Active Cancer Diagnosis on the Problem List?: No Quality: Stroke Does the patient have a stroke diagnosis?: No Physical Exam Vital Signs: Vital Signs: Last Vital Signs Temp 97.0 F 12/09/22 11:09 Pulse 70 12/09/22 11:09 Resp 16 12/09/22 11:09 BP 134/76 12/09/22 11:09 Pulse Ox 95 12/09/22 11:09 O2 Del Method Nasal Cannula 12/09/22 11:09 O2 Flow Rate 2 12/09/22 11:09 FiO2 85 12/08/22 00:00 BMI result Body Mass Index 35.6 Const: Other: Awake alert more cooperative after meds Resp: Other: Diminished at bases with scattered expiratory wheezes Cardio: Other: No S4; positive S1-S2; no S3 murmurs rubs or gallops GI: Other: Soft nontender nondistended normoactive bowel sounds Extrem: Other: No edema bilaterally DS: Data Data Completed and Pending Labs on day of discharge: Laboratory Results - last 24 hr 12/08/22 12/08/22 12/08/22 12:43 13:29 16:40 WBC 23.6 H RBC 4.96 Hgb 13.3 L Hct 41.5 L MCV 83.7 MCH 26.8 L MCHC 32.0 RDW 15.9 Plt Count 454 H D MPV 9.6 Immature Gran % (Auto) 3.3 H Neut % (Auto) 80.2 H Lymph % (Auto) 10.9 L [place] % (Auto) 5.1 Eos % (Auto) 0.2 Baso % (Auto) 0.3 Lymph # (Auto) 2.6 [place] # (Auto) 1.2 Eos # (Auto) 0.0 Baso # (Auto) 0.1 Abs Immat Gran (auto) 0.79 H Absolute Neuts (auto) 19.0 H Absolute Nucleated RBC 0.000 Nucleated RBC % (auto) 0.0 Sodium 143 Potassium 3.7 Chloride 105 Carbon Dioxide 31 H Anion Gap 11 L BUN 19 H Creatinine 0.80 Estim Creat Clear Calc 116.9 Estimated GFR > 60 POC Glucose 78 117 H Fasting Glucose 75 Calcium 8.6 Total Bilirubin 0.3 AST 55 H ALT 56 H Alkaline Phosphatase 69 Total Protein 6.4 L Albumin 3.0 L 12/08/22 12/09/22 12/09/22 20:34 06:52 07:20 WBC 19.1 H RBC 4.70 Hgb 12.5 L Hct 38.9 L MCV 82.8 MCH 26.6 L MCHC 32.1 RDW 15.6 Plt Count 445 H MPV 9.9 Immature Gran % (Auto) 3.8 H Neut % (Auto) 84.9 H Lymph % (Auto) 8.6 L [place] % (Auto) 2.4 Eos % (Auto) 0.1 Baso % (Auto) 0.2 Lymph # (Auto) 1.6 [place] # (Auto) 0.5 Eos # (Auto) 0.0 Baso # (Auto) 0.0 Abs Immat Gran (auto) 0.73 H Absolute Neuts (auto) 16.2 H Absolute Nucleated RBC 0.040 H Nucleated RBC % (auto) 0.2 Sodium 140 Potassium 4.6 D Chloride 105 Carbon Dioxide 25 Anion Gap 15 BUN 19 H Creatinine 0.75 Estim Creat Clear Calc 124.7 Estimated GFR > 60 POC Glucose 138 H 126 H Fasting Glucose 128 H Calcium 8.5 Total Bilirubin 0.4 AST 39 H ALT 56 H Alkaline Phosphatase 71 Total Protein 6.1 L Albumin 3.0 L 12/09/22 11:10 WBC RBC Hgb Hct MCV MCH MCHC RDW Plt Count MPV Immature Gran % (Auto) Neut % (Auto) Lymph % (Auto) [place] % (Auto) Eos % (Auto) Baso % (Auto) Lymph # (Auto) [place] # (Auto) Eos # (Auto) Baso # (Auto) Abs Immat Gran (auto) Absolute Neuts (auto) Absolute Nucleated RBC Nucleated RBC % (auto) Sodium Potassium Chloride Carbon Dioxide Anion Gap BUN Creatinine Estim Creat Clear Calc Estimated GFR POC Glucose 164 H Fasting Glucose Calcium Total Bilirubin AST ALT Alkaline Phosphatase Total Protein Albumin Discharge Plan Discharge Anticipated Discharge Date/Time: 12/09/22 12:39 Patient Disposition: Xfer LTC Discharge Diagnosis: Sepsis secondary to RSV pneumonia Referrals: [facility] [Outside] - 1 Week Maxim Roberts DO [Primary Care Provider] - 1 Week Discharge Medications: New levofloxacin 500 mg tablet 500 mg PO DAILY 14 Days Qty: 14 0RF Continued metformin 500 mg Tablet 500 mg PO BID sennosides [senna] 8.6 mg Tablet 8.6 mg PO DAILY PRN (Reason: Constipation) acetaminophen 325 mg Tablet 650 mg PO Q6H PRN (Reason: Pain) ipratropium-albuterol 0.5 mg-3 mg(2.5 mg base)/3 mL Solution For Nebulization 3 ml INHALATION Q6H PRN (Reason: Wheezing) citalopram 40 mg Tablet 40 mg PO DAILY polyethylene glycol 3350 [Miralax] 17 gram Powder In Packet 17 g PO DAILY simvastatin [Zocor] 10 mg Tablet 10 mg PO BEDTIME miconazole nitrate 2 % Powder 1 appl TOPICAL DAILY PRN (Reason: Rash) potassium chloride 10 mEq Tablet Extended Release 10 meq PO QID quetiapine 100 mg Tablet 100 mg PO BID ascorbic acid (vitamin C) 500 mg Tablet 500 mg PO DAILY Fleet Enema 19-7 gram/118 mL Enema 118 ml [place] DAILY PRN (Reason: Constipation) docusate sodium [Colace] 100 mg Capsule 100 mg PO BID vitamin B complex Tablet 1 tab PO DAILY lamotrigine [Lamictal] 100 mg Tablet 100 mg PO BID omega 5-stb-sia-fish oil [Fish Oil] 1,000 mg (120 mg-180 mg) Capsule 1 cap PO BID ferrous gluconate 324 mg (37.5 mg iron) Tablet 324 mg PO DAILY Eliquis 5 mg Tablet 5 mg PO BID Anoro Ellipta 62.5-25 mcg/actuation Blister With Device 1 inh INHALATION DAILY Discontinued cefuroxime axetil 500 mg tablet 500 mg PO BID 12 Days Qty: 24 0RF Discharge Orders: Discharge Order (Routine); Ordered 12/09/22 Ordered By: Maxim Roberts Diet: Advance to usual diet Activity on Discharge: As tolerated Stand Alone Forms: Patient Portal Discharge page Care Plan Goals: Resume all medicines and therapies as previously receiving at [facility] Concerns: Levaquin 500 mg daily times 14 days Plan of Treatment: Resume plan of care at [facility]; titrate O2 as tolerated Assessment: See discharge plan
== END 2022-12-09 13:23 | DRG 871 ==
LOC: HO.ED 11:07 → HO.EDOVER 13:52 → HO.S3 16:18 → HO.IMC 18:36
PROVIDERS: Physician Assistant Medical; Student in an Organized Health Care Education/Training Program; Admitting Provider Nurse Practitioner Acute Care; Emergency Provider Emergency Medicine; PCP Hospitalist; Visit Provider Hospitalist
DX: A41.9 Sepsis, unspecified organism (principal); G92.8 Other toxic encephalopathy; J12.1 Respiratory syncytial virus pneumonia; J96.01 Acute respiratory failure with hypoxia; J69.0 Pneumonitis due to inhalation of food and vomit; T83.518A Infection and inflammatory reaction due to other urinary catheter, initial encounter; J44.0 Chronic obstructive pulmonary disease with (acute) lower respiratory infection; G45.9 Transient cerebral ischemic attack, unspecified; N17.9 Acute kidney failure, unspecified; E87.6 Hypokalemia; B96.5 Pseudomonas (aeruginosa) (mallei) (pseudomallei) as the cause of diseases classified elsewhere; D64.9 Anemia, unspecified; I10 Essential (primary) hypertension; F03.B0 Unspecified dementia, moderate, without behavioral disturbance, psychotic disturbance, mood disturbance, and anxiety; L89.151 Pressure ulcer of sacral region, stage 1; Z78.1 Physical restraint status; Z86.711 Personal history of pulmonary embolism; Z20.822 Contact with and (suspected) exposure to COVID-19; Z87.891 Personal history of nicotine dependence; Z79.01 Long term (current) use of anticoagulants; Z79.84 Long term (current) use of oral hypoglycemic drugs; Z79.899 Other long term (current) drug therapy
CPT/HCPCS: 0241U; 36415; 36600; 70450; 70496; 70498; 71045; 71250; 80048; 80053; 80061; 80076; 80202; 81001; 82565; 82803; 82947; 83036; 83605; 83690; 83735; 83880; 84145; 84484; 85025; 85027; 85379; 85610; 87040; 87086; 87088; 87147; 87186; 87205; 87493; 87640; 87641; 92526; 92610; 92950; 93005; 93306; 94640; 94799; 99285; J0456; J0692; J0696; J1956; J2060; J2185; J2270; J2920; J3370; J3371; Q9957; Q9967

== ENCOUNTER 2022-11-30 13:49 | Outpatient (BNV) | payer MEDICARE, MEDICAID, SELFPAY | END 2022-12-03 07:00 | PROVIDERS: Admitting Provider Nurse Practitioner Acute Care; Emergency Provider Emergency Medicine; PCP Hospitalist; Visit Provider Internal Medicine | DX: I51.9 Heart disease, unspecified (principal) | CPT/HCPCS: 93306 ==

== ENCOUNTER → 2022-11-30 13:49 | Outpatient (BNV) | payer MEDICARE, MEDICAID, SELFPAY | PROVIDERS: Admitting Provider Nurse Practitioner Acute Care; Emergency Provider Emergency Medicine; PCP Hospitalist; Visit Provider Hospitalist | DX: J96.01 Acute respiratory failure with hypoxia (principal); B33.8 Other specified viral diseases; J18.9 Pneumonia, unspecified organism | CPT/HCPCS: 99223 ==

== ENCOUNTER → 2022-11-30 13:49 | Outpatient (BNV) | payer MEDICARE, MEDICAID, SELFPAY | PROVIDERS: Admitting Provider Nurse Practitioner Acute Care; Emergency Provider Emergency Medicine; PCP Hospitalist; Visit Provider Internal Medicine | DX: A41.9 Sepsis, unspecified organism (principal); R09.02 Hypoxemia; J18.9 Pneumonia, unspecified organism | CPT/HCPCS: 99222; 99499 ==

== ENCOUNTER → 2022-11-30 13:49 | Outpatient (BNV) | payer MEDICARE, MEDICAID, SELFPAY | PROVIDERS: Admitting Provider Nurse Practitioner Acute Care; Emergency Provider Emergency Medicine; PCP Hospitalist; Visit Provider Urology | DX: A41.01 Sepsis due to Methicillin susceptible Staphylococcus aureus (principal); N39.0 Urinary tract infection, site not specified | CPT/HCPCS: 99222 ==

== ENCOUNTER → 2022-11-30 13:49 | Outpatient (BNV) | payer MEDICARE, MEDICAID, SELFPAY | PROVIDERS: Admitting Provider Nurse Practitioner Acute Care; Emergency Provider Emergency Medicine; PCP Hospitalist; Visit Provider Nurse Practitioner Acute Care | DX: B33.8 Other specified viral diseases (principal) | CPT/HCPCS: 99223; 99232; 99233; 99239 ==

== ENCOUNTER 2023-01-12 08:34 | Outpatient (AMB) | payer MEDICARE, MEDICAID, SELFPAY ==
--- NOTE | 2023-01-12 08:36 | A.OFFVIS_ITS ---
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 01/12/2023? Manuel is a 52-year-old male who resides at [facility], he is here with staff from the facility. He has a SP tube in place. He was [place] [facility] [place] was seen by urology, Dr. Nugent and infectious disease during that admission and treated for UTI. He was discharged on 12/09/2022. He presents today for an evaluation of recurrent urinary tract infection/sp tube. The patient has a past medical history significant for DM2, depression, chronic suprapubic cath, hypertension, and COPD, and history of PE. He is on Eliquis. I reviewed the laboratory testing results from 12/09/2022 revealed BUN was 19, and serum creatinine was 0.75. I reviewed urine culture results from 11/30/2022 which came back Pseudomonas aeruginosa 10,000 to 50,000 cfu/mL. I reviewed the scrotum US results from 11/26/2022 revealed no evidence of scrotal abscess or fistula tract. [id number] right hydrocele is present. Bilateral epididymal head cysts are noted. I reviewed the CT abdomen/pelvis results from 11/26/2022 no parenchymal lesions reported or urolithiasis. Examination: I visualized the SP tube insertion site and there no signs of infection. The urine is draining into gravity bag and it is candy in colour. Plan: To have [facility] staff, continue to change the SP tube with a 20 [place] catheter every 4 weeks. Continue daily dressing changes PRN. Ordered Hiprex 1 gm, and vitamin C 500 mg daily. Follow-up in office in 6 months. [facility] Medical History Multifactorial dementia Acute UTI Pulmonary embolus Bacteremia Social History Household Members: None Housing: Shelter Unable to assess alcohol history related to: Unable to respond Alcohol intake: never Patient Tobacco Use Status: Former Tobacco user Tobacco use type: Cigarette service: No Review of Systems Const All systems reviewed & are unremarkable except as noted in HPI and below Reports no additional complaints Eyes Reports no additional complaints ENT Reports no additional complaints Card Denies dyspnea Resp Denies cough and Denies dyspnea GI Reports no additional complaints Musc Reports no additional complaints Skin/Breast Denies rash and Denies unusual bruising Neuro Reports no additional complaints Psych Reports no additional complaints Endo Reports no additional complaints Wan/Lymph Reports no additional complaints Aller/Immun Reports no additional complaints Physical Exam Const General: no acute distress and well developed Nutritional Appearance: overweight Orientation/consciousness: patient oriented x3 HEENT Head: Yes normocephalic and Yes atraumatic Eyes Conjunctivae: conjunctivae normal Neck Neck: Yes normal visual inspection Chest Chest palpation & inspection: normal inspection of the chest Resp Other: Use of O2 therapy by nasal cannula Effort & Inspection: normal respiratory effort GI Inspection: Yes normal to inspection Palpation (GI): Soft to palpation Other: SP tube in place, insertion site evaluated no signs of infection Skin General skin exam: no rashes or lesions noted Neuro General: patient oriented x3 Psych Appearance: grossly normal Affect: normal affect Results Reviewed Results Reviewed: Ordered:? Urine Culture? Procedure?Result?Verified?Site ? Urine Culture? Final?12/02/22 ? ? ?Organism 1?Pseudomonas aeruginosa ? Quant?10,000 to 50,000 cfu/mL ? P aerugino? M.I.C.? ? RX? --------- ---?Cefepime?2? S?Gentamicin?<=1? S?Levofloxacin?0.5? S?Meropenem? <=0.25? ? ?S?Piperacillin/Tazobactam? 8? S? ? ? Date of Service: 11/26/22 EXAMINATION: CT ABDOMEN AND PELVIS WITHOUT CONTRAST?? CLINICAL INFORMATION: Stool from scrotum. Evaluate for fistula.?? COMPARISON: 10/16/2021 FINDINGS: LUNG BASES: Trace bilateral pleural effusions. LIVER, GALLBLADDER, AND BILIARY TREE: The noncontrast liver is decreased in attenuation. No biliary ductal dilatation is present. The gallbladder is unremarkable with no evidence of radiopaque gallstones, gallbladder wall thickening, or obvious pericholecystic inflammatory changes.?? PANCREAS: No ductal dilatation. SPLEEN: Not enlarged. ADRENAL GLANDS: Stable 1.3 cm right adrenal nodule. KIDNEYS AND URETERS: The kidneys are symmetric in size. Mild right hydronephrosis. No renal calculus.?? BLADDER: Decompressed with suprapubic Coley catheter in place. GASTROINTESTINAL TRACT: Small and large bowel loops are of normal caliber. No small bowel obstruction.? The appendix measures up to 9 mm however the appendix contains gas and contrast. There are inflammatory changes in the right paracolic gutter extending into the right hemipelvis. ABDOMINAL WALL: Left inguinal hernia containing fat.?? LYMPH NODES: No bulky abdominal or pelvic lymphadenopathy. VASCULAR: Normal caliber abdominal aorta. PELVIC VISCERA: The right testis appears abnormal and configuration. There is right hydrocele. Right scrotal lipoma measures 2.2 x 1.7 cm. Prostate gland is not enlarged. OSSEOUS STRUCTURES: No destructive bone lesions. Asymmetric fatty atrophy of the left psoas muscle. IMPRESSION: Abnormal stranding in the right paracolic gutter extending into the right hemipelvis. Mild right hydronephrosis may be on a reactive basis. Prominent appendix measuring up to 9 mm without periappendiceal stranding. Abnormal configuration of the right testis with right hydrocele. No definite fistulous communication is seen. Consider correlation with scrotal ultrasound. Date of Service: 11/26/22 EXAMINATION: US SCROTUM CLINICAL INFORMATION:? Evaluate for fistula. History of stool from scrotum. COMPARISON:? None available. FINDINGS: RIGHT: The right testicle is 2.9 x 2.2 x 2.9 cm. No microlithiasis or mass. Color Doppler images with spectral waveforms show presence of normal arterial and venous flow within the testicle. 0.4 cm cyst is present within the epididymal head. [id number] hydrocele. No varicocele. There is mild edema of scrotal tissues. No focal extratesticular fluid collection. There is no evidence of a fistula tract within the visualized tissues. LEFT: The left testicle measures 3.5 x 2.1 x 2.3 cm. A focus of microlithiasis is noted. No testicular mass. Color Doppler images with spectral waveforms show presence of normal arterial and venous flow within the testicle. 0.8 cm cyst noted within the epididymal tail. No left-sided hydrocele or varicocele. There is mild edema of the scrotal tissues without focal fluid collection. IMPRESSION: *? No evidence of scrotal abscess or fistula tract. *? [id number] right hydrocele is present. *? Bilateral epididymal head cysts are noted. Assessment & Plan Assessment & Plan (1) Recurrent UTI: Code(s): N39.0 - Urinary tract infection, site not specified (2) Chronic suprapubic catheter: Code(s): Z93.59 - Other cystostomy status (3) Urinary retention: Code(s): R33.9 - Retention of urine, unspecified Plan To have [facility] staff, continue to change the SP tube with a 20 [place] catheter every 4 weeks. Continue daily dressing changes PRN. Ordered Hiprex 1 gm, and vitamin C 500 mg daily. Follow-up in office in 6 months. Medications: New methenamine hippurate (Hiprex) 1 g PO ONCE 90 days 90 tabs 2RF ascorbate calcium (vitamin C) 500 mg PO DAILY 90 days 90 tabs 2RF Patient Instructions: The patient had an opportunity to ask questions regarding treatment plan. All questions were answered. Imaging, Laboratory studies and physical exam results w ere discussed and reviewed in detail. No major barriers to understanding were identified. The patient expressed understanding and agreement with the above treatment plan.? ? ? The patient is aware they should contact our office by phone for worsening of their current condition or the appearance of new symptoms. Compliance is encouraged with any medications and followup testing that is ordered.? ? ? It is a privilege to be allowed the opportunity to participate in the urologic care of your patient. If you have any questions or concerns regarding treatment for the above conditions please do not hesitate to contact me. The office telephone contact is [phone].? ? ? This note is constructed in part using voice recognition software. While every effort has been made to ensure accuracy chemist enzymes errors may have been included.? ? ? Yours sincerely,? ? ? Mei Leigh MD? Coding Level of Care Code Est Pt Level 4 (46205) Diagnoses Recurrent UTI N39.0 Chronic suprapubic catheter Z93.59 Urinary retention R33.9
== END 2023-01-12 10:14 | disposition home or self-care (01) ==
LOC: HO.HUSH 08:34
PROVIDERS: PCP Hospitalist; Visit Provider Urology
DX: N39.0 Urinary tract infection, site not specified (principal); Z93.59 Other cystostomy status; R33.9 Retention of urine, unspecified
CPT/HCPCS: 99214

== ENCOUNTER → 2023-01-12 08:34 | Outpatient (BNVA) | payer MEDICARE, MEDICAID, SELFPAY | PROVIDERS: PCP Hospitalist; Visit Provider Urology | DX: N39.0 Urinary tract infection, site not specified (principal); R33.9 Retention of urine, unspecified; Z93.59 Other cystostomy status | CPT/HCPCS: 99212 ==

== ENCOUNTER 2023-01-17 10:36 | Outpatient (AMB) | payer MEDICARE, MEDICAID, SELFPAY ==
--- NOTE | 2023-01-17 10:37 | MHC.OFFVIS ---
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 Accompanied by: care provider Allergies vincristine Allergy (Verified 01/17/23 10:49) Unknown Medication List - Last Reconciled 01/17/23 by Lauren Villavicencio LPN acetaminophen 650 mg PO Q6H PRN apixaban (Eliquis) 5 mg PO BID ascorbate calcium (vitamin C) 500 mg PO DAILY 90 days ascorbic acid (vitamin C) 500 mg PO DAILY citalopram 40 mg PO DAILY docusate sodium (Colace) 100 mg PO BID ferrous gluconate 324 mg PO DAILY ipratropium-albuterol 0.5 mg-3 mg(2.5 mg base)/3 mL 3 mL inhalation Q6H PRN lamotrigine (Lamictal) 100 mg PO BID levofloxacin 500 mg PO DAILY 14 days magnesium L-lactate ER 84 mg PO BID metformin 500 mg PO BID methenamine hippurate (Hiprex) 1 g PO ONCE 90 days miconazole nitrate 2% 1 appl topical DAILY PRN omega 9-qnk-nft-fish oil 1,000 mg (120 mg-180 mg) (Fish Oil) 1 cap PO BID polyethylene glycol 3350 (Miralax) 17 grams PO DAILY potassium chloride ER 10 mEq PO QID quetiapine 100 mg PO BID sennosides (senna) 8.6 mg PO DAILY PRN simvastatin (Zocor) 10 mg PO BEDTIME sodium phosphates 19-7 gram/118 mL (Fleet Enema) 118 mL SD DAILY PRN umeclidinium-vilanterol 62.5-25 mcg/actuation (Anoro Ellipta) 1 inh inhalation DAILY vitamin B complex 1 tab PO DAILY HPI COPD HPI Details Manuel is a pleasant 52 year old male, former smoker, unknown smoking history, history of PE on DOAC, HTN, PAD, COPD, neurocognitive disorder and diastolic dysfunction. He resides at [facility], accompanied by a DIRECTOR OF GUIDANCE IN [employer] and is nonambulatory. He presents for pulmonary evaluation after recent hospital admission for hypoxia and sepsis secondary to pneumonia. Report states after CPT and deep suctioning, hypoxia resolved. He is a poor historian but reports intermittent nonproductive cough, dyspnea and wheezing. His medication list states Anoro daily as well as duoneb PRN. 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 He reports mother, smoker, with lung cancer. He last had a chest CT in November which revealed a 7 mm nodule RUL, with recommendations for 3 month follow up. Report below. [facility] Medical History Multifactorial dementia Acute UTI Pulmonary embolus Bacteremia Social History (Updated 01/17/23 @ 10:50 by Lauren Villavicencio LPN) Household Members: None Housing: Snf Unable to assess alcohol history related to: Unable to respond Alcohol intake: never Patient Tobacco Use Status: Former Tobacco user Tobacco use type: Cigarette service: No Review of Systems Const Denies chills, Denies excessive sweating, Denies fever(s), Denies headache(s) and Denies night sweats Eyes Denies dry eyes, Denies irritation and Denies itchy eyes ENT Reports Normal hearing present, Denies headache(s), Denies nasal congestion, Denies nasal discharge, Denies post nasal drip and Denies sore throat Card Denies chest pain, Denies chest pain at rest, Denies chest pain with activity, Denies claudication, Denies orthopnea and Denies paroxysmal nocturnal dyspnea Resp Denies chest congestion, Denies excessive phlegm production, Denies pain on inspiration, Denies pain with cough and Denies stridor Musc Denies myalgias Neuro Reports Normal hearing present and Denies headache(s) Endo Denies excessive sweating Wan/Lymph Denies lymphadenopathy Aller/Immun Denies itchy eyes and Denies seasonal rhinorrhea Physical Exam Vital Signs: Last Vital Signs Pulse 80 01/17/23 10:47 BP 138/78 01/17/23 10:47 Pulse Ox 91 L 01/17/23 10:47 Oxygen Delivery Method Nasal Cannula 01/17/23 10:47 Oxygen Flow Rate 2 01/17/23 10:47 Const General: cooperative, comfortable, no acute distress and alert Nutritional Appearance: obese HEENT Head: Yes normal to inspection, Yes normocephalic and Yes atraumatic Ears: hearing grossly normal bilaterally and external ears normal Eyes General: appearance normal, both eyes and all related structures Eyelids: Yes eyelids normal Sclerae: sclerae normal Neck Neck: Yes normal visual inspection and Yes no lymphadenopathy Lymphatic: no lymphadenopathy noted Chest Chest palpation & inspection: normal inspection of the chest Resp Effort & Inspection: normal respiratory effort, able to speak in complete sentences, no audible wheezes, no cough, no stridor, not tachypneic, no tripod positioning and no use of accessory muscles Cardio Jugular venous distension: no JVD Rate: regular rate Rhythm: regular rhythm Skin Other: warm, dry General skin exam: no rashes or lesions noted Neuro Cranial nerves: Yes Normal hearing present Extrem General: Yes normal to inspection, Yes capillary refill normal, Yes no clubbing, cyanosis or edema and Yes no pedal edema Psych Appearance: grossly normal Speech and movement: Normal speech and movement present and Clear speech present Attitude: cooperative Results Reviewed Results Reviewed: [address] [address] [address] Scan Report Signed Patient: Manuel Mcpherson MR#: [id number] : 1970 Acct:[id number] Age/Sex: 52 / M ADM Date: 11/25/22 Loc: [facility]: Chris Kaplan MD Ordering Physician: Chris Kaplan MD Date of Service: 11/25/22 Procedure(s): CT chest wo IV con Accession Number(s): [id number] cc: Chris Kaplan MD; Maxim Roberts DO~ EXAMINATION: CT CHEST WITHOUT CONTRAST CLINICAL INFORMATION: Sepsis. COMPARISON: 07/02/2022 TECHNIQUE: Multidetector volumetric CT imaging of the chest was done. Axial MIP volume rendering provided. Sagittal and coronal reformatted images were obtained. This CT examination was performed using dose optimization techniques as appropriate, variously including the following: *Automated exposure control *Adjustment of mA and/or kV according to patient size (this includes techniques or standardized protocols for targeted exams where dose is matched to indication/reason for exam; i.e. extremities or head) *Use of iterative reconstruction technique DLP: 570 mGy-cm FINDINGS: LUNGS: Motion artifact technically degrades image quality. 7 mm nodule right upper lobe on image 188 of series 6. 3 mm nodule right lower lobe on image 250 of series 6. Bibasilar atelectasis. No airspace consolidation. Left hemidiaphragm is elevated. Central airways are patent. MEDIASTINUM: Imaged thyroid gland is heterogeneous. No bulky axillary, hilar or mediastinal lymphadenopathy. Great vessels are of normal caliber. Heart size is normal. No pericardial effusion. CORONARY ARTERY CALCIFICATION: None visualized on this study. PLEURA: No pleural effusion. UPPER ABDOMEN: Marked hepatic steatosis. Cholelithiasis. No adrenal mass. OSSEOUS STRUCTURES: No destructive bone lesion. CT/CT chest wo IV con IMPRESSION: No airspace consolidation. 7 mm right upper lobe pulmonary nodule. Follow-up chest CT in 3-6 months is advised. Hepatic steatosis. Cholelithiasis. Assessment & Plan Assessment & Plan (1) COPD (chronic obstructive pulmonary disease): Code(s): J44.9 - Chronic obstructive pulmonary disease, unspecified (2) Pulmonary nodule: Code(s): R91.1 - Solitary pulmonary nodule Plan Manuel's symptoms likely from underlying COPD, of unclear severity. Due to neurcognitive disorder, unlikely he would be able to attempt PFT. At this time, he should switch to a mask for nebulizer use and start with duoneb BID. We attempted to give a nebulizer treatment in office but patient had significant difficulties opening mouth enough to fit mouthpiece, nor was he able to hold the device. Given this, it is unlikely he is using Anoro correctly. Prior chest CT from November revealed a 7mm pulmonary nodule of the RUL. Will repeat chest CT in 3 months to evaluate. Will follow up to review results and response to nebulized therapy. Will consider swallow evaluation in the future. Coding Level of Care Code New Pt Level 4 (92482) Diagnoses COPD (chronic obstructive pulmonary disease) J44.9 Pulmonary nodule R91.1
[2023-01-17 10:47] VITALS: BP 138/78; PULSE 80; O2SAT 91
== END 2023-01-17 11:41 | disposition home or self-care (01) ==
LOC: HO.HPSW 10:36
PROVIDERS: PCP Hospitalist; Referring Provider Hospitalist; Visit Provider Nurse Practitioner Family
DX: J44.9 Chronic obstructive pulmonary disease, unspecified (principal); R91.1 Solitary pulmonary nodule
CPT/HCPCS: 99204

== ENCOUNTER → 2023-01-17 10:36 | Outpatient (BNVA) | payer MEDICARE, MEDICAID, SELFPAY | PROVIDERS: PCP Hospitalist; Visit Provider Nurse Practitioner Family | DX: J44.9 Chronic obstructive pulmonary disease, unspecified (principal); I26.99 Other pulmonary embolism without acute cor pulmonale; R78.81 Bacteremia; R91.1 Solitary pulmonary nodule | CPT/HCPCS: 99202 ==

== ENCOUNTER 2023-02-16 07:36 | Emergency (ER) | payer MEDICARE, MEDICAID, SELFPAY ==
--- NOTE | ~2023-02-16 | CT_ITS ---
EXAMINATION: CT ABDOMEN AND PELVIS WITHOUT CONTRAST CLINICAL INFORMATION: Suprapubic pain COMPARISON: CT abdomen pelvis 11/26/2022 TECHNIQUE: Multidetector volumetric imaging was performed from the superior aspect of the liver through the pubic symphysis. Sagittal and coronal reformatted images were obtained on the technologist's workstation. This CT examination was performed using dose optimization techniques as appropriate, variously including the following: *Automated exposure control *Adjustment of mA and/or kV according to patient size (this includes techniques or standardized protocols for targeted exams where dose is matched to indication/reason for exam; i.e. extremities or head) *Use of iterative reconstruction technique DLP: 646 mGy-cm FINDINGS: LUNG BASES: Peribronchial thickening and some mucus plugging is seen at the lung bases, increased when compared to 11/26/2022. No gross consolidations or pleural effusions. LIVER, GALLBLADDER, AND BILIARY TREE: The liver is normal in size and shape but demonstrates markedly decreased attenuation consistent with hepatic steatosis. No focal hepatic lesion or biliary ductal dilatation is present. The gallbladder contains a few small layering calcified stones without gallbladder wall thickening or obvious pericholecystic inflammatory changes. PANCREAS: Unremarkable. SPLEEN: Unremarkable. ADRENAL GLANDS: Unremarkable. KIDNEYS AND URETERS: The kidneys are normal in size, shape, and attenuation. Bilateral benign Bosniak class I renal cysts are noted which require no additional imaging or follow-up. No solid renal masses are seen. No hydronephrosis, hydroureter, or calculi seen. No perinephric stranding. BLADDER: Coley catheter is present in the bladder. GASTROINTESTINAL TRACT: The rectum is markedly distended with stool measuring 9 cm in transverse dimension. Small to moderate amount of stool present throughout the remainder of the colon. There is no evidence of bowel obstruction. Small bowel is unremarkable. The appendix is unremarkable. The previous stranding seen in the right paracolic gutter is no longer present. ABDOMINAL WALL: No significant hernia is appreciated. LYMPH NODES: No retroperitoneal lymphadenopathy. VASCULAR: Calcific atherosclerotic changes are present in the aorta and iliofemoral vessels. There is no evidence of an abdominal aortic aneurysm. PELVIC VISCERA: Unremarkable. OSSEOUS STRUCTURES: Degenerative changes are present in the spine. There is grade 1 retrolisthesis of L2 upon L3. There is a hemangioma present in the T10 vertebral body with mild compression fracture of the superior endplate of T9. There is atrophy of the left iliopsoas with calcification in its distal tendinous insertion. CT/CT abdomen pelvis wo IV con IMPRESSION: 1. The rectum is markedly distended with stool measuring 9 cm in transverse dimension. 2. Hepatic steatosis. 3. Cholelithiasis without cholecystitis. 4. Coley catheter in bladder. 5. Degenerative changes in the spine with grade 1 retrolisthesis of L2 upon L3. 6. Atrophy of the left iliopsoas with calcification in its distal tendinous insertion. 7. Peribronchial thickening and mucus plugging at the lung bases, increased when compared to 11/26/2022. 8. Other incidental findings as described above. Fleischner guidelines were followed.
--- NOTE | 2023-02-16 07:39 | ED.MALEGU ---
HPI - Male Genitourinary General Chief complaint: Urogenital-Male Stated complaint: F/C CAME OUT FROM SHELTER PER EMS Source: patient, EMS and old records reviewed Mode of arrival: EMS Limitations: no limitations History of Present Illness HPI Narrative: 52 yo male with PMH of DM type 2, Depression, chronic suprapubic cathether 20F, history of PE on DOAC, HTN, PAD, COPD o 2L NC, Mild neurocognitive disorder he has not complaints he states he woke up and the catheter was out. No bleeding no pain. MD Complaint: other (álvarez catheter removal ) Onset (ago): day(s) (was in place before bed) Duration: constant Location: abdomen Severity: mild Relieving factors: none Exacerbating factors: none Context: other (chronic SP cath) Associated symptoms: Reports denies other symptoms Related Data Home Medications Medication Instructions Recorded Confirmed acetaminophen 325 mg tablet 650 mg PO Q6H PRN Pain 11/25/22 01/17/23 apixaban 5 mg tablet (Eliquis) 5 mg PO BID 11/25/22 01/17/23 ascorbic acid (vitamin C) 500 mg 500 mg PO DAILY 11/25/22 01/17/23 tablet citalopram 40 mg tablet 40 mg PO DAILY 11/25/22 01/17/23 docusate sodium 100 mg capsule 100 mg PO BID 11/25/22 01/17/23 (Colace) ferrous gluconate 324 mg (37.5 mg 324 mg PO DAILY 11/25/22 01/17/23 iron) tablet ipratropium 0.5 mg-albuterol 3 mg 3 ml inhalation Q6H PRN Wheezing 11/25/22 01/17/23 (2.5 mg base)/3 mL nebulization soln lamotrigine 100 mg tablet 100 mg PO BID 11/25/22 01/17/23 (Lamictal) metformin 500 mg tablet 500 mg PO BID 11/25/22 01/17/23 miconazole nitrate 2 % topical 1 appl topical DAILY PRN Rash 11/25/22 11/30/22 powder omega 0-ksd-fwz-fish oil 1,000 mg 1 cap PO BID 11/25/22 01/17/23 (120 mg-180 mg) capsule (Fish Oil) polyethylene glycol 3350 17 gram 17 g PO DAILY 11/25/22 01/17/23 oral powder packet (Miralax) potassium chloride 10 mEq 10 meq PO QID 11/25/22 01/17/23 tablet,extended release quetiapine 100 mg tablet 100 mg PO BID 11/25/22 01/17/23 sennosides 8.6 mg tablet (senna) 8.6 mg PO DAILY PRN Constipation 11/25/22 01/17/23 simvastatin 10 mg tablet (Zocor) 10 mg PO BEDTIME 11/25/22 01/17/23 sodium phosphates 19 gram-7 118 ml MT DAILY PRN Constipation 11/25/22 01/17/23 gram/118 mL enema (Fleet Enema) umeclidinium 62.5 mcg-vilanterol 1 inh inhalation DAILY 11/25/22 01/17/23 25 mcg/actuation powdr for inhalation (Anoro Ellipta) vitamin B complex 1 tab PO DAILY 11/25/22 11/30/22 magnesium L-lactate 84 mg 84 mg PO BID 01/12/23 01/17/23 tablet,extended release Previous Rx's Medication Instructions Recorded levofloxacin 500 mg tablet 500 mg PO DAILY 14 days #14 tabs 12/09/22 ascorbate calcium (vitamin C) 500 500 mg PO DAILY 90 days #90 tabs 01/12/23 mg tablet methenamine hippurate 1 gram 1 g PO ONCE 90 days #90 tabs 01/12/23 tablet (Hiprex) Allergies Allergy/AdvReac Type Severity Reaction Status Date / Time vincristine Allergy Unknown Verified 02/16/23 07:51 Review of Systems Review of Systems: Constitutional : No Fever, No Chills, No Fatigue ENT/Mouth : No sore throat, No Rhinorrhea Eyes: No Eye Pain, No Swelling, No Redness Cardiovascular : No Chest Pain, No SOB, No Dyspnea on Exertion Respiratory : No Cough, No Sputum Gastrointestinal : No Nausea, No Vomiting, No Diarrhea, No abdominal Pain Genitourinary : No Dysuria, No Urinary Frequency, No Hematuria, Musculoskeletal : No joint pain, No Myalgias, No Joint Swelling Skin : No Skin Lesions, No rash Neuro : No Weakness, No Numbness, No Dizziness, no Headache Psych : No Anxiety/Panic, No Depression All other systems reviewed and are negative PMFSH Past Medical History Attestation statement: The following information was validated with the patient. Source: old records reviewed Medical History Multifactorial dementia Acute UTI Pulmonary embolus Bacteremia Social History Social History Household Members: None Housing: Senior Care Unable to assess alcohol history related to: Unable to respond Alcohol intake: never Patient Tobacco Use Status: Former Tobacco user Tobacco use type: Cigarette Smoked in Last 30 Days: No Use of substances other than those prescribed or required for medical reasons: No Advance Directives: No Advance Directives Information Provided: No service: No Physical Exam Vital Signs: Vital Signs: Last Vital Signs Temp 97.9 F 02/16/23 07:45 Pulse 73 02/16/23 07:45 Resp 18 02/16/23 07:45 BP 182/92 H 02/16/23 07:45 Pulse Ox 92 02/16/23 07:45 O2 Del Method Nasal Cannula 02/16/23 07:45 BMI result Body Mass Index 70.0 Appearance: Alert. Oriented X2 (confused on time). No acute distress. Eyes: Pupils equal, round and reactive to light. ENT: Pharynx normal. Neck: Normal inspection. Neck supple. CVS: Normal heart rate and rhythm. Pulses normal. Respiratory: No respiratory distress. Breath sounds normal. Abdomen: Soft and nontender. no bleeding at opening of suprapubic cath Skin: Skin warm and dry. Normal skin color. Normal skin turgor. Extremities: No lower extremity edema. No calf ttp Neuro: Oriented X 2. No motor deficit. No sensory deficit. Course Course Course Narrative: bladder scan negative but only 100cc of urine out has no pain, bedside US I can see the balloon but not good views of bladder, no pain no bleeding, clear yellow urine will obtain CT scan to confirm give DOAC use Medical Decision Making Medical Decision Making MDM Narrative: 52 yo male with PMH of DM type 2, Depression, chronic suprapubic cathether, history of PE on DOAC, HTN, PAD, COPD on 2L NC, Mild neurocognitive disorder here with removal of catheter no bleeding - will replace in ED usually uses 20F Differential Diagnosis Differential Diagnoses: The differential diagnosis associated with the presentation includes pulled álvarez catheter Admission/Observation Consideration of admission/observation: Escalation of care including admission/observation considered placed and draining well stable for outpatient management Independent Interpretation I performed an independent interpretation of an: CT Scan (cath in place) Radiology Impression Discussion of test interpretation with radiology: I have reviewed the radiologist's reading. Independent Historian Clinical information obtained from an independent historian. History obtained from or confirmed by: EMS External Record Review External record reviewed: Inpatient record Procedures Catheter Insertion (Urinary) Date of insertion: 02/16/23 Time of insertion: 08:08 Reason for placing: Yes Reason for placing indwelling catheter: Other (chronic suprapubic catheter) Patient has the following: history of catheter associated urinary tract infection Bladder scan/ultrasound used before catheterization: No Antiseptic solution prep: Povidone-Iodine Topical anesthesia used: No Catheter type/location: Suprapubic Size (Swiss): 16 Catheter balloon size (mL): 10 Catheter balloon amount: 10 Results: successfully catheterized-immediate flow and ultrasound used for placement verification Procedure performed: without complications Comment: uses 20F but had to use 16F as the whole was tight and small Discharge Plan Discharge Clinical Impression: Suprapubic catheter dysfunction Qualifiers: Encounter type: initial encounter Qualified Code(s): T83.010A - Breakdown (mechanical) of cystostomy catheter, initial encounter Patient Disposition: Home, Self-Care Instructions: How to Care for Your Suprapubic Catheter (DC) Additional Instructions: return for fevers, vomiting, bleeding, blocked catheter, follow up with urology in 1 to 2 weeks. usually uses 20 F cath but opening was almost closed and swollen had to use 16 F. incidental findings on CT scan - needs more neb treatments and respiratory chest percussion - needs bowel regimen and enemas 1. The rectum is markedly distended with stool measuring 9 cm in transverse dimension. 2. Hepatic steatosis. 3. Cholelithiasis without cholecystitis. 4. Álvarez catheter in bladder. 5. Degenerative changes in the spine with grade 1 retrolisthesis of L2 upon L3. 6. Atrophy of the left iliopsoas with calcification in its distal tendinous insertion. 7. Peribronchial thickening and mucus plugging at the lung bases, increased when compared to 11/26/2022. Prescriptions: No Action metformin 500 mg Tablet 500 mg PO BID sennosides [senna] 8.6 mg Tablet 8.6 mg PO DAILY PRN (Reason: Constipation) acetaminophen 325 mg Tablet 650 mg PO Q6H PRN (Reason: Pain) ipratropium-albuterol 0.5 mg-3 mg(2.5 mg base)/3 mL Solution For Nebulization 3 ml INHALATION Q6H PRN (Reason: Wheezing) citalopram 40 mg Tablet 40 mg PO DAILY polyethylene glycol 3350 [Miralax] 17 gram Powder In Packet 17 g PO DAILY simvastatin [Zocor] 10 mg Tablet 10 mg PO BEDTIME miconazole nitrate 2 % Powder 1 appl TOPICAL DAILY PRN (Reason: Rash) potassium chloride 10 mEq Tablet Extended Release 10 meq PO QID quetiapine 100 mg Tablet 100 mg PO BID ascorbic acid (vitamin C) 500 mg Tablet 500 mg PO DAILY Fleet Enema 19-7 gram/118 mL Enema 118 ml MT DAILY PRN (Reason: Constipation) docusate sodium [Colace] 100 mg Capsule 100 mg PO BID vitamin B complex Tablet 1 tab PO DAILY lamotrigine [Lamictal] 100 mg Tablet 100 mg PO BID omega 1-kgu-sye-fish oil [Fish Oil] 1,000 mg (120 mg-180 mg) Capsule 1 cap PO BID ferrous gluconate 324 mg (37.5 mg iron) Tablet 324 mg PO DAILY Eliquis 5 mg Tablet 5 mg PO BID Anoro Ellipta 62.5-25 mcg/actuation Blister With Device 1 inh INHALATION DAILY levofloxacin 500 mg tablet 500 mg PO DAILY 14 Days Qty: 14 0RF magnesium L-lactate 84 mg tablet extended release 84 mg PO BID methenamine hippurate [Hiprex] 1 gram tablet 1 g PO ONCE 90 Days Qty: 90 2RF ascorbate calcium (vitamin C) 500 mg tablet 500 mg PO DAILY 90 Days Qty: 90 2RF
[2023-02-16 07:45] VITALS: BP 160/110; BP 182/92; PULSE 73; PULSE 79; RESP 18; TEMP 36.6; O2SAT 92; O2SAT 95; BMI 70.0
--- OUTSIDE RECORDS SUMMARY | 2023-02-16 08:14 | XMS_ITS | Continuity of Care Document ---
Author Name Unknown Organization [facility] Address [address] [facility], [address], [address] [place] [id number] Care Team Providers Care Cnc Machine Programmer Name Role Phone Maxim Roberts DO Primary Care Physician Encounter [facility] Date(s): 12/30/22 - 01/29/23 [facility] [address] [facility], [address]rd Floor, [address] [place] [id number] Social History Social History Type Response Sex Male Patient Care team information Care Team Personnel Name: Maxim Roberts DO Position: Reference Physician Member Role: PCP Address: Address: [address] [place] [address] [address] [place] [address] [facility] [place], [place] [id number]
[2023-02-16 10:45] VITALS: BP 145/78; PULSE 70; RESP 18; O2SAT 95
== END 2023-02-16 14:43 | disposition home or self-care (01) ==
PROVIDERS: Emergency Provider Emergency Medicine; PCP Hospitalist
DX: R10.2 Pelvic and perineal pain (principal); T83.028A Displacement of other urinary catheter, initial encounter; Y73.2 Prosthetic and other implants, materials and accessory gastroenterology and urology devices associated with adverse incidents; Y92.9 Unspecified place or not applicable; Z79.899 Other long term (current) drug therapy; Z87.891 Personal history of nicotine dependence
CPT/HCPCS: 51702; 74176; 99284

== ENCOUNTER 2023-02-22 11:38 | Outpatient (AMB) | payer MEDICARE, MEDICAID, SELFPAY ==
[2023-02-22 11:45] VITALS: BP 124/76; PULSE 75; O2SAT 95
--- NOTE | 2023-02-22 11:45 | A.OFFVIS_ITS ---
Intake Vital Signs 02/22/23 11:45 BP 124/76 Blood Pressure Location Rt brachial Position Sitting Pulse 75 Pulse Source Pulse Oximeter Pulse Oximetry (%) 95 Oxygen Delivery Method Nasal Cannula Intake Visit Reasons: copd f/u 4-5 weeks Recycling Specialist Required: No Professor Of Business Administration: Professor Of Business Administration offered & declined Accompanied by: [employer] employee Allergies vincristine Allergy (Verified 02/22/23 11:46) Unknown Medication List - Last Reconciled 02/22/23 by Lauren Villavicencio LPN acetaminophen 650 mg PO Q6H PRN apixaban (Eliquis) 5 mg PO BID ascorbate calcium (vitamin C) 500 mg PO DAILY 90 days citalopram 40 mg PO DAILY docusate sodium (Colace) 100 mg PO BID ferrous gluconate 324 mg PO DAILY ipratropium-albuterol 0.5 mg-3 mg(2.5 mg base)/3 mL 3 mL inhalation Q6H PRN lamotrigine (Lamictal) 100 mg PO BID magnesium L-lactate ER 84 mg PO BID metformin 500 mg PO BID methenamine hippurate (Hiprex) 1 g PO ONCE 90 days miconazole nitrate 2% 1 appl topical DAILY PRN omega 3-sth-xon-fish oil 1,000 mg (120 mg-180 mg) (Fish Oil) 1 cap PO BID polyethylene glycol 3350 (Miralax) 17 grams PO DAILY potassium chloride ER 10 mEq PO QID quetiapine 100 mg PO BID sennosides (senna) 8.6 mg PO DAILY PRN simvastatin (Zocor) 10 mg PO BEDTIME sodium phosphates 19-7 gram/118 mL (Fleet Enema) 118 mL NV DAILY PRN umeclidinium-vilanterol 62.5-25 mcg/actuation (Anoro Ellipta) 1 inh inhalation DAILY vitamin B complex 1 tab PO DAILY HPI copd f/u 4-5 weeks HPI Details Manuel is a pleasant 52 year old male, current smoker 1-2 cigarettes per day, unknown smoking history, history of PE on DOAC, HTN, PAD, COPD, neurocognitive disorder and diastolic dysfunction. He resides at [facility], accompanied by a SALES HUNTER and is nonambulatory. He was initially evaluated hospital admission for hypoxia and sepsis secondary to pneumonia. Report states after CPT and deep suctioning, hypoxia resolved. He is a poor historian but currently denies any respiratory symptoms. He reports using Anoro and duonebs once per day. [facility] Medical History (Updated 02/22/23 @ 13:08 by Kathia Mae NP) Other abnormalities of gait and mobility Disorder of urinary system, unspecified Disorder of bone, unspecified Muscle weakness (generalized) Essential hypertension Mild neurocognitive disorder due to another medical condition, without behavioral disturbance Dysphagia, oropharyngeal phase Metabolic encephalopathy Type 2 diabetes mellitus without complication Delusional disorders Multifactorial dementia Pulmonary embolus Bacteremia Acute UTI Surgical History (Updated 02/16/23 @ 12:11 by Felicity Mcginnis RN) Presence urogenital implant Social History (Updated 02/22/23 @ 11:47 by Lauren Villavicencio LPN) Household Members: None Housing: [facility] Unable to assess alcohol history related to: Unable to respond Alcohol intake: never Patient Tobacco Use Status: Current everyday Tobacco user Tobacco use type: Cigarette Cigarettes Per Day: 1 service: No Review of Systems Const Denies chills, Denies excessive sweating, Denies fever(s), Denies headache(s) and Denies night sweats Eyes Denies dry eyes, Denies irritation and Denies itchy eyes ENT Reports Normal hearing present, Denies headache(s), Denies nasal congestion, Denies nasal discharge, Denies post nasal drip and Denies sore throat Card Denies chest pain, Denies chest pain at rest, Denies chest pain with activity, Denies claudication, Denies orthopnea and Denies paroxysmal nocturnal dyspnea Resp Denies chest congestion, Denies excessive phlegm production, Denies pain on inspiration, Denies pain with cough and Denies stridor Musc Denies myalgias Neuro Reports Normal hearing present and Denies headache(s) Endo Denies excessive sweating Wan/Lymph Denies lymphadenopathy Aller/Immun Denies itchy eyes and Denies seasonal rhinorrhea Physical Exam Vital Signs: Last Vital Signs Pulse 75 02/22/23 11:45 BP 124/76 02/22/23 11:45 Pulse Ox 95 02/22/23 11:45 Oxygen Delivery Method Nasal Cannula 02/22/23 11:45 Const General: cooperative, comfortable, no acute distress and alert Nutritional Appearance: obese HEENT Head: Yes normal to inspection, Yes normocephalic and Yes atraumatic Ears: hearing grossly normal bilaterally and external ears normal Eyes General: appearance normal, both eyes and all related structures Eyelids: Yes eyelids normal Sclerae: sclerae normal Neck Neck: Yes normal visual inspection and Yes no lymphadenopathy Lymphatic: no lymphadenopathy noted Chest Chest palpation & inspection: normal inspection of the chest Resp Other: poor inspiratory effort with diminished lung sounds bilaterally Effort & Inspection: able to speak in complete sentences, no audible wheezes, no cough, no stridor, not tachypneic, no tripod positioning and no use of accessory muscles Auscultation: diminished lung sounds Cardio Jugular venous distension: no JVD Rate: regular rate Rhythm: regular rhythm Skin Other: warm, dry General skin exam: no rashes or lesions noted Neuro Cranial nerves: Yes Normal hearing present Extrem General: Yes normal to inspection, Yes capillary refill normal, Yes no clubbing, cyanosis or edema and Yes no pedal edema Psych Appearance: grossly normal Speech and movement: Normal speech and movement present and Clear speech present Attitude: cooperative Results Reviewed Results Reviewed: [address] [address] [address] Scan Report Signed Patient: Manuel Mcpherson MR#: [id number] : 1970 Acct:[id number] Age/Sex: 52 / M ADM Date: 02/16/23 Loc: .ED Attending Dr: Ordering Physician: Valentina Wagner DO Date of Service: 02/16/23 Procedure(s): CT abdomen pelvis wo IV con Accession Number(s): [id number] cc: Valentina Wagner DO; Maxim Roberts DO~ EXAMINATION: CT ABDOMEN AND PELVIS WITHOUT CONTRAST CLINICAL INFORMATION: Suprapubic pain COMPARISON: CT abdomen pelvis 11/26/2022 TECHNIQUE: Multidetector volumetric imaging was performed from the superior aspect of the liver through the pubic symphysis. Sagittal and coronal reformatted images were obtained on the technologist's workstation. This CT examination was performed using dose optimization techniques as appropriate, variously including the following: *Automated exposure control *Adjustment of mA and/or kV according to patient size (this includes techniques or standardized protocols for targeted exams where dose is matched to indication/reason for exam; i.e. extremities or head) *Use of iterative reconstruction technique DLP: 646 mGy-cm FINDINGS: LUNG BASES: Peribronchial thickening and some mucus plugging is seen at the lung bases, increased when compared to 11/26/2022. No gross consolidations or pleural effusions. LIVER, GALLBLADDER, AND BILIARY TREE: The liver is normal in size and shape but demonstrates markedly decreased attenuation consistent with hepatic steatosis. No focal hepatic lesion or biliary ductal dilatation is present. The gallbladder contains a few small layering calcified stones without gallbladder wall thickening or obvious pericholecystic inflammatory changes. PANCREAS: Unremarkable. SPLEEN: Unremarkable. ADRENAL GLANDS: Unremarkable. KIDNEYS AND URETERS: The kidneys are normal in size, shape, and attenuation. Bilateral benign Bosniak class I renal cysts are noted which require no additional imaging or follow-up. No solid renal masses are seen. No hydronephrosis, hydroureter, or calculi seen. No perinephric stranding. BLADDER: Coley catheter is present in the bladder. GASTROINTESTINAL TRACT: The rectum is markedly distended with stool measuring 9 cm in transverse dimension. Small to moderate amount of stool present throughout the remainder of the colon. There is no evidence of bowel obstruction. Small bowel is unremarkable. The appendix is unremarkable. The previous stranding seen in the right paracolic gutter is no longer present. ABDOMINAL WALL: No significant hernia is appreciated. LYMPH NODES: No retroperitoneal lymphadenopathy. VASCULAR: Calcific atherosclerotic changes are present in the aorta and iliofemoral vessels. There is no evidence of an abdominal aortic aneurysm. PELVIC VISCERA: Unremarkable. OSSEOUS STRUCTURES: Degenerative changes are present in the spine. There is grade 1 retrolisthesis of L2 upon L3. There is a hemangioma present in the T10 vertebral body with mild compression fracture of the superior endplate of T9. There is atrophy of the left iliopsoas with calcification in its distal tendinous insertion. CT/CT abdomen pelvis wo IV con IMPRESSION: 1. The rectum is markedly distended with stool measuring 9 cm in transverse dimension. 2. Hepatic steatosis. 3. Cholelithiasis without cholecystitis. 4. Coley catheter in bladder. 5. Degenerative changes in the spine with grade 1 retrolisthesis of L2 upon L3. 6. Atrophy of the left iliopsoas with calcification in its distal tendinous insertion. 7. Peribronchial thickening and mucus plugging at the lung bases, increased when compared to 11/26/2022. 8. Other incidental findings as described above. Fleischner guidelines were followed. Dictated By: Yusef Salinas MD Signed By: <Electronically signed by Yusef Salinas MD in OV> 02/16/23 0955 Assessment & Plan Assessment & Plan (1) COPD (chronic obstructive pulmonary disease): Code(s): J44.9 - Chronic obstructive pulmonary disease, unspecified (2) Pulmonary nodule: Code(s): R91.1 - Solitary pulmonary nodule Plan Manuel's symptoms likely from underlying COPD, of unclear severity. Due to neurcognitive disorder, unlikely he would be able to attempt PFT or incentive spirometer. Patient more alert today compared to prior visit. States he has been using Anoro daily as well as one duoneb treatment daily. Recommended increasing duoneb to BID and encouraged deep breathing/coughing exercises throughout the day since patient with poor inspiratory effort. Given significantly diminished lung sounds and recent chest CT revealing peribronchial thickening and mucus plugging at the lung bases,increased when compared to 11/26/2022, will obtain CXR today. Prior chest CT from November revealed a 7mm pulmonary nodule of the RUL, 3 month repeat scan scheduled in 2 weeks. Will follow up to review results and response to nebulized therapy. All questions were answered and patient is in agreement of plan. Orders: Orders XR chest 2V Today R05.9 - Cough, unspecified Coding Level of Care Code Est Pt Level 4 (35978) Diagnoses COPD (chronic obstructive pulmonary disease) J44.9 Pulmonary nodule R91.1
== END 2023-02-22 12:09 | disposition home or self-care (01) ==
PROVIDERS: PCP Hospitalist; Visit Provider Nurse Practitioner Family
DX: J44.9 Chronic obstructive pulmonary disease, unspecified (principal); R91.1 Solitary pulmonary nodule
CPT/HCPCS: 99214

== ENCOUNTER 2023-02-22 11:38 | Outpatient (REF) | payer MEDICARE, MEDICAID, SELFPAY ==
--- NOTE | ~2023-02-22 | XR_ITS ---
EXAMINATION: XR CHEST CLINICAL INFORMATION: Cough COMPARISON: 12/06/2022 TECHNIQUE: 2 views of the chest were obtained. FINDINGS: There are low lung volumes. Bibasilar atelectasis or pneumonia is present. There are no pleural effusions. The cardiomediastinal silhouette is not well assessed. Sclerotic lesion in the right proximal humeral shaft is stable. XR/XR chest 2V IMPRESSION: Poor inspiratory effort with bibasilar atelectasis or pneumonia. Follow-up is recommended to confirm clearing.
== END 2023-02-22 11:39 | disposition home or self-care (01) ==
LOC: HO.XRAY 11:38
PROVIDERS: Absent Provider Hospitalist; PCP Hospitalist; Visit Provider Nurse Practitioner Family
DX: R91.1 Solitary pulmonary nodule (principal); R05.9 Cough, unspecified
CPT/HCPCS: 71046; 99212

== ENCOUNTER 2023-03-29 08:57 | Emergency (ER) | payer MEDICARE, MEDICAID, SELFPAY ==
[2023-03-29] VITALS (11 sets, daily range): BP systolic 142–188; BP diastolic 81–103; PULSE 54–66; RESP 13–22; TEMP 37.1; O2SAT 96–99; BMI 34.4
--- NOTE | ~2023-03-29 | XR_ITS ---
EXAMINATION: XR CHEST CLINICAL INFORMATION: Shortness of breath COMPARISON: Portable chest 02/22/2023 TECHNIQUE: AP upright portable view of the chest was obtained. 9:33 AM FINDINGS: Slight patchy opacity in the left lower lobe is consistent with atelectasis and/or pneumonia. No interstitial pulmonary edema or pneumothorax. There are no pleural effusions. The cardiomediastinal silhouette is stable. No acute osseous abnormality. XR/XR chest 1V IMPRESSION: Left lower lobe atelectasis and/or pneumonia.
--- NOTE | ~2023-03-29 | CT_ITS ---
EXAMINATION: CT HEAD WITHOUT CONTRAST CLINICAL INFORMATION: AMS, lethargy. COMPARISON: CT brain 12/01/2022. TECHNIQUE: Contiguous axial imaging was performed from the skull base to vertex without intravenous administration of contrast. This CT examination was performed using dose optimization techniques as appropriate, variously including the following: *Automated exposure control *Adjustment of mA and/or kV according to patient size (this includes techniques or standardized protocols for targeted exams where dose is matched to indication/reason for exam; i.e. extremities or head) *Use of iterative reconstruction technique DLP: 928 mGy-cm FINDINGS: There is patient motion during the scan limiting evaluation. There is an acute moderate size bleed in the left posterior external capsule extending to the centrum semiovale. Mild mass effect on the left lateral ventricle the lateral margin. There is no midline shift. There is a punctate calcification or tiny hemorrhage seen adjacent to the right lateral ventricle on axial image 29/2. There was calcification seen in this region on the previous exam 12/01/2022. There is no intraventricular extension. There is diffuse periventricular white matter in both cerebral hemispheres without mass effect. Hyperdense area seen in the left parasagittal frontal region similar to previous study. Small lacunar infarctions in the right basal ganglia, right thalamus, brainstem and right cerebellum are stable. Bone windows reveal no calvarial abnormality. There is no scalp soft tissue abnormality. Bilateral paranasal sinuses are well expanded and clear. CT/CT head/brain wo IV con IMPRESSION: Left posterior external capsule bleed extending to centrum semiovale with surrounding edema but no midline shift seen. Mild mass effect on the left lateral ventricle seen. Asymmetric but enlarged lateral ventricle are unchanged to previous CT 12/01/2022. There is multiple chronic lacunar infarctions and mild to moderate dilation of lateral ventricles similar previous study. Results were immediately called to Eloy Morris by phone at 9:47 AM and was updated with intracranial bleed results.
--- NOTE | 2023-03-29 09:02 | ECG_ITS ---
Test Reason : ams Blood Pressure : / mmHG Vent. Rate : 053 BPM Atrial Rate : 053 BPM P-R Int : 208 ms QRS Dur : 090 ms QT Int : 490 ms P-R-T Axes : 028 020 032 degrees QTc Int : 459 ms Sinus bradycardia Nonspecific T wave abnormality Abnormal ECG When compared with ECG of 30-NOV-2022 10:51, Vent. rate has decreased BY 33 BPM Nonspecific T wave abnormality has replaced inverted T waves in Inferior leads Referred By: Eloy Morris Electronically Signed By:DAWNA GUERRA MD
--- NOTE | 2023-03-29 09:04 | ED.GENADULT ---
HPI - General Adult General Chief complaint: Altered Mental Status Stated complaint: INCR LETHARGY THIS AM FROM [facility] PER EMS Time Seen by Provider: 03/29/23 09:53 Source: EMS Mode of arrival: EMS Limitations: altered mental status History of Present Illness HPI narrative: 52 year old male DM type 2, Depression, chronic suprapubic cathether, history of PE on DOAC, HTN, PAD, COPD on home 2 L NC , Mild neurocognitive disorder presents w/ lethargy and not speaking since this AM at around 7 am patient coming from [facility]. Unable to provide hx or ros at this time. No reported trauma Related Data Home Medications Medication Instructions Recorded Confirmed acetaminophen 325 mg tablet 650 mg PO Q6H PRN Pain 11/25/22 02/22/23 apixaban 5 mg tablet (Eliquis) 5 mg PO BID 11/25/22 02/22/23 citalopram 40 mg tablet 40 mg PO DAILY 11/25/22 02/22/23 docusate sodium 100 mg capsule 100 mg PO BID 11/25/22 02/22/23 (Colace) ferrous gluconate 324 mg (37.5 mg 324 mg PO DAILY 11/25/22 02/22/23 iron) tablet ipratropium 0.5 mg-albuterol 3 mg 3 ml inhalation Q6H PRN Wheezing 11/25/22 02/22/23 (2.5 mg base)/3 mL nebulization soln lamotrigine 100 mg tablet 100 mg PO BID 11/25/22 02/22/23 (Lamictal) metformin 500 mg tablet 500 mg PO BID 11/25/22 02/22/23 miconazole nitrate 2 % topical 1 appl topical DAILY PRN Rash 11/25/22 02/22/23 powder omega 4-ter-sck-fish oil 1,000 mg 1 cap PO BID 11/25/22 02/22/23 (120 mg-180 mg) capsule (Fish Oil) polyethylene glycol 3350 17 gram 17 g PO DAILY 11/25/22 02/22/23 oral powder packet (Miralax) potassium chloride 10 mEq 10 meq PO QID 11/25/22 02/22/23 tablet,extended release quetiapine 100 mg tablet 100 mg PO BID 11/25/22 02/22/23 sennosides 8.6 mg tablet (senna) 8.6 mg PO DAILY PRN Constipation 11/25/22 02/22/23 simvastatin 10 mg tablet (Zocor) 10 mg PO BEDTIME 11/25/22 02/22/23 sodium phosphates 19 gram-7 118 ml OH DAILY PRN Constipation 11/25/22 02/22/23 gram/118 mL enema (Fleet Enema) umeclidinium 62.5 mcg-vilanterol 1 inh inhalation DAILY 11/25/22 02/22/23 25 mcg/actuation powdr for inhalation (Anoro Ellipta) vitamin B complex 1 tab PO DAILY 11/25/22 02/22/23 magnesium L-lactate 84 mg 84 mg PO BID 01/12/23 02/22/23 tablet,extended release Previous Rx's Medication Instructions Recorded ascorbate calcium (vitamin C) 500 500 mg PO DAILY 90 days #90 tabs 01/12/23 mg tablet methenamine hippurate 1 gram 1 g PO ONCE 90 days #90 tabs 01/12/23 tablet (Hiprex) Allergies Allergy/AdvReac Type Severity Reaction Status Date / Time vincristine Allergy Unknown Verified 02/22/23 11:46 Review of Systems Review of Systems: Yes Unobtainable due to mental status PMFSH Past Medical History Attestation statement: The following information was validated with the patient. Source: old records reviewed and nursing notes reviewed Onset Date is defined in the Problem List Problems that require an onset date and time if occurred within 24 hrs of arrival to the ED Aortic Dissection and Rupture; Neurologic impairment; Cardiopulmonary Arrest; Endotracheal Intubation; Insertion or Replacement of Mechanical Circulatory Assist Device Medical History Other abnormalities of gait and mobility Disorder of urinary system, unspecified Disorder of bone, unspecified Muscle weakness (generalized) Essential hypertension Mild neurocognitive disorder due to another medical condition, without behavioral disturbance Dysphagia, oropharyngeal phase Metabolic encephalopathy Type 2 diabetes mellitus without complication Delusional disorders Multifactorial dementia Pulmonary embolus Bacteremia Acute UTI Surgical History Presence urogenital implant Social History Social History Household Members: None Housing: [facility] Unable to assess alcohol history related to: Unknown Alcohol intake: never Patient Tobacco Use Status: Current everyday Tobacco user Tobacco use type: Cigarette Cigarettes Per Day: 1 Use of substances other than those prescribed or required for medical reasons: Unable to respond Advance Directives: Yes Advance Directives on File: Yes Advance Directives Date on File: 02/16/23 service: No Physical Exam ED Vital Signs: Vital Signs - 24 hr 03/29/23 09:19 03/29/23 09:37 03/29/23 09:53 Temperature 98.7 F Pulse Rate 54 54 54 Respiratory Rate 22 H 13 19 Blood Pressure 188/94 H 175/95 H 183/95 H Pulse Oximetry 96 96 97 Oxygen Delivery Method Nasal Cannula Nasal Cannula Nasal Cannula Oxygen Flow Rate 2 2 BMI result Body Mass Index 34.4 vss Appearance: Patient awake to verbal and painful stimuli. Not speaking. Head: Normocephalic, atraumatic, no step-offs or deformities Eyes: Pupils equal, round and reactive to light.? ENT: Pharynx normal.? Neck: Normal inspection.? Neck supple.? CVS: Normal heart rate and rhythm.? Pulses normal.? Respiratory: No respiratory distress.? Breath sounds diminished b/l.? Abdomen: Soft and nontender.? Skin: Skin warm and dry.? Normal skin color.? Normal skin turgor.? Extremities: No lower extremity edema.? No calf ttp. Global weakness Neuro: Unable to perform accurate neurological assessment patient not following commands. Patient opens eyes to verbal and painful stimuli however not responding to questions. Not oriented to person, place time or situation Course Reevaluation(s) Reevaluation #1: Looked at CT scan concerns for head bleed Tried calling patient's legal guardian Ainsley Mcpherson, with phone number in chart [phone] no answer. Also tried calling Eric Beltretan a secondary contact which again no answer. I did reach out to patient's PCP and I am waiting for response Time: 09:32 Reevaluation #2: Patient is a do not resussitate however do intubate and ventilate. Also use non invasive ventilation if needed and he is a transfer to hospital. Will call [facility] for a transfer on this patient Will order PCC as patient is on eliquis Time: 09:38 Reevaluation #3: Spoke to Dr. Santos who wants Nicardipine drip goal pressure 150 systolic will be a transfer to [facility]. Time: 09:53 Additional Reevaluation(s): 957 Xray showing PNA ceftriaxone ordered. Blood cultures and lactic ordered. 1004 Spoke to Ainsley Mcpherson patients guardian who is aware of plan. She can be reached out to w/ any quesitons. Medical Decision Making Medical Decision Making [facility] Narrative: 904 52-year-old male presents with altered mental status from [facility] Physical exam patient not speaking. He is arousable to verbal and painful stimuli. Diminished breath sounds b/l. Unable to obtain accurate NIH stroke scale patient not following commands. Patient is however maintaining his own airway Will rule out viral illness versus metabolic derangements versus urinary tract infection. Will also rule out intracranial etiologies such as stroke, intracranial hemorrhage. Less likely posterior stroke based off presentation. Unlikely ACS or pulmonary embolism. No signs of threat to her airway. Patient appears comfortable. Plan labs, imaging, urine, viral time Differential Diagnosis Differential Diagnoses: The differential diagnosis associated with the presentation includes Will rule out viral illness versus metabolic derangements versus urinary tract infection. Will also rule out intracranial etiologies such as stroke, intracranial hemorrhage. Less likely posterior stroke based off presentation. Unlikely ACS or pulmonary embolism. No signs of threat to her airway. Patient appears comfortable. Admission/Observation Consideration of admission/observation: Escalation of care including admission/observation considered likely Consult Healthcare Provider Management of the patient was discussed with: Artist Representative Lab Data [facility] Lab Attestation statement: I reviewed the patient's lab results. 03/29/23 09:45 03/29/23 09:45 Labs: Lab Results 03/29/23 03/29/23 Range/Units 09:45 10:00 WBC 9.3 (4.8-10.8) X10*3/uL RBC 4.86 (4.60-5.80) X10*6/uL Hgb 13.1 L (14.0-18.0) g/dl Hct 41.5 L (42.0-52.0) % MCV 85.4 (80.0-98.0) fL MCH 27.0 (27.0-33.0) pg MCHC 31.6 (31.0-36.0) g/dl RDW 15.8 (11.0-16.0) % Plt Count 284 D (160-400) X10*3/uL MPV 10.8 (9.4-12.4) fL Immature Gran % (Auto) 0.2 (0.0-0.4) % Neut % (Auto) 61.5 (45-73) % Lymph % (Auto) 26.3 (20-40) % [place] % (Auto) 6.8 (2-11) % Eos % (Auto) 4.2 H (0-4) % Baso % (Auto) 1.0 (0-2) % Lymph # (Auto) 2.5 (1.2-4.9) X10*3/uL [place] # (Auto) 0.6 (0.1-1.2) X10*3/uL Eos # (Auto) 0.4 (0.0-0.4) X10*3/uL Baso # (Auto) 0.1 (0.0-0.2) X10*3/uL Abs Immat Gran (auto) 0.02 (0.00-0.03) X10*3/uL Absolute Neuts (auto) 5.8 (2.0-8.3) x10*3/uL Absolute Nucleated RBC 0.000 (0.0-0.012) X10*3/uL Nucleated RBC % (auto) 0.0 (0.0-0.2) /100WBC PT 14.5 H D (11.1-13.3) SEC INR 1.2 H (0.9-1.1) Urine Color Yellow Urine Appearance Cloudy Urine pH 7.0 (5.0-9.0) Ur Specific [place] 1.015 (1.005-1.025) Urine Protein 100 (2+) H (Neg-Trace) mg/dL Urine Glucose (UA) Negative (Negative) mg/dL Urine Ketones Negative (Negative) mg/dL Urine Blood Large (3+) H (Negative) Urine Nitrite Positive H (Negative) Ur Leukocyte Esterase Large (3+) H (Negative) Independent Interpretation I performed an independent interpretation of an: EKG (Ventricular rate of 53, OH normal, QRS normal, QT/QTC normal. Nonischemic.), Plain X-Ray (XR/XR chest 1V IMPRESSION: Left lower lobe atelectasis and/or pneumonia.) and CT Scan (Left posterior external capsule bleed extending to centrum semiovale with surrounding edema but no midline shift seen. Mild mass effect on the left lateral ventricle seen. Asymmetric but enlarged lateral ventricle are unchanged to previous CT 12/01/2022. There is multiple chronic lacunar infarc) Radiology Impression Discussion of test interpretation with radiology: I have reviewed the radiologist's reading. External Record Review External record reviewed: Inpatient record, Office record, Outpatient record, Prior outpatient labs, Prior outpatient radiology, Primary care record and Outside ED record Chronic Conditions Patient?s care impacted by: Other (neurocognitive delayu, htn) Critical Care Time Critical Care Time Critical Care Time: Yes Total Critical Care Time: 45 Attestation: I attest to this time spent taking care of the patient, obtaining history, physical, reviewing labs, imaging, speaking to my attending, speaking to specialist. Discharge Plan Discharge Clinical Impression: ICH (intracerebral hemorrhage), Pneumonia Patient Disposition: [facility] Transfer Details: Transfer [facility] Dr. Santos ICU Prescriptions: No Action metformin 500 mg Tablet 500 mg PO BID sennosides [senna] 8.6 mg Tablet 8.6 mg PO DAILY PRN (Reason: Constipation) acetaminophen 325 mg Tablet 650 mg PO Q6H PRN (Reason: Pain) ipratropium-albuterol 0.5 mg-3 mg(2.5 mg base)/3 mL Solution For Nebulization 3 ml INHALATION Q6H PRN (Reason: Wheezing) citalopram 40 mg Tablet 40 mg PO DAILY polyethylene glycol 3350 [Miralax] 17 gram Powder In Packet 17 g PO DAILY simvastatin [Zocor] 10 mg Tablet 10 mg PO BEDTIME miconazole nitrate 2 % Powder 1 appl TOPICAL DAILY PRN (Reason: Rash) potassium chloride 10 mEq Tablet Extended Release 10 meq PO QID quetiapine 100 mg Tablet 100 mg PO BID Fleet Enema 19-7 gram/118 mL Enema 118 ml OH DAILY PRN (Reason: Constipation) docusate sodium [Colace] 100 mg Capsule 100 mg PO BID vitamin B complex Tablet 1 tab PO DAILY lamotrigine [Lamictal] 100 mg Tablet 100 mg PO BID omega 6-tdv-lds-fish oil [Fish Oil] 1,000 mg (120 mg-180 mg) Capsule 1 cap PO BID ferrous gluconate 324 mg (37.5 mg iron) Tablet 324 mg PO DAILY Eliquis 5 mg Tablet 5 mg PO BID Anoro Ellipta 62.5-25 mcg/actuation Blister With Device 1 inh INHALATION DAILY magnesium L-lactate 84 mg tablet extended release 84 mg PO BID methenamine hippurate [Hiprex] 1 gram tablet 1 g PO ONCE 90 Days Qty: 90 2RF ascorbate calcium (vitamin C) 500 mg tablet 500 mg PO DAILY 90 Days Qty: 90 2RF
--- NOTE | 2023-03-29 09:22 | PC.NURSE ---
Skin pink warm and dry, afebrile. Not verbally responding, pt noted with mostly eyes closed however ?left sided gaze. Manisha HOGUE to bedside, CT ordered as pt out of room at this time for CT scan. other VS WNL. Suprapubic intact and patent at this time with yellow urine noted. Sinus kay on tele. Home 02 dependent at 2lpm via nc, sat 96% at this time, breathing even and unlabored, no distress. Abd protuberant.
[2023-03-29 09:50] LABS: MANUAL DIFF FLAG NO
--- NOTE | 2023-03-29 09:55 | PC.NURSE ---
Pt responding to painful stimuli, unable to fully acess nuero status at this time, pt with eyes closed awaiting k centra from pharamcy, respitations even and unlabored. pending trauma transfer to [facility]
[2023-03-29 09:57] LABS: Basophils Absolute Auto 0.1 X10*3/uL (0.0-0.2); Eosinophils Absolute Auto 0.4 X10*3/uL (0.0-0.4); Eosinophils Percent Auto 4.2 % (0-4); Hematocrit 41.5 % (42.0-52.0); Hemoglobin 13.1 g/dl (14.0-18.0); Imm Gran Abs Auto 0.02 X10*3/uL (0.00-0.03); Imm Gran Pct Auto 0.2 % (0.0-0.4); Lymphocytes Absolute Auto 2.5 X10*3/uL (1.2-4.9); Lymphocytes Percent Auto 26.3 % (20-40); Mean Corpuscular HGB Conc 31.6 g/dl (31.0-36.0); Mean Corpuscular Volume 85.4 fL (80.0-98.0); Mean Platelet Volume 10.8 fL (9.4-12.4); Monocytes Absolute Auto 0.6 X10*3/uL (0.1-1.2); Monocytes Percent Auto 6.8 % (2-11); Neutrophils Absolute Auto 5.8 x10*3/uL (2.0-8.3); Neutrophils Percent Auto 61.5 % (45-73); Platelet Count 284 X10*3/uL (160-400); Red Blood Count 4.86 X10*6/uL (4.60-5.80); Red Cell Distribution Width 15.8 % (11.0-16.0); White Blood Count 9.3 X10*3/uL (4.8-10.8)
[2023-03-29 09:59] LABS: INTERNATIONAL NORM RATIO 1.2 (0.9-1.1); Prothrombin Time 14.5 SEC (11.1-13.3)
[2023-03-29 10:05] LABS: Appearance Urine Cloudy; Color Urine Yellow; Glucose Urine UA Negative (Negative); Leukocyte Esterase Urine Large (3+) (Negative); Nitrite Urine Positive (Negative); Specific Gravity - Urine 1.015 (1.005-1.025); UMIC TRIGGER UACC YES; Urine Blood Large (3+) (Negative); Urine Ketones Negative (Negative); Urine Protein 100 (2+) mg/dL (Neg-Trace)
[2023-03-29 10:08] LABS: Bacteria Urine 4+ (None Seen); RBC Urine >20 /HPF (0-2); Squamous Epithelial Cell Urine 0-2 /HPF (0-2); UACC Culture Trigger YES; WBC Urine >50 /HPF (0-5)
[2023-03-29] MEDS: niCARdipine HCL 25 MG in 0.9 % Sodium Chloride 250 ML 52 MG IVCONT (10:08)
[2023-03-29] MEDS: cefTRIAXone sodium 1 GM in 0.9 % Sodium Chloride 50 ML IV (10:09)
[2023-03-29] MEDS: Hum Prothrombin Cplx(PCC)4Fact 2,000 UNIT in Container,Empty 0 ML 480 UNIT IV (10:10)
[2023-03-29 10:20] LABS: Alanine Aminotransferase 58 U/L (0-40); Albumin Level 4.1 g/dL (3.5-5.0); Alkaline Phosphatase 85 U/L (39-117); Anion Gap 14 (12-20); Aspartate Amino Transferase 50 U/L (5-37); Bilirubin Total 0.4 mg/dL (0.0-1.0); Blood Urea Nitrogen 17 mg/dL (9-16); Calcium 9.7 mg/dL (8.4-10.2); Carbon Dioxide 28 mmol/L (22-29); Chloride 106 mmol/L (96-108); Creatinine Clr Calc Pharmacy 61.3; Estimated Glomerular Filt Rate > 60; Glucose Random 111 mg/dL (60-115); Magnesium 2.2 mg/dL (1.6-2.6); Potassium 3.9 mmol/L (3.3-5.1); Sodium 144 mmol/L (135-145)
[2023-03-29 10:25] LABS: Troponin-I High Sensitivity < 2.7 ng/L (<3.5-35.0)
--- NOTE | 2023-03-29 10:31 | PC.NURSE ---
Report given to Deanna EVANS at [facility] daily room 9
[2023-03-29 10:35] LABS: Lactic Acid 0.8 mmol/L (0.5-2.0)
[2023-03-29 10:36] LABS: Influenza A PCR NEGATIVE (Negative); Influenza B PCR NEGATIVE (Negative); Resp Syncy Virus RNA Qual PCR NEGATIVE (Negative); SARS COV2 PCR INHOUSE NEGATIVE (Negative)
--- NOTE | 2023-03-29 10:57 | PC.NURSE ---
PT able to follow some commands, able to branch service associate bilaterally. opens eyes to painful stimuli. nicard drip stopped per provider as bp trending down. 148/88
== END 2023-03-29 11:52 | disposition short-term general hospital (02) ==
PROVIDERS: Physician Assistant; Emergency Provider Emergency Medicine Emergency Medical Services; PCP Hospitalist
DX: J18.9 Pneumonia, unspecified organism (principal); I62.9 Nontraumatic intracranial hemorrhage, unspecified; R00.1 Bradycardia, unspecified; R41.82 Altered mental status, unspecified; R51.9 Headache, unspecified; Z99.81 Dependence on supplemental oxygen; Z20.822 Contact with and (suspected) exposure to COVID-19; Z20.828 Contact with and (suspected) exposure to other viral communicable diseases; Z79.899 Other long term (current) drug therapy
CPT/HCPCS: 0241U; 36415; 70450; 71045; 80053; 81001; 83605; 83735; 84484; 85025; 85610; 87040; 87086; 93005; 96365; 96375; 99285; J0696; J2404; J7168

== ENCOUNTER → 2023-03-29 09:02 | Outpatient (BNV) | payer MEDICARE, MEDICAID, SELFPAY | PROVIDERS: Emergency Provider Emergency Medicine Emergency Medical Services; PCP Hospitalist; Visit Provider Internal Medicine Cardiovascular Disease | DX: R00.1 Bradycardia, unspecified (principal); R94.31 Abnormal electrocardiogram [ECG] [EKG] | CPT/HCPCS: 93010 ==